=== PATIENT | female | born 1935 | race Caucasian/White ===

== ENCOUNTER 2016-08-02 12:00 | Day surgery (SDC) | payer OTHER ==
[~2016-08-02] VITALS: Ht 157.5 cm; Wt 70.0 kg
--- NOTE | 2016-08-02 09:51 | History and Physical ---
History & Physical Chief Complaint: ESRD on HD thru permcath History of Present Illness The patient is a 80 year old female with multiple medical problems, including ESRD on HD and a fib who has been undergoing HD thru permcath which was not functioning this AM at HD unit. She previously had LUE AVF which thrombosed multiple times and has failed. She is to continue HD thru permcath. Pt denies NIELSEN, fever, chills, chest pain, N/V, abd pain, rest pain, claudication, other complaints. Allergies Hydrochlorothiazide (Verified Allergy, Intermediate, RASH, 01/17/15) NSAIDs (Verified Allergy, Intermediate, UNK, 01/17/15) Hydrocodone (Verified Allergy, Mild, RASH, 01/17/15) ERICK Inhibitors (Verified Allergy, Unknown, UNK, 01/17/15) Amlodipine (Verified Allergy, Unknown, UNK, 01/17/15) Benazepril (Verified Allergy, Unknown, UNK, 01/17/15) Cephalexin (Verified Allergy, Unknown, UNK, 01/17/15) Spironolactone (Verified Allergy, Unknown, UNK, 01/17/15) Surgical / Medical History Hx Cardiac Surgery: No Hx Abdominal Surgery: Yes (cholicystectomy ) Hx Cancer Surgery: Yes Hx Thoracic Surgery: No Hx Orthopedic: Yes (hip replacement and lumbar surgery ) Hx Urinary Tract Surgery: No HX Other Surgery:LUE AVF creation Family History Alzheimer's disease SISTER Cancer BROTHER Diabetes mellitus FATHER BROTHER SISTER SISTER SISTER Heart disease MOTHER Hypertension FATHER MOTHER Social History Smoking Status: Never Smoker Hx Tobacco Use In Past Year?: No Hx Alcohol Use - Type & Amnt: No Hx Substance Use -Type & Amnt: No Review of Systems No pertinent positives. 11 systems reviewed and negative Physical Exam: Constitutional: General Apperance: well-nourished, well-developed, obese Level of Distress: NAD, chronically ill Psychiatric: Mental Status: normal affect, Orientation: to person, time, place Head: normocephalic, atraumatic Eyes: EOM: EOMI ENMT: normal ENT inspection, hearing grossly normal Neck: supple, trachea midline Lungs: Respiratory effort: no dyspnea Auscultation: deminished air movement, decreased breath sounds, wet rales/ crackles Cardiovascular: Apical Impulse: not displaced Heart Auscultation: no rubs, no gallops, pertinent finding (irregular, pacer ) Peripheral Pulses: Pulses: full and equal, in all extremities except if noted Bruits: none appreciated Carotid Pulse: normal on the left, normal on the right Brachial Pulses: normal on the left, normal on the right Radial Pulse: normal on the left, normal on the right Femoral Pulse: normal on the left, normal on the right Abdomen: Bowel Sounds: normal Inspection & Palpation: soft, non-distended Musculoskeletal: abnormal strength Extremities: Upper Right: no cyanosis, no varicosities, no palpable cord, edema Upper Left: no cyanosis, no varicosities, no palpable cord, edema, no thrill and bruit present Lower Right: no cyanosis, no varicosities, no palpable cord, edema Lower Left: no cyanosis, no varicosities, no palpable cord, edema Neurologic: Cranial Nerves: grossly intact Sensation: grossly intact ASSESSMENT and PLAN: ESRD on HD, malfunctioning permcath Plan: Patient admitted for permcath insertion by Dr Guillory. I have discussed the risks options and benefits of the procedure with the patient. The patient understands the risks options and benefits and agrees to the procedure. Patient was seen, examined, and chart reviewed. Agree with exam and treatment plan of the Vascular PA. Patient for exchange of her permcath. I have discussed the risks options and benefits of the procedure with the patient. The patient understands the risks options and benefits and agrees to the procedure.
[~2016-08-02 12:00] MED LIST: ALLO100T PO; ASPI-232 PO; B CO PO; CLINDAMYCIN 600 MG/54 ML D5W 54 ML IV SCH; D5W AND 1/4NSS 1,000 ML IV SCH; DOCU-94 PO; GABA-112 PO; INSDGI SC; METO100T14 PO; OMEP20TA PO; OXGN; OXYC-57 PO; SERT25TA PO; SEVE800T7 PO; TRAM-10 PO
--- NOTE | 2016-08-02 12:05 | Procedure Note ---
Pre-Mod Sedation Assessment General Date of Moderate Sedation: Aug 02, 2016. Pre-Sedation Airway Assessment Smoking Status: Never Smoker Mallampati Classification: Class I ASA Classification: Class II Notes The planned sedation has been discussed with the patient and consent obtained. I have identified the patient, determined the appropriateness of sedation and have assessed the patient immediately prior to the procedure. All medicine(s) and interventions are by my order.
[2016-08-02] MEDS ORDERED: [UNRECOGNIZED DRUG - CODE] PO (12:22)
[2016-08-02 12:25] VITALS: BP 128/53; PULSE 73; TEMP 36.9; O2SAT 98; Ht 157.5 cm; Wt 70.0 kg
[2016-08-02] MEDS ORDERED: HEPARIN SOD (PORCINE) 5000 UNIT/ML 1 ML VIAL ONE (12:26)
[2016-08-02] MEDS ORDERED: MIDAZOLAM HCL 1 MG/ML 2ML VIAL ONE (12:27)
[2016-08-02] MEDS ORDERED: FENTANYL CITRATE INJ 50 MCG/1 ML 2 ML VIAL ONE (12:27)
[2016-08-02] MEDS ORDERED: LIDOCAINE HCL 1% 20 ML VIAL INJ ONE (13:06)
[2016-08-02] MEDS ORDERED: HEPARIN SOD (PORCINE) 5000 UNIT/ML 1 ML VIAL IV ONE (13:15)
--- NOTE | 2016-08-02 13:17 | [facility] Post Operative Brief Note ---
Immediate Operative Summary Operative Date Aug 02, 2016. Pre-Operative Diagnosis Malfunctioning Perm Catheter Post-Operative Diagnosis Same Procedure(s) Performed Exchange Of Perm Catheter, [place] For Positioning Surgeon Dr. Guillory Traffic Safety Administrator Surgeon(s) None Estimated Blood Loss 3 ml Findings tip in distal svc Specimens Explant Perm Catheter Anesthesia Local Complication(s) None Disposition
--- NOTE | 2016-08-02 13:19 | Discharge Instructions ---
Discharge Instructions Visit Reason for Visit: Malfunctioning Perm Cath Discharge Discharge Diagnosis / Problem: Non functioning permcath Discharge Goals Goal(s): Therapeutic intervention Activity Recommendations Activity Limitations: per Instructions/Follow-up section Anesthesia . Post Anesthesia Instructions: If you have had General Anesthesia or IV Sedation: * Do not drive today. * Resume driving when surgeon permits. * Do not make important decisions or sign legal documents today. * Call surgeon for: 1. Temperature elevations greater than 101 degrees F. 2. Uncontrollable pain. 3. Excessive bleeding. 4. Persistent nausea and vomiting. 5. Medication intolerance (nausea, vomiting or rash). * For nausea and vomiting use only clear liquids such as: tea, soda, bouillon until nausea subsides, then gradually increase diet as tolerated. * If you have any concerns or questions, call your surgeon's office. If physician is unavailable and it is an emergency, call 111 or go to the nearest emergency room. . Instructions / Follow-Up Instructions / Follow-Up Take this with you to dialysis and give it to the nurses. May use permcath for dialysis. Call [phone] with any questions or concerns. SPECIAL CARE INSTRUCTIONS: Medications: * Continue to take your medications as directed. If you have been given a prescription for Plavix, please fill it immediately and take as directed. Incision Care: * Your puncture site may have some bruising and minor swelling for about one week. * You will have a small dressing covering your puncture site. You may remove the dressing after 24 hours and shower. You may let the warm soapy water run over it, but be sure to dry the puncture site well and keep it dry. * DO NOT IMMERSE THE INCISION IN A TUB/POOL/etc. UNTIL HEALED. * Puncture sites should be kept covered with a band-aid until it begins to heal. Restrictions: * Depending on whether you leg or arm was punctured to access the arteries, you will be required to lay flat, hold your arm still, or both, for about 4 hours after the procedure to prevent bleeding. * Limit your activity for the first 48 hours. You may walk and go up and down steps. Avoid excessive bending or movement at the puncture site. Possible Complications: * Excessive Swelling - after blood flow is improved you may notice increased swelling in the lower legs. This is a normal response. This usually depends on the amount of blockages in the leg, how long they have been there prior to your procedure and how much blood flow was restored. Elevating your legs will help to improve this. Please notify our office ([phone] ) if the swelling does not go away after lying in bed overnight. * Infection/Drainage/Bleeding - Drainage or bleeding from the puncture site should be minimal. If you have excessive bleeding or drainage, call our office ([phone]) right away. * Pain - You may experience some mild pain or soreness at your puncture site. If your pain does not improve, please contact our office ([phone]). Call your doctor and seek emergent treatment if you develop: * Temperature above 101 degrees * Any fever or chills * Any redness or purulent drainage from the puncture site * Any new dusky/blue colored toes or feet with coolness or sharp or aching pain. SKIN IRRITATION: * You may experience some redness and/or swelling in the area where radiation was administered. If any skin irritation occurs, please contact your family physician. FOLLOW UP VISIT: Keep any scheduled doctor appointments. Diet Recommendations Recommended Home Diet: resume previous diet Procedures Procedures Performed: Exchange Of Perm Catheter, Flouro For Positioning Pending Studies Studies pending at discharge: no Medical Emergencies . Who to Call and When: Medical Emergencies: If at any time you feel your situation is an emergency, please call 911 immediately. . Non-Emergent Contact Non-Emergency issues call your: Surgeon . . "Provider Documentation" section prepared by Jossue Guillory.
[2016-08-02 13:30] VITALS: BP 107/48; PULSE 78; TEMP 36.6; O2SAT 96
--- NOTE | 2016-08-02 13:30 | DIAGNOSTIC IMAGING REPORT ---
DATE OF PROCEDURE: 08/02/2016 PREOPERATIVE DIAGNOSIS: Nonfunctioning PermCath. POSTOPERATIVE DIAGNOSIS: Same. PROCEDURES: 1. Exchange of PermCath left internal jugular. 2. Fluoroscopic imaging for positioning. SURGEON: Dr. Guillory. ANESTHETIC: Local. PROCEDURE INDICATIONS: The patient is a 80-year-old female with PermCath in place which is not functioning. Exchange was recommended. She understood the risks, options, and benefits and agreed to have this procedure. DESCRIPTION OF PROCEDURE: The patient was taken to the angio suite and placed in supine position. After the catheter and chest wall were prepped and draped in a sterile manner, local anesthetic was administered. Wire was then inserted through the blue port of the PermCath. It passed into the inferior vena cava. The PermCath was then freed up from the surrounding tissue. The cuff was identified. There was fibrin sheath around that was incised. The PermCath then slid out easily. It was replaced with another 23 cm straight PermCath. This went into the left internal jugular vein down into the superior vena cava. The wire was then removed. Both ports aspirated and flushed very easily. It was instilled with heparin. The catheter was sutured in place within the chest wall. Heparin was then instilled in both ports. Sterile dressings were applied to the wound and the patient left the angio suite in good condition and tolerated the procedure well.
[2016-08-02 14:00] VITALS: BP 101/43; PULSE 70; TEMP 36.4; O2SAT 97
[2017-03-10] MEDS ORDERED: METO1TAB69 PO (10:22)
[2017-03-10] MEDS ORDERED: SERT50TA PO (10:22)
[2017-03-10] MEDS ORDERED: AMINLIQ31 PO (10:22)
[2017-03-10] MEDS ORDERED: LNX125 PO (10:22)
[2017-04-01] MEDS ORDERED: METO1TAB68 PO (17:56)
== END 2016-08-02 14:25 | disposition home or self-care (01) ==
LOC: C.ACU 12:00
PROVIDERS: ATTEND Surgery Vascular Surgery
DX: T82.898A Other specified complication of vascular prosthetic devices, implants and grafts, initial encounter (principal); Y84.8 Other medical procedures as the cause of abnormal reaction of the patient, or of later complication, without mention of misadventure at the time of the procedure; N18.6 End stage renal disease; Z99.2 Dependence on renal dialysis; I48.91 Unspecified atrial fibrillation; Z90.49 Acquired absence of other specified parts of digestive tract; Z96.649 Presence of unspecified artificial hip joint; Z98.890 Other specified postprocedural states; Z82.0 Family history of epilepsy and other diseases of the nervous system; Z80.9 Family history of malignant neoplasm, unspecified; Z83.3 Family history of diabetes mellitus; Z82.49 Family history of ischemic heart disease and other diseases of the circulatory system

== ENCOUNTER 2016-08-13 08:20 | Day surgery (SDC) | payer OTHER ==
[~2016-08-13] VITALS: Ht 157.5 cm; Wt 70.0 kg
--- NOTE | 2016-08-13 07:44 | Procedure Note ---
Pre-Mod Sedation Assessment General Date of Moderate Sedation: Aug 13, 2016. Pre-Sedation Airway Assessment Smoking Status: Never Smoker Mallampati Classification: Class I ASA Classification: Class II Notes The planned sedation has been discussed with the patient and consent obtained. I have identified the patient, determined the appropriateness of sedation and have assessed the patient immediately prior to the procedure. All medicine(s) and interventions are by my order.
[~2016-08-13 08:20] MED LIST changes: -ASPI-232 PO; -CLINDAMYCIN 600 MG/54 ML D5W 54 ML IV SCH; -D5W AND 1/4NSS 1,000 ML IV SCH; -OXYC-57 PO; -TRAM-10 PO; +[UNRECOGNIZED DRUG - CODE] PO
[2016-08-13] MEDS ORDERED: D5W AND 1/4NSS 1,000 ML IV SCH (08:46)
[2016-08-13 08:50] VITALS: BP 142/57; PULSE 87; TEMP 36.5; O2SAT 95; Ht 157.5 cm; Wt 70.0 kg
[2016-08-13] MEDS ORDERED: CLINDAMYCIN IV 600 MG in DEXTROSE 5% ADD-VANTAGE 50ML 50 ML IV ONE (09:15)
[2016-08-13] MEDS ORDERED: HEPARIN SOD (PORCINE) 5000 UNIT/ML 1 ML VIAL ONE (09:30)
[2016-08-13] MEDS ORDERED: FENTANYL CITRATE INJ 50 MCG/1 ML 2 ML VIAL ONE (09:30)
[2016-08-13] MEDS ORDERED: MIDAZOLAM HCL 1 MG/ML 2ML VIAL ONE (09:30)
--- NOTE | 2016-08-13 09:41 | History & Physical Bridge Note ---
H&P Re-Evaluation Bridge Note: I have examined the patient, reviewed the History & Physical and in the interval since the performance of the History & Physical I have noted the following changes of clinical significance: No changes noted
[2016-08-13] MEDS ORDERED: HEPARIN SOD (PORCINE) 5000 UNIT/ML 1 ML VIAL IV ONE (10:49)
[2016-08-13] MEDS ORDERED: LIDOCAINE HCL 1% 20 ML VIAL SQ ONE (10:49)
--- NOTE | 2016-08-13 10:52 | [facility] Post Operative Brief Note ---
Immediate Operative Summary Operative Date Aug 13, 2016. Pre-Operative Diagnosis Malfunctioning Perm Catheter Post-Operative Diagnosis Same Procedure(s) Performed Perm Catheter Exchange Fluoro for postioning Surgeon Dr. Guillory Die Sinker Surgeon(s) None Estimated Blood Loss 10 Findings tip in distal SVC. aspirates and flushes easily Specimens Explant Perm Catheter Anesthesia Local Complication(s) None Disposition
--- NOTE | 2016-08-13 10:56 | Discharge Instructions ---
Discharge Instructions Visit Reason for Visit: End Stage Renal Disease Discharge Discharge Diagnosis / Problem: Malfunctioning permcath Discharge Goals Goal(s): Therapeutic intervention Activity Recommendations Activity Limitations: per Instructions/Follow-up section Anesthesia . Post Anesthesia Instructions: If you have had General Anesthesia or IV Sedation: * Do not drive today. * Resume driving when surgeon permits. * Do not make important decisions or sign legal documents today. * Call surgeon for: 1. Temperature elevations greater than 101 degrees F. 2. Uncontrollable pain. 3. Excessive bleeding. 4. Persistent nausea and vomiting. 5. Medication intolerance (nausea, vomiting or rash). * For nausea and vomiting use only clear liquids such as: tea, soda, bouillon until nausea subsides, then gradually increase diet as tolerated. * If you have any concerns or questions, call your surgeon's office. If physician is unavailable and it is an emergency, call 911 or go to the nearest emergency room. . Instructions / Follow-Up Instructions / Follow-Up Bring this form to dialysis with you and give to the unit May use permcath for dialysis SPECIAL CARE INSTRUCTIONS: Medications: * Continue to take your medications as directed. If you have been given a prescription for Plavix, please fill it immediately and take as directed. Incision Care: * Your puncture site may have some bruising and minor swelling for about one week. * You will have a small dressing covering your puncture site. You may remove the dressing after 24 hours and shower. You may let the warm soapy water run over it, but be sure to dry the puncture site well and keep it dry. * DO NOT IMMERSE THE INCISION IN A TUB/POOL/etc. UNTIL HEALED. * Puncture sites should be kept covered with a band-aid until it begins to heal. Restrictions: * Depending on whether you leg or arm was punctured to access the arteries, you will be required to lay flat, hold your arm still, or both, for about 4 hours after the procedure to prevent bleeding. * Limit your activity for the first 48 hours. You may walk and go up and down steps. Avoid excessive bending or movement at the puncture site. Possible Complications: * Excessive Swelling - after blood flow is improved you may notice increased swelling in the lower legs. This is a normal response. This usually depends on the amount of blockages in the leg, how long they have been there prior to your procedure and how much blood flow was restored. Elevating your legs will help to improve this. Please notify our office ([phone] ) if the swelling does not go away after lying in bed overnight. * Infection/Drainage/Bleeding - Drainage or bleeding from the puncture site should be minimal. If you have excessive bleeding or drainage, call our office ([phone]) right away. * Pain - You may experience some mild pain or soreness at your puncture site. If your pain does not improve, please contact our office ([phone]). Call your doctor and seek emergent treatment if you develop: * Temperature above 101 degrees * Any fever or chills * Any redness or purulent drainage from the puncture site * Any new dusky/blue colored toes or feet with coolness or sharp or aching pain. SKIN IRRITATION: * You may experience some redness and/or swelling in the area where radiation was administered. If any skin irritation occurs, please contact your family physician. FOLLOW UP VISIT: Keep any scheduled doctor appointments. Diet Recommendations Recommended Home Diet: resume previous diet Procedures Procedures Performed: Perm Catheter Exchange Fluoro for postioning Pending Studies Studies pending at discharge: no Medical Emergencies . Who to Call and When: Medical Emergencies: If at any time you feel your situation is an emergency, please call 911 immediately. . Non-Emergent Contact Non-Emergency issues call your: Surgeon . . "Provider Documentation" section prepared by Jossue Guillory.
[2016-08-13 11:00] VITALS: BP 127/63; PULSE 82; TEMP 36.7; O2SAT 98
--- NOTE | 2016-08-13 11:20 | DIAGNOSTIC IMAGING REPORT ---
DATE OF PROCEDURE: 08/13/2016 PREOPERATIVE DIAGNOSIS: Malfunctioning PermCath left internal jugular vein. POSTOPERATIVE DIAGNOSIS: Same. PROCEDURE: Exchange of PermCath over wire, fluoroscopic imaging for positioning. SURGEON: Dr. Guillory. ANESTHETIC: Local. PROCEDURE INDICATIONS: The patient is a 80-year-old female with a left internal jugular vein PermCath. They could not aspirate out of either port. Exchange was recommended. She understood the risks, options and benefits, and agreed to have this procedure. The patient was taken to the angio suite and placed in supine position. After right-sided chest wall and catheter were prepped and draped in a sterile manner, local anesthetic was administered. Sutures removed, wire was passed centrally through the blue port of the catheter and the catheter was removed without difficulty. Blunt dissection was used to free up the cuff. Once the catheter was removed, a new 23 cm straight PermCath was inserted over the wire and placed in the central position in the distal superior vena cava. Both ports aspirated and flushed very easily. They were instilled with heparin. Catheter was sutured to chest wall with 3-0 nylon sutures. Sterile dressings were then applied and the patient left the angio suite in good condition and tolerated the procedure well.
[2016-08-13 11:30] VITALS: BP 122/51; PULSE 87; O2SAT 98
[2016-08-14] MEDS ORDERED: CLINDAMYCIN 600 MG/54 ML D5W IV ONE (09:20)
[2017-03-10] MEDS ORDERED: LNX125 PO (10:22)
[2017-03-10] MEDS ORDERED: SERT50TA PO (10:22)
[2017-03-10] MEDS ORDERED: METO1TAB69 PO (10:22)
[2017-03-10] MEDS ORDERED: AMINLIQ31 PO (10:22)
[2017-04-01] MEDS ORDERED: METO1TAB68 PO (17:56)
== END 2016-08-13 12:10 | disposition home or self-care (01) ==
LOC: C.ACU 08:20
PROVIDERS: ATTEND Surgery Vascular Surgery
DX: T82.898A Other specified complication of vascular prosthetic devices, implants and grafts, initial encounter (principal); Y84.8 Other medical procedures as the cause of abnormal reaction of the patient, or of later complication, without mention of misadventure at the time of the procedure; N18.6 End stage renal disease; Z99.2 Dependence on renal dialysis; Z96.649 Presence of unspecified artificial hip joint; Z98.890 Other specified postprocedural states; Z81.8 Family history of other mental and behavioral disorders; Z80.9 Family history of malignant neoplasm, unspecified; Z83.3 Family history of diabetes mellitus; Z82.49 Family history of ischemic heart disease and other diseases of the circulatory system

== ENCOUNTER 2016-11-30 07:37 | Day surgery (SDC) | payer OTHER ==
[~2016-11-30] VITALS: Ht 157.5 cm; Wt 73.0 kg
[~2016-11-30 07:37] MED LIST changes: +CIMETIDINE 300 MG TAB PO ONE; +CLINDAMYCIN 600 MG/54 ML D5W IV SCH; +D5W AND 1/4NSS 1000 ML IV SCH
--- NOTE | 2016-11-30 07:45 | History and Physical ---
History & Physical Date of Service November 30, 2016. History & Physical Chief Complaint: ESRD on HD thru permcath History of Present Illness The patient is a 80 year old female with multiple medical problems, including ESRD on HD and a fib who has been undergoing HD thru permcath which was not functioning this week at the HD unit. She previously had LUE AVF which thrombosed multiple times and has failed. She is to continue HD thru permcath. Pt denies NIELSEN, fever, chills, chest pain, N/V, abd pain, rest pain, claudication, other complaints. Allergies Hydrochlorothiazide (Verified Allergy, Intermediate, RASH, 01/17/15) NSAIDs (Verified Allergy, Intermediate, UNK, 01/17/15) Hydrocodone (Verified Allergy, Mild, RASH, 01/17/15) ERICK Inhibitors (Verified Allergy, Unknown, UNK, 01/17/15) Amlodipine (Verified Allergy, Unknown, UNK, 01/17/15) Benazepril (Verified Allergy, Unknown, UNK, 01/17/15) Cephalexin (Verified Allergy, Unknown, UNK, 01/17/15) Spironolactone (Verified Allergy, Unknown, UNK, 01/17/15) Surgical / Medical History Hx Cardiac Surgery: No Hx Abdominal Surgery: Yes (cholicystectomy ) Hx Cancer Surgery: Yes Hx Thoracic Surgery: No Hx Orthopedic: Yes (hip replacement and lumbar surgery ) Hx Urinary Tract Surgery: No HX Other Surgery:LUE AVF creation Family History Alzheimer's disease SISTER Cancer BROTHER Diabetes mellitus FATHER BROTHER SISTER SISTER SISTER Heart disease MOTHER Hypertension FATHER MOTHER Social History Smoking Status: Never Smoker Hx Tobacco Use In Past Year?: No Hx Alcohol Use - Type & Amnt: No Hx Substance Use -Type & Amnt: No Review of Systems No pertinent positives. 11 systems reviewed and negative Physical Exam: Constitutional: General Apperance: well-nourished, well-developed, obese Level of Distress: NAD, chronically ill Psychiatric: Mental Status: normal affect, Orientation: to person, time, place Head: normocephalic, atraumatic Eyes: EOM: EOMI ENMT: normal ENT inspection, hearing grossly normal Neck: supple, trachea midline Lungs: Respiratory effort: no dyspnea Auscultation: clear Cardiovascular: Apical Impulse: not displaced Heart Auscultation: no rubs, no gallops, pertinent finding (irregular, pacer ) Peripheral Pulses: Pulses: full and equal, in all extremities except if noted Bruits: none appreciated Carotid Pulse: normal on the left, normal on the right Brachial Pulses: normal on the left, normal on the right Radial Pulse: normal on the left, normal on the right Femoral Pulse: normal on the left, normal on the right Abdomen: Bowel Sounds: normal Inspection & Palpation: soft, non-distended Musculoskeletal: abnormal strength Extremities: Upper Right: no cyanosis, no varicosities, no palpable cord, Upper Left: no cyanosis, no varicosities, no palpable cord, Lower Right: no cyanosis, no varicosities, no palpable cord, Lower Left: no cyanosis, no varicosities, no palpable cord, Neurologic: Cranial Nerves: grossly intact Sensation: grossly intact ASSESSMENT and PLAN: ESRD on HD, malfunctioning permcath Plan: Patient admitted for permcath exchange possible insertion. I have discussed the risks options and benefits of the procedure with the patient. The patient understands the risks options and benefits and agrees to the procedure.
--- NOTE | 2016-11-30 07:45 | Procedure Note ---
Pre-Mod Sedation Assessment General Date of Moderate Sedation: November 30, 2016. Pre-Sedation Airway Assessment Smoking Status: Never Smoker Mallampati Classification: Class I ASA Classification: Class II Notes The planned sedation has been discussed with the patient and consent obtained. I have identified the patient, determined the appropriateness of sedation and have assessed the patient immediately prior to the procedure. All medicine(s) and interventions are by my order.
[2016-11-30 08:05] VITALS: BP 125/59; PULSE 70; TEMP 36.9; O2SAT 95; Ht 157.5 cm; Wt 73.0 kg
[2016-11-30] MEDS ORDERED: DILT120C68 PO (08:28)
[2016-11-30] MEDS ORDERED: OXYC-57 PO (08:28)
[2016-11-30 08:36] LABS: PARTIAL THROMBOPLASTIN RATIO 1.1; PROTHROMBIN TIME (PATIENT) 10.5 SECONDS (9.0-12.0)
[2016-11-30] MEDS ORDERED: HEPARIN SOD (PORCINE) 5000 UNIT/ML 1 ML VIAL ONE (08:46)
[2016-11-30] MEDS ORDERED: FENTANYL CITRATE INJ 50 MCG/1 ML 2 ML VIAL ONE (08:47)
[2016-11-30] MEDS ORDERED: MIDAZOLAM HCL 1 MG/ML 2ML VIAL ONE (08:47)
[2016-11-30] MEDS ORDERED: FENTANYL CITRATE INJ 50 MCG/1 ML 2 ML VIAL IV ONE (09:33)
[2016-11-30] MEDS ORDERED: MIDAZOLAM HCL 1 MG/ML 2ML VIAL IV ONE (09:33)
[2016-11-30] MEDS ORDERED: HEPARIN SOD (PORCINE) 5000 UNIT/ML 1 ML VIAL IV ONE (09:43)
[2016-11-30] MEDS ORDERED: LIDOCAINE HCL 1% 20 ML VIAL INFIL ONE (09:43)
--- NOTE | 2016-11-30 09:49 | [facility] Post Operative Brief Note ---
Immediate Operative Summary Operative Date November 30, 2016. Pre-Operative Diagnosis Malfunctioning Perm Cath Post-Operative Diagnosis Same Procedure(s) Performed Perm Cath Exchange Fluoroscopy for Comfirmation Moderate Sedation [id number] Surgeon Kahlil Environmental Program Manager Surgeon(s) None Estimated Blood Loss 3 Findings tip in distal IVC Specimens a:perm cath Anesthesia Local with conscious sedation Complication(s) None Disposition
--- NOTE | 2016-11-30 09:50 | Procedure Note ---
Post-Moderate Sedation Plan General Date of Moderate Sedation November 30, 2016. Vital Signs: Vital Signs Past 12 Hours Date Time Temp Pulse Resp B/P Pulse Ox O2 Delivery O2 Flow Rate FiO2 11/30/16 08:05 36.9 70 20 125/59 95 Room Air Review - Discharge Plan Post Moderate Sedation Plan: On clinical assessment, the patient appears to have tolerated the conscious sedation without complications. Patient is recovering as anticipated. Patient will continue to be monitored by nursing and may be discharged when conscious sedation discharge criteria are met.
--- NOTE | 2016-11-30 09:51 | Discharge Instructions ---
Discharge Instructions Date of Service November 30, 2016. Visit Reason for Visit: End Stage Renal Disease, Malfunctioning Perm Cath Discharge Discharge Diagnosis / Problem: Malfunctioning permcath Discharge Goals Goal(s): Therapeutic intervention Activity Recommendations Activity Limitations: resume your previous activity Anesthesia . Post Anesthesia Instructions: If you have had General Anesthesia or IV Sedation: * Do not drive today. * Resume driving when surgeon permits. * Do not make important decisions or sign legal documents today. * Call surgeon for: 1. Temperature elevations greater than 101 degrees F. 2. Uncontrollable pain. 3. Excessive bleeding. 4. Persistent nausea and vomiting. 5. Medication intolerance (nausea, vomiting or rash). * For nausea and vomiting use only clear liquids such as: tea, soda, bouillon until nausea subsides, then gradually increase diet as tolerated. * If you have any concerns or questions, call your surgeon's office. If physician is unavailable and it is an emergency, call 911 or go to the nearest emergency room. . Instructions / Follow-Up Instructions / Follow-Up Call [phone] with any questions or concerns. SPECIAL CARE INSTRUCTIONS: Medications: * Continue to take your medications as directed. If you have been given a prescription for Plavix, please fill it immediately and take as directed. Incision Care: * Your puncture site may have some bruising and minor swelling for about one week. * You will have a small dressing covering your puncture site. You may remove the dressing after 24 hours and shower. You may let the warm soapy water run over it, but be sure to dry the puncture site well and keep it dry. * DO NOT IMMERSE THE INCISION IN A TUB/POOL/etc. UNTIL HEALED. * Puncture sites should be kept covered with a band-aid until it begins to heal. Restrictions: * Depending on whether you leg or arm was punctured to access the arteries, you will be required to lay flat, hold your arm still, or both, for about 4 hours after the procedure to prevent bleeding. * Limit your activity for the first 48 hours. You may walk and go up and down steps. Avoid excessive bending or movement at the puncture site. Possible Complications: * Excessive Swelling - after blood flow is improved you may notice increased swelling in the lower legs. This is a normal response. This usually depends on the amount of blockages in the leg, how long they have been there prior to your procedure and how much blood flow was restored. Elevating your legs will help to improve this. Please notify our office ([phone] ) if the swelling does not go away after lying in bed overnight. * Infection/Drainage/Bleeding - Drainage or bleeding from the puncture site should be minimal. If you have excessive bleeding or drainage, call our office ([phone]) right away. * Pain - You may experience some mild pain or soreness at your puncture site. If your pain does not improve, please contact our office ([phone]). Call your doctor and seek emergent treatment if you develop: * Temperature above 101 degrees * Any fever or chills * Any redness or purulent drainage from the puncture site * Any new dusky/blue colored toes or feet with coolness or sharp or aching pain. SKIN IRRITATION: * You may experience some redness and/or swelling in the area where radiation was administered. If any skin irritation occurs, please contact your family physician. FOLLOW UP VISIT: Keep any scheduled doctor appointments. Diet Recommendations Recommended Home Diet: resume previous diet Procedures Procedures Performed: Perm Cath Exchange Fluoroscopy for Comfirmation Moderate Sedation [id number] Pending Studies Studies pending at discharge: no Medical Emergencies . Who to Call and When: Medical Emergencies: If at any time you feel your situation is an emergency, please call 911 immediately. . Non-Emergent Contact Non-Emergency issues call your: Surgeon . . "Provider Documentation" section prepared by Jossue Guillory. .
--- NOTE | 2016-11-30 09:59 | Procedure Note ---
Post-Moderate Sedation Plan General Date of Moderate Sedation November 30, 2016. Vital Signs: Vital Signs Past 12 Hours Date Time Temp Pulse Resp B/P Pulse Ox O2 Delivery O2 Flow Rate FiO2 11/30/16 09:47 84 18 109/50 100 Room Air 11/30/16 08:05 36.9 70 20 125/59 95 Room Air Review - Discharge Plan Post Moderate Sedation Plan: On clinical assessment, the patient appears to have tolerated the conscious sedation without complications. Patient is recovering as anticipated. Patient will continue to be monitored by nursing and may be discharged when conscious sedation discharge criteria are met.
[2016-11-30 10:00] VITALS: BP 101/52; PULSE 69; TEMP 36.7; O2SAT 94
[2016-11-30 10:15] VITALS: BP 99/49; PULSE 66; O2SAT 95
[2016-11-30 10:30] VITALS: BP 105/63; PULSE 65; TEMP 36.3; O2SAT 95
--- NOTE | 2016-11-30 10:39 | DIAGNOSTIC IMAGING REPORT ---
DATE OF PROCEDURE: 11/30/2016 PREOPERATIVE DIAGNOSIS: Malfunctioning left internal jugular vein PermCath. POSTOPERATIVE DIAGNOSIS: Same. PROCEDURE: Exchange of PermCath to 23 cm length. Fluoroscopic imaging for positioning conscious sedation 12 minutes. SURGEON: Dr. Guillory. ANESTHETIC: Local with conscious sedation. PROCEDURE INDICATIONS: The patient is an 81-year-old female who has a left internal jugular vein PermCath in place which is nonfunctional. Exchange was recommended. She understood the risks, options and benefits and agreed to have this procedure. The patient was taken to the angio suite and placed in supine position. After the area was prepped and draped in a sterile manner, local anesthetic was administered. Fluoroscopic imaging showed that the PermCath in place, and looked like it was twirled around the lead wires of her pacer. We passed a wire through her existing PermCath and pulled it back into the subclavian innominate junction. The wire was then reinserted. It had a nice curve and it looked like it was not involving the leads. It went into the inferior vena cava from above. The new PermCath was then inserted. It went in easily. The tip sat in the distal superior vena cava. Both ports aspirated and flushed easily. They were instilled with heparin and the catheter was sutured in place. Sterile dressings were applied. The patient tolerated the procedure well.
[2017-03-10] MEDS ORDERED: AMINLIQ31 PO (10:22)
[2017-03-10] MEDS ORDERED: LNX125 PO (10:22)
[2017-03-10] MEDS ORDERED: METO100T44 PO (10:22)
[2017-03-10] MEDS ORDERED: SERT50TA PO (10:22)
[2017-03-28] MEDS ORDERED: METO-479 PO (11:07)
[2017-04-01] MEDS ORDERED: METO-479 PO (17:56)
[2017-06-20] MEDS ORDERED: INSDGI SC (11:20)
[2017-06-20] MEDS ORDERED: ERGO500037 PO (11:21)
[2017-06-20] MEDS ORDERED: B CO PO (11:22)
[2017-06-20] MEDS ORDERED: METO-649 PO (11:26)
[2017-06-20] MEDS ORDERED: METO-217 PO (11:26)
[2017-06-22] MEDS ORDERED: TRAM-10 PO (10:12)
== END 2016-11-30 10:40 | disposition home or self-care (01) ==
LOC: C.ACU 07:37
PROVIDERS: ATTEND Surgery Vascular Surgery
DX: T82.898A Other specified complication of vascular prosthetic devices, implants and grafts, initial encounter (principal); Y83.1 Surgical operation with implant of artificial internal device as the cause of abnormal reaction of the patient, or of later complication, without mention of misadventure at the time of the procedure; N18.6 End stage renal disease; I48.91 Unspecified atrial fibrillation; E66.9 Obesity, unspecified; Z83.3 Family history of diabetes mellitus; Z82.49 Family history of ischemic heart disease and other diseases of the circulatory system

== ENCOUNTER 2017-01-07 07:08 | Day surgery (SDC) | payer OTHER ==
[~2017-01-07] VITALS: Ht 157.5 cm; Wt 72.0 kg
--- NOTE | 2017-01-07 06:00 | History and Physical ---
History & Physical Date of Service Jan 07, 2017. History & Physical History & Physical Chief Complaint: ESRD on HD thru permcath, malfunctioning permcath History of Present Illness The patient is a 80 year old female with multiple medical problems, including ESRD on HD and a fib who has been undergoing HD thru permcath which was not functioning this week at the HD unit. She previously had LUE AVF which thrombosed multiple times and has failed. She is to continue HD thru permcath. Pt denies NIELSEN, fever, chills, chest pain, N/V, abd pain, rest pain, claudication, other complaints. Allergies Hydrochlorothiazide (Verified Allergy, Intermediate, RASH, 01/17/15) NSAIDs (Verified Allergy, Intermediate, UNK, 01/17/15) Hydrocodone (Verified Allergy, Mild, RASH, 01/17/15) ERICK Inhibitors (Verified Allergy, Unknown, UNK, 01/17/15) Amlodipine (Verified Allergy, Unknown, UNK, 01/17/15) Benazepril (Verified Allergy, Unknown, UNK, 01/17/15) Cephalexin (Verified Allergy, Unknown, UNK, 01/17/15) Spironolactone (Verified Allergy, Unknown, UNK, 01/17/15) Surgical / Medical History Hx Cardiac Surgery: No Hx Abdominal Surgery: Yes (cholicystectomy ) Hx Cancer Surgery: Yes Hx Thoracic Surgery: No Hx Orthopedic: Yes (hip replacement and lumbar surgery ) Hx Urinary Tract Surgery: No HX Other Surgery:LUE AVF creation Family History Alzheimer's disease SISTER Cancer BROTHER Diabetes mellitus FATHER BROTHER SISTER SISTER SISTER Heart disease MOTHER Hypertension FATHER MOTHER Social History Smoking Status: Never Smoker Hx Tobacco Use In Past Year?: No Hx Alcohol Use - Type & Amnt: No Hx Substance Use -Type & Amnt: No Review of Systems No pertinent positives. 11 systems reviewed and negative Physical Exam: Constitutional: General Apperance: well-nourished, well-developed, obese Level of Distress: NAD, chronically ill Psychiatric: Mental Status: normal affect, Orientation: to person, time, place Head: normocephalic, atraumatic Eyes: EOM: EOMI ENMT: normal ENT inspection, hearing grossly normal Neck: supple, trachea midline Lungs: Respiratory effort: no dyspnea Auscultation: clear Cardiovascular: Apical Impulse: not displaced Heart Auscultation: no rubs, no gallops, pertinent finding (irregular, pacer ) Peripheral Pulses: Pulses: full and equal, in all extremities except if noted Bruits: none appreciated Carotid Pulse: normal on the left, normal on the right Brachial Pulses: normal on the left, normal on the right Radial Pulse: normal on the left, normal on the right Femoral Pulse: normal on the left, normal on the right Abdomen: Bowel Sounds: normal Inspection & Palpation: soft, non-distended Musculoskeletal: abnormal strength Extremities: Upper Right: no cyanosis, no varicosities, no palpable cord, Upper Left: no cyanosis, no varicosities, no palpable cord, Lower Right: no cyanosis, no varicosities, no palpable cord, Lower Left: no cyanosis, no varicosities, no palpable cord, Neurologic: Cranial Nerves: grossly intact Sensation: grossly intact ASSESSMENT and PLAN: ESRD on HD, malfunctioning permcath Plan: Patient admitted for permcath exchange possible insertion. I have discussed the risks options and benefits of the procedure with the patient. The patient understands the risks options and benefits and agrees to the procedure.
[~2017-01-07 07:08] MED LIST changes: +CEFAZOLIN 1000MG/55 ML D5W IV SCH; -CIMETIDINE 300 MG TAB PO ONE; +DILT120C68 PO; +OXYC-57 PO; -[UNRECOGNIZED DRUG - CODE] PO
[2017-01-07] MEDS ORDERED: NURSING VERBAL MED ORDER ONE ×3 (07:45→09:00)
[2017-01-07] MEDS ORDERED: NovoLIN-R INSULIN PER UNIT CHARGE ONE ×2 (08:05→09:05)
[2017-01-07 08:16] LABS: PARTIAL THROMBOPLASTIN RATIO 1.1; PROTHROMBIN TIME (PATIENT) 10.7 SECONDS (9.0-12.0)
[2017-01-07] MEDS ORDERED: MIDAZOLAM HCL 1 MG/ML 2ML VIAL ONE (08:19)
[2017-01-07] MEDS ORDERED: FENTANYL CITRATE INJ 50 MCG/1 ML 2 ML VIAL ONE (08:20)
[2017-01-07] MEDS ORDERED: ATOR-22 PO (08:24)
[2017-01-07 08:31] VITALS: BP 121/55; PULSE 87; TEMP 37.4; O2SAT 97; Ht 157.5 cm; Wt 72.0 kg
--- NOTE | 2017-01-07 08:58 | Procedure Note ---
Pre-Mod Sedation Assessment General Date of Moderate Sedation: Jan 07, 2017. Vital Signs: Vital Signs Past 12 Hours Date Time Temp Pulse Resp B/P (MAP) Pulse Ox O2 Delivery O2 Flow Rate FiO2 01/07/17 08:31 37.4 87 20 121/55 (77) 97 Room Air Pre-Sedation Airway Assessment Oral Cavity: Dentures Hx of Sleep Apnea: Yes Smoking Status: Never Smoker Mallampati Classification: Class I ASA Classification: Class II Notes The planned sedation has been discussed with the patient and consent obtained. I have identified the patient, determined the appropriateness of sedation and have assessed the patient immediately prior to the procedure. All medicine(s) and interventions are by my order.
[2017-01-07 09:05] VITALS: BP 121/55; PULSE 87; TEMP 37.4; O2SAT 97
[2017-01-07] MEDS ORDERED: HEPARIN SOD (PORCINE) 5000 UNIT/ML 1 ML VIAL ONE (09:18)
[2017-01-07] MEDS ORDERED: LIDOCAINE HCL 1% 20 ML VIAL SQ ONE (09:40)
--- NOTE | 2017-01-07 09:47 | [facility] Post Operative Brief Note ---
Immediate Operative Summary Operative Date Jan 07, 2017. Pre-Operative Diagnosis Malfunctioning Perm Catheter Post-Operative Diagnosis Same Procedure(s) Performed Exchange of Perm Catheter Fluoro for positioning Surgeon Dr. Guillroy Project Manager Process Development Surgeon(s) None Estimated Blood Loss 3cc Findings tip in distal SVC Specimens a: Explant perm catheter Anesthesia Local Complication(s) None Disposition
--- NOTE | 2017-01-07 09:50 | Discharge Instructions ---
Discharge Instructions Date of Service Jan 07, 2017. Visit Reason for Visit: Malfunctioning Catheter Discharge Discharge Diagnosis / Problem: Malfunctioning permcath Discharge Goals Goal(s): Therapeutic intervention Activity Recommendations Activity Limitations: resume your previous activity Anesthesia . Post Anesthesia Instructions: If you have had General Anesthesia or IV Sedation: * Do not drive today. * Resume driving when surgeon permits. * Do not make important decisions or sign legal documents today. * Call surgeon for: 1. Temperature elevations greater than 101 degrees F. 2. Uncontrollable pain. 3. Excessive bleeding. 4. Persistent nausea and vomiting. 5. Medication intolerance (nausea, vomiting or rash). * For nausea and vomiting use only clear liquids such as: tea, soda, bouillon until nausea subsides, then gradually increase diet as tolerated. * If you have any concerns or questions, call your surgeon's office. If physician is unavailable and it is an emergency, call 911 or go to the nearest emergency room. . Instructions / Follow-Up Instructions / Follow-Up Call [phone] to schedule a follow up appointment if one not already scheduled. SPECIAL CARE INSTRUCTIONS: Medications: * Continue to take your medications as directed. If you have been given a prescription for Plavix, please fill it immediately and take as directed. Incision Care: * Your puncture site may have some bruising and minor swelling for about one week. * You will have a small dressing covering your puncture site. You may remove the dressing after 24 hours and shower. You may let the warm soapy water run over it, but be sure to dry the puncture site well and keep it dry. * DO NOT IMMERSE THE INCISION IN A TUB/POOL/etc. UNTIL HEALED. * Puncture sites should be kept covered with a band-aid until it begins to heal. Restrictions: * Depending on whether you leg or arm was punctured to access the arteries, you will be required to lay flat, hold your arm still, or both, for about 4 hours after the procedure to prevent bleeding. * Limit your activity for the first 48 hours. You may walk and go up and down steps. Avoid excessive bending or movement at the puncture site. Possible Complications: * Excessive Swelling - after blood flow is improved you may notice increased swelling in the lower legs. This is a normal response. This usually depends on the amount of blockages in the leg, how long they have been there prior to your procedure and how much blood flow was restored. Elevating your legs will help to improve this. Please notify our office ([phone] ) if the swelling does not go away after lying in bed overnight. * Infection/Drainage/Bleeding - Drainage or bleeding from the puncture site should be minimal. If you have excessive bleeding or drainage, call our office ([phone]) right away. * Pain - You may experience some mild pain or soreness at your puncture site. If your pain does not improve, please contact our office ([phone]). Call your doctor and seek emergent treatment if you develop: * Temperature above 101 degrees * Any fever or chills * Any redness or purulent drainage from the puncture site * Any new dusky/blue colored toes or feet with coolness or sharp or aching pain. SKIN IRRITATION: * You may experience some redness and/or swelling in the area where radiation was administered. If any skin irritation occurs, please contact your family physician. FOLLOW UP VISIT: Keep any scheduled doctor appointments. Diet Recommendations Recommended Home Diet: resume previous diet Procedures Procedures Performed: Exchange of Perm Catheter Fluoro for positioning Pending Studies Studies pending at discharge: no Medical Emergencies . Who to Call and When: Medical Emergencies: If at any time you feel your situation is an emergency, please call 911 immediately. . Non-Emergent Contact Non-Emergency issues call your: Surgeon . . "Provider Documentation" section prepared by Jossue Guillory. .
[2017-01-07 10:05] VITALS: BP 135/63; PULSE 81; TEMP 36.7; O2SAT 96
--- NOTE | 2017-01-07 10:18 | DIAGNOSTIC IMAGING REPORT ---
DATE OF PROCEDURE: 01/07/2017 DATE OF PROCEDURE: 01/07/2017. PREOPERATIVE DIAGNOSIS: Malfunctioning left internal jugular vein PermCath. POSTOPERATIVE DIAGNOSIS: Same. PROCEDURES: 1. Exchange of PermCath over wire. 2. Fluoroscopic imaging for positioning. SURGEON: Dr. Guillory. ANESTHETIC: Local. PROCEDURE INDICATIONS: The patient is an 81-year-old female who had a catheter placed 1-2 weeks ago at another institution. It is not working well. Exchange was recommended. The patient was taken to the angio suite and placed in supine position. After the left side of the neck, chest wall and catheter were prepped and draped in a sterile manner, local anesthetic was administered. The suture was removed. An 0.035 stiffened Glidewire was passed through the catheter to a central position. The catheter tip that was in place appeared to be in the right atrium fairly deep. This was removed over the wire. It was a 27 cm length catheter which was in place. We decided to replace this with a 19 cm PermCath. This was then passed over the wire to a central position. The wire was removed. The tip of the catheter was in the distal superior vena cava. Both ports aspirated and flushed easily. They were instilled with heparin. The catheter was then sutured in place. Dressings were then applied. The tip of the catheter again on the last picture was in the superior vena cava. The patient left the angio suite in good condition and tolerated the procedure well.
[2017-01-07 10:35] VITALS: BP 153/67; PULSE 76; TEMP 36.3; O2SAT 97
[2017-03-10] MEDS ORDERED: SERT50TA PO (10:22)
[2017-03-10] MEDS ORDERED: AMINLIQ31 PO (10:22)
[2017-03-10] MEDS ORDERED: LNX125 PO (10:22)
[2017-03-10] MEDS ORDERED: METO100T44 PO (10:22)
[2017-03-28] MEDS ORDERED: METO-479 PO (11:07)
[2017-04-01] MEDS ORDERED: METO-479 PO (17:56)
[2017-06-20] MEDS ORDERED: INSDGI SC (11:20)
[2017-06-20] MEDS ORDERED: ERGO500037 PO (11:21)
[2017-06-20] MEDS ORDERED: B CO PO (11:22)
[2017-06-20] MEDS ORDERED: METO-217 PO (11:26)
[2017-06-20] MEDS ORDERED: METO-649 PO (11:26)
[2017-06-22] MEDS ORDERED: TRAM-10 PO (10:12)
== END 2017-01-07 11:05 | disposition home or self-care (01) ==
LOC: C.ACU 07:08
PROVIDERS: ATTEND Surgery Vascular Surgery
DX: T82.49XA Other complication of vascular dialysis catheter, initial encounter (principal); N18.6 End stage renal disease; Z99.0 Dependence on aspirator; I48.91 Unspecified atrial fibrillation; Z79.899 Other long term (current) drug therapy; X58.XXXA Exposure to other specified factors, initial encounter

== ENCOUNTER 2017-03-24 10:50 | Day surgery (SDC) | payer OTHER ==
--- NOTE | 2017-03-10 11:01 | PAT Medication Instructions ---
Service Date Mar 10, 2017. Current Home Medication List Allopurinol (Zyloprim), 100 MG PO QAM Amino Acids (Liquacel), 30 ML PO BID B-Complex W/ C & Folic Acid (Nephrocaps), 1 CAP PO QPM Digoxin (Digoxin), 0.5 TAB PO Q2D Docusate Sodium (Colace), 100 MG PO HS Gabapentin (Neurontin), 100 MG PO BID Home O2 Therapy (Oxygen), 2 LITERS NA HS Insulin Glargine (Lantus), 25 UNITS SC HS Metoprolol Succ (Toprol Xl) (Toprol-Xl ), 100 MG PO QPM Metoprolol Tartrate (Lopressor) (Lopressor), 200 MG PO QAM Omeprazole (Omeprazole), 20 MG PO QAM Oxycodone/Acetaminophen 5MG/325MG (Percocet 5MG/325MG), 1 TABLET PO Q6H PRN for Pain Sertraline (Zoloft), 50 MG PO QPM Sevelamer Carbonate (Renvela), 800 MG PO TIDM Medication Instructions For Your Scheduled Surgery - Hold the following medications the morning of surgery: Amino Acids (Liquacel), 30 ML PO BID (liquid drink) - Take the following medications the morning of surgery with a sip of water: Allopurinol (Zyloprim), 100 MG PO QAM Digoxin (Digoxin), 0.5 TAB PO Q2D (if due to take day of surgery) Gabapentin (Neurontin), 100 MG PO BID Metoprolol Tartrate (Lopressor) (Lopressor), 200 MG PO QAM Omeprazole (Omeprazole), 20 MG PO QAM Oxycodone/Acetaminophen 5MG/325MG (Percocet 5MG/325MG), 1 TABLET PO Q6H PRN for Pain (okay to take up to 4 hours prior to surgery if needed) Sevelamer Carbonate (Renvela), 800 MG PO TIDM - Take the following medications as scheduled the night before surgery: Sevelamer Carbonate (Renvela), 800 MG PO TIDM Oxycodone/Acetaminophen 5MG/325MG (Percocet 5MG/325MG), 1 TABLET PO Q6H PRN for Pain (if needed) Sertraline (Zoloft), 50 MG PO QPM Metoprolol Succ (Toprol Xl) (Toprol-Xl ), 100 MG PO QPM Insulin Glargine (Lantus), 25 UNITS SC HS Gabapentin (Neurontin), 100 MG PO BID Docusate Sodium (Colace), 100 MG PO HS B-Complex W/ C & Folic Acid (Nephrocaps), 1 CAP PO QPM Amino Acids (Liquacel), 30 ML PO BID If you have any questions please call us at [phone] or [phone] or [phone]
[2017-03-10 11:36] LABS: BASO % 0.2 %; BASO ABS # 0.02 K/uL (0-0.2); COMPLETE YES; HEMATOCRIT 34.5 % (37-47); IG% 0.7 %; LYMPH ABS # 1.73 K/uL (1.2-3.4); MEAN CELL VOLUME 109.9 fL (80-100); MEAN CORPUSCULAR HEMOGLOBIN 34.1 pg (25-34); MEAN PLATELET VOLUME 10.3 fL (7.4-10.4); MONO % 6.3 %; NEUT % 67.8 %; PLATELET COUNT 208 K/uL (130-400); RED BLOOD COUNT 3.14 M/uL (4.2-5.4); WHITE BLOOD COUNT 8.25 K/uL (4.8-10.8)
--- NOTE | 2017-03-10 11:40 | DIAGNOSTIC IMAGING REPORT ---
CHEST 2 VIEWS ROUTINE HISTORY: 81 years-old Female preadmission exam. The patient is on dialysis COMPARISON: Portable chest radiograph 03/15/2016 TECHNIQUE: Frontal and lateral views of the chest FINDINGS: Dual lumen left internal jugular hemodialysis catheter is noted with distal tip terminating to the right of midline, likely within the mid SVC region. Single lead left pectoral pacer is unchanged. Cardiac silhouette is again mildly enlarged. No pneumothorax, pleural effusion or focal airspace consolidation. No overt pulmonary edema. There is mild atherosclerosis of the aorta. Cholecystectomy clips are noted. Rounded opaque foci within the upper abdomen suggest prior herniorrhaphy. IMPRESSION: No acute cardiopulmonary process. The above report was generated using voice recognition software. It may contain grammatical, syntax or spelling errors. Electronically signed by: Bruno Healy M.D. 03/10/2017 11:39 AM Dictated Date/Time: 03/10/2017 11:37 AM
[2017-03-10 11:50] LABS: PARTIAL THROMBOPLASTIN RATIO 1.2; PROTHROMBIN TIME (PATIENT) 10.7 SECONDS (9.0-12.0)
[2017-03-10 13:18] LABS: BUN/CREATININE RATIO 7.4 (10-20); CALCIUM 8.9 mg/dl (8.5-10.1); CREATININE 6.1 mg/dl (0.60-1.20); POTASSIUM 4.4 mmol/L (3.5-5.1)
[2017-03-10 13:38] LABS: BETA-HYDROXYBUTYRATE 1.1 mg/dL (0.2-2.81)
[~2017-03-24] VITALS: Ht 152.4 cm; Wt 71.1 kg
--- NOTE | 2017-03-24 09:52 | History and Physical ---
History & Physical Date of Service Mar 24, 2017. History & Physical Chief Complaint: ESRD on HD thru permcath, malfunctioning permcath History of Present Illness The patient is a 80 year old female with multiple medical problems, including ESRD on HD and a fib who has been undergoing HD thru permcath which was not functioning at times at the HD unit. She previously had LUE AVF which thrombosed multiple times and has failed. She is to continue HD thru permcath. Pt denies NIELSEN, fever, chills, chest pain, N/V, abd pain, rest pain, claudication, other complaints. Allergies Hydrochlorothiazide (Verified Allergy, Intermediate, RASH, 01/17/15) NSAIDs (Verified Allergy, Intermediate, UNK, 01/17/15) Hydrocodone (Verified Allergy, Mild, RASH, 01/17/15) ERICK Inhibitors (Verified Allergy, Unknown, UNK, 01/17/15) Amlodipine (Verified Allergy, Unknown, UNK, 01/17/15) Benazepril (Verified Allergy, Unknown, UNK, 01/17/15) Cephalexin (Verified Allergy, Unknown, UNK, 01/17/15) Spironolactone (Verified Allergy, Unknown, UNK, 01/17/15) Surgical / Medical History Hx Cardiac Surgery: No Hx Abdominal Surgery: Yes (cholicystectomy ) Hx Cancer Surgery: Yes Hx Thoracic Surgery: No Hx Orthopedic: Yes (hip replacement and lumbar surgery ) Hx Urinary Tract Surgery: No HX Other Surgery:LUE AVF creation Family History Alzheimer's disease SISTER Cancer BROTHER Diabetes mellitus FATHER BROTHER SISTER SISTER SISTER Heart disease MOTHER Hypertension FATHER MOTHER Social History Smoking Status: Never Smoker Hx Tobacco Use In Past Year?: No Hx Alcohol Use - Type & Amnt: No Hx Substance Use -Type & Amnt: No Review of Systems No pertinent positives. 11 systems reviewed and negative Physical Exam: Constitutional: General Apperance: well-nourished, well-developed, obese Level of Distress: NAD, chronically ill Psychiatric: Mental Status: normal affect, Orientation: to person, time, place Head: normocephalic, atraumatic Eyes: EOM: EOMI ENMT: normal ENT inspection, hearing grossly normal Neck: supple, trachea midline Lungs: Respiratory effort: no dyspnea Auscultation: clear Cardiovascular: Apical Impulse: not displaced Heart Auscultation: no rubs, no gallops, pertinent finding (irregular, pacer ) Peripheral Pulses: Pulses: full and equal, in all extremities except if noted Bruits: none appreciated Carotid Pulse: normal on the left, normal on the right Brachial Pulses: normal on the left, normal on the right Radial Pulse: normal on the left, normal on the right Femoral Pulse: normal on the left, normal on the right Abdomen: Bowel Sounds: normal Inspection & Palpation: soft, non-distended Musculoskeletal: abnormal strength Extremities: Upper Right: no cyanosis, no varicosities, no palpable cord, Upper Left: no cyanosis, no varicosities, no palpable cord, Lower Right: no cyanosis, no varicosities, no palpable cord, Lower Left: no cyanosis, no varicosities, no palpable cord, Neurologic: Cranial Nerves: grossly intact Sensation: grossly intact ASSESSMENT and PLAN: ESRD on HD, malfunctioning permcath Plan: Patient admitted for insertion of a herograft. I have discussed the risks options and benefits of the procedure with the patient. The patient understands the risks options and benefits and agrees to the procedure.
[~2017-03-24 10:50] MED LIST changes: +AMINLIQ31 PO; -CEFAZOLIN 1000MG/55 ML D5W IV SCH; -CLINDAMYCIN 600 MG/54 ML D5W IV SCH; -D5W AND 1/4NSS 1000 ML IV SCH; -DILT120C68 PO; +LNX125 PO; +METO1TAB69 PO; +NSS 1000ML IV SCH; -SERT25TA PO; +SERT50TA PO; +SODIUM CHLORIDE 0.9% 1000ML 1,000 ML IV SCH; +VANCOMYCIN INJ 1,100 MG in SODIUM CHLORIDE 0.9% 250ML 250 ML IV SCH
[2017-03-24 11:14] VITALS: BP 150/54; PULSE 70; TEMP 37.1; O2SAT 97; Ht 152.4 cm; Wt 71.1 kg
[2017-03-24] MEDS ORDERED: CINA0.42 PO (11:54)
[2017-03-24] MEDS ORDERED: B CO (11:54)
[2017-03-24 12:04] LABS: BUN/CREATININE RATIO 6.7 (10-20); CALCIUM 7.8 mg/dl (8.5-10.1)
[2017-03-24] MEDS ORDERED: FENTANYL CITRATE INJ 50 MCG/1 ML 2 ML VIAL ONE (12:25)
[2017-03-24] MEDS ORDERED: PROPOFOL IV EMULSION 10 MG/ML 20 ML VIAL IV ONE (12:25)
[2017-03-24] MEDS ORDERED: MIDAZOLAM HCL 1 MG/ML 2ML VIAL ONE (12:25)
[2017-03-24] MEDS ORDERED: GELATIN SPONGE SZ 100 ONE (12:50)
[2017-03-24] MEDS ORDERED: THROMBIN FOR SOLN 20000 UNIT KIT ONE (12:51)
[2017-03-24] MEDS ORDERED: LIDOCAINE HCL 1% 20 ML VIAL ONE (12:51)
[2017-03-24] MEDS ORDERED: HEPARIN SOD (PORCINE) 1000 UNIT/ML 10 ML VIAL ONE (12:51)
[2017-03-24] MEDS ORDERED: BUPIVACAINE/EPINEPHRINE 0.5% MPF 1:200,000 10 ML VIAL ONE (12:52)
[2017-03-24] MEDS ORDERED: LABETALOL HCL IV 5 MG/ML 20ML IV PRN (13:30)
[2017-03-24] MEDS ORDERED: ONDANSETRON INJ 2 MG/ML 2 ML VIAL IV PRN (13:30)
[2017-03-24] MEDS ORDERED: FLUMAZENIL 0.1 MG/1 ML 10 ML VIAL IV PRN (13:30)
[2017-03-24] MEDS ORDERED: ATROPINE SULFATE 0.1 MG/ML 5ML SYR IV PRN (13:30)
[2017-03-24] MEDS ORDERED: NALOXONE HCL 0.4 MG/1 ML VIAL/CARP IV PRN (13:30)
[2017-03-24] MEDS ORDERED: FENTANYL CITRATE INJ 50 MCG/1 ML 2 ML VIAL IV PRN (13:30)
[2017-03-24] MEDS ORDERED: PHENYLEPHRINE 100MCG/ML 5ML SYR IV PRN (13:30)
[2017-03-24] MEDS ORDERED: EpHEDrine SULFATE INJ 50 MG/ML AMP IV PRN (13:30)
[2017-03-24] MEDS ORDERED: MEPERIDINE HCL 25 MG/ML CARP IV PRN (13:30)
--- NOTE | 2017-03-24 14:41 | [facility] Post Operative Brief Note ---
Immediate Operative Summary Operative Date Mar 24, 2017. Pre-Operative Diagnosis ESRD on HD, malfunctioning permcath Post-Operative Diagnosis Same Procedure(s) Performed Placement of HERO graft using brachial artery to subclavin vein , right Surgeon Dr Guillory Supervisor Plastics Surgeon(s) Dr Michael Turk Fellow Estimated Blood Loss 100ml Findings good flow, tip in distal SVC Specimens None Anesthesia Gen Complication(s) None Disposition Recovery Room / PACU
[2017-03-24] MEDS ORDERED: LIDOCAINE HCL 2% 2 ML VIAL (20MG/ML) ONE (14:42)
[2017-03-24] MEDS ORDERED: ONDANSETRON INJ 2 MG/ML 2 ML VIAL ONE (14:43)
[2017-03-24] MEDS ORDERED: PHENYLEPHRINE HCL INJ 10 MG/ML VIAL ONE (14:43)
[2017-03-24] MEDS ORDERED: IODIXANOL (VISIPAQUE) 270 MG/ML 150ML IV ONE (14:45)
[2017-03-24] MEDS ORDERED: OXYC-57 PO (14:49)
--- NOTE | 2017-03-24 14:50 | Discharge Instructions ---
Discharge Instructions Date of Service Mar 24, 2017. Visit Reason for Visit: End Stage Renal Disease Discharge Discharge Diagnosis / Problem: End stage renal disease Discharge Goals Goal(s): Therapeutic intervention Activity Recommendations Activity Limitations: resume your previous activity Anesthesia . Post Anesthesia Instructions: If you have had General Anesthesia or IV Sedation: * Do not drive today. * Resume driving when surgeon permits. * Do not make important decisions or sign legal documents today. * Call surgeon for: 1. Temperature elevations greater than 101 degrees F. 2. Uncontrollable pain. 3. Excessive bleeding. 4. Persistent nausea and vomiting. 5. Medication intolerance (nausea, vomiting or rash). * For nausea and vomiting use only clear liquids such as: tea, soda, bouillon until nausea subsides, then gradually increase diet as tolerated. * If you have any concerns or questions, call your surgeon's office. If physician is unavailable and it is an emergency, call 911 or go to the nearest emergency room. . Instructions / Follow-Up Instructions / Follow-Up Call [phone] to schedule a follow up appointment if one not already scheduled. ACTIVITY RECOMMENDATIONS: See Above SPECIAL CARE INSTRUCTIONS: Call your doctor if: * Temperature above 101 degrees * Pain not relieved by pain medicine ordered * There is increased drainage or redness from any incision * You have any unanswered questions or concerns. Diet Recommendations Recommended Home Diet: resume previous diet Procedures Procedures Performed: Placement of HERO graft using brachial artery to subclavin vein , right Pending Studies Studies pending at discharge: no Medical Emergencies . Who to Call and When: Medical Emergencies: If at any time you feel your situation is an emergency, please call 911 immediately. . Non-Emergent Contact Non-Emergency issues call your: Surgeon . . "Provider Documentation" section prepared by Jossue Guillory. .
--- NOTE | 2017-03-24 15:28 | [facility] Operative Report ---
Operative Report Operative Date Mar 24, 2017. Pre-Operative Diagnosis ESRD on HD, malfunctioning permcath Post-Operative Diagnosis Same Procedure(s) Performed Placement of HERO graft using brachial artery to subclavin vein , right Surgeon Dr Guillory Field Foreman Surgeon(s) Dr Michael Turk Fellow Estimated Blood Loss 100ml Findings The tip of the catheter is the superior vena cava. At the end of the case the patient had a good thrill in the hero graft and the hands looked viable with good capillary refill. Contrast 3 mL Specimens None Anesthesia Gen Complication(s) None Disposition Recovery Room / PACU Indications 80 year old female with multiple medical problems, including ESRD on HD and a fib who has been undergoing HD thru permcath which was not functioning at times at the HD unit. She previously had LUE AVF which thrombosed multiple times and has failed. She is to continue HD thru permcath. Description of Procedure Patient was brought to the operating room and placed on the operating table in the supine position. The right upper extremity was extended and the left upper extremity was tucked to the side. The right upper extremity was prepped circumferentially in a sterile standard fashion. The right internal jugular vein was evaluated with ultrasound. With ultrasound guidance the right IJ was accessed and a wire was then placed down into the superior vena cava. An 11 blade was used to make a small incision at the base of the wire. The dilators were passed sequentially until the peel away sheath over the dilator was placed into position. Fluoroscopic image was obtained to confirm position of the wire prior to the dilations. The dilator and wire were removed and the catheter was then advanced through the peel away sheath over a dilator in under fluoroscopic guidance positioned in the superior vena cava. The dilator was removed from the catheter and the peel away sheath was pulled back and removed. A fluoroscopic image confirmed the position of the tip of the catheter in the superior vena cava and the catheter was then flushed and clamped. A 3 cm incision was made in the deltopectoral groove. A tunneler was then used through the incision to the base of the catheter and the catheter was then pulled through out of the deltopectoral groove. The catheter was then clamped in the groove and cut to length a fluoroscopic image was obtained to confirm the length and position of the catheter. Attention was then turned to the mid arm were a 5 cm incision was created using a 15 blade and dissection was carried down to the brachial artery care was taken to identify the median nerve and protected using a vessel loop. Once circumferential control of the brachial artery was obtained a tunneler was used to place the graft between the mid arm incision and subcutaneously into the deltopectoral groove incision. The hero graft and the tunneled graft were then connected and it will tie was used to secure the connection in place. The graft was then aspirated and flushed with good return of blood and an easy flushed. It was then clamped the deltopectoral groove as attention was turned to the brachial artery. DeBakey clamps were used to control the inflow and outflow of the brachial artery The graft was cut to length and a 11 blade was used to make an arteriotomy of the brachial artery. Fine Orosco scissors were used to extend the arteriotomy to size. A 60 PTFE suture was used for the and to side anastomosis. At the completion of the anastomosis there was a good thrill in the graft the arm was then positioned to the side of the patient and a fluoroscopic image was taken and compared to the prior image it showed good position of the hero graft with no changes the position of the tip of the graft in the SVC. A 3-0 Vicryl suture was then used to close the incisions in a layered fashion then a 4-0 Vicryl suture was used in a subcuticular manner to close the 3 incisions 1 at the base of the neck one of the deltopectoral groove and 1 in the mid arm. The incisions were then cleaned with wet and dry and Dermabond was then applied over the incisions. The arm was then evaluated and had a good thrill and the graft and the right hand appeared viable with excellent capillary refill at the end of the case the patient had no complaints in the right hand motor and sensory were intact. The patient was then taken to the recovery room with no complications. Dr. Guillory was present and scrubbed for the entirety of the case. I, Dr. Guillory was present and scrubbed for the entire procedure. I attest to the content of the Intraoperative Record and any orders documented therein. Any exceptions are noted below.
--- NOTE | 2017-03-24 16:40 | Anesthesiology Progress Note ---
Anesthesia Post Op Note Date & Time Mar 24, 2017 at 16:40 Vital Signs Pain Intensity: 0 Vital Signs Past 12 Hours Date Time Temp Pulse Resp B/P (MAP) Pulse Ox O2 Delivery O2 Flow Rate FiO2 03/24/17 16:35 36.4 60 18 106/43 92 Room Air 03/24/17 16:25 36.4 60 18 101/44 93 Room Air 03/24/17 16:15 36.4 60 18 90/65 93 Room Air 03/24/17 16:05 60 18 98/25 93 Room Air 03/24/17 15:55 60 18 88/48 93 Room Air 03/24/17 15:45 60 18 86/41 93 Room Air 03/24/17 15:35 60 16 93/48 93 Room Air 03/24/17 15:25 60 16 111/41 100 10 03/24/17 15:15 36.3 65 16 124/44 100 10 03/24/17 11:14 37.1 70 20 150/54 (86) 97 Room Air Notes Mental Status: alert / awake / arousable, participated in evaluation Pt Amnestic to Procedure: Yes Nausea / Vomiting: adequately controlled Pain: adequately controlled Airway Patency, RR, SpO2: stable & adequate BP & HR: stable & adequate Hydration State: stable & adequate Anesthetic Complications: no major complications apparent
[2017-03-24 16:44] VITALS: BP 123/49; PULSE 63; TEMP 36.9; O2SAT 91
[2017-03-24 17:15] VITALS: BP 112/50; PULSE 72; TEMP 36.4; O2SAT 95
[2017-04-01] MEDS ORDERED: METO1TAB68 PO (17:56)
== END 2017-03-24 17:39 | disposition home or self-care (01) ==
LOC: C.ACU 10:50
PROVIDERS: ATTEND Surgery Vascular Surgery
DX: T82.898A Other specified complication of vascular prosthetic devices, implants and grafts, initial encounter (principal); N18.6 End stage renal disease; Y82.8 Other medical devices associated with adverse incidents; I48.91 Unspecified atrial fibrillation; Z90.49 Acquired absence of other specified parts of digestive tract; Z82.0 Family history of epilepsy and other diseases of the nervous system; Z83.3 Family history of diabetes mellitus; Z82.49 Family history of ischemic heart disease and other diseases of the circulatory system; I10 Essential (primary) hypertension; E11.9 Type 2 diabetes mellitus without complications; Z79.4 Long term (current) use of insulin; K44.9 Diaphragmatic hernia without obstruction or gangrene; Z96.641 Presence of right artificial hip joint; G47.33 Obstructive sleep apnea (adult) (pediatric); I25.10 Atherosclerotic heart disease of native coronary artery without angina pectoris; Z95.0 Presence of cardiac pacemaker; I27.2 Other secondary pulmonary hypertension; K21.9 Gastro-esophageal reflux disease without esophagitis; M19.90 Unspecified osteoarthritis, unspecified site; G62.9 Polyneuropathy, unspecified; F32.9 Major depressive disorder, single episode, unspecified; E66.9 Obesity, unspecified; M81.0 Age-related osteoporosis without current pathological fracture; M10.9 Gout, unspecified

== ENCOUNTER 2017-03-28 10:39 | Inpatient (IN) | payer OTHER ==
[~2017-03-28] VITALS: Ht 157.5 cm; Wt 74.4 kg
[~2017-03-28 10:39] MED LIST changes: +ALBUMIN HUMAN 25% 12.5 GM/50 ML VIAL IV SCH; +B CO; +CINA0.42 PO; -NSS 1000ML IV SCH; -SODIUM CHLORIDE 0.9% 1000ML 1,000 ML IV SCH; -VANCOMYCIN INJ 1,100 MG in SODIUM CHLORIDE 0.9% 250ML 250 ML IV SCH
[2017-03-28] MEDS ORDERED: B-CO1CAP17 PO (11:07)
[2017-03-28] MEDS ORDERED: PRLSR20 PO (11:07)
[2017-03-28] MEDS ORDERED: LNX125 PO (11:07)
[2017-03-28] MEDS ORDERED: CINA0.42 PO (11:07)
[2017-03-28] MEDS ORDERED: DOCU-94 PO (11:07)
[2017-03-28] MEDS ORDERED: NRN100 PO (11:07)
[2017-03-28] MEDS ORDERED: TPRSR/100 PO (11:07)
[2017-03-28] MEDS ORDERED: SEVE800T7 PO (11:07)
[2017-03-28] MEDS ORDERED: CHOL100010 PO (11:07)
[2017-03-28] MEDS ORDERED: METO1TAB68 PO (11:07)
[2017-03-28] MEDS ORDERED: GABA-112 PO (11:07)
[2017-03-28] MEDS ORDERED: OXGN (11:07)
[2017-03-28] MEDS ORDERED: SERT50TA PO (11:07)
[2017-03-28] MEDS ORDERED: B CO PO (11:07)
[2017-03-28] MEDS ORDERED: ALL100 PO (11:07)
[2017-03-28] MEDS ORDERED: OXYC-57 PO (11:07)
[2017-03-28] MEDS ORDERED: AMINLIQ31 PO (11:07)
[2017-03-28] MEDS ORDERED: INSDGI SC (11:07)
[2017-03-28] MEDS ORDERED: SODIUM CHLORIDE 0.9% 250ML 250 ML IV STA (11:09)
--- NOTE | 2017-03-28 11:15 | EMERGENCY ROOM VISIT NOTE ---
History Report prepared by Mariana: Franchesca Arnold Under the Supervision of: Dr. Ulises Rivas M.D. 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 Positive weakness, swelling. Negative chest pain, sob, nausea, vomiting. The pt is on scheduled dialysis 3 times a week. 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 A total of ten systems were reviewed and were otherwise negative. Past Medical & Surgical Medical Problems: (1) Anemia in ESRD (end-stage renal disease) (2) CHF (congestive heart failure) (3) Chronic bronchitis (4) Coronary artery disease (5) Diabetes mellitus, type II (6) ESRD (end stage renal disease) on dialysis (7) GERD (gastroesophageal reflux disease) (8) Gout (9) History of cardiac arrest (10) Hyperkalemia (11) Hyperkalemia, diminished renal excretion (12) Hypertension (13) Paroxysmal atrial fibrillation (14) Pulmonary hypertension (15) Sleep apnea Surgical Problems: (1) Status post cardiac catheterization (2) Status post cataract extraction (3) Status post cholecystectomy (4) Status post hernia repair (5) Status post hip replacement (6) Status post lumbar surgery Family History Alzheimer's disease SISTER Cancer BROTHER Diabetes mellitus FATHER BROTHER SISTER SISTER SISTER Heart disease MOTHER Hypertension FATHER MOTHER Social History Smoking Status: Never Smoker Alcohol Use: occasionally Housing Status: lives with family Occupation Status: retired Current/Historical Medications Scheduled Allopurinol (Allopurinol), 100 MG PO DAILY Amino Acids (Liquacel), 30 ML PO BID B-Complex W/ C & Folic Acid (Vol-Care Rx), 1 TAB PO DAILY Cholecalciferol (Vitamin D), 1 TAB PO Q2WKS Cinacalcet (Sensipar), 30 MG PO DAILY Digoxin (Digoxin), 0.5 TAB PO Q2D Docusate Sodium (Colace), 100 MG PO DAILY Gabapentin (Gabapentin), 100 MG PO QAM Gabapentin (Neurontin), 200 MG PO QPM Home O2 Therapy (Oxygen), 2 LITERS NA PRN Insulin Glargine (Lantus), 30 UNITS SC HS Metoprolol Succinate (Metoprolol Succinate ER), 200 MG PO QAM Metoprolol Succinate (Toprol Xl), 100 MG PO QPM Omeprazole (Prilosec), 20 MG PO DAILY Sertraline (Zoloft), 50 MG PO DAILY Sevelamer Carbonate (Renvela), 800 MG PO AC Vitamin B Cmplx/Vitc/Folic Ac (Nephrocaps), 1 CAP PO DAILY Scheduled PRN Oxycodone/Acetaminophen 5MG/325MG (Percocet 5MG/325MG), 1 TABLET PO Q6H PRN for Pain Allergies Coded Allergies: Hydrochlorothiazide (Verified Allergy, Intermediate, RASH, 03/24/17) NSAIDs (Verified Allergy, Intermediate, ELEVATED POTASSIUM, 03/24/17) Hydrocodone (Verified Allergy, Mild, RASH, 03/24/17) ERICK Inhibitors (Verified Allergy, Unknown, UNKNOWN, 03/10/17) Amlodipine (Verified Allergy, Unknown, ELEVATED POTASSIUM, 03/10/17) Benazepril (Verified Allergy, Unknown, UNKNOWN, 03/10/17) Cephalexin (Verified Allergy, Unknown, ITCHING AND HIVES, 03/10/17) Penicillins (Verified Allergy, Unknown, RASH, 03/24/17) Spironolactone (Verified Allergy, Unknown, UNKNOWN, 03/24/17) Sulfa Antibiotics (Verified Allergy, Unknown, UNKNOWN, 03/24/17) Physical Exam Vital Signs Date Time Temp Pulse Resp B/P (MAP) Pulse Ox O2 Delivery O2 Flow Rate FiO2 03/28/17 14:28 74/25 03/28/17 14:16 90 19 67/24 99 Nasal Cannula 2.0 03/28/17 13:25 71 03/28/17 13:00 64 20 104/51 100 Nasal Cannula 2.0 03/28/17 11:57 59 14 106/48 98 Nasal Cannula 2.0 03/28/17 11:01 88 Room Air 03/28/17 11:01 63 18 97/48 100 Nasal Cannula 4.0 03/28/17 10:50 67 03/28/17 10:46 37.2 73 14 100/64 96 Room Air Physical Exam GENERAL: Awake, alert, well-appearing, NAD HENT: Normocephalic, atraumatic. Nasal canula in place EYES: Normal conjunctiva. Sclera non-icteric. NECK: Supple. No nuchal rigidity. FROM. RESPIRATORY: CTAB, no rhonchi, wheezing, crackles CARDIAC: RRR, no MRG CHEST: Left chest wall permicath. ABDOMEN: Soft, NTND, BS+ MSK: No chest wall TTP, no LE edema, Right upper extremity with recent postsurgical changes palpable thrill. Mild right upper trapezius twitching. NEURO: GCS 15, CN 2-12 intact, moves all 4s on command SKIN: No rash or jaundice noted. Medical Decision & Procedures ER Provider Diagnostic Interpretation: Radiology results as stated below per my review and radiologist interpretation: CHEST ONE VIEW PORTABLE FINDINGS: The left internal jugular dual-lumen central venous catheter remains unchanged in position. There is been interval placement of a right internal jugular central venous catheter. There is no pneumothorax. There is a left subclavian single chamber central venous pacemaker. The cardiac and mediastinal contours remain stable. There is mild pulmonary venous hypertension. There is no lobar consolidation. There are no pleural effusions.[ IMPRESSION: 1. Interval placement of a right-sided central venous catheter. The tip projects over the distal aspect of the superior vena cava 2. Suspected mild pulmonary venous hypertension. No evidence of focal pulmonary consolidation Electronically signed by: Otis Branham M.D. Laboratory Results 03/28/17 11:30 Red Blood Count 2.87, Mean Corpuscular Volume 111.5, Mean Corpuscular Hemoglobin 34.1, Mean Corpuscular Hemoglobin Concent 30.6, Mean Platelet Volume 10.5, Neutrophils (%) (Auto) 83.7, Lymphocytes (%) (Auto) 9.3, Monocytes (%) ( Auto) 3.8, Eosinophils (%) (Auto) 2.5, Basophils (%) (Auto) 0.1, Neutrophils # ( Auto) 12.44, Lymphocytes # (Auto) 1.39, Monocytes # (Auto) 0.57, Eosinophils # ( Auto) 0.37, Basophils # (Auto) 0.01 03/28/17 11:30 Test 03/28/17 11:30 03/28/17 11:34 03/28/17 11:38 White Blood Count 14.87 K/uL (4.8-10.8) Red Blood Count 2.87 M/uL (4.2-5.4) Hemoglobin 9.8 g/dL (12.0-16.0) Hematocrit 32.0 % (37-47) Mean Corpuscular Volume 111.5 fL (80-100) Mean Corpuscular Hemoglobin 34.1 pg (25-34) Mean Corpuscular Hemoglobin Concent 30.6 g/dl (32-36) Platelet Count 241 K/uL (130-400) Mean Platelet Volume 10.5 fL (7.4-10.4) Neutrophils (%) (Auto) 83.7 % Lymphocytes (%) (Auto) 9.3 % Monocytes (%) (Auto) 3.8 % Eosinophils (%) (Auto) 2.5 % Basophils (%) (Auto) 0.1 % Neutrophils # (Auto) 12.44 K/uL (1.4-6.5) Lymphocytes # (Auto) 1.39 K/uL (1.2-3.4) Monocytes # (Auto) 0.57 K/uL (0.11-0.59) Eosinophils # (Auto) 0.37 K/uL (0-0.5) Basophils # (Auto) 0.01 K/uL (0-0.2) RDW Standard Deviation 65.0 fL (36.4-46.3) RDW Coefficient of Variation 16.3 % (11.5-14.5) Immature Granulocyte % (Auto) 0.6 % Immature Granulocyte # (Auto) 0.09 K/uL (0.00-0.02) Nucleated RBC Absolute Count (auto) 0.09 K/uL (0-0) Nucleated Red Blood Cells % 0.6 % Toxic Vacuolation 2+ Poikilocytosis PRESENT Macrocytosis PRESENT Prothrombin Time 11.4 SECONDS (9.0-12.0) Prothromb Time International Ratio 1.1 (0.9-1.1) Activated Partial Thromboplast Time 28.5 SECONDS (21.0-31.0) Partial Thromboplastin Ratio 1.1 Venous Blood pH 7.26 (7.36-7.41) Venous Blood Partial Pressure CO2 47 mmHg (38.0-50.0) Venous Blood Partial Pressure O2 39 mmHg Venous Blood HCO3 20 mmol/L Venous Blood Oxygen Saturation 66.4 % Venous Blood Base Excess -6.6 mEq/L Anion Gap 13.0 mmol/L (3-11) Est Creatinine Clear Calc Drug Dose 4.7 ml/min Estimated GFR () 4.4 Estimated GFR (Non- 3.8 BUN/Creatinine Ratio 6.8 (10-20) Calcium Level 7.0 mg/dl (8.5-10.1) Phosphorus Level 5.8 mg/dl (2.5-4.9) Magnesium Level 2.1 mg/dl (1.8-2.4) Total Bilirubin 0.6 mg/dl (0.2-1) Direct Bilirubin 0.3 mg/dl (0-0.2) Aspartate Amino Transf (AST/SGOT) 14 U/L (15-37) Alanine Aminotransferase (ALT/SGPT) 14 U/L (12-78) Alkaline Phosphatase 295 U/L (45-117) Pro-B-Type Natriuretic Peptide 91130 pg/ml (0-1800) Total Protein 7.4 gm/dl (6.4-8.2) Albumin 2.9 gm/dl (3.4-5.0) Bedside Troponin I 0.030 ng/ml (0-0.045) Bedside Lactic Acid Venous 1.53 mmol/L (0.90-1.70) Laboratory results reviewed by me Medications Administered Medications (Trade) Dose Ordered Sig/Juanita Route Start Time Stop Time Status Last Admin Dose Admin Sodium Chloride 250 ml @ 250 mls/hr Q1H STAT IV 03/28/17 11:09 03/28/17 12:08 DC 03/28/17 11:36 250 MLS/HR Calcium Gluconate 2000 mg/Sodium Chloride 70 ml @ 240 mls/hr TODAY@1315 IV 03/28/17 13:15 03/28/17 13:33 DC 03/28/17 13:14 240 MLS/HR Cefepime HCl 1000 mg/Dextrose 111.3 ml @ 222.6 mls/ hr NOW ONCE IV 03/28/17 14:00 03/28/17 14:29 DC 03/28/17 15:36 222.6 MLS/HR Vancomycin HCl 1250 mg/Sodium Chloride 275 ml @ 125 mls/hr NOW ONCE IV 03/28/17 14:00 03/28/17 16:11 DC 03/28/17 15:36 125 MLS/HR Azithromycin 500 mg/Dextrose 255 ml @ 127.5 mls/ hr NOW ONCE IV 03/28/17 14:00 03/28/17 16:00 DC 03/28/17 15:36 127.5 MLS/HR ED Course 1102: The patient was evaluated in room C9. A complete history and physical exam was performed. 1324: I discussed the patient's case with Dr. Lisa KIMBLE. 1341: Discussed the patient's case Dr. Walker. The patient will be evaluated for further treatment and disposition. 1346: Upon reexamination, the patient was resting. I discussed the test results and treatment plan with her. The patient will be evaluated for further management. Medical Decision The patient is a 81 year old white female with a past medical history of CHF, CAD who presents to the ED with a cc of hypotension. Differential diagnosis includes but is not limited too: Hyperkalemia, volume overload, post operative complication, hemorrhage, hypovolemia, dehydrated. Patient was seen and evaluated at the bedside. He was initially concern for possible lethargy. Patient was entered 3 and was able to follow commands. Patient was a GCS of 14 with eyes opening to voice. Patient does not have any other acute complaints. Patient was required some additional oxygen. Patient' s blood work showed a white count of 14. Patient did have a recent procedure. Patient's graft site appeared well but did have postsurgical changes and did have a palpable thrill. The patient's recent elevation in WBC and unknowingly whether or not this is reactive versus infectious patient was started on empiric antibiotics in addition to blood cultures. Patient lactate was 1.5 with a potassium of 5.3. Troponin was 0.03. Patient has been an 61 with creatinine of 8.9. Patient's chest x-ray with some mild pulmonary congestion. I spoke with the medicine team who agreed that the patient would benefit from admission and further follow-up. There was an issue with obtaining blood cultures secondary to IV access but abx were started. Patient was not given a 2 L bolus given her fluid status. Patient was modestly dehydrated based on her low blood pressure. During the workup I did speak with the vascular surgeon who stated that the line appeared in good place patient on the chest x-ray. The patient was admitted. Medication Reconcilliation Current Medication List: was personally reviewed by me Blood Pressure Screening Patient's blood pressure: Low blood pressure Blood pressure disposition: Referred to PCP Consults Time Called: 1320 Consulting Physician: Dr. Lisa KIMBLE Returned Call: 1324 Discussed the patient's case. Additional Consults: Time Called: 1340 Consulted Physician: Dr. Walker Returned Call: 1341 Additional Comments: Discussed the patient's case. The patient will be evaluated for further treatment and disposition. Impression Primary Impression: Hypotension Additional Impressions: Respiratory failure Leukocytosis Scribe Attestation The scribe's documentation has been prepared under my direction and personally reviewed by me in its entirety. I confirm that the note above accurately reflects all work, treatment, procedures, and medical decision making performed by me. Departure Information Dispostion Being Evaluated By Hospitalist Referrals Luisito Connell M.D. (PCP) Patient Instructions [facility] Problem Qualifiers Primary Impression: Hypotension Hypotension type: unspecified hypotension type Qualified Codes: I95.9 - Hypotension, unspecified Additional Impressions: Respiratory failure Chronicity: acute on chronic Respiratory failure complication: hypoxia Qualified Codes: J96.21 - Acute and chronic respiratory failure with hypoxia Leukocytosis Leukocytosis type: unspecified Qualified Codes: D72.829 - Elevated white blood cell count, unspecified
[2017-03-28] MEDS ORDERED: OPTIRAY 320 IV PRN (11:30)
[2017-03-28 11:43] LABS: BASO % 0.1 %; BASO ABS # 0.01 K/uL (0-0.2); EOS % 2.5 %; IG% 0.6 %; LYMPH % 9.3 %; LYMPH ABS # 1.39 K/uL (1.2-3.4); MEAN CELL VOLUME 111.5 fL (80-100); MEAN CORPUSCULAR HEMOGLOBIN 34.1 pg (25-34); MEAN CORPUSCULAR HGB CONC 30.6 g/dl (32-36); MEAN PLATELET VOLUME 10.5 fL (7.4-10.4); MONO % 3.8 %; NEUT % 83.7 %; PLATELET COUNT 241 K/uL (130-400); RED BLOOD COUNT 2.87 M/uL (4.2-5.4); WHITE BLOOD COUNT 14.87 K/uL (4.8-10.8)
[2017-03-28 11:45] LABS: VEN BLD GAS O2 SATURATION 66.4 %; VEN BLOOD GAS BASE EXCESS -6.6 mEq/L
--- NOTE | 2017-03-28 11:52 | DIAGNOSTIC IMAGING REPORT ---
CHEST ONE VIEW PORTABLE CLINICAL HISTORY: recent AVF placement, hypotension, O2 requirement COMPARISON STUDY: 03/10/2017 FINDINGS: The left internal jugular dual-lumen central venous catheter remains unchanged in position. There is been interval placement of a right internal jugular central venous catheter. There is no pneumothorax. There is a left subclavian single chamber central venous pacemaker. The cardiac and mediastinal contours remain stable. There is mild pulmonary venous hypertension. There is no lobar consolidation. There are no pleural effusions.[ IMPRESSION: 1. Interval placement of a right-sided central venous catheter. The tip projects over the distal aspect of the superior vena cava 2. Suspected mild pulmonary venous hypertension. No evidence of focal pulmonary consolidation Electronically signed by: Otis Branham M.D. 03/28/2017 11:51 AM Dictated Date/Time: 03/28/2017 11:49 AM
[2017-03-28 11:53] LABS: INR 1.1 (0.9-1.1); PARTIAL THROMBOPLASTIN RATIO 1.1; PROTHROMBIN TIME (PATIENT) 11.4 SECONDS (9.0-12.0)
[2017-03-28 12:23] LABS: BUN/CREATININE RATIO 6.8 (10-20); CREATININE 8.9 mg/dl (0.60-1.20); MAGNESIUM 2.1 mg/dl (1.8-2.4); PHOSPHORUS 5.8 mg/dl (2.5-4.9); POTASSIUM 5.3 mmol/L (3.5-5.1)
[2017-03-28 12:27] LABS: COMPLETE YES; POIKILOCYTOSIS PRESENT; VACUOLIZATION 2+
[2017-03-28] MEDS ORDERED: CALCIUM GLUCONATE 10% 10 ML VIAL IV STA (12:39)
[2017-03-28] MEDS ORDERED: CALCIUM GLUCONATE 10% 2,000 MG in SODIUM CHLORIDE 0.9% 50ML 50 ML IV SCH (13:15)
[2017-03-28] MEDS ORDERED: CEFEPIME IV 1,000 MG in DEXTROSE 5% 100ML IV ONE (14:00)
[2017-03-28] MEDS ORDERED: VANCOMYCIN INJ 1,250 MG in SODIUM CHLORIDE 0.9% 250ML 250 ML IV ONE (14:00)
[2017-03-28] MEDS ORDERED: AZITHROMYCIN 500 MG / D5W 250 ML IV ONE ×2 (14:00)
--- NOTE | 2017-03-28 15:55 | History and Physical ---
History & Physical Date & Time of Service: Mar 28, 2017 at 15:43 Chief Complaint: Hypotension Primary Care Physician: Luisito Connell M.D. History of Present Illness Source: patient, family 81 year old F on dialysis MWF with last dialysis on Tuesday via left side permacath, has 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 Guillory's vascular service team at [facility]. As per family, patient continued home medications post op with percocet for pain. Yesterday became more lethargic with decrease in appetite and complaining of throat pain. No reported history of fevers at home. Afebrile on exam in the ED, with normal but borderline low blood pressures and found to have leukocytosis of 14.87. Patient has chest X ray without acute infiltrates and no physical exam findings of erythema or swelling at site of permacath and upper extremities. Past Medical/Surgical History Medical Problems: (1) Anemia in ESRD (end-stage renal disease) Status: Chronic (2) CHF (congestive heart failure) Permanent Comment: left ventricular diastolic heart failure; echo 2013 showed LVH + LVEF 55% Status: Chronic (3) Chronic bronchitis Status: Chronic (4) Coronary artery disease Permanent Comment: 50-60% LAD Status: Chronic (5) Diabetes mellitus, type II Status: Chronic (6) ESRD (end stage renal disease) on dialysis Status: Chronic (7) GERD (gastroesophageal reflux disease) Status: Chronic (8) Gout Status: Chronic (9) History of cardiac arrest Permanent Comment: attributed to hyperkalemia Status: Chronic (10) Hypertension Status: Chronic (11) Paroxysmal atrial fibrillation Status: Chronic (12) Pulmonary hypertension Status: Chronic (13) Sleep apnea Permanent Comment: nocturnal O2; does not tolerate CPAP Status: Chronic Surgical Problems: (1) Status post cardiac catheterization Status: Chronic (2) Status post cataract extraction Status: Chronic (3) Status post cholecystectomy Status: Chronic (4) Status post hernia repair Status: Chronic (5) Status post hip replacement Status: Chronic (6) Status post lumbar surgery Status: Chronic Family History Alzheimer's disease SISTER Cancer BROTHER Diabetes mellitus FATHER BROTHER SISTER SISTER SISTER Heart disease MOTHER Hypertension FATHER MOTHER Social History Smoking Status: Never Smoker Housing status: lives with family Occupational Status: retired Immunizations History of Influenza Vaccine: Yes History of Pneumococcal: Yes Allergies Coded Allergies: Hydrochlorothiazide (Verified Allergy, Intermediate, RASH, 03/24/17) NSAIDs (Verified Allergy, Intermediate, ELEVATED POTASSIUM, 03/24/17) Hydrocodone (Verified Allergy, Mild, RASH, 03/24/17) ERICK Inhibitors (Verified Allergy, Unknown, UNKNOWN, 03/10/17) Amlodipine (Verified Allergy, Unknown, ELEVATED POTASSIUM, 03/10/17) Benazepril (Verified Allergy, Unknown, UNKNOWN, 03/10/17) Cephalexin (Verified Allergy, Unknown, ITCHING AND HIVES, 03/10/17) Penicillins (Verified Allergy, Unknown, RASH, 03/24/17) Spironolactone (Verified Allergy, Unknown, UNKNOWN, 03/24/17) Sulfa Antibiotics (Verified Allergy, Unknown, UNKNOWN, 03/24/17) Home Medications Scheduled Allopurinol (Allopurinol), 100 MG PO DAILY Amino Acids (Liquacel), 30 ML PO BID B-Complex W/ C & Folic Acid (Vol-Care Rx), 1 TAB PO DAILY Cholecalciferol (Vitamin D), 1 TAB PO Q2WKS Cinacalcet (Sensipar), 30 MG PO DAILY Digoxin (Digoxin), 0.5 TAB PO Q2D Docusate Sodium (Colace), 100 MG PO DAILY Gabapentin (Gabapentin), 100 MG PO QAM Gabapentin (Neurontin), 200 MG PO QPM Home O2 Therapy (Oxygen), 2 LITERS NA PRN Insulin Glargine (Lantus), 30 UNITS SC HS Metoprolol Succinate (Metoprolol Succinate ER), 200 MG PO QAM Metoprolol Succinate (Toprol Xl), 100 MG PO QPM Omeprazole (Prilosec), 20 MG PO DAILY Sertraline (Zoloft), 50 MG PO DAILY Sevelamer Carbonate (Renvela), 800 MG PO AC Vitamin B Cmplx/Vitc/Folic Ac (Nephrocaps), 1 CAP PO DAILY Scheduled PRN Oxycodone/Acetaminophen 5MG/325MG (Percocet 5MG/325MG), 1 TABLET PO Q6H PRN for Pain Review of Systems Constitutional: No fever Eyes: No diplopia ENT: + sore throat Respiratory: No cough, No shortness of breath, No dyspnea on exertion, No dyspnea at rest Cardiovascular: No chest pain, No palpitations Abdomen: No nausea, No vomiting Musculoskeletal: No joint pain, No muscle pain, No calf pain Genitourinary - Female: + problem reported (anuric) Neurologic: No numbness/tingling Psychiatric: No substance abuse Endocrine: + fatigue Hematologic / Lymphatic: No abnormal bleeding/bruising Integumentary: No rash, No itch Physical Exam Vital Signs Date Time Temp Pulse Resp B/P (MAP) Pulse Ox O2 Delivery O2 Flow Rate FiO2 03/28/17 14:28 74/25 03/28/17 14:16 90 19 67/24 99 Nasal Cannula 2.0 03/28/17 13:25 71 03/28/17 13:00 64 20 104/51 100 Nasal Cannula 2.0 03/28/17 11:57 59 14 106/48 98 Nasal Cannula 2.0 03/28/17 11:01 88 Room Air 03/28/17 11:01 63 18 97/48 100 Nasal Cannula 4.0 03/28/17 10:50 67 03/28/17 10:46 37.2 73 14 100/64 96 Room Air General Appearance: + obese, + pertinent finding (lethargic but responds to questions appropriately) Head: normocephalic, atraumatic Eyes: PERRL, EOMI, sclerae normal ENT: hearing grossly normal, pharynx normal Neck: supple, no JVD, trachea midline Respiratory/Chest: chest non-tender, normal breath sounds, no respiratory distress, no accessory muscle use Cardiovascular: no JVD, normal peripheral pulses, + bradycardia, + pertinent finding (has palpable left arm swelling but no bruit from history of nonfunctioning AV fistual, left chest perm cath, left chest pacemaker under skin , right arm with bruit but radiology of CXR shows catheter to heart) Abdomen/GI: normal bowel sounds, non tender, soft Extremities/Musculoskelatal: no calf tenderness, non-tender Neurologic/Psych: no motor/sensory deficits (needed assistance to sit up, occasional right hand tremors), + pertinent finding (lethargic but responds to commands and oriented to place, person, family) Skin: normal color, warm/dry, no rash Diagnostics Laboratory Results Results Past 24 Hours Test 03/28/17 11:30 03/28/17 11:34 8/28/17 11:38 03/28/17 15:07 Range/Units White Blood Count 14.87 4.8-10.8 K/uL Red Blood Count 2.87 4.2-5.4 M/uL Hemoglobin 9.8 12.0-16.0 g/dL Hematocrit 32.0 37-47 % Mean Corpuscular Volume 111.5 80-100 fL Mean Corpuscular Hemoglobin 34.1 25-34 pg Mean Corpuscular Hemoglobin Concent 30.6 32-36 g/dl Platelet Count 241 130-400 K/uL Mean Platelet Volume 10.5 7.4-10.4 fL Neutrophils (%) (Auto) 83.7 % Lymphocytes (%) (Auto) 9.3 % Monocytes (%) (Auto) 3.8 % Eosinophils (%) (Auto) 2.5 % Basophils (%) (Auto) 0.1 % Neutrophils # (Auto) 12.44 1.4-6.5 K/uL Lymphocytes # (Auto) 1.39 1.2-3.4 K/uL Monocytes # (Auto) 0.57 0.11-0.59 K/uL Eosinophils # (Auto) 0.37 0-0.5 K/uL Basophils # (Auto) 0.01 0-0.2 K/uL RDW Standard Deviation 65.0 36.4-46.3 fL RDW Coefficient of Variation 16.3 11.5-14.5 % Immature Granulocyte % (Auto) 0.6 % Immature Granulocyte # (Auto) 0.09 0.00-0.02 K/uL Nucleated RBC Absolute Count (auto) 0.09 0-0 K/uL Nucleated Red Blood Cells % 0.6 % Toxic Vacuolation 2+ Poikilocytosis PRESENT Macrocytosis PRESENT Prothrombin Time 11.4 9.0-12.0 SECONDS Prothromb Time International Ratio 1.1 0.9-1.1 Activated Partial Thromboplast Time 28.5 21.0-31.0 SECONDS Partial Thromboplastin Ratio 1.1 Venous Blood pH 7.26 7.36-7.41 Venous Blood Partial Pressure CO2 47 38.0-50.0 mmHg Venous Blood Partial Pressure O2 39 mmHg Venous Blood HCO3 20 mmol/L Venous Blood Oxygen Saturation 66.4 % Venous Blood Base Excess -6.6 mEq/L Sodium Level 133 136-145 mmol/L Potassium Level 5.3 3.5-5.1 mmol/L Chloride Level 98 98-107 mmol/L Carbon Dioxide Level 22 21-32 mmol/L Anion Gap 13.0 3-11 mmol/L Blood Urea Nitrogen 61 7-18 mg/dl Creatinine 8.90 0.60-1.20 mg/dl Est Creatinine Clear Calc Drug Dose 4.7 ml/min Estimated GFR () 4.4 Estimated GFR (Non- 3.8 BUN/Creatinine Ratio 6.8 10-20 Random Glucose 132 70-99 mg/dl Calcium Level 7.0 8.5-10.1 mg/dl Phosphorus Level 5.8 2.5-4.9 mg/dl Magnesium Level 2.1 1.8-2.4 mg/dl Total Bilirubin 0.6 0.2-1 mg/dl Direct Bilirubin 0.3 0-0.2 mg/dl Aspartate Amino Transf (AST/SGOT) 14 15-37 U/L Alanine Aminotransferase (ALT/SGPT) 14 12-78 U/L Alkaline Phosphatase 295 45-117 U/L Pro-B-Type Natriuretic Peptide 26373 0-1800 pg/ml Total Protein 7.4 6.4-8.2 gm/dl Albumin 2.9 3.4-5.0 gm/dl Bedside Troponin I 0.030 0-0.045 ng/ml Bedside Lactic Acid Venous 1.53 0.90-1.70 mmol/L Microbiology Results 03/28/17 Blood Culture, Received Pending Diagnostic Radiology CHEST ONE VIEW PORTABLE COMPARISON STUDY: 03/10/2017 FINDINGS: The left internal jugular dual-lumen central venous catheter remains unchanged in position. There is been interval placement of a right internal jugular central venous catheter. There is no pneumothorax. There is a left subclavian single chamber central venous pacemaker. The cardiac and mediastinal contours remain stable. There is mild pulmonary venous hypertension. There is no lobar consolidation. There are no pleural effusions.[ IMPRESSION: 1. Interval placement of a right-sided central venous catheter. The tip projects over the distal aspect of the superior vena cava 2. Suspected mild pulmonary venous hypertension. No evidence of focal pulmonary consolidation Electronically signed by: Otis Branham M.D. 03/28/2017 11:51 AM Dictated Date/Time: 03/28/2017 11:49 AM EKG ventricular paced rhythm of 66 bpm Impression Assessment and Plan 81 year old F on dialysis MWF with last dialysis on Tuesday via left side permacath, has reportedly non functioning left upper extremity AV fistula as per family that was last used 2 years ago, and recent placement of HERO graft using brachial artery to subclavian vein on 03/24/17 with 1 to 2 day history of malaise and throat pain found to have leukocytosis Leukocytosis WBC 14.83 -Was in discussion with ED provider on initiating broad spectrum antibiotics because of recent surgical/vascular instrumentation in a dialysis patient with leukocytosis and and general malaise. -In ED patient received Vancomycin 1250 mg IV, Cefepime 100 mg IV, Azithromycin 500 mg IV -continue to renally dose medications -follow blood cultures -normal oropharyngeal exam for complaints of trouble swallowing, continue to monitor Dialysis M/W/ schedule -is anuric -Discussed with Nephrology service to continue patient's dialysis, awaiting their evaluation for dialysis for Today Tuesday or Tomorrow Tuesday Respiratory -patient uses home oxygen at night, c/w oxygen Cardiac -has pacemaker Neuro -on ED presentation lethargic however follows commands and answers questions appropriately DVT prophylaxis: heparin 5000 units subq q 12 hours Level of Care Telemetry Resuscitation Status FULL RESUSCITATION VTE Prophylaxis VTE Risk Assessment Done? Y/N: Yes Risk Level: Moderate
[2017-03-28 16:00] VITALS: BP 84/47; PULSE 67; TEMP 36.4; BMI 31.9
[2017-03-28] MEDS ORDERED: INSULIN ASPART 100 UNITS/ML 3 ML PEN SC SCH (16:00)
[2017-03-28] MEDS ORDERED: GLUCOSE 10 TABS/TUBE PO PRN (16:15)
[2017-03-28] MEDS ORDERED: DEXTROSE 50% 50 ML SYR IV PRN (16:15)
[2017-03-28] MEDS ORDERED: GLUCOSE 40% GEL 15 GM TUBE PO PRN (16:15)
[2017-03-28] MEDS ORDERED: GLUCAGON FOR INJ 1 MG VIAL SQ PRN (16:15)
[2017-03-28 16:36] VITALS: BP 84/47; PULSE 67; TEMP 36.4; O2SAT 99
[2017-03-28] MEDS ORDERED: VANCOMYCIN IV SCH (17:30)
[2017-03-28] MEDS ORDERED: SODIUM CHLORIDE 0.9% IV SCH (17:30)
[2017-03-28] MEDS: SEVELAMER HYDROCH 800 MG TAB PO SCH (18:02)
[2017-03-28] MEDS ORDERED: VANCOMYCIN CONSULT ACTIVE PRN (18:30)
[2017-03-28] MEDS ORDERED: PIPERACILL/TAZOBAC CONSULT ACTIVE PRN (18:30)
[2017-03-28] MEDS ORDERED: PIPERACILL/TAZOBAC IV 3.375 GM in DEXTROSE 5% 100ML 100 ML IV ONE (19:00)
[2017-03-28 20:25] VITALS: BP 105/64; PULSE 65; TEMP 36.9; O2SAT 100
[2017-03-28] MEDS: INSULIN ASPART 100 UNITS/ML 3 ML PEN SC SCH (21:00)
[2017-03-28] MEDS ORDERED: METOPROLOL SUCC 50MG EXT REL TAB PO SCH (21:00)
[2017-03-28 21:33] VITALS: BP 95/58; PULSE 72
[2017-03-28] MEDS: INSULIN GLARGINE SOLOSTAR 100 UNITS/ML 3 ML PEN SC SCH (21:36)
[2017-03-28] MEDS: HEPARIN SOD 5000 UNIT/0.5 ML CARP SQ SCH (21:36)
--- NOTE | 2017-03-28 22:20 | Pharmacy Progress Note ---
Pharmacy Abx Initial Consult Date of Service Mar 28, 2017. Pharmacy Dosing Scope Date of Consult: 03/28/17 Consultation requested by: Dr. Arita Pharmacy is consulted to initiate vancomycin and Zosyn IV dosing therapy, order appropriate labs and adjust drug dose/frequency. Subjective The patient is a 81 year old female admitted on Mar 28, 2017 at 14:56. Objective Height (Feet): 5 Height (Inches): 2.00 Weight (Kilograms): 74.000 Vital Signs (Past 12Hrs) Vital Signs Past 12 Hours Date Time Temp Pulse Resp B/P (MAP) Pulse Ox O2 Delivery O2 Flow Rate FiO2 03/28/17 21:33 72 95/58 (70) 03/28/17 20:25 36.9 65 16 105/64 (78) 100 Nasal Cannula 2.0 03/28/17 16:36 36.4 67 16 84/47 (59) 99 Nasal Cannula 2.0 03/28/17 16:02 63 21 82/61 99 03/28/17 14:28 74/25 03/28/17 14:16 90 19 67/24 99 Nasal Cannula 2.0 03/28/17 13:25 71 03/28/17 13:00 64 20 104/51 100 Nasal Cannula 2.0 03/28/17 11:57 59 14 106/48 98 Nasal Cannula 2.0 03/28/17 11:01 88 Room Air 03/28/17 11:01 63 18 97/48 100 Nasal Cannula 4.0 03/28/17 10:50 67 03/28/17 10:46 37.2 73 14 100/64 96 Room Air Lab Results (24Hrs) Laboratory Tests (24 Hours) Test 03/28/17 11:30 White Blood Count 14.87 K/uL (4.8-10.8) H Red Blood Count 2.87 M/uL (4.2-5.4) L Hemoglobin 9.8 g/dL (12.0-16.0) L Hematocrit 32.0 % (37-47) L Mean Corpuscular Volume 111.5 fL (80-100) H Mean Corpuscular Hemoglobin 34.1 pg (25-34) H Mean Corpuscular Hemoglobin Concent 30.6 g/dl (32-36) L Platelet Count 241 K/uL (130-400) Mean Platelet Volume 10.5 fL (7.4-10.4) H Neutrophils (%) (Auto) 83.7 % Lymphocytes (%) (Auto) 9.3 % Monocytes (%) (Auto) 3.8 % Eosinophils (%) (Auto) 2.5 % Basophils (%) (Auto) 0.1 % Neutrophils # (Auto) 12.44 K/uL (1.4-6.5) H Lymphocytes # (Auto) 1.39 K/uL (1.2-3.4) Monocytes # (Auto) 0.57 K/uL (0.11-0.59) Eosinophils # (Auto) 0.37 K/uL (0-0.5) Basophils # (Auto) 0.01 K/uL (0-0.2) Micro Results Date/Time Source Procedure Growth Status 03/28/17 15:03 Blood Blood Culture Pending Received Risk Factors for Resistance * Hospitalization for 48 hours or more within the past 90 days * Chronic dialysis within the past 30 days Assessment & Plan Assessment 81 year old female with a PMH of HERO graft recently (03/24/17) using the brachial artery and hemodialysis (last session Tuesday) admitted with lethargy and decreased appetite. Patient also has leukocytosis of an unknown source. Plan vancomycin/Zosyn for treatment of leukocytosis of unknown source (empiric indication with 10 day stop date per Dr Arita) Vancomycin IV * Loading dose: 1250 mg (17 mg/kg) * Goal trough level for leukocytosis of unknown source : 15 to 20 mcg/mL * Random level ordered for 03/29/17 - as of 2200 the patient was not ordered hemodialysis so random level ordered tomorrow morning * A less than traditional dose has been selected due to likelihood of drug accumulation in patient with h/o CKD. Piperacillin/tazobactam * 3.375 g bolus administered over 30 minutes, then 3.375 g IV extended infusion every 12 hours for dialysis. Pharmacy will continue to follow and will adjust dose/frequency as necessary. Thank you.
[2017-03-28 23:16] VITALS: BP 78/46; PULSE 72; TEMP 36.4; O2SAT 94
[2017-03-29] VITALS (23 sets, daily range): BP systolic 84–133; BP diastolic 37–85; PULSE 58–74; TEMP 36.4–37; O2SAT 95–100; Ht 157.5 cm; Wt 74.4 kg
[2017-03-29 00:08] LABS: ARTERIAL BLD GAS O2 SATURATION 97.2 % (90-95); ARTERIAL BLOOD GAS BASE EXCESS -8.2 mEq/L (-9-1.8); ARTERIAL BLOOD GAS HCO3 20 mmol/L (19-24); ARTERIAL BLOOD GAS PO2 136 mm/Hg (80-95)
[2017-03-29 00:16] LABS: ALLEN TEST POS (POS); ARTERIAL BLOOD GAS pH 7.19 (7.35-7.45); O2 ADMINISTRATION 2 L
[2017-03-29 00:35] LABS: BUN/CREATININE RATIO 6.7 (10-20); CREATININE 9.5 mg/dl (0.60-1.20); MAGNESIUM 2.1 mg/dl (1.8-2.4); POTASSIUM 5.1 mmol/L (3.5-5.1)
[2017-03-29] MEDS ORDERED: LACTULOSE SYRUP 30 GM/45 ML UDP PO ONE (01:15)
[2017-03-29] MEDS ORDERED: SODIUM CHLORIDE 0.9% 250ML 250 ML IV SCH (01:15)
--- NOTE | 2017-03-29 01:42 | Progress Note ---
Internal Med Progress Note Date of Service: Mar 29, 2017. Provider Documentation: Made aware by RN of episodic lethargy. SBP 70s. sodium 131 K 5.1 ammonia 46 AP Episodic lethargy ? Hepatic encephalopathy ? Adrenal insufficiency (Hypotension, hyponatremia, hyperkalemia) Lactulose trial Decadron trial Will relay to AM provider. Vital Signs: Date Time Temp Pulse Resp B/P (MAP) Pulse Ox O2 Delivery O2 Flow Rate FiO2 03/29/17 05:04 36.5 62 20 96/59 (71) 100 Nasal Cannula 2.0 03/29/17 02:35 63 123/65 (84) 03/29/17 01:42 36.5 68 16 133/85 (101) 100 Nasal Cannula 2.0 03/29/17 00:00 Nasal Cannula 2.0 03/28/17 23:16 36.4 72 16 78/46 (57) 94 Nasal Cannula 2.0 72 03/28/17 21:33 72 95/58 (70) 03/28/17 20:25 36.9 65 16 105/64 (78) 100 Nasal Cannula 2.0 03/28/17 20:00 Nasal Cannula 2.0 03/28/17 16:36 36.4 67 16 84/47 (59) 99 Nasal Cannula 2.0 03/28/17 16:02 63 21 82/61 99 03/28/17 16:00 36.4 67 16 84/47 Nasal Cannula 2.0 03/28/17 14:28 74/25 03/28/17 14:16 90 19 67/24 99 Nasal Cannula 2.0 03/28/17 13:25 71 03/28/17 13:00 64 20 104/51 100 Nasal Cannula 2.0 03/28/17 11:57 59 14 106/48 98 Nasal Cannula 2.0 03/28/17 11:01 88 Room Air 03/28/17 11:01 63 18 97/48 100 Nasal Cannula 4.0 03/28/17 10:50 67 03/28/17 10:46 37.2 73 14 100/64 96 Room Air Lab Results: Results Past 24 Hours Test 03/28/17 11:30 03/28/17 11:34 03/28/17 11:38 03/28/17 17:00 Range/Units White Blood Count 14.87 4.8-10.8 K/uL Red Blood Count 2.87 4.2-5.4 M/uL Hemoglobin 9.8 12.0-16.0 g/dL Hematocrit 32.0 37-47 % Mean Corpuscular Volume 111.5 80-100 fL Mean Corpuscular Hemoglobin 34.1 25-34 pg Mean Corpuscular Hemoglobin Concent 30.6 32-36 g/dl Platelet Count 241 130-400 K/uL Mean Platelet Volume 10.5 7.4-10.4 fL Neutrophils (%) (Auto) 83.7 % Lymphocytes (%) (Auto) 9.3 % Monocytes (%) (Auto) 3.8 % Eosinophils (%) (Auto) 2.5 % Basophils (%) (Auto) 0.1 % Neutrophils # (Auto) 12.44 1.4-6.5 K/uL Lymphocytes # (Auto) 1.39 1.2-3.4 K/uL Monocytes # (Auto) 0.57 0.11-0.59 K/uL Eosinophils # (Auto) 0.37 0-0.5 K/uL Basophils # (Auto) 0.01 0-0.2 K/uL RDW Standard Deviation 65.0 36.4-46.3 fL RDW Coefficient of Variation 16.3 11.5-14.5 % Immature Granulocyte % (Auto) 0.6 % Immature Granulocyte # (Auto) 0.09 0.00-0.02 K/uL Nucleated RBC Absolute Count (auto) 0.09 0-0 K/uL Nucleated Red Blood Cells % 0.6 % Toxic Vacuolation 2+ Poikilocytosis PRESENT Macrocytosis PRESENT Prothrombin Time 11.4 9.0-12.0 SECONDS Prothromb Time International Ratio 1.1 0.9-1.1 Activated Partial Thromboplast Time 28.5 21.0-31.0 SECONDS Partial Thromboplastin Ratio 1.1 Venous Blood pH 7.26 7.36-7.41 Venous Blood Partial Pressure CO2 47 38.0-50.0 mmHg Venous Blood Partial Pressure O2 39 mmHg Venous Blood HCO3 20 mmol/L Venous Blood Oxygen Saturation 66.4 % Venous Blood Base Excess -6.6 mEq/L Sodium Level 133 136-145 mmol/L Potassium Level 5.3 3.5-5.1 mmol/L Chloride Level 98 98-107 mmol/L Carbon Dioxide Level 22 21-32 mmol/L Anion Gap 13.0 3-11 mmol/L Blood Urea Nitrogen 61 7-18 mg/dl Creatinine 8.90 0.60-1.20 mg/dl Est Creatinine Clear Calc Drug Dose 4.7 ml/min Estimated GFR () 4.4 Estimated GFR (Non- 3.8 BUN/Creatinine Ratio 6.8 10-20 Random Glucose 132 70-99 mg/dl Calcium Level 7.0 8.5-10.1 mg/dl Phosphorus Level 5.8 2.5-4.9 mg/dl Magnesium Level 2.1 1.8-2.4 mg/dl Total Bilirubin 0.6 0.2-1 mg/dl Direct Bilirubin 0.3 0-0.2 mg/dl Aspartate Amino Transf (AST/SGOT) 14 15-37 U/L Alanine Aminotransferase (ALT/SGPT) 14 12-78 U/L Alkaline Phosphatase 295 45-117 U/L Pro-B-Type Natriuretic Peptide 03183 0-1800 pg/ml Total Protein 7.4 6.4-8.2 gm/dl Albumin 2.9 3.4-5.0 gm/dl Bedside Troponin I 0.030 0-0.045 ng/ml Bedside Lactic Acid Venous 1.53 0.90-1.70 mmol/L Digoxin Level 1.2 0.8-2.0 ng/ml Test 03/28/17 20:56 03/28/17 23:13 03/28/17 23:41 03/29/17 04:44 Range/Units Bedside Glucose 166 154 70-90 mg/dl Arterial Blood pH 7.19 7.35-7.45 Arterial Blood Partial Pressure CO2 53 35-46 mmHg Arterial Blood Partial Pressure O2 136 80-95 mm/Hg Arterial Blood HCO3 20 19-24 mmol/L Arterial Blood Oxygen Saturation 97.2 90-95 % Arterial Blood Base Excess -8.2 -9-1.8 mEq/L Arterial Blood Gas Delivery 2 L Siva Test POS POS Sodium Level 131 136-145 mmol/L Potassium Level 5.1 3.5-5.1 mmol/L Chloride Level 98 98-107 mmol/L Carbon Dioxide Level 20 21-32 mmol/L Anion Gap 13.0 3-11 mmol/L Blood Urea Nitrogen 65 7-18 mg/dl Creatinine 9.50 0.60-1.20 mg/dl Est Creatinine Clear Calc Drug Dose 4.2 ml/min Estimated GFR () 4.1 Estimated GFR (Non- 3.5 BUN/Creatinine Ratio 6.7 10-20 Random Glucose 163 70-99 mg/dl Calcium Level 7.0 8.5-10.1 mg/dl Magnesium Level 2.1 1.8-2.4 mg/dl Ammonia 46.0 11-32 umol/L Microbiology Results 03/28/17 Blood Culture, Received Pending
[2017-03-29] MEDS: ALBUMIN HUMAN 25% 12.5 GM/50 ML VIAL IV SCH ×2 (01:44→02:43)
[2017-03-29] MEDS ORDERED: LACTULOSE 200GM/700ML WTR ENEMA PR ONE (01:45)
[2017-03-29] MEDS ORDERED: LACTULOSE SYRUP 200 GM, WATER, STERILE IRRIG 700 ML, BARCODE IDENTIFIER 1 EA PR ONE ×2 (02:00)
[2017-03-29] MEDS ORDERED: DEXAMETHASONE INJ 4 MG in SYRINGE 0 ML IV ONE (02:15)
[2017-03-29] MEDS: PIPERACILL/TAZOBAC IV 3.375 GM in DEXTROSE 5% 100ML IV SCH ×2 (03:17→15:49)
[2017-03-29] MEDS: SEVELAMER HYDROCH 800 MG TAB PO SCH ×3 (06:42→16:24)
[2017-03-29 08:04] LABS: EOS % 0.2 %; HEMATOCRIT 30.3 % (37-47); IG% 0.5 %; LYMPH % 4.5 %; LYMPH ABS # 0.59 K/uL (1.2-3.4); MEAN CORPUSCULAR HEMOGLOBIN 34.1 pg (25-34); MEAN CORPUSCULAR HGB CONC 30.7 g/dl (32-36); MEAN PLATELET VOLUME 10.7 fL (7.4-10.4); MONO % 1.5 %; NEUT % 93.3 %; PLATELET COUNT 219 K/uL (130-400); RED BLOOD COUNT 2.73 M/uL (4.2-5.4); WHITE BLOOD COUNT 12.97 K/uL (4.8-10.8)
--- NOTE | 2017-03-29 08:14 | NEPHROLOGY CONSULTATION ---
DATE OF CONSULTATION: 03/29/2017 ATTENDING OF RECORD: Dr. Garcia. REASON FOR CONSULTATION: End-stage renal disease. HISTORY OF PRESENT ILLNESS: This is an 81-year-old female who dialyzes in [facility] on Mondays, Wednesdays and Fridays. Last dialysis treatment was Tuesday; uneventful course. The patient was a little sleepy after dialysis which is normal for her. Does have a clotted left upper arm AV fistula. Did have a recent HeRO graft placed on by Dr. Guillory. Patient over the weekend started to become more lethargic, decrease in appetite, no actual documented fevers and the patient was supposed to have dialysis on Tuesday, but did not feel like going. She came into the hospital and found to have a white count of 14,000. Blood pressure was in the low 100s and this morning is in the high 80s to low 90s. The patient was started on broad spectrum antibiotics of Zosyn and vancomycin. The patient also received a dose of azithromycin and cefepime as well. The patient this morning is more awake and conversant, although still complains about being sleepy. The patient is aware of the year, and knows that she is in the hospital and is able to answer questions better this morning compared to last night where she was very sleepy. PAST MEDICAL HISTORY: End-stage renal disease, coronary artery disease, diabetes, gout, hypertension, paroxysmal A fib, pulmonary hypertension, sleep apnea with oxygen at night while she sleeps; was unable to tolerate CPAP. PAST SURGICAL HISTORY: Tunneled dialysis catheter, fistula placement, HeRO graft, hip replacement, back surgery, cholecystectomy and cataract surgery. FAMILY HISTORY: Significant for diabetes. SOCIAL HISTORY: No smoking, no alcohol, no drugs. Lives with family. HOME MEDICATIONS: Notable for allopurinol, Sensipar, Neurontin, oxygen, Toprol, Renvela. REVIEW OF SYSTEMS: No fevers or chills. No headaches. No difficulty seeing. Is complaining of some mild shortness of breath, no chest pain, no nausea or vomiting. No longer urinates and denies any constipation. No itching or rash. Complains of fatigue and decreased appetite and mild shortness of breath. All other review of systems otherwise negative. CURRENT MEDICATIONS: Digoxin 0.0625 every 2 days, Colace 100 mg daily, Toprol-XL 200 mg daily, Zosyn 3.375 IV q. 12, heparin 5,000 units subQ q. 12, Lantus 30 units at night, Toprol-XL 100 mg at night, Renagel 800 mg with meals. PHYSICAL EXAMINATION: VITAL SIGNS: Temperature 36.5, pulse 62, respiratory rate is 20, blood pressure is 96/59, satting 100% on 2 liters. GENERAL: Awake, alert, oriented x3 more awake this morning compared to last night although still sleepy. EYES: No scleral icterus. ENT: Moist mucous membranes. NECK: Supple. PULMONARY: Has basilar rales. CARDIAC: Distant heart sounds. ABDOMEN: Bowel sounds positive, soft, nontender. EXTREMITIES: Mild edema. NEUROLOGICALLY: Nonfocal. DERMATOLOGIC: Does have some notable ecchymoses with the recent procedure last week. ACCESSES: She has a tunneled dialysis catheter; appears nontender with no drainage noted. HeRO graft with good bruit and does not appear overtly infectious at this time with no significant erythema noted. Blood culture is pending. Chest x-ray showed mild pulmonary venous hypertension. No focal pulmonary consolidation. ASSESSMENT AND PLAN: 1. End-stage renal disease, last dialysis treatment was Tuesday. The patient was supposed to have dialysis on Tuesday. When she presented to the hospital last night did not feel patient was stable enough for dialysis. The patient is more awake this morning. Will follow the potassium trends. Does have some noted basilar rales as well. Ideally would like to plan on dialysis today; however, blood pressure is quite low with systolics in the low 90s. Would like to consider waiting 1 more day for further stabilization of patient before attempting dialysis on this patient. Blood culture still pending. Currently on broad spectrum antibiotics. Will follow the labs and discuss further with primary hospitalist. 2. Hypocalcemia. Calcium level 7 with albumin level of 2.9, so correcting to about 7.8. The patient was on Sensipar as an outpatient which lowers calcium and that has been held. The patient did get IV calcium gluconate, 2 grams last night. Today's calcium levels are pending. Would continue to redose accordingly. 3. Phosphorus level is 5.8. The patient is on phosphate binders and will continue those. Overall, the patient though with poor prognosis given her significant comorbidities with signs of possible infection with low blood pressure and altered mental status. The patient appears to be slowly improving; however, has not identified a source for infection yet. We will follow closely. If blood pressures remain low may consider transferring to ICU for pressor support. However, at this time, the patient relatively asymptomatic with the lower blood pressures. I appreciate the consultation. TEGAN
[2017-03-29] MEDS: INSULIN ASPART 100 UNITS/ML 3 ML PEN SC SCH ×4 (08:17→21:00)
[2017-03-29] MEDS: HEPARIN SOD 5000 UNIT/0.5 ML CARP SQ SCH ×2 (08:17→22:00)
[2017-03-29] MEDS: DOCUSATE SODIUM 100 MG CAP PO SCH (08:18)
[2017-03-29 08:48] LABS: ALB/GLOB RATIO 0.7 (0.9-2); BUN/CREATININE RATIO 7.1 (10-20); CALCIUM 7.1 mg/dl (8.5-10.1); POTASSIUM 6.1 mmol/L (3.5-5.1)
[2017-03-29] MEDS ORDERED: METOPROLOL SUCC 50MG EXT REL TAB PO SCH (09:00)
[2017-03-29 09:05] LABS: ESTIMATED AVERAGE GLUCOSE 249 mg/dl; HA1C FLAG Normal (Normal)
[2017-03-29 09:15] LABS: COMPLETE YES; ECHINOCYTES 1+
--- NOTE | 2017-03-29 09:18 | DIAGNOSTIC IMAGING REPORT ---
RIGHT UPPER EXTREMITY VENOUS DOPPLER HISTORY: Hypotension. Right arm swelling. catheter from vein to heart Right COMPARISON STUDY: None. FINDINGS: The right internal jugular vein is patent. There is normal flow within the right subclavian vein. There is normal flow and compressibility within the right axillary, basilic, brachial, radial, ulnar, and visualized cephalic veins. There is a graft seen within the upper arm which terminates in the brachial artery. This is widely patent. IMPRESSION: No DVT within the right upper extremity. There is a graft seen within the upper arm which terminates in the brachial artery. This is widely patent. Electronically signed by: Mark Hauser M.D. 03/29/2017 9:17 AM Dictated Date/Time: 03/29/2017 9:14 AM
--- NOTE | 2017-03-29 09:30 | DIAGNOSTIC IMAGING REPORT ---
DUPLEX HEMODIALYSIS ACCESS CLINICAL HISTORY: 81 years-old Female presenting with nonfunctioning AV fistual on left arm. TECHNIQUE: Real-time grayscale ultrasound imaging of the left upper extremity was performed for a focal evaluation of a dialysis fistula. Color and spectral Doppler were also performed. COMPARISON: None. FINDINGS: Normal color Doppler flow and arterial waveforms noted within the left brachial artery extending to the site of a anastomosis of a fistula or graft. At this site, no flow extends into the graft. Distal to the graft inflow is a patent left brachial artery. No flow was observed on spectral Doppler throughout its course. The left subclavian vein is patent distally as is the left axillary and left internal jugular vein. IMPRESSION: 1. 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 [place] vessels patent including the arterial feeder and venous drainage. Electronically signed by: Maxime Lara M.D. 03/29/2017 9:29 AM Dictated Date/Time: 03/29/2017 9:15 AM
[2017-03-29] MEDS ORDERED: EPOETIN ALFA 10,000 UNITS/ML VIAL IV. SCH (12:00)
--- NOTE | 2017-03-29 12:24 | Pharmacy Progress Note ---
Pharmacy Antibiotic Prog Note Date of Service Mar 29, 2017. Subjective The patient is currently receiving zosyn 3.375 mg q12H and vancomycin being dosed for hemodialysis. The patient is currently on day # 2 of IV therapy. Objective Height (Feet): 5 Height (Inches): 0.00 Weight (Kilograms): 72.500 Levels: Random level 20.1 Lab Results (24hrs): Test 03/28/17 17:00 03/28/17 23:13 03/28/17 23:41 03/29/17 07:48 Digoxin Level 1.2 ng/ml (0.8-2.0) Bedside Glucose 154 mg/dl (70-90) 207 mg/dl (70-90) Arterial Blood pH 7.19 (7.35-7.45) Arterial Blood Partial Pressure CO2 53 mmHg (35-46) Arterial Blood Partial Pressure O2 136 mm/Hg (80-95) Arterial Blood HCO3 20 mmol/L (19-24) Arterial Blood Oxygen Saturation 97.2 % (90-95) Arterial Blood Base Excess -8.2 mEq/L (-9-1.8) Arterial Blood Gas Delivery 2 L Siva Test POS (POS) Sodium Level 131 mmol/L (136-145) Potassium Level 5.1 mmol/L (3.5-5.1) Chloride Level 98 mmol/L (98-107) Carbon Dioxide Level 20 mmol/L (21-32) Anion Gap 13.0 mmol/L (3-11) Blood Urea Nitrogen 65 mg/dl (7-18) Creatinine 9.50 mg/dl (0.60-1.20) Est Creatinine Clear Calc Drug Dose 4.2 ml/min Estimated GFR () 4.1 Estimated GFR (Non- 3.5 BUN/Creatinine Ratio 6.7 (10-20) Random Glucose 163 mg/dl (70-99) Calcium Level 7.0 mg/dl (8.5-10.1) Magnesium Level 2.1 mg/dl (1.8-2.4) Ammonia 46.0 umol/L (11-32) Test 03/29/17 07:50 03/29/17 07:51 Sodium Level 128 mmol/L (136-145) Potassium Level 6.1 mmol/L (3.5-5.1) Chloride Level 97 mmol/L (98-107) Carbon Dioxide Level 19 mmol/L (21-32) Anion Gap 13.0 mmol/L (3-11) Blood Urea Nitrogen 71 mg/dl (7-18) Creatinine 10.00 mg/dl (0.60-1.20) Est Creatinine Clear Calc Drug Dose 4.0 ml/min Estimated GFR () 3.8 Estimated GFR (Non- 3.3 BUN/Creatinine Ratio 7.1 (10-20) Random Glucose 198 mg/dl (70-99) Calcium Level 7.1 mg/dl (8.5-10.1) Total Bilirubin 0.8 mg/dl (0.2-1) Aspartate Amino Transf (AST/SGOT) 13 U/L (15-37) Alanine Aminotransferase (ALT/SGPT) 15 U/L (12-78) Alkaline Phosphatase 264 U/L (45-117) Ammonia 54.0 umol/L (11-32) Total Protein 7.1 gm/dl (6.4-8.2) Albumin 2.9 gm/dl (3.4-5.0) Globulin 4.2 gm/dl (2.5-4.0) Albumin/Globulin Ratio 0.7 (0.9-2) Random Vancomycin Level 20.1 mcg/ml White Blood Count 12.97 K/uL (4.8-10.8) Red Blood Count 2.73 M/uL (4.2-5.4) Hemoglobin 9.3 g/dL (12.0-16.0) Hematocrit 30.3 % (37-47) Mean Corpuscular Volume 111.0 fL (80-100) Mean Corpuscular Hemoglobin 34.1 pg (25-34) Mean Corpuscular Hemoglobin Concent 30.7 g/dl (32-36) Platelet Count 219 K/uL (130-400) Mean Platelet Volume 10.7 fL (7.4-10.4) Neutrophils (%) (Auto) 93.3 % Lymphocytes (%) (Auto) 4.5 % Monocytes (%) (Auto) 1.5 % Eosinophils (%) (Auto) 0.2 % Basophils (%) (Auto) 0.0 % Neutrophils # (Auto) 12.09 K/uL (1.4-6.5) Lymphocytes # (Auto) 0.59 K/uL (1.2-3.4) Monocytes # (Auto) 0.20 K/uL (0.11-0.59) Eosinophils # (Auto) 0.02 K/uL (0-0.5) Basophils # (Auto) 0.00 K/uL (0-0.2) RDW Standard Deviation 65.3 fL (36.4-46.3) RDW Coefficient of Variation 16.5 % (11.5-14.5) Immature Granulocyte % (Auto) 0.5 % Immature Granulocyte # (Auto) 0.07 K/uL (0.00-0.02) Macrocytosis PRESENT Echinocytes 1+ Estimated Average Glucose 249 mg/dl Hemoglobin A1c 10.3 % (4.5-5.6) Micro Results: Date/Time Source Procedure Growth Status 03/28/17 15:03 Blood Blood Culture Pending Received Assessment & Plan Assessment: * 81 yo Female with recent HERO graft on hemodialysis on MWF * Last hemodialysis was Tuesday, Scheduled for today Plan: * Redose with 750 mg x 1 today after hemodialysis to target peak level ~30. * Will order random for tomorrow if HD scheduled. Goal peak level estimate: between 30 - 40 mcg/mL. Goal trough level estimate: between 15-20 mcg/mL. Pharmacy will continue to follow and will adjust dose/frequency as necessary. Thank you
--- NOTE | 2017-03-29 14:26 | Progress Note ---
Medicine Progress Note Date & Time of Visit: Mar 29, 2017 at 13:56. Subjective Pt was seen and examined Lying in bed with no distress Pt is more awake this morning She does not know why she is here She denies any chest pain, palpitation, dizziness and SOB Objective Last 8 Hrs Date Time Temp Pulse Resp B/P (MAP) Pulse Ox O2 Delivery O2 Flow Rate FiO2 03/29/17 12:45 62 99/44 03/29/17 12:30 58 94/46 03/29/17 12:15 62 103/46 03/29/17 12:12 37.0 60 103/49 (67) 03/29/17 12:00 Nasal Cannula 2.0 03/29/17 11:52 109/67 (81) 03/29/17 11:32 36.9 59 22 97/60 (72) 96 Nasal Cannula 2.0 03/29/17 08:00 Nasal Cannula 2.0 03/29/17 07:28 74 22 89/45 (60) 98 Room Air 88/53 (65) Physical Exam: General- awake, no distress Head- atraumatic Eyes- PERRL, EOMI ENT- oropharynx clear Neck- supple, no JVD Lungs- Decrease BS Heart- Bradycardia, no murmur Abdomen- normal bowel sounds, soft, nontender Extremities- no calf tenderness Neuro- alert, awake, PERRL, EOMI; no facial palsy; Skin- warm & dry Laboratory Results: Last 24 Hours Test 03/28/17 17:00 03/28/17 20:56 03/28/17 23:13 03/28/17 23:41 Digoxin Level 1.2 ng/ml Bedside Glucose 166 mg/dl 154 mg/dl Arterial Blood pH 7.19 Arterial Blood Partial Pressure CO2 53 mmHg Arterial Blood Partial Pressure O2 136 mm/Hg Arterial Blood HCO3 20 mmol/L Arterial Blood Oxygen Saturation 97.2 % Arterial Blood Base Excess -8.2 mEq/L Arterial Blood Gas Delivery 2 L Siva Test POS Sodium Level 131 mmol/L Potassium Level 5.1 mmol/L Chloride Level 98 mmol/L Carbon Dioxide Level 20 mmol/L Anion Gap 13.0 mmol/L Blood Urea Nitrogen 65 mg/dl Creatinine 9.50 mg/dl Est Creatinine Clear Calc Drug Dose 4.2 ml/min Estimated GFR () 4.1 Estimated GFR (Non- 3.5 BUN/Creatinine Ratio 6.7 Random Glucose 163 mg/dl Calcium Level 7.0 mg/dl Magnesium Level 2.1 mg/dl Ammonia 46.0 umol/L Test 03/29/17 07:48 03/29/17 07:50 03/29/17 07:51 03/29/17 11:39 Bedside Glucose 207 mg/dl 265 mg/dl Sodium Level 128 mmol/L Potassium Level 6.1 mmol/L Chloride Level 97 mmol/L Carbon Dioxide Level 19 mmol/L Anion Gap 13.0 mmol/L Blood Urea Nitrogen 71 mg/dl Creatinine 10.00 mg/dl Est Creatinine Clear Calc Drug Dose 4.0 ml/min Estimated GFR () 3.8 Estimated GFR (Non- 3.3 BUN/Creatinine Ratio 7.1 Random Glucose 198 mg/dl Calcium Level 7.1 mg/dl Total Bilirubin 0.8 mg/dl Aspartate Amino Transf (AST/SGOT) 13 U/L Alanine Aminotransferase (ALT/SGPT) 15 U/L Alkaline Phosphatase 264 U/L Ammonia 54.0 umol/L Total Protein 7.1 gm/dl Albumin 2.9 gm/dl Globulin 4.2 gm/dl Albumin/Globulin Ratio 0.7 Random Vancomycin Level 20.1 mcg/ml White Blood Count 12.97 K/uL Red Blood Count 2.73 M/uL Hemoglobin 9.3 g/dL Hematocrit 30.3 % Mean Corpuscular Volume 111.0 fL Mean Corpuscular Hemoglobin 34.1 pg Mean Corpuscular Hemoglobin Concent 30.7 g/dl Platelet Count 219 K/uL Mean Platelet Volume 10.7 fL Neutrophils (%) (Auto) 93.3 % Lymphocytes (%) (Auto) 4.5 % Monocytes (%) (Auto) 1.5 % Eosinophils (%) (Auto) 0.2 % Basophils (%) (Auto) 0.0 % Neutrophils # (Auto) 12.09 K/uL Lymphocytes # (Auto) 0.59 K/uL Monocytes # (Auto) 0.20 K/uL Eosinophils # (Auto) 0.02 K/uL Basophils # (Auto) 0.00 K/uL RDW Standard Deviation 65.3 fL RDW Coefficient of Variation 16.5 % Immature Granulocyte % (Auto) 0.5 % Immature Granulocyte # (Auto) 0.07 K/uL Macrocytosis PRESENT Echinocytes 1+ Estimated Average Glucose 249 mg/dl Hemoglobin A1c 10.3 % Date/Time Source Procedure Growth Status 03/28/17 15:03 Blood Blood Culture Pending Received Assessment & Plan Hypotension Present with lethargy and Low BP BP dropped as low as 67/24 Leukocytosis with WBC 14.83 on admission, afebrile Received broad coverage Abx with Vanco and Zosyn, Cefepime and Zithromax WBC trending down Blood cx pending Continue IV Vanco and Zosyn BP improved hold metoprolol for now ESRD on HD Dialysis on // Last HD was last Tuesday case discussed with nephrology today to HD pt today Hyperkalemia K 6.1 due to missing HD Will get HD today consider Kayexalate if HD postpones due to low BP Continue monitor electrolytes HARRIS Continue home oxygen supplement Bradycardia s/p pacemaker stable DVT prophylaxis On heparin 5000 units subq q 12 hours CODE STATUS FULL CODE Consultants: Nephrology Current Inpatient Medications: Current Inpatient Medications Medications (Trade) Dose Ordered Sig/Juanita Route Start Time Stop Time Status Last Admin Dose Admin Ioversol (Optiray 320) 100 ml UD PRN IV 03/28/17 11:30 04/01/17 11:29 Heparin Sodium (Porcine) (Heparin Sq 5000 Unit/0.5ml) 5,000 unit Q12 SQ 03/28/17 21:00 04/27/17 20:59 03/29/17 08:17 5,000 UNIT Digoxin (Lanoxin Tab) 0.0625 mg Q2D@1600 PO 03/29/17 16:00 04/28/17 15:59 Docusate Sodium (coLACE CAP) 100 mg DAILY PO 03/29/17 09:00 04/28/17 08:59 03/29/17 08:18 100 MG Insulin Glargine (Lantus Solostar Pen) 30 units HS SC 03/28/17 21:00 04/27/17 20:59 03/28/17 21:36 30 UNITS Metoprolol Succinate (Toprol Xl Tab) 100 mg QPM PO 03/28/17 21:00 04/27/17 20:59 Future Hold Metoprolol Succinate (Toprol Xl Tab) 200 mg QAM PO 03/29/17 09:00 04/28/17 08:59 Future Hold Sevelamer HCl (Renagel Tab) 800 mg AC PO 03/28/17 16:30 04/27/17 16:29 03/29/17 06:42 800 MG Glucose (Glucose 40% Gel) 15-30 GRAMS 15 GRAMS... UD PRN PO 03/28/17 16:15 04/27/17 16:14 Glucose (Glucose Chew Tab) 4-8 Tablets 4 Tabl... UD PRN PO 03/28/17 16:15 04/27/17 16:14 Dextrose (Dextrose 50% 50ML Syringe) 25-50ML OF 50% DW IV FOR... UD PRN IV 03/28/17 16:15 04/27/17 16:14 Glucagon (Glucagon Inj) 1 mg UD PRN SQ 03/28/17 16:15 04/27/17 16:14 Insulin Aspart (novoLOG ASPART) SLIDING SCALE G... ACHS SC 03/28/17 21:00 04/27/17 15:59 03/29/17 13:21 3 UNITS Vancomycin HCl (Consult) 1 ea UD PRN N/A 03/28/17 18:30 04/27/17 18:29 Piperacillin Sod/ Tazobactam Sod (Consult) 1 ea UD PRN N/A 03/28/17 18:30 04/27/17 18:29 Piperacillin Sod/ Tazobactam Sod 3.375 gm/Dextrose 115 ml @ 28.75 mls/ hr Q12H IV 03/29/17 04:00 04/07/17 03:59 03/29/17 03:17 28.75 MLS/HR Epoetin Sean (Procrit Inj) 10,000 units TODAY@1200 IV. 03/29/17 12:00 03/29/17 23:59 Vancomycin HCl 750 mg/Sodium Chloride 265 ml @ 125 mls/hr 03/29/17@1600 ONCE IV 03/29/17 16:00 03/29/17 18:07
[2017-03-29] MEDS ORDERED: VANCOMYCIN INJ 750 MG in SODIUM CHLORIDE 0.9% 250ML 250 ML IV ONE (16:00)
[2017-03-29] MEDS: DIGOXIN 0.125 MG TAB PO SCH (16:24)
[2017-03-29] MEDS: INSULIN GLARGINE SOLOSTAR 100 UNITS/ML 3 ML PEN SC SCH (21:59)
[2017-03-30] VITALS (7 sets, daily range): BP systolic 95–132; BP diastolic 43–65; PULSE 60–131; TEMP 36.2–37.1; O2SAT 91–100
[2017-03-30] MEDS: PIPERACILL/TAZOBAC IV 3.375 GM in DEXTROSE 5% 100ML IV SCH ×2 (04:51→15:56)
[2017-03-30] MEDS: INSULIN ASPART 100 UNITS/ML 3 ML PEN SC SCH ×4 (06:30→20:41)
[2017-03-30 08:12] LABS: HEMATOCRIT 29.1 % (37-47); MEAN CELL VOLUME 110.2 fL (80-100); MEAN CORPUSCULAR HEMOGLOBIN 34.1 pg (25-34); MEAN CORPUSCULAR HGB CONC 30.9 g/dl (32-36); MEAN PLATELET VOLUME 10.7 fL (7.4-10.4); PLATELET COUNT 202 K/uL (130-400); RED BLOOD COUNT 2.64 M/uL (4.2-5.4); WHITE BLOOD COUNT 9.15 K/uL (4.8-10.8)
[2017-03-30] MEDS: SEVELAMER HYDROCH 800 MG TAB PO SCH ×4 (08:42→16:05)
[2017-03-30] MEDS: DOCUSATE SODIUM 100 MG CAP PO SCH (08:42)
[2017-03-30] MEDS: HEPARIN SOD 5000 UNIT/0.5 ML CARP SQ SCH ×2 (08:43→20:55)
[2017-03-30 08:58] LABS: BUN/CREATININE RATIO 6.7 (10-20); CALCIUM 7.2 mg/dl (8.5-10.1); CREATININE 7.2 mg/dl (0.60-1.20); POTASSIUM 4.4 mmol/L (3.5-5.1)
--- NOTE | 2017-03-30 15:26 | Pharmacy Progress Note ---
Pharmacy Abx Dose Short Note Date of Service Mar 30, 2017. Assessment & Plan Assessment 81 year old female receiving vancomycin for empiric treatment Day # 2 of antimicrobial therapy. Plan Vancomycin * Random level this morning 24.9 * Dialysis not performed today, will redose tomorrow using the level from today * Goal trough level 15-20 mcg/mL * Random level not ordered Pharmacy will continue to follow and will adjust dose/frequency as necessary. Thank you.
--- NOTE | 2017-03-30 16:43 | Progress Note ---
Medicine Progress Note Date & Time of Visit: Mar 30, 2017 at 16:35. Subjective Pt was seen and examined Lying in bed with no distress Denies any chest pain, palpitation and chest pain Objective Last 8 Hrs Date Time Temp Pulse Resp B/P (MAP) Pulse Ox O2 Delivery O2 Flow Rate FiO2 03/30/17 15:32 36.8 70 18 101/47 (65) 93 Room Air 03/30/17 12:01 37.1 60 16 95/44 (61) 92 Room Air 03/30/17 12:00 Nasal Cannula 2.0 Physical Exam: General- awake, no distress Head- atraumatic Eyes- PERRL, EOMI ENT- oropharynx clear Neck- supple, no JVD Lungs- Decrease BS Heart-no murmur Abdomen- normal bowel sounds, soft, nontender Extremities- no calf tenderness Neuro- alert, awake, PERRL, EOMI; no facial palsy; Skin- warm & dry Laboratory Results: Last 24 Hours Test 03/29/17 17:08 03/29/17 21:24 03/30/17 07:38 03/30/17 07:51 Bedside Glucose 129 mg/dl 157 mg/dl 141 mg/dl Random Vancomycin Level 24.9 mcg/ml Test 03/30/17 07:55 03/30/17 11:47 White Blood Count 9.15 K/uL Red Blood Count 2.64 M/uL Hemoglobin 9.0 g/dL Hematocrit 29.1 % Mean Corpuscular Volume 110.2 fL Mean Corpuscular Hemoglobin 34.1 pg Mean Corpuscular Hemoglobin Concent 30.9 g/dl RDW Standard Deviation 65.2 fL RDW Coefficient of Variation 16.6 % Platelet Count 202 K/uL Mean Platelet Volume 10.7 fL Nucleated RBC Absolute Count (auto) 0.17 K/uL Nucleated Red Blood Cells % 1.8 % Sodium Level 135 mmol/L Potassium Level 4.4 mmol/L Chloride Level 101 mmol/L Carbon Dioxide Level 21 mmol/L Anion Gap 13.0 mmol/L Blood Urea Nitrogen 49 mg/dl Creatinine 7.20 mg/dl Est Creatinine Clear Calc Drug Dose 5.6 ml/min Estimated GFR () 5.7 Estimated GFR (Non- 4.9 BUN/Creatinine Ratio 6.7 Random Glucose 128 mg/dl Calcium Level 7.2 mg/dl Bedside Glucose 121 mg/dl Assessment & Plan Hypotension Present with lethargy and Low BP BP dropped as low as 67/24 Leukocytosis with WBC 14.83 on admission, afebrile Received broad coverage Abx with Vanco and Zosyn, Cefepime and Zithromax WBC trending down to normal Blood cxno growth so far will d/c IV Vanco today and continue Zosyn BP stable will decrease metoprol to 1/2 once BP stable ESRD on HD Dialysis on // Had HD done yesterday case discussed with Nephrology Plan to HD tomorrow Hyperkalemia K wnl due to missing HD Continue monitor electrolytes HARRIS Continue home oxygen supplement Bradycardia s/p pacemaker Metoprolol on hold consider to reduce metoprolol to 1/2 stable DVT prophylaxis On heparin 5000 units subq q 12 hours CODE STATUS FULL CODE Consultants: Nephrology Current Inpatient Medications: Current Inpatient Medications Medications (Trade) Dose Ordered Sig/Juanita Route Start Time Stop Time Status Last Admin Dose Admin Ioversol (Optiray 320) 100 ml UD PRN IV 03/28/17 11:30 04/01/17 11:29 Heparin Sodium (Porcine) (Heparin Sq 5000 Unit/0.5ml) 5,000 unit Q12 SQ 03/28/17 21:00 04/27/17 20:59 03/29/17 22:00 5,000 UNIT Digoxin (Lanoxin Tab) 0.0625 mg Q2D@1600 PO 03/29/17 16:00 04/28/17 15:59 03/29/17 16:24 0.0625 MG Docusate Sodium (coLACE CAP) 100 mg DAILY PO 03/29/17 09:00 04/28/17 08:59 03/29/17 08:18 100 MG Insulin Glargine (Lantus Solostar Pen) 30 units HS SC 03/28/17 21:00 04/27/17 20:59 03/29/17 21:59 30 UNITS Metoprolol Succinate (Toprol Xl Tab) 100 mg QPM PO 03/28/17 21:00 04/27/17 20:59 Future Hold Metoprolol Succinate (Toprol Xl Tab) 200 mg QAM PO 03/29/17 09:00 04/28/17 08:59 Future Hold Sevelamer HCl (Renagel Tab) 800 mg AC PO 03/28/17 16:30 9/27/17 16:29 03/30/17 12:18 800 MG Glucose (Glucose 40% Gel) 15-30 GRAMS 15 GRAMS... UD PRN PO 03/28/17 16:15 04/27/17 16:14 Glucose (Glucose Chew Tab) 4-8 Tablets 4 Tabl... UD PRN PO 03/28/17 16:15 04/27/17 16:14 Dextrose (Dextrose 50% 50ML Syringe) 25-50ML OF 50% DW IV FOR... UD PRN IV 03/28/17 16:15 04/27/17 16:14 Glucagon (Glucagon Inj) 1 mg UD PRN SQ 03/28/17 16:15 04/27/17 16:14 Insulin Aspart (novoLOG ASPART) SLIDING SCALE G... ACHS SC 03/28/17 21:00 04/27/17 15:59 03/30/17 12:20 4 UNITS Vancomycin HCl (Consult) 1 ea UD PRN N/A 03/28/17 18:30 04/27/17 18:29 Piperacillin Sod/ Tazobactam Sod (Consult) 1 ea UD PRN N/A 03/28/17 18:30 04/27/17 18:29 Piperacillin Sod/ Tazobactam Sod 3.375 gm/Dextrose 115 ml @ 28.75 mls/ hr Q12H IV 03/29/17 04:00 04/07/17 03:59 03/30/17 15:56 28.75 MLS/HR
[2017-03-30] MEDS: INSULIN GLARGINE SOLOSTAR 100 UNITS/ML 3 ML PEN SC SCH (20:52)
[2017-03-31] VITALS (10 sets, daily range): BP systolic 83–160; BP diastolic 52–81; PULSE 60–155; TEMP 36.6–37.9; O2SAT 80–100
[2017-03-31] MEDS: PIPERACILL/TAZOBAC IV 3.375 GM in DEXTROSE 5% 100ML IV SCH ×2 (04:35→16:12)
--- NOTE | 2017-03-31 07:09 | Clinical Documentation Query ---
QUERY 1 OF [address] BURNETT, In your clinical opinion is this patient being managed for: ( ) unidentified infectious process ( ) Not Agree ( ) Other explanation of clinical findings (Please Explain) ( ) Unable to determine (Please Define) ( ) Need to Discuss The medical record reflects the following clinical findings, treatment, and risk factors. Clinical Indicators: 81 yo female presenting with hypotension and throat discomfort. Found to have elevated WBC 14.87. CXR, blood culture and physical exam failed to reveal any signs of infection. Pt showing improvement with decreasing WBC. No UA Treatment: IV Vanco/Zosyn/Cefepime and Zithromax, 250 cc NSS x 1, O2 support, blood cultures, nephrology consult, Risk Factors: age, immunocompromised pt, ESRD QUERY 2 OF 2 In your clinical opinion is this patient being managed for: ( ) Metabolic encephalopathy ( ) Not Agree ( ) Other explanation of clinical findings (Please Explain) ( ) Unable to determine (Please Define) ( ) Need to Discuss The medical record reflects the following clinical findings, treatment, and risk factors. Clinical Indicators:Pt presented with increasing lethargy, decreasing appetite. Hypotensive 74/25-100/64. WBC 14.87 Treatment: IV vanco/cefepime/azithromcyin/zosyn, 250 cc NSS x 1, O2 support Risk Factors: ESRD, suspected infection, hypotension Please clarify and document your clinical opinion in the progress notes and discharge summary. Terms such as "probable", "suspected", "likely", "questionable", "possible", or "still to be ruled out" are acceptable. IF IN AGREEMENT, YOU MUST DOCUMENT ABOVE DIAGNOSTIC STATEMENT IN DAILY PROGRESS NOTES AND DISCHARGE SUMMARY. This document is not part of the patient's record. Thank You, Malathi Diaz, ANILA [phone]
[2017-03-31] MEDS: SEVELAMER HYDROCH 800 MG TAB PO SCH ×4 (07:31→16:12)
[2017-03-31] MEDS: DOCUSATE SODIUM 100 MG CAP PO SCH (07:40)
[2017-03-31] MEDS: INSULIN ASPART 100 UNITS/ML 3 ML PEN SC SCH ×4 (07:43→20:29)
--- NOTE | 2017-03-31 08:31 | Nephrology Progress Note ---
Nephrology Progress Note Date of Service: Mar 31, 2017. Subjective 81 yo female with esrd with tunneled line and recent hero graft who presented with fatigue and confusion with leukocytosis. blood culture negative. white count improved. bp slowly improving. pt though continues to be confused. Objective Date Time Temp Pulse Resp B/P (MAP) Pulse Ox O2 Delivery O2 Flow Rate FiO2 03/31/17 07:15 36.8 60 16 107/62 (77) 92 Room Air 03/31/17 04:04 36.6 104 16 139/66 (90) 92 Room Air 03/31/17 04:00 91 Room Air 03/31/17 00:00 91 Room Air 03/30/17 23:28 36.3 131 20 132/65 (87) 91 Room Air 03/30/17 20:00 Room Air 03/30/17 19:20 37.1 71 18 107/64 (78) 93 Room Air 03/30/17 16:00 Room Air 03/30/17 15:32 36.8 70 18 101/47 (65) 93 Room Air 03/30/17 12:01 37.1 60 16 95/44 (61) 92 Room Air 03/30/17 12:00 Nasal Cannula 2.0 Physical Exam: General-aaox0, floridly confused Eyes-no scleral icterus ENT-mmm Neck-supple Lungs-cta Heart-rrr Abdomen-bs+ s/nt/nd Extremities-+1 edema, worse in right arm with recent hero graft Neuro-confused Current Inpatient Medications Medications (Trade) Dose Ordered Sig/Juanita Route Start Time Stop Time Status Last Admin Dose Admin Ioversol (Optiray 320) 100 ml UD PRN IV 03/28/17 11:30 04/01/17 11:29 Heparin Sodium (Porcine) (Heparin Sq 5000 Unit/0.5ml) 5,000 unit Q12 SQ 03/28/17 21:00 04/27/17 20:59 03/30/17 20:55 5,000 UNIT Digoxin (Lanoxin Tab) 0.0625 mg Q2D@1600 PO 03/29/17 16:00 04/28/17 15:59 03/29/17 16:24 0.0625 MG Docusate Sodium (coLACE CAP) 100 mg DAILY PO 03/29/17 09:00 04/28/17 08:59 03/29/17 08:18 100 MG Insulin Glargine (Lantus Solostar Pen) 30 units HS SC 03/28/17 21:00 04/27/17 20:59 03/30/17 20:52 30 UNITS Metoprolol Succinate (Toprol Xl Tab) 100 mg QPM PO 03/28/17 21:00 04/27/17 20:59 Future Hold Metoprolol Succinate (Toprol Xl Tab) 200 mg QAM PO 03/29/17 09:00 04/28/17 08:59 Future Hold Sevelamer HCl (Renagel Tab) 800 mg AC PO 03/28/17 16:30 04/27/17 16:29 03/30/17 12:18 800 MG Glucose (Glucose 40% Gel) 15-30 GRAMS 15 GRAMS... UD PRN PO 03/28/17 16:15 04/27/17 16:14 Glucose (Glucose Chew Tab) 4-8 Tablets 4 Tabl... UD PRN PO 03/28/17 16:15 04/27/17 16:14 Dextrose (Dextrose 50% 50ML Syringe) 25-50ML OF 50% DW IV FOR... UD PRN IV 03/28/17 16:15 04/27/17 16:14 Glucagon (Glucagon Inj) 1 mg UD PRN SQ 03/28/17 16:15 04/27/17 16:14 Insulin Aspart (novoLOG ASPART) SLIDING SCALE G... ACHS SC 03/28/17 21:00 04/27/17 15:59 03/30/17 12:20 4 UNITS Vancomycin HCl (Consult) 1 ea UD PRN N/A 03/28/17 18:30 04/27/17 18:29 Piperacillin Sod/ Tazobactam Sod (Consult) 1 ea UD PRN N/A 03/28/17 18:30 04/27/17 18:29 Piperacillin Sod/ Tazobactam Sod 3.375 gm/Dextrose 115 ml @ 28.75 mls/ hr Q12H IV 03/29/17 04:00 04/07/17 03:59 03/31/17 04:35 28.75 MLS/HR Epoetin Sean (Procrit Inj) 10,000 units TODAY@1000 ONCE IV. 03/31/17 10:00 03/31/17 10:01 Last 24 Hours Test 03/30/17 11:47 03/30/17 16:16 03/30/17 20:04 03/31/17 07:26 Bedside Glucose 121 mg/dl 127 mg/dl 113 mg/dl 111 mg/dl Test 03/31/17 08:03 Assessment & Plan ESRD-plan on dialysis again today for clearance. holding on removing fluid given low blood pressures. was hoping her mental status was going to eventually improve. leukocytosis improving. culture negative. tunneled line and hero graft do not appear infected. question ct of head indicated or neurology evaluation. will discuss further with hospitalist.
[2017-03-31 08:36] LABS: HEMATOCRIT 30.6 % (37-47); MEAN CELL VOLUME 109.7 fL (80-100); MEAN CORPUSCULAR HEMOGLOBIN 34.4 pg (25-34); MEAN CORPUSCULAR HGB CONC 31.4 g/dl (32-36); MEAN PLATELET VOLUME 10.6 fL (7.4-10.4); PLATELET COUNT 221 K/uL (130-400); RED BLOOD COUNT 2.79 M/uL (4.2-5.4); WHITE BLOOD COUNT 9.25 K/uL (4.8-10.8)
[2017-03-31 09:08] LABS: BUN/CREATININE RATIO 6.9 (10-20); CALCIUM 7.2 mg/dl (8.5-10.1); POTASSIUM 4.8 mmol/L (3.5-5.1)
[2017-03-31] MEDS: HEPARIN SOD 5000 UNIT/0.5 ML CARP SQ SCH ×2 (09:17→20:31)
[2017-03-31] MEDS ORDERED: EPOETIN ALFA 10,000 UNITS/ML VIAL IV. ONE (10:00)
[2017-03-31] MEDS: DIGOXIN 0.125 MG TAB PO SCH (16:12)
--- NOTE | 2017-03-31 19:15 | Progress Note ---
Medicine Progress Note Date & Time of Visit: Mar 31, 2017 at 19:07. Subjective Pt was seen and examined Lying in bed with no distress Pt mental status has been fluctuates form confusion to normal Daughter was present today and said that was not her baseline Pt kept changing her answers she said that she is was in pain, but when her daughter asked her again she said no I told pt and daughter that let get a CT of the head Pt refused to get the CT head she wants to go home Objective Last 8 Hrs Date Time Temp Pulse Resp B/P (MAP) Pulse Ox O2 Delivery O2 Flow Rate FiO2 03/31/17 16:12 85 03/31/17 16:00 Room Air 03/31/17 12:00 Room Air 2.0 Nasal Cannula Physical Exam: General- awake, no distress Head- atraumatic Eyes- PERRL, EOMI ENT- oropharynx clear Neck- supple, no JVD Lungs- Decrease BS Heart-no murmur Abdomen- normal bowel sounds, soft, nontender Extremities- no calf tenderness Neuro- alert, awake, PERRL, EOMI; no facial palsy, agitated today Skin- warm & dry Laboratory Results: Last 24 Hours Test 03/30/17 20:04 03/31/17 07:26 03/31/17 08:03 03/31/17 14:19 Bedside Glucose 113 mg/dl 111 mg/dl 87 mg/dl White Blood Count 9.25 K/uL Red Blood Count 2.79 M/uL Hemoglobin 9.6 g/dL Hematocrit 30.6 % Mean Corpuscular Volume 109.7 fL Mean Corpuscular Hemoglobin 34.4 pg Mean Corpuscular Hemoglobin Concent 31.4 g/dl RDW Standard Deviation 65.8 fL RDW Coefficient of Variation 16.7 % Platelet Count 221 K/uL Mean Platelet Volume 10.6 fL Nucleated RBC Absolute Count (auto) 0.17 K/uL Nucleated Red Blood Cells % 1.9 % Sodium Level 135 mmol/L Potassium Level 4.8 mmol/L Chloride Level 101 mmol/L Carbon Dioxide Level 19 mmol/L Anion Gap 15.0 mmol/L Blood Urea Nitrogen 62 mg/dl Creatinine 9.00 mg/dl Est Creatinine Clear Calc Drug Dose 4.7 ml/min Estimated GFR () 4.3 Estimated GFR (Non- 3.7 BUN/Creatinine Ratio 6.9 Random Glucose 110 mg/dl Calcium Level 7.2 mg/dl Test 03/31/17 16:17 Bedside Glucose 102 mg/dl Assessment & Plan Hypotension Present with lethargy and Low BP BP dropped as low as 67/24 Leukocytosis with WBC 14.83 on admission, afebrile Received broad coverage Abx with Vanco and Zosyn, Cefepime and Zithromax WBC trending down to normal Blood cx no growth IV Vanco was d/c On Zosyn BP stable Altered Mental Status As per daughter that is not her baseline mental status CT head order PT refused to get the CT head continue monitor closely ESRD on HD Dialysis on // Had HD done today case discussed with Nephrology Hyperkalemia K wnl Continue monitor electrolytes HARRIS Continue home oxygen supplement Bradycardia s/p pacemaker Metoprolol on hold consider to reduce metoprolol to 1/2 stable DVT prophylaxis On heparin 5000 units subq q 12 hours CODE STATUS FULL CODE Consultants: Nephrology Current Inpatient Medications: Current Inpatient Medications Medications (Trade) Dose Ordered Sig/Juanita Route Start Time Stop Time Status Last Admin Dose Admin Ioversol (Optiray 320) 100 ml UD PRN IV 03/28/17 11:30 04/01/17 11:29 Heparin Sodium (Porcine) (Heparin Sq 5000 Unit/0.5ml) 5,000 unit Q12 SQ 03/28/17 21:00 04/27/17 20:59 03/31/17 09:17 5,000 UNIT Digoxin (Lanoxin Tab) 0.0625 mg Q2D@1600 PO 03/29/17 16:00 04/28/17 15:59 03/31/17 16:12 0.0625 MG Docusate Sodium (coLACE CAP) 100 mg DAILY PO 03/29/17 09:00 04/28/17 08:59 03/29/17 08:18 100 MG Insulin Glargine (Lantus Solostar Pen) 30 units HS SC 03/28/17 21:00 04/27/17 20:59 03/30/17 20:52 30 UNITS Metoprolol Succinate (Toprol Xl Tab) 100 mg QPM PO 03/28/17 21:00 04/27/17 20:59 Future Hold Metoprolol Succinate (Toprol Xl Tab) 200 mg QAM PO 03/29/17 09:00 04/28/17 08:59 Future Hold Sevelamer HCl (Renagel Tab) 800 mg AC PO 03/28/17 16:30 04/27/17 16:29 03/31/17 16:12 800 MG Glucose (Glucose 40% Gel) 15-30 GRAMS 15 GRAMS... UD PRN PO 03/28/17 16:15 04/27/17 16:14 Glucose (Glucose Chew Tab) 4-8 Tablets 4 Tabl... UD PRN PO 03/28/17 16:15 04/27/17 16:14 Dextrose (Dextrose 50% 50ML Syringe) 25-50ML OF 50% DW IV FOR... UD PRN IV 03/28/17 16:15 04/27/17 16:14 Glucagon (Glucagon Inj) 1 mg UD PRN SQ 03/28/17 16:15 04/27/17 16:14 Insulin Aspart (novoLOG ASPART) SLIDING SCALE G... ACHS SC 03/28/17 21:00 04/27/17 15:59 03/30/17 12:20 4 UNITS Piperacillin Sod/ Tazobactam Sod (Consult) 1 ea UD PRN N/A 03/28/17 18:30 04/27/17 18:29 Piperacillin Sod/ Tazobactam Sod 3.375 gm/Dextrose 115 ml @ 28.75 mls/ hr Q12H IV 03/29/17 04:00 04/07/17 03:59 03/31/17 16:12 28.75 MLS/HR
[2017-03-31] MEDS: INSULIN GLARGINE SOLOSTAR 100 UNITS/ML 3 ML PEN SC SCH (20:31)
[2017-04-01] VITALS (7 sets, daily range): BP systolic 108–150; BP diastolic 48–66; PULSE 60–69; TEMP 36.4–36.9; O2SAT 94–96
[2017-04-01] MEDS: PIPERACILL/TAZOBAC IV 3.375 GM in DEXTROSE 5% 100ML IV SCH ×2 (04:11→16:00)
[2017-04-01] MEDS: INSULIN ASPART 100 UNITS/ML 3 ML PEN SC SCH ×3 (06:30→16:30)
[2017-04-01] MEDS: SEVELAMER HYDROCH 800 MG TAB PO SCH ×4 (06:30→16:55)
[2017-04-01] MEDS: DOCUSATE SODIUM 100 MG CAP PO SCH (08:24)
[2017-04-01] MEDS: HEPARIN SOD 5000 UNIT/0.5 ML CARP SQ SCH (08:25)
[2017-04-01 10:51] LABS: MEAN CORPUSCULAR HEMOGLOBIN 34.5 pg (25-34); MEAN CORPUSCULAR HGB CONC 31.9 g/dl (32-36); MEAN PLATELET VOLUME 10.8 fL (7.4-10.4); PLATELET COUNT 215 K/uL (130-400); RED BLOOD COUNT 2.87 M/uL (4.2-5.4); WHITE BLOOD COUNT 10.26 K/uL (4.8-10.8)
[2017-04-01 11:18] LABS: CALCIUM 7.1 mg/dl (8.5-10.1); CREATININE 7.4 mg/dl (0.60-1.20); POTASSIUM 4.8 mmol/L (3.5-5.1)
--- NOTE | 2017-04-01 11:56 | Progress Note ---
Medicine Progress Note Date & Time of Visit: Apr 01, 2017 at 11:33. Subjective Pt was seen and examined Lying in bed very comfortable Pt is doing good today she said that she feels very annoyed by being in the hospital She said that at time she is being very sarcastic and does not feel to answer questions after explaining to her that if she continues to act that way that we will keep her longer in the hospital until she is back to her baseline She said that she will be compliant so that she can be discharge today if her work up negative she agreed to get the CT head and lab work today she said that she does not like the hospital food she said that she ate some food this morning she said that she will try to eat more she said that her daughter Suzi can cook and she likes to eat her food. I spoke to her daughter Suzi over the phone to provide update about her mother Denies any chest pain, palpitation, dizziness and SOB Objective Last 8 Hrs Date Time Temp Pulse Resp B/P (MAP) Pulse Ox O2 Delivery O2 Flow Rate FiO2 04/01/17 08:00 95 Room Air 04/01/17 07:32 36.4 62 20 127/48 (74) 95 Room Air 04/01/17 04:28 69 20 150/66 (94) 94 Room Air 04/01/17 04:00 Room Air Physical Exam: General- awake, no distress, pleasant Head- atraumatic Eyes- PERRL, EOMI ENT- oropharynx clear Neck- supple, no JVD Lungs- Decrease BS Heart-no murmur Abdomen- normal bowel sounds, soft, nontender Extremities- no calf tenderness Neuro- alert, awake, PERRL, EOMI; no facial palsy, agitated today Skin- warm & dry Laboratory Results: Last 24 Hours Test 03/31/17 14:19 03/31/17 16:17 03/31/17 20:28 04/01/17 07:14 Bedside Glucose 87 mg/dl 102 mg/dl 141 mg/dl 81 mg/dl Test 04/01/17 10:21 White Blood Count 10.26 K/uL Red Blood Count 2.87 M/uL Hemoglobin 9.9 g/dL Hematocrit 31.0 % Mean Corpuscular Volume 108.0 fL Mean Corpuscular Hemoglobin 34.5 pg Mean Corpuscular Hemoglobin Concent 31.9 g/dl RDW Standard Deviation 64.6 fL RDW Coefficient of Variation 16.8 % Platelet Count 215 K/uL Mean Platelet Volume 10.8 fL Nucleated RBC Absolute Count (auto) 0.21 K/uL Nucleated Red Blood Cells % 2.1 % Sodium Level 136 mmol/L Potassium Level 4.8 mmol/L Chloride Level 101 mmol/L Carbon Dioxide Level 21 mmol/L Anion Gap 14.0 mmol/L Blood Urea Nitrogen 45 mg/dl Creatinine 7.40 mg/dl Est Creatinine Clear Calc Drug Dose 5.7 ml/min Estimated GFR () 5.5 Estimated GFR (Non- 4.7 BUN/Creatinine Ratio 6.0 Random Glucose 72 mg/dl Calcium Level 7.1 mg/dl Assessment & Plan Hypotension Present with lethargy and Low BP BP dropped as low as 67/24 Leukocytosis with WBC 14.83 on admission, afebrile Received broad coverage Abx with Vanco and Zosyn, Cefepime and Zithromax WBC trending down to normal Blood cx no growth IV Vanco was d/c On Zosyn BP stable 04/01/17 BP stable Will resume BP med upon discharge (will decrease metoprolol 200mg pm to 100mg ) Will d/c abx since there was no growth on blood cx continue monitor BP Altered Mental Status As per daughter that is not her baseline mental status CT head order PT refused to get the CT head continue monitor closely 04/01/17 Mental status seems to be back to normal Agreed to get CT head done CT head negative for acute intracranial abnormality ESRD on HD Dialysis on // Had HD done yesterday case discussed with Dr. Maurer that ok to discharge home, unless pt is arranged for HD tomorrow at [facility] Called Dialysis center at [place], Pt is schedule for HD tomorrow at 10:45 AM Hyperkalemia stable Continue monitor electrolytes HARRIS Continue home oxygen supplement Depression denies any suicidal thought Resume zoloft Bradycardia s/p pacemaker Metoprolol on hold Will reduce metoprolol to 1/2 on discharge stable DVT prophylaxis On heparin 5000 units subq q 12 hours CODE STATUS FULL CODE Disposition Discharge home today Follow up appointment with dr. Triplett on 04/06 @ 1:00 pm Consultants: Nephrology Current Inpatient Medications: Current Inpatient Medications Medications (Trade) Dose Ordered Sig/Juanita Route Start Time Stop Time Status Last Admin Dose Admin Heparin Sodium (Porcine) (Heparin Sq 5000 Unit/0.5ml) 5,000 unit Q12 SQ 03/28/17 21:00 04/27/17 20:59 03/31/17 20:31 5,000 UNIT Digoxin (Lanoxin Tab) 0.0625 mg Q2D@1600 PO 03/29/17 16:00 04/28/17 15:59 03/31/17 16:12 0.0625 MG Docusate Sodium (coLACE CAP) 100 mg DAILY PO 03/29/17 09:00 04/28/17 08:59 03/29/17 08:18 100 MG Insulin Glargine (Lantus Solostar Pen) 30 units HS SC 03/28/17 21:00 04/27/17 20:59 03/31/17 20:31 30 UNITS Metoprolol Succinate (Toprol Xl Tab) 100 mg QPM PO 03/28/17 21:00 04/27/17 20:59 Future Hold Metoprolol Succinate (Toprol Xl Tab) 200 mg QAM PO 03/29/17 09:00 04/28/17 08:59 Future Hold Sevelamer HCl (Renagel Tab) 800 mg AC PO 03/28/17 16:30 04/27/17 16:29 03/31/17 16:12 800 MG Glucose (Glucose 40% Gel) 15-30 GRAMS 15 GRAMS... UD PRN PO 03/28/17 16:15 04/27/17 16:14 Glucose (Glucose Chew Tab) 4-8 Tablets 4 Tabl... UD PRN PO 03/28/17 16:15 04/27/17 16:14 Dextrose (Dextrose 50% 50ML Syringe) 25-50ML OF 50% DW IV FOR... UD PRN IV 03/28/17 16:15 04/27/17 16:14 Glucagon (Glucagon Inj) 1 mg UD PRN SQ 03/28/17 16:15 04/27/17 16:14 Insulin Aspart (novoLOG ASPART) SLIDING SCALE G... ACHS SC 03/28/17 21:00 04/27/17 15:59 03/30/17 12:20 4 UNITS Piperacillin Sod/ Tazobactam Sod (Consult) 1 ea UD PRN N/A 03/28/17 18:30 04/27/17 18:29 Piperacillin Sod/ Tazobactam Sod 3.375 gm/Dextrose 115 ml @ 28.75 mls/ hr Q12H IV 03/29/17 04:00 04/07/17 03:59 04/01/17 04:11 28.75 MLS/HR
--- NOTE | 2017-04-01 12:54 | DIAGNOSTIC IMAGING REPORT ---
HEAD WITHOUT CONTRAST (CT) CLINICAL HISTORY: 81 years-old Female presenting with AMS, ESRD, LEUKOCYTOSIS. TECHNIQUE: Multidetector CT imaging of the head was performed without the use of intravenous contrast. IV contrast: None. A dose lowering technique was used consistent with the principles of ALARA (as low as reasonably achievable). COMPARISON: 03/15/2016. CT DOSE (mGy.cm): The estimated cumulative dose is 537.48 mGy.cm. 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 Ventricles and sulci normal in size. Brain parenchyma normal in appearance with preserved medrano-white differentiation. No mass effect or midline shift. No hemorrhage or acute territorial infarct. No extra-axial fluid collection. Paranasal sinuses and mastoid air cells clear. Calvarium intact. IMPRESSION: 1. No acute intracranial pathology. Electronically signed by: Maxime Lara M.D. 04/01/2017 12:52 PM Dictated Date/Time: 04/01/2017 12:51 PM
[2017-04-01] MEDS ORDERED: METO1TAB68 PO (17:56)
--- NOTE | 2017-04-01 18:06 | Discharge Instructions ---
Discharge Instructions Date of Service Apr 01, 2017. Admission Reason for Admission: Esrd, Leukocytosis Discharge Discharge Diagnosis / Problem: Hypotension, ERSD ON HD, Altered mental status Discharge Goals Goal(s): Decrease discomfort, Improve function, Improve disease control Activity Recommendations Activity Limitations: resume your previous activity (as tolerated) . Instructions / Follow-Up Instructions / Follow-Up Discharge home Follow up with your physician Dr. Triplett on 04/06 @ 1 :00PM Next hemodialysis is tomorrow at the [facility] at 10:45 AM Continue follow with nephrology Follow up appointment with your vascular doctor Monitor blood pressure and bring blood pressure log at your next appointment with Dr. Triplett If Blood pressure is running low, please hold the next dose of metoprolol Metoprolol decreased to 50 mg twice a day Monitor your Blood sugar follow a health diabetic diet and limited concentrated sweet If you become drowsy, please hold the next dose of your Percocet and gabapentin Fall precaution Current Hospital Diet Patient's current hospital diet: Renal Diet, Diabetes Type 2 Diet Discharge Diet Recommended Diet: Diabetes Type 2 Diet, Renal Diet Pending Studies Studies pending at discharge: no Laboratory Results Hemoglobin A1c Test 03/29/17 07:51 Range/Units Estimated Average Glucose 249 mg/dl Hemoglobin A1c 10.3 H 4.5-5.6 % Medical Emergencies . Who to Call and When: Medical Emergencies: If at any time you feel your situation is an emergency, please call 911 immediately. . Non-Emergent Contact Non-Emergency issues call your: Primary Care Provider Call Non-Emergent contact if: you have any medication questions . . "Provider Documentation" section prepared by Malina Blanchard. . VTE Core Measure Inpt VTE Proph given/why not?: Unfractionated heparin SQ
--- NOTE | 2017-04-03 17:37 | Discharge Summary ---
Discharge Summary Date of Service Apr 03, 2017. Discharge Summary Admission Date: Mar 28, 2017 at 14:56 Discharge Date: Apr 01, 2017 Discharge Disposition: Home with services Principal Diagnosis: Hypotension Secondary Diagnoses/Problems: ERSD ON HD Altered mental status ESRD on HD Hyperkalemia Bradycardia HARRIS Depression Procedures: HEAD WITHOUT CONTRAST (CT) CLINICAL HISTORY: 81 years-old Female presenting with AMS, ESRD, LEUKOCYTOSIS. TECHNIQUE: Multidetector CT imaging of the head was performed without the use of intravenous contrast. IV contrast: None. A dose lowering technique was used consistent with the principles of ALARA (as low as reasonably achievable). COMPARISON: 03/15/2016. CT DOSE (mGy.cm): The estimated cumulative dose is 537.48 mGy.cm. 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 Ventricles and sulci normal in size. Brain parenchyma normal in appearance with preserved medrano-white differentiation. No mass effect or midline shift. No hemorrhage or acute territorial infarct. No extra-axial fluid collection. Paranasal sinuses and mastoid air cells clear. Calvarium intact. IMPRESSION: 1. No acute intracranial pathology. Electronically signed by: Maxime Lara M.D. 04/01/2017 12:52 PM Dictated Date/Time: 04/01/2017 12:51 PM RIGHT UPPER EXTREMITY VENOUS DOPPLER HISTORY: Hypotension. Right arm swelling. catheter from vein to heart Right COMPARISON STUDY: None. FINDINGS: The right internal jugular vein is patent. There is normal flow within the right subclavian vein. There is normal flow and compressibility within the right axillary, basilic, brachial, radial, ulnar, and visualized cephalic veins. There is a graft seen within the upper arm which terminates in the brachial artery. This is widely patent. IMPRESSION: No DVT within the right upper extremity. There is a graft seen within the upper arm which terminates in the brachial artery. This is widely patent. Electronically signed by: Mark Hauser M.D. 03/29/2017 9:17 AM Dictated Date/Time: 03/29/2017 9:14 AM DUPLEX HEMODIALYSIS ACCESS CLINICAL HISTORY: 81 years-old Female presenting with nonfunctioning AV fistual on left arm. TECHNIQUE: Real-time grayscale ultrasound imaging of the left upper extremity was performed for a focal evaluation of a dialysis fistula. Color and spectral Doppler were also performed. COMPARISON: None. FINDINGS: Normal color Doppler flow and arterial waveforms noted within the left brachial artery extending to the site of a anastomosis of a fistula or graft. At this site, no flow extends into the graft. Distal to the graft inflow is a patent left brachial artery. No flow was observed on spectral Doppler throughout its course. The left subclavian vein is patent distally as is the left axillary and left internal jugular vein. IMPRESSION: 1. 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 [place] vessels patent including the arterial feeder and venous drainage. Electronically signed by: Maxime Lara M.D. 03/29/2017 9:29 AM Dictated Date/Time: 03/29/2017 9:15 AM CHEST ONE VIEW PORTABLE CLINICAL HISTORY: recent AVF placement, hypotension, O2 requirement COMPARISON STUDY: 03/10/2017 FINDINGS: The left internal jugular dual-lumen central venous catheter remains unchanged in position. There is been interval placement of a right internal jugular central venous catheter. There is no pneumothorax. There is a left subclavian single chamber central venous pacemaker. The cardiac and mediastinal contours remain stable. There is mild pulmonary venous hypertension. There is no lobar consolidation. There are no pleural effusions.[ IMPRESSION: 1. Interval placement of a right-sided central venous catheter. The tip projects over the distal aspect of the superior vena cava 2. Suspected mild pulmonary venous hypertension. No evidence of focal pulmonary consolidation Electronically signed by: Otis Branham M.D. 03/28/2017 11:51 AM Dictated Date/Time: 03/28/2017 11:49 AM Consultations: Nephrology Medication Reconciliation Changed Medications: Metoprolol Succinate (Toprol Xl) 100 Mg Tab 50 MG PO BID for 30 Days (Changed from: 100 MG; QPM) Continued Medications: Allopurinol (Allopurinol) 100 Mg Tab 100 MG PO DAILY Amino Acids (Liquacel) 1 Liq Liq 30 ML PO BID B-Complex W/ C & Folic Acid (Vol-Care Rx) 1 Tab Tab 1 TAB PO DAILY Cholecalciferol (Vitamin D) 1,000 Unit Tab 1 TAB PO Q2WKS Cinacalcet (Sensipar) 30 Mg Tab 30 MG PO DAILY Digoxin (Digoxin) 0.125 Mg Tab 0.5 TAB PO Q2D Docusate Sodium (Colace) 100 Mg Cap 100 MG PO DAILY Gabapentin (Gabapentin) 100 Mg Cap 100 MG PO QAM Gabapentin (Neurontin) 100 Mg Cap 200 MG PO QPM TWO 100 MG CAPSULES Home O2 Therapy (Oxygen) Gas 2 LITERS NA PRN Insulin Glargine (Lantus) 100 Unit/Ml Inj 30 UNITS SC HS Omeprazole (Prilosec) 20 Mg Capcr 20 MG PO DAILY Oxycodone/Acetaminophen 5MG/325MG (Percocet 5MG/325MG) Tab 1 TABLET PO Q6H PRN for Pain PAIN Sertraline (Zoloft) 50 Mg Tab 50 MG PO DAILY Sevelamer Carbonate (Renvela) 800 Mg Tab 800 MG PO AC Vitamin B Cmplx/Vitc/Folic Ac (Nephrocaps) Cap 1 CAP PO DAILY Discontinued Medications: Metoprolol Succinate (Metoprolol Succinate ER) 100 Mg Tabcr 200 MG PO QAM Admission Information HPI (per Admitting provider): 81 year old F on dialysis MWF with last dialysis on Tuesday via left side permacath, has 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 Guillory's vascular service team at [facility]. As per family, patient continued home medications post op with percocet for pain. Yesterday became more lethargic with decrease in appetite and complaining of throat pain. No reported history of fevers at home. Afebrile on exam in the ED, with normal but borderline low blood pressures and found to have leukocytosis of 14.87. Patient has chest X ray without acute infiltrates and no physical exam findings of erythema or swelling at site of permacath and upper extremities. Physical Exam (per Admitting): General Appearance: + obese, + pertinent finding (lethargic but responds to questions appropriately) Head: normocephalic, atraumatic Eyes: PERRL, EOMI, sclerae normal ENT: hearing grossly normal, pharynx normal Neck: supple, no JVD, trachea midline Respiratory/Chest: chest non-tender, normal breath sounds, no respiratory distress, no accessory muscle use Cardiovascular: no JVD, normal peripheral pulses, + bradycardia, + pertinent finding (has palpable left arm swelling but no bruit from history of nonfunctioning AV fistual, left chest perm cath, left chest pacemaker under skin , right arm with bruit but radiology of CXR shows catheter to heart) Abdomen/GI: normal bowel sounds, non tender, soft Extremities/Musculoskelatal: no calf tenderness, non-tender Neurologic/Psych: no motor/sensory deficits (needed assistance to sit up, occasional right hand tremors), + pertinent finding (lethargic but responds to commands and oriented to place, person, family) Skin: normal color, warm/dry, no rash Hospital Course Hypotension Present with lethargy and Low BP BP dropped as low as 67/24 Leukocytosis with WBC 14.83 on admission, afebrile Received broad coverage Abx with Vanco and Zosyn, Cefepime and Zithromax WBC trending down to normal Blood cx no growth IV Vanco was d/c On Zosyn BP stable 04/01/17 BP stable Will resume BP med upon discharge (will decrease metoprolol 200mg pm to 100mg ) Will d/c abx since there was no growth on blood cx continue monitor BP Altered Mental Status As per daughter that is not her baseline mental status CT head order PT refused to get the CT head continue monitor closely 04/01/17 Mental status seems to be back to normal Agreed to get CT head done CT head negative for acute intracranial abnormality ESRD on HD Dialysis on // Had HD done yesterday case discussed with Dr. Maurer that ok to discharge home, unless pt is arranged for HD tomorrow at [place] Called Dialysis center at [place], Pt is schedule for HD tomorrow at 10:45 AM Hyperkalemia stable Continue monitor electrolytes HARRIS Continue home oxygen supplement Depression denies any suicidal thought Resume zoloft Bradycardia s/p pacemaker Metoprolol on hold Will reduce metoprolol to 1/2 on discharge stable DVT prophylaxis On heparin 5000 units subq q 12 hours CODE STATUS FULL CODE Disposition Discharge home today Follow up appointment with dr. Triplett on 04/06 @ 1:00 pm Total time spent on discharge = 45 minutes This includes examination of the patient, discharge planning, medication reconciliation, and communication with other providers. Discharge Instructions Discharge Instructions Date of Service Apr 01, 2017. Admission Reason for Admission: Esrd, Leukocytosis Discharge Discharge Diagnosis / Problem: Hypotension, ERSD ON HD, Altered mental status Discharge Goals Goal(s): Decrease discomfort, Improve function, Improve disease control Activity Recommendations Activity Limitations: resume your previous activity (as tolerated) . Instructions / Follow-Up Instructions / Follow-Up Discharge home Follow up with your physician Dr. Triplett on 04/06 @ 1 :00PM Next hemodialysis is tomorrow at the [facility] at 10:45 AM Continue follow with nephrology Follow up appointment with your vascular doctor Monitor blood pressure and bring blood pressure log at your next appointment with Dr. Triplett If Blood pressure is running low, please hold the next dose of metoprolol Metoprolol decreased to 50 mg twice a day Monitor your Blood sugar follow a health diabetic diet and limited concentrated sweet If you become drowsy, please hold the next dose of your Percocet and gabapentin Fall precaution Current Hospital Diet Patient's current hospital diet: Renal Diet, Diabetes Type 2 Diet Discharge Diet Recommended Diet: Diabetes Type 2 Diet, Renal Diet Laboratory Results Hemoglobin A1c Test 03/29/17 07:51 Range/Units Estimated Average Glucose 249 mg/dl Hemoglobin A1c 10.3 H 4.5-5.6 % Medical Emergencies . Who to Call and When: Medical Emergencies: If at any time you feel your situation is an emergency, please call 911 immediately. . Non-Emergent Contact Non-Emergency issues call your: Primary Care Provider Call Non-Emergent contact if: you have any medication questions . . "Provider Documentation" section prepared by Malina Blanchard. . VTE Core Measure Inpt VTE Proph given/why not?: Unfractionated heparin SQ Additional Copies To Luisito Connell M.D.
== END 2017-04-01 19:09 | disposition home or self-care (01) | DRG 314 ==
LOC: EDBD 10:39 → C.EDC 10:42 → C.MED 14:56 → ENRESERV 15:40
PROVIDERS: ADMIT Hospitalist; ATTEND Internal Medicine
DX: I95.9 Hypotension, unspecified (principal); N18.6 End stage renal disease; I50.32 Chronic diastolic (congestive) heart failure; R41.82 Altered mental status, unspecified; D72.829 Elevated white blood cell count, unspecified; I25.10 Atherosclerotic heart disease of native coronary artery without angina pectoris; K21.9 Gastro-esophageal reflux disease without esophagitis; D63.1 Anemia in chronic kidney disease; E83.51 Hypocalcemia; E87.5 Hyperkalemia; G47.33 Obstructive sleep apnea (adult) (pediatric); Z79.4 Long term (current) use of insulin; Z79.899 Other long term (current) drug therapy; Z95.0 Presence of cardiac pacemaker; Z83.3 Family history of diabetes mellitus; F32.9 Major depressive disorder, single episode, unspecified; Z99.2 Dependence on renal dialysis

== ENCOUNTER → 2017-06-20 | Day surgery (SDC) | payer OTHER ==
[~2017-06-20] VITALS: Ht 157.5 cm; Wt 68.0 kg
[~2017-06-20] MED LIST changes: -ALBUMIN HUMAN 25% 12.5 GM/50 ML VIAL IV SCH; +ALL100 PO; -ALLO100T PO; -B CO; +B-CO1CAP17 PO; +CHOL100010 PO; +CLINDAMYCIN 600 MG/54 ML D5W IV SCH; +CLINDAMYCIN IV 600 MG in DEXTROSE 5% 50ML 50 ML IV ONE; +D5W AND 1/4NSS 1,000 ML IV SCH; +ERGO500037 PO; +FENTANYL CITRATE INJ 50 MCG/1 ML 2 ML VIAL IV ONE; +FENTANYL CITRATE INJ 50 MCG/1 ML 2 ML VIAL ONE; +HEPARIN SOD (PORCINE) 5000 UNIT/ML 1 ML VIAL IV ONE; +HEPARIN SOD (PORCINE) 5000 UNIT/ML 1 ML VIAL ONE; +LIDOCAINE HCL 1% 20 ML VIAL INJ ONE; +METO-217 PO; +METO-479 PO; +METO-649 PO; -METO100T14 PO; -METO1TAB69 PO; +MIDAZOLAM HCL 1 MG/ML 2ML VIAL IV ONE; +MIDAZOLAM HCL 1 MG/ML 2ML VIAL ONE; +NRN100 PO; -OMEP20TA PO; +OPTIRAY 300 INJ ONE; +PRLSR20 PO; +TRAM-10 PO
--- NOTE | 2017-06-20 10:32 | History and Physical ---
History & Physical Date of Service Jun 20, 2017. History & Physical Chief Complaint: ESRD fwith throbosed herograft History of Present Illness The patient is a 80 year old female with multiple medical problems, including ESRD on HD and a fib who has been undergoing HD thru a herograft. It was found to be thrombosed today. Pt denies NIELSEN, fever, chills, chest pain, N/V, abd pain , rest pain, claudication, other complaints. Allergies Hydrochlorothiazide (Verified Allergy, Intermediate, RASH, 01/17/15) NSAIDs (Verified Allergy, Intermediate, UNK, 01/17/15) Hydrocodone (Verified Allergy, Mild, RASH, 01/17/15) ERICK Inhibitors (Verified Allergy, Unknown, UNK, 01/17/15) Amlodipine (Verified Allergy, Unknown, UNK, 01/17/15) Benazepril (Verified Allergy, Unknown, UNK, 01/17/15) Cephalexin (Verified Allergy, Unknown, UNK, 01/17/15) Spironolactone (Verified Allergy, Unknown, UNK, 01/17/15) Surgical / Medical History Hx Cardiac Surgery: No Hx Abdominal Surgery: Yes (cholicystectomy ) Hx Cancer Surgery: Yes Hx Thoracic Surgery: No Hx Orthopedic: Yes (hip replacement and lumbar surgery ) Hx Urinary Tract Surgery: No HX Other Surgery:LUE AVF creation Family History Alzheimer's disease SISTER Cancer BROTHER Diabetes mellitus FATHER BROTHER SISTER SISTER SISTER Heart disease MOTHER Hypertension FATHER MOTHER Social History Smoking Status: Never Smoker Hx Tobacco Use In Past Year?: No Hx Alcohol Use - Type & Amnt: No Hx Substance Use -Type & Amnt: No Review of Systems No pertinent positives. 11 systems reviewed and negative Physical Exam: Constitutional: General Apperance: well-nourished, well-developed, obese Level of Distress: NAD, chronically ill Psychiatric: Mental Status: normal affect, Orientation: to person, time, place Head: normocephalic, atraumatic Eyes: EOM: EOMI ENMT: normal ENT inspection, hearing grossly normal Neck: supple, trachea midline Lungs: Respiratory effort: no dyspnea Auscultation: clear Cardiovascular: Apical Impulse: not displaced Heart Auscultation: no rubs, no gallops, pertinent finding (irregular, pacer ) Peripheral Pulses: Pulses: full and equal, in all extremities except if noted Bruits: none appreciated Carotid Pulse: normal on the left, normal on the right Brachial Pulses: normal on the left, normal on the right Radial Pulse: normal on the left, normal on the right Femoral Pulse: normal on the left, normal on the right Abdomen: Bowel Sounds: normal Inspection & Palpation: soft, non-distended Musculoskeletal: abnormal strength Extremities: Upper Right: no cyanosis, no varicosities, no palpable cord, no thrill in herograft Upper Left: no cyanosis, no varicosities, no palpable cord, Lower Right: no cyanosis, no varicosities, no palpable cord, Lower Left: no cyanosis, no varicosities, no palpable cord, Neurologic: Cranial Nerves: grossly intact Sensation: grossly intact ASSESSMENT and PLAN: ESRD Thrombosed herograft Plan: Patient admitted for an insertion of a permcath. I have discussed the risks options and benefits of the procedure with the patient. The patient understands the risks options and benefits and agrees to the procedure.
--- NOTE | 2017-06-20 10:33 | History and Physical ---
History & Physical Date of Service Jun 20, 2017. History & Physical History & Physical Chief Complaint: ESRD, thrombosed herograft History of Present Illness The patient is a 81 year old female with multiple medical problems, including ESRD on HD and a fib who has been undergoing HD thru a herograft since placement a few months ago. Per HD unit, her herograft was thrombosed and pt unable to undergo HD. Arrives today for permcath placement and plans for declot /revision 2 days from now. Pt denies NIELSEN, fever, chills, chest pain, N/V, abd pain, rest pain, claudication, other complaints. Allergies Hydrochlorothiazide (Verified Allergy, Intermediate, RASH, 01/17/15) NSAIDs (Verified Allergy, Intermediate, UNK, 01/17/15) Hydrocodone (Verified Allergy, Mild, RASH, 01/17/15) ERICK Inhibitors (Verified Allergy, Unknown, UNK, 01/17/15) Amlodipine (Verified Allergy, Unknown, UNK, 01/17/15) Benazepril (Verified Allergy, Unknown, UNK, 01/17/15) Cephalexin (Verified Allergy, Unknown, UNK, 01/17/15) Spironolactone (Verified Allergy, Unknown, UNK, 01/17/15) Surgical / Medical History Hx Cardiac Surgery: No Hx Abdominal Surgery: Yes (cholicystectomy ) Hx Cancer Surgery: Yes Hx Thoracic Surgery: No Hx Orthopedic: Yes (hip replacement and lumbar surgery ) Hx Urinary Tract Surgery: No HX Other Surgery:LUE AVF creation Family History Alzheimer's disease SISTER Cancer BROTHER Diabetes mellitus FATHER BROTHER SISTER SISTER SISTER Heart disease MOTHER Hypertension FATHER MOTHER Social History Smoking Status: Never Smoker Hx Tobacco Use In Past Year?: No Hx Alcohol Use - Type & Amnt: No Hx Substance Use -Type & Amnt: No Review of Systems No pertinent positives. 11 systems reviewed and negative Physical Exam: Constitutional: General Apperance: well-nourished, well-developed, obese Level of Distress: NAD, chronically ill Psychiatric: Mental Status: normal affect, Orientation: to person, time, place Head: normocephalic, atraumatic Eyes: EOM: EOMI ENMT: normal ENT inspection, hearing grossly normal Neck: supple, trachea midline Lungs: Respiratory effort: no dyspnea Auscultation: clear Cardiovascular: Apical Impulse: not displaced Heart Auscultation: no rubs, no gallops, pertinent finding (irregular, pacer ) Peripheral Pulses: Pulses: full and equal, in all extremities except if noted Bruits: none appreciated Carotid Pulse: normal on the left, normal on the right Brachial Pulses: normal on the left, normal on the right Radial Pulse: normal on the left, normal on the right Femoral Pulse: normal on the left, normal on the right Abdomen: Bowel Sounds: normal Inspection & Palpation: soft, non-distended Musculoskeletal: abnormal strength Extremities: Upper Right: no cyanosis, no varicosities, no palpable cord, no thrill in herograft Upper Left: no cyanosis, no varicosities, no palpable cord, Lower Right: no cyanosis, no varicosities, no palpable cord, Lower Left: no cyanosis, no varicosities, no palpable cord, Neurologic: Cranial Nerves: grossly intact Sensation: grossly intact ASSESSMENT and PLAN: ESRD Thrombosed herograft Plan: Patient admitted for a permcath insertion today. I have discussed the risks options and benefits of the procedure with the patient. The patient understands the risks options and benefits and agrees to the procedure.
[2017-06-20 11:01] VITALS: Ht 157.5 cm; Wt 68.0 kg
--- NOTE | 2017-06-20 11:31 | Procedure Note ---
Pre-Mod Sedation Assessment General Date of Moderate Sedation: Jun 20, 2017. Pre-Sedation Airway Assessment Oral Cavity: Dentures Short Thick Neck: No Hx of Sleep Apnea: No Smoking Status: Never Smoker Mallampati Classification: Class I ASA Classification: Class III Notes The planned sedation has been discussed with the patient and consent obtained. I have identified the patient, determined the appropriateness of sedation and have assessed the patient immediately prior to the procedure. All medicine(s) and interventions are by my order.
--- NOTE | 2017-06-20 13:16 | [facility] Operative Report ---
Operative Report Operative Date Jun 20, 2017. Pre-Operative Diagnosis End Stage Renal Disease with Throbosed Herograft Post-Operative Diagnosis same Procedure(s) Performed Insertion of Perm Catheter, Left Jugular Approach, Ultrasound Localization of Left Jugular Vein, Fluoscopy for Comfirmation, Moderate Sedation 1250 - 1311. Surgeon Dr. Guillory Forensic Engineer Surgeon(s) None Estimated Blood Loss 3 Findings tip in distal SVC Specimens None Anesthesia Local with sedation Complication(s) None Disposition Indications This patient's an 81-year-old female with a hero graft in place in her right upper extremity. The fistula is now thrombosed. It was decided to place a PermCath at this time and have her undergo revision of the fistula later this week. I have discussed the risks options and benefits of the procedure with the patient. The patient understands the risks options and benefits and agrees to the procedure. Description of Procedure Patient was takent to the angio suite and placed in the supine position. The left side of the neck and chest wall were prepped and draped in a sterile manner. Local anesthesia was then administered to the appropriate areas of the neck and chest wall. Ultrasound was then used to locate the left internal jugular vein. The vein compressed easily, had no filing defects, and was patent. The vein was then punctured under direct ultrasound imaging. A guidewire was then passed centrally under fluoroscopic imaging. We had to use an 035 Glidewire after placing a 5 Samoan sheath in the internal jugular vein to pass into the innominate vein. There is tortuosity present at the junction of the internal jugular and innominate. Once the 035 Glidewire passed into the IVC from above we advanced the sheath. We exchanged the wire to the stiffened PermCath wire and removed the sheath. A stab wound was then made in the anterior chest wall and a 19 cm permcath was passed from the stab wound on the chest wall to the puncture site on the neck. The puncture site was then dilated till the 14Fr peel away sheath was inserted. The permcath was then inserted through the sheath to a central position in the distal superior vena cava. The peel away sheath was then removed. The catheter was then sutured in place using nylon sutures. The puncture was then closed using a 4-0 Vicryl subcuticular suture. Dermabond was used for a dressing on the puncture site. Both ports aspirated and flushed easily and were then packed with heparin. A sterile dressing was applied to the catheter. The patient left the angio suite in good condition and tolerated the procedure well. I attest to the content of the Intraoperative Record and any orders documented therein. Any exceptions are noted below.
--- NOTE | 2017-06-20 13:19 | Procedure Note ---
Post-Moderate Sedation Plan General Date of Moderate Sedation Jun 20, 2017. Vital Signs: Vital Signs Past 12 Hours Date Time Temp Pulse Resp B/P (MAP) Pulse Ox O2 Delivery O2 Flow Rate FiO2 06/20/17 13:13 77 16 95/53 Room Air 06/20/17 13:11 77 16 95/53 (67) 100 Room Air Review - Discharge Plan Post Moderate Sedation Plan: On clinical assessment, the patient appears to have tolerated the conscious sedation without complications. Patient is recovering as anticipated. Patient will continue to be monitored by nursing and may be discharged when conscious sedation discharge criteria are met.
--- NOTE | 2017-06-20 13:19 | Discharge Instructions ---
Discharge Instructions Date of Service Jun 20, 2017. Visit Reason for Visit: End Stage Renal Disease, Malfunctioning Fistula Discharge Discharge Diagnosis / Problem: Thrombosed right upper extremity Herograft Discharge Goals Goal(s): Therapeutic intervention Activity Recommendations Activity Limitations: per Instructions/Follow-up section Anesthesia . Post Anesthesia Instructions: If you have had General Anesthesia or IV Sedation: * Do not drive today. * Resume driving when surgeon permits. * Do not make important decisions or sign legal documents today. * Call surgeon for: 1. Temperature elevations greater than 101 degrees F. 2. Uncontrollable pain. 3. Excessive bleeding. 4. Persistent nausea and vomiting. 5. Medication intolerance (nausea, vomiting or rash). * For nausea and vomiting use only clear liquids such as: tea, soda, bouillon until nausea subsides, then gradually increase diet as tolerated. * If you have any concerns or questions, call your surgeon's office. If physician is unavailable and it is an emergency, call 911 or go to the nearest emergency room. . Instructions / Follow-Up Instructions / Follow-Up Take this to dialysis with you and give to dialysis nurses. May use permcath for dialysis. SPECIAL CARE INSTRUCTIONS: Medications: * Continue to take your medications as directed. If you have been given a prescription for Plavix, please fill it immediately and take as directed. Incision Care: * Your puncture site may have some bruising and minor swelling for about one week. * You will have a small dressing covering your puncture site. You may remove the dressing after 24 hours and shower. You may let the warm soapy water run over it, but be sure to dry the puncture site well and keep it dry. * DO NOT IMMERSE THE INCISION IN A TUB/POOL/etc. UNTIL HEALED. * Puncture sites should be kept covered with a band-aid until it begins to heal. Restrictions: * Depending on whether you leg or arm was punctured to access the arteries, you will be required to lay flat, hold your arm still, or both, for about 4 hours after the procedure to prevent bleeding. * Limit your activity for the first 48 hours. You may walk and go up and down steps. Avoid excessive bending or movement at the puncture site. Possible Complications: * Excessive Swelling - after blood flow is improved you may notice increased swelling in the lower legs. This is a normal response. This usually depends on the amount of blockages in the leg, how long they have been there prior to your procedure and how much blood flow was restored. Elevating your legs will help to improve this. Please notify our office ([phone] ) if the swelling does not go away after lying in bed overnight. * Infection/Drainage/Bleeding - Drainage or bleeding from the puncture site should be minimal. If you have excessive bleeding or drainage, call our office ([phone]) right away. * Pain - You may experience some mild pain or soreness at your puncture site. If your pain does not improve, please contact our office ([phone]). Call your doctor and seek emergent treatment if you develop: * Temperature above 101 degrees * Any fever or chills * Any redness or purulent drainage from the puncture site * Any new dusky/blue colored toes or feet with coolness or sharp or aching pain. SKIN IRRITATION: * You may experience some redness and/or swelling in the area where radiation was administered. If any skin irritation occurs, please contact your family physician. FOLLOW UP VISIT: Keep any scheduled doctor appointments. Diet Recommendations Recommended Home Diet: resume previous diet Procedures Procedures Performed: Insertion of Perm Catheter, Left Jugular Approach, Ultrasound Localization of Left Jugular Vein, Fluoscopy for Comfirmation, Moderate Sedation 1250 - 1311. Pending Studies Studies pending at discharge: no Medical Emergencies . Who to Call and When: Medical Emergencies: If at any time you feel your situation is an emergency, please call 911 immediately. . Non-Emergent Contact Non-Emergency issues call your: Surgeon . . "Provider Documentation" section prepared by Jossue Guillory. .
[2017-06-20 13:30] VITALS: BP 153/63; PULSE 97; TEMP 36.9; O2SAT 93
[2017-06-20 14:00] VITALS: BP 106/54; PULSE 91; TEMP 36.9; O2SAT 95
== END | disposition home or self-care (01) ==
LOC: C.OR 10:10
PROVIDERS: ATTEND Surgery Vascular Surgery
DX: N18.6 End stage renal disease (principal); T82.868A Thrombosis due to vascular prosthetic devices, implants and grafts, initial encounter; X58.XXXA Exposure to other specified factors, initial encounter; Z79.899 Other long term (current) drug therapy; Z83.3 Family history of diabetes mellitus; Z99.2 Dependence on renal dialysis

== ENCOUNTER → 2017-06-22 | Day surgery (SDC) | payer OTHER ==
[2017-06-20 11:52] VITALS: BP 128/55; PULSE 77; TEMP 37.1; O2SAT 97
[2017-06-21 15:55] VITALS: BMI 27.0
[~2017-06-22] VITALS: Ht 157.5 cm; Wt 68.0 kg
[~2017-06-22] MED LIST changes: +ATROPINE SULFATE 0.1 MG/ML 5ML SYR IV PRN; +BUPIVACAINE/EPINEPHRINE 0.5% MPF 1:200,000 30 ML VIAL ONE; -CHOL100010 PO; -CLINDAMYCIN IV 600 MG in DEXTROSE 5% 50ML 50 ML IV ONE; -D5W AND 1/4NSS 1,000 ML IV SCH; +EpHEDrine SULFATE INJ 50 MG/ML AMP IV PRN; -FENTANYL CITRATE INJ 50 MCG/1 ML 2 ML VIAL IV ONE; +FENTANYL CITRATE INJ 50 MCG/1 ML 2 ML VIAL IV PRN; -GABA-112 PO; +GELATIN SPONGE 12-7MM ONE; +HEPARIN SOD (PORCINE) 1000 UNIT/ML 10 ML VIAL ONE; -HEPARIN SOD (PORCINE) 5000 UNIT/ML 1 ML VIAL IV ONE; -HEPARIN SOD (PORCINE) 5000 UNIT/ML 1 ML VIAL ONE; -LIDOCAINE HCL 1% 20 ML VIAL INJ ONE; +LIDOCAINE HCL 1% 20 ML VIAL ONE; +LIDOCAINE HCL 2% 2 ML VIAL (20MG/ML) ONE; -METO-479 PO; -MIDAZOLAM HCL 1 MG/ML 2ML VIAL IV ONE; -OPTIRAY 300 INJ ONE; -OXYC-57 PO; +PROPOFOL IV EMULSION 10 MG/ML 20 ML VIAL IV ONE; +SODIUM CHLORIDE 0.9% 1000ML 1,000 ML IV SCH; +THROMBIN 5000 UNITS KIT ONE
--- NOTE | 2017-06-22 06:13 | History and Physical ---
History & Physical Date of Service Jun 22, 2017. History & Physical Chief Complaint: ESRD fwith throbosed herograft History of Present Illness The patient is a 80 year old female with multiple medical problems, including ESRD on HD and a fib who has been undergoing HD thru a herograft. It was found to be thrombosed and declotted recently. It now has rethrombosed. Pt denies NIELSEN , fever, chills, chest pain, N/V, abd pain, rest pain, claudication, other complaints. Allergies Hydrochlorothiazide (Verified Allergy, Intermediate, RASH, 01/17/15) NSAIDs (Verified Allergy, Intermediate, UNK, 01/17/15) Hydrocodone (Verified Allergy, Mild, RASH, 01/17/15) ERICK Inhibitors (Verified Allergy, Unknown, UNK, 01/17/15) Amlodipine (Verified Allergy, Unknown, UNK, 01/17/15) Benazepril (Verified Allergy, Unknown, UNK, 01/17/15) Cephalexin (Verified Allergy, Unknown, UNK, 01/17/15) Spironolactone (Verified Allergy, Unknown, UNK, 01/17/15) Surgical / Medical History Hx Cardiac Surgery: No Hx Abdominal Surgery: Yes (cholicystectomy ) Hx Cancer Surgery: Yes Hx Thoracic Surgery: No Hx Orthopedic: Yes (hip replacement and lumbar surgery ) Hx Urinary Tract Surgery: No HX Other Surgery:LUE AVF creation Family History Alzheimer's disease SISTER Cancer BROTHER Diabetes mellitus FATHER BROTHER SISTER SISTER SISTER Heart disease MOTHER Hypertension FATHER MOTHER Social History Smoking Status: Never Smoker Hx Tobacco Use In Past Year?: No Hx Alcohol Use - Type & Amnt: No Hx Substance Use -Type & Amnt: No Review of Systems No pertinent positives. 11 systems reviewed and negative Physical Exam: Constitutional: General Apperance: well-nourished, well-developed, obese Level of Distress: NAD, chronically ill Psychiatric: Mental Status: normal affect, Orientation: to person, time, place Head: normocephalic, atraumatic Eyes: EOM: EOMI ENMT: normal ENT inspection, hearing grossly normal Neck: supple, trachea midline Lungs: Respiratory effort: no dyspnea Auscultation: clear Cardiovascular: Apical Impulse: not displaced Heart Auscultation: no rubs, no gallops, pertinent finding (irregular, pacer ) Peripheral Pulses: Pulses: full and equal, in all extremities except if noted Bruits: none appreciated Carotid Pulse: normal on the left, normal on the right Brachial Pulses: normal on the left, normal on the right Radial Pulse: normal on the left, normal on the right Femoral Pulse: normal on the left, normal on the right Abdomen: Bowel Sounds: normal Inspection & Palpation: soft, non-distended Musculoskeletal: abnormal strength Extremities: Upper Right: no cyanosis, no varicosities, no palpable cord, no thrill in herograft Upper Left: no cyanosis, no varicosities, no palpable cord, Lower Right: no cyanosis, no varicosities, no palpable cord, Lower Left: no cyanosis, no varicosities, no palpable cord, Neurologic: Cranial Nerves: grossly intact Sensation: grossly intact ASSESSMENT and PLAN: ESRD Thrombosed herograft Plan: Patient admitted for revision of her herograft. I have discussed the risks options and benefits of the procedure with the patient. The patient understands the risks options and benefits and agrees to the procedure.
[2017-06-22 06:20] VITALS: BP 104/51; PULSE 64; TEMP 36.9; O2SAT 95; Ht 157.5 cm; Wt 68.0 kg
[2017-06-22 06:52] LABS: PARTIAL THROMBOPLASTIN RATIO 1.1; PROTHROMBIN TIME (PATIENT) 10.8 SECONDS (9.0-12.0)
[2017-06-22 07:28] LABS: BUN/CREATININE RATIO 7.8 (10-20); CALCIUM 8.4 mg/dl (8.5-10.1); CREATININE 5.19 mg/dl (0.60-1.20); POTASSIUM 3.9 mmol/L (3.5-5.1)
--- NOTE | 2017-06-22 09:39 | DIAGNOSTIC IMAGING REPORT ---
CHEST 1 VIEW FRONTAL CLINICAL HISTORY: RT SIDE HERO GRAFT TECHNIQUE: Image intensifier COMPARISON STUDY: None FINDINGS: Placement of a vascular graft With utilization of an image intensifier IMPRESSION: Image intensifier utilization for a Hero graft placement The above report was generated using voice recognition software. It may contain grammatical, syntax or spelling errors. Electronically signed by: Julio Reyna M.D. 06/22/2017 9:38 AM Dictated Date/Time: 06/22/2017 9:35 AM
--- NOTE | 2017-06-22 10:11 | [facility] Post Operative Brief Note ---
Immediate Operative Summary Operative Date Jun 22, 2017. Pre-Operative Diagnosis End Stage Renal Disease; Thrombosed Herograft Post-Operative Diagnosis End Stage Renal Disease; Thrombosed Herograft Procedure(s) Performed Thrombectomy of Right Arm AV Fistula with Revision Surgeon Kahlil Resaw Tailer Surgeon(s) Saranya Goldman PA-C Estimated Blood Loss 50cc Findings good flow through herograft Specimens None per surgeon Anesthesia MAC Complication(s) None Disposition Recovery Room / PACU
--- NOTE | 2017-06-22 10:14 | Discharge Instructions ---
Discharge Instructions Date of Service Jun 22, 2017. Visit Reason for Visit: Clotted Right Upper Arm Hero Graft Discharge Discharge Diagnosis / Problem: Thrombosed left upper arm herograft Discharge Goals Goal(s): Therapeutic intervention Activity Recommendations Activity Limitations: per Instructions/Follow-up section Anesthesia . Post Anesthesia Instructions: If you have had General Anesthesia or IV Sedation: * Do not drive today. * Resume driving when surgeon permits. * Do not make important decisions or sign legal documents today. * Call surgeon for: 1. Temperature elevations greater than 101 degrees F. 2. Uncontrollable pain. 3. Excessive bleeding. 4. Persistent nausea and vomiting. 5. Medication intolerance (nausea, vomiting or rash). * For nausea and vomiting use only clear liquids such as: tea, soda, bouillon until nausea subsides, then gradually increase diet as tolerated. * If you have any concerns or questions, call your surgeon's office. If physician is unavailable and it is an emergency, call 911 or go to the nearest emergency room. . Instructions / Follow-Up Instructions / Follow-Up Call [phone] to schedule a follow up appointment if one not already scheduled. ACTIVITY RECOMMENDATIONS: See Above SPECIAL CARE INSTRUCTIONS: Call your doctor if: * Temperature above 101 degrees * Pain not relieved by pain medicine ordered * There is increased drainage or redness from any incision * You have any unanswered questions or concerns. Diet Recommendations Recommended Home Diet: resume previous diet Procedures Procedures Performed: Thrombectomy of Right Arm AV Fistula with Revision Pending Studies Studies pending at discharge: no Medical Emergencies . Who to Call and When: Medical Emergencies: If at any time you feel your situation is an emergency, please call 911 immediately. . Non-Emergent Contact Non-Emergency issues call your: Surgeon . . "Provider Documentation" section prepared by Jossue Guillory. .
--- NOTE | 2017-06-22 10:26 | [facility] Operative Report ---
Operative Report Operative Date Jun 22, 2017. Pre-Operative Diagnosis End Stage Renal Disease; Thrombosed Herograft Post-Operative Diagnosis End Stage Renal Disease; Thrombosed Herograft Procedure(s) Performed Thrombectomy of Right Arm AV Fistula with Revision Surgeon Kahlil Instrument/Control Technician Surgeon(s) Saranya Goldman PA-C Estimated Blood Loss 50cc Findings good flow through herograft Specimens None per surgeon Anesthesia MAC Complication(s) None Disposition Recovery Room / PACU Indications This is an 81-year-old female who has a right upper extremity hero graft which is thrombosed. Revision was recommended due to her last fistulogram which showed a large amount of the proximal irregularity and narrowing in her fistula. I have discussed the risks options and benefits of the procedure with the patient. The patient understands the risks options and benefits and agrees to the procedure. Description of Procedure The patient was taken to the operating room placed in the supine position. The right arm was then prepped and draped in a sterile manner. Local anesthetic was administered. A longitudinal incision was made over distal end of the prosthetic fistula. We also made an incision in the mid upper on the medial aspect of the arm over the brachial artery. The old graft was identified in the first incision. It was slung with a vessel loop. We then isolated the brachial artery in the medial incision. It was slightly calcified but of good caliber with a good pulse. A graftotomy was performed in the graft. Using #3 and #4 Citlali catheter, thrombectomy was performed of the hero graft. Minimal backbleeding was seen. It was decided to see if the catheter was patent. We then anesthetized with the junction of the catheter and graft. Incision was made at that level. The adapter was identified. The adapter was removed from the catheter as well as a proximal portion of the graft. Good back bleeding was seen from the catheter that time. It flushed easily. The herograft dialator was passed through the catheter without difficulty and the position of the catheter was confirmed with x-ray. A new adapter and graft was brought to the operative field. The adapter was attached to the catheter and secured in place. The graft was then tunneled down to the incision on the lateral aspect of the arm. A propatent 6 mm standard wall graft was then passed from the brachial artery incision in a loop fashion and brought out through the incision laterally on the arm. The propaten graft was then cut the appropriate length as well as the hero graft prosthetic graft. The anastomosis was then accomplished using a CV 6 Humble-Maikol suture. Once this was done, the brachial artery was then clamped proximally and distally. The graft was pulled the appropriate length and beveled in the usual fashion. A longitudinal arteriotomy was started in the brachial artery. An end to side anastomosis was then accomplished using again a CV 6 Humble-Maikol suture in usual vascular fashion. Prior to completing the closure back bleeding and fore bleeding was allowed to occur. The final few sutures were then placed and securely tied. Clamps were removed. Good flow was seen in the hero graft at that point. There was a palpable thrill at the arterial anastomosis of the hero graft. After adequate hemostasis was noted the wound was then closed in the usual fashion using running 3-0 Vicryl suture for subcutaneous layer and annie for the skin. Sterile dressings were applied. The patient left the operating room in satisfactory condition and tolerated the procedure well. All needle and sponge counts were correct at the end of the procedure Saranya Goldman Pac assisted due to lack of resident availability and was necessary for prepping, draping, retraction, wound closure defects, subcutaneous tissue, and skin closure and was necessary for the case. I attest to the content of the Intraoperative Record and any orders documented therein. Any exceptions are noted below.
[2017-06-22 11:10] VITALS: BP 90/41; PULSE 69; TEMP 36.9; O2SAT 94
[2017-06-22 11:42] VITALS: BP 91/29; PULSE 72; TEMP 36.9; O2SAT 97
--- NOTE | 2017-06-22 13:35 | Progress Note ---
Progress Note Date of Service Jun 22, 2017. Progress Note I assisted Dr Guillory with Nimo Ames' Thrombectomy of Right Arm AV Fistula with Revision on 06/22/17, d/t lack of resident availability.
== END | disposition home or self-care (01) ==
LOC: C.ACU 05:55
PROVIDERS: ATTEND Surgery Vascular Surgery
DX: T82.868A Thrombosis due to vascular prosthetic devices, implants and grafts, initial encounter (principal); N18.6 End stage renal disease; G47.33 Obstructive sleep apnea (adult) (pediatric); I48.91 Unspecified atrial fibrillation; I11.0 Hypertensive heart disease with heart failure; I50.9 Heart failure, unspecified; Z95.0 Presence of cardiac pacemaker; E11.9 Type 2 diabetes mellitus without complications; I25.10 Atherosclerotic heart disease of native coronary artery without angina pectoris; Z99.2 Dependence on renal dialysis; Z90.49 Acquired absence of other specified parts of digestive tract; Z96.641 Presence of right artificial hip joint; E66.9 Obesity, unspecified; Z68.30 Body mass index [BMI] 30.0-30.9, adult; Z98.42 Cataract extraction status, left eye; Z98.41 Cataract extraction status, right eye; Z98.890 Other specified postprocedural states; Z82.0 Family history of epilepsy and other diseases of the nervous system; Z80.9 Family history of malignant neoplasm, unspecified; Z83.3 Family history of diabetes mellitus; Z82.49 Family history of ischemic heart disease and other diseases of the circulatory system

== ENCOUNTER 2017-09-16 07:04 | Emergency (ER) | payer OTHER ==
[~2017-09-16 07:04] MED LIST changes: -ATROPINE SULFATE 0.1 MG/ML 5ML SYR IV PRN; -BUPIVACAINE/EPINEPHRINE 0.5% MPF 1:200,000 30 ML VIAL ONE; -CLINDAMYCIN 600 MG/54 ML D5W IV SCH; -EpHEDrine SULFATE INJ 50 MG/ML AMP IV PRN; -FENTANYL CITRATE INJ 50 MCG/1 ML 2 ML VIAL IV PRN; -FENTANYL CITRATE INJ 50 MCG/1 ML 2 ML VIAL ONE; -GELATIN SPONGE 12-7MM ONE; -HEPARIN SOD (PORCINE) 1000 UNIT/ML 10 ML VIAL ONE; -LIDOCAINE HCL 1% 20 ML VIAL ONE; -LIDOCAINE HCL 2% 2 ML VIAL (20MG/ML) ONE; -METO-649 PO; +METO200T32 PO; -MIDAZOLAM HCL 1 MG/ML 2ML VIAL ONE; -PROPOFOL IV EMULSION 10 MG/ML 20 ML VIAL IV ONE; -SODIUM CHLORIDE 0.9% 1000ML 1,000 ML IV SCH; -THROMBIN 5000 UNITS KIT ONE
[2017-09-16] MEDS ORDERED: ACET-1311 PO (07:48)
--- NOTE | 2017-09-16 07:49 | EMERGENCY ROOM VISIT NOTE ---
History Report prepared by Mariana: Kimberley Childress Under the Supervision of: Dr. Tanner Unger M.D. First contact with patient: 07:11 Chief Complaint: OTHER COMPLAINT Stated Complaint: CATH CHECK History of Present Illness The patient is a 81 year old female who presents to the Emergency Room for a persistent dialysis port evaluation in her right arm today. She reports that she was advised to come to the Emergency Department by the staff that conducts her dialysis for further evaluation of her port. The patient states that she has not been to dialysis in 4 days, noting that she usually goes Tuesday, Tuesday, and Tuesday but was unable to go Tuesday due to not feeling well. She reports right hand pain that began a couple of weeks ago, noting her hand also swells every now and then. Source of History: patient Onset: today Position: arm (right) Quality: other (dialysis port evaluation ) Timing: other (persistent) Review of Systems See HPI for pertinent positives & negatives. A total of 10 systems reviewed and were otherwise negative. Past Medical & Surgical Medical Problems: (1) Anemia in ESRD (end-stage renal disease) (2) CHF (congestive heart failure) (3) Chronic bronchitis (4) Coronary artery disease (5) Diabetes mellitus, type II (6) ESRD (end stage renal disease) on dialysis (7) GERD (gastroesophageal reflux disease) (8) Gout (9) History of cardiac arrest (10) Hyperkalemia (11) Hyperkalemia, diminished renal excretion (12) Hypertension (13) Paroxysmal atrial fibrillation (14) Pulmonary hypertension (15) Sleep apnea Surgical Problems: (1) Status post cardiac catheterization (2) Status post cataract extraction (3) Status post cholecystectomy (4) Status post hernia repair (5) Status post hip replacement (6) Status post lumbar surgery Family History Alzheimer's disease SISTER Cancer BROTHER Diabetes mellitus FATHER BROTHER SISTER SISTER SISTER Heart disease MOTHER Hypertension FATHER MOTHER Social History Smoking Status: Never Smoker Alcohol Use: occasionally Housing Status: lives with family Occupation Status: retired Current/Historical Medications Scheduled Acetaminophen (Tylenol), 650 MG PO UD Allopurinol (Allopurinol), 100 MG PO NOON B-Complex W/ C & Folic Acid (Vol-Care Rx), 1 TAB PO QPM Digoxin (Digoxin), 0.125 MG PO Q2D Docusate Sodium (Colace), 100 MG PO HS Ergocalciferol (Vitamin D 93105 Unit), 50,000 UNIT PO E2EOOSA Gabapentin (Gabapentin), 100 MG PO BID Home O2 Therapy (Oxygen), 2 LITERS NA HS Insulin Glargine (Lantus), 30 UNITS SC HS Metoprolol Succinate (Toprol Xl), 100 MG PO HS Metoprolol Succinate (Toprolxl (Toprol-Xl), 200 MG PO QAM Omeprazole (Prilosec), 20 MG PO QAM Sertraline (Zoloft), 50 MG PO QPM Sevelamer Carbonate (Renvela), 800 MG PO AC Vitamin B Cmplx/Vitc/Folic Ac (Nephrocaps), 1 CAP PO QPM Scheduled PRN Tramadol (Ultram), 50 MG PO Q4H PRN for Pain Allergies Coded Allergies: Hydrochlorothiazide (Verified Allergy, Intermediate, RASH, 09/16/17) NSAIDs (Verified Allergy, Intermediate, ELEVATED POTASSIUM, 09/16/17) Hydrocodone (Verified Allergy, Mild, RASH, 09/16/17) ERICK Inhibitors (Verified Allergy, Unknown, UNKNOWN, 09/16/17) Amlodipine (Verified Allergy, Unknown, ELEVATED POTASSIUM, 09/16/17) Benazepril (Verified Allergy, Unknown, UNKNOWN, 09/16/17) Cephalexin (Verified Allergy, Unknown, ITCHING AND HIVES, 09/16/17) Penicillins (Verified Allergy, Unknown, RASH, 09/16/17) Spironolactone (Verified Allergy, Unknown, UNKNOWN, 09/16/17) Sulfa Antibiotics (Verified Allergy, Unknown, RASH, 09/16/17) Physical Exam Vital Signs Date Time Temp Pulse Resp B/P (MAP) Pulse Ox O2 Delivery O2 Flow Rate FiO2 09/16/17 11:38 70 18 131/92 95 Room Air 09/16/17 10:26 65 18 131/81 95 Room Air 09/16/17 08:55 68 18 121/85 95 Room Air 09/16/17 08:09 71 09/16/17 07:56 63 18 128/48 94 Room Air 09/16/17 07:06 36.7 74 20 126/63 98 Room Air Physical Exam GENERAL: Patient is a healthy-appearing well-nourished female. HEAD: Normocephalic atraumatic EYES: Ocular movements intact pupils equal and react to light OROPHARYNX mucous membranes are moist no exudates present no erythema or edema present NECK: Supple no nuchal rigidity CHEST: Good equal expansion LUNGS: Clear and equal to auscultation CARDIAC: No bruit palpated and thrill auscultated. ABDOMEN: Soft nontender no guarding BACK: No CVA tenderness EXTREMITIES: No pain upon palpation normal muscle strength in all groups no clubbing cyanosis or edema NEURO: Patient is following commands and answering questions appropriately. Alert and oriented x3 Cranial Nerves 2-12 grossly intact Medical Decision & Procedures Laboratory Results 09/16/17 08:15 Test 09/16/17 08:15 09/16/17 08:19 09/16/17 16:17 RDW Standard Deviation 74.3 fL (36.4-46.3) RDW Coefficient of Variation 17.9 % (11.5-14.5) White Blood Count 10.93 K/uL (4.8-10.8) Red Blood Count 2.76 M/uL (4.2-5.4) Hemoglobin 9.9 g/dL (12.0-16.0) Hematocrit 31.4 % (37-47) Mean Corpuscular Volume 113.8 fL (80-100) Mean Corpuscular Hemoglobin 35.9 pg (25-34) Mean Corpuscular Hemoglobin Concent 31.5 g/dl (32-36) Platelet Count 276 K/uL (130-400) Mean Platelet Volume 10.6 fL (7.4-10.4) Neutrophils (%) (Auto) 77.3 % Lymphocytes (%) (Auto) 13.2 % Monocytes (%) (Auto) 4.5 % Eosinophils (%) (Auto) 4.1 % Basophils (%) (Auto) 0.2 % Neutrophils # (Auto) 8.45 K/uL (1.4-6.5) Lymphocytes # (Auto) 1.44 K/uL (1.2-3.4) Monocytes # (Auto) 0.49 K/uL (0.11-0.59) Eosinophils # (Auto) 0.45 K/uL (0-0.5) Basophils # (Auto) 0.02 K/uL (0-0.2) Immature Granulocyte % (Auto) 0.7 % Immature Granulocyte # (Auto) 0.08 K/uL (0.00-0.02) Nucleated RBC Absolute Count (auto) 0.06 K/uL (0-0) Nucleated Red Blood Cells % 0.5 % Polychromasia 1+ Macrocytosis PRESENT Tear Drop Cells 1+ Prothrombin Time 10.5 SECONDS (9.0-12.0) Prothromb Time International Ratio 1.0 (0.9-1.1) Estimated GFR () 3.6 Estimated GFR (Non- 3.1 BUN/Creatinine Ratio 8.1 (10-20) Calcium Level 9.3 mg/dl (8.5-10.1) Total Bilirubin 0.4 mg/dl (0.2-1) Direct Bilirubin mg/dl (0-0.2) Aspartate Amino Transf (AST/SGOT) 17 U/L (15-37) Alanine Aminotransferase (ALT/SGPT) 14 U/L (12-78) Alkaline Phosphatase 178 U/L (45-117) Total Protein 7.5 gm/dl (6.4-8.2) Albumin 2.8 gm/dl (3.4-5.0) Lipase 261 U/L (73-393) Chemistry Specimen Hemolysis Bedside Hemoglobin 10.2 g/dl (12.0-16.0) Bedside Hematocrit 30 % (37-47) Bedside Sodium 136 mEq/L (135-144) Bedside Potassium 5.9 mEq/L (3.3-5.0) Bedside Chloride 104 mEq/L (101-112) Bedside Total CO2 24 mEq/l (24-31) Anion Gap 15.0 mmol/L (16-25) Bedside Blood Urea Nitrogen 107 mg/dl (7-18) Bedside Creatinine 11.2 mg/dl (0.6-1.3) Bedside Glucose (other) 141 mg/dl (70-99) Bedside Ionized Calcium (Sravan) 1.13 mmol/l (1.12-1.32) Labs reviewed by ED physician. Medications Administered Medications (Trade) Dose Ordered Sig/Juanita Route Start Time Stop Time Status Last Admin Dose Admin Clindamycin Phosphate (Cleocin 600mg/ 54ml D5W) 600 mg STK-MED ONCE IV 09/16/17 13:21 09/16/17 13:22 DC 09/16/17 13:55 600 MG ED Course 0716: Past medical records reviewed. The patient was evaluated in room B9. A complete history and physical examination was performed. 0737: I discussed the patient's case with SHYANNE Mcclure, he has agreed to evaluate the patient for further management and care. 0741: I reevaluated the patient, who was resting comfortably. I updated her on test findings and discussed the treatment plan. The patient verbalized complete understanding and agreement. Medical Decision This is an 81-year-old female who presents to the emergency department after being sent in by her dialysis center. The patient has a dialysis fistula that appears to be blocked. For this reason Dr. Guillory was consulted and the patient was brought to the operating room. Medication Reconcilliation Current Medication List: was personally reviewed by me Consults Time Called: 736 Consulting Physician: SHYANNE Mcclure Returned Call: 07 I discussed the patient's case with SHYANNE Mcclure, he has agreed to evaluate the patient for further management and care. Impression Primary Impression: Dialysis AV fistula malfunction Scribe Attestation The scribe's documentation has been prepared under my direction and personally reviewed by me in its entirety. I confirm that the note above accurately reflects all work, treatment, procedures, and medical decision making performed by me. Departure Information Dispostion Being Evaluated By Surgeon Prescriptions Tramadol (Ultram) 50 Mg Tab 50 MG PO Q4H Y for Pain, #30 TAB Prov: Jossue Guillory M.D. 09/16/17 Referrals Luisito Connell M.D. (PCP) Forms HOME CARE DOCUMENTATION FORM, IMPORTANT VISIT INFORMATION, WORK / SCHOOL INSTRUCTIONS Patient Instructions My [facility] Problem Qualifiers Primary Impression: Dialysis AV fistula malfunction Encounter type: initial encounter Qualified Codes: T82.590A - Other mechanical complication of surgically created arteriovenous fistula, initial encounter
[2017-09-16 08:24] LABS: BASO % 0.2 %; BASO ABS # 0.02 K/uL (0-0.2); EOS % 4.1 %; EOS ABS # 0.45 K/uL (0-0.5); HEMATOCRIT 31.4 % (37-47); HEMOGLOBIN 9.9 g/dL (12.0-16.0); IG# 0.08 K/uL (0.00-0.02); LYMPH % 13.2 %; LYMPH ABS # 1.44 K/uL (1.2-3.4); MEAN CELL VOLUME 113.8 fL (80-100); MEAN CORPUSCULAR HEMOGLOBIN 35.9 pg (25-34); MEAN CORPUSCULAR HGB CONC 31.5 g/dl (32-36); MEAN PLATELET VOLUME 10.6 fL (7.4-10.4); MONO % 4.5 %; MONO ABS # 0.49 K/uL (0.11-0.59); NEUT % 77.3 %; NEUT ABS # 8.45 K/uL (1.4-6.5); NUCLEATED RED BLOOD CELL ABS 0.06 K/uL (0-0); PLATELET COUNT 276 K/uL (130-400); RED CELL DISTRIBUTION WIDTH CV 17.9 % (11.5-14.5); RED CELL DISTRIBUTION WIDTH SD 74.3 fL (36.4-46.3); WHITE BLOOD COUNT 10.93 K/uL (4.8-10.8)
[2017-09-16 08:53] LABS: ISTAT CREATININE 11.2 mg/dl (0.6-1.3); ISTAT IONIZED CALCIUM 1.13 mmol/l (1.12-1.32); ISTAT POTASSIUM 5.9 mEq/L (3.3-5.0)
[2017-09-16 09:14] LABS: ALBUMIN 2.8 gm/dl (3.4-5.0); ALKALINE PHOSPHATASE 178 U/L (45-117); ALT/SGPT 14 U/L (12-78); AST/SGOT 17 U/L (15-37); BLOOD UREA NITROGEN 85 mg/dl (7-18); CALCIUM 9.3 mg/dl (8.5-10.1); CARBON DIOXIDE 21 mmol/L (21-32); GLUCOSE 141 mg/dl (70-99); LIPASE 261 U/L (73-393); POTASSIUM 5.1 mmol/L (3.5-5.1); SODIUM 135 mmol/L (136-145); TOTAL PROTEIN 7.5 gm/dl (6.4-8.2)
--- NOTE | 2017-09-16 09:16 | History and Physical ---
History & Physical Date of Service Sep 16, 2017. History & Physical Chief Complaint: ESRD fwith throbosed herograft History of Present Illness The patient is a 80 year old female with multiple medical problems, including ESRD on HD and a fib who has been undergoing HD thru a herograft. It was found to be thrombosed and declotted recently. It now has rethrombosed. Pt denies NIELSEN , fever, chills, chest pain, N/V, abd pain, rest pain, claudication, other complaints. Allergies Hydrochlorothiazide (Verified Allergy, Intermediate, RASH, 01/17/15) NSAIDs (Verified Allergy, Intermediate, UNK, 01/17/15) Hydrocodone (Verified Allergy, Mild, RASH, 01/17/15) ERICK Inhibitors (Verified Allergy, Unknown, UNK, 01/17/15) Amlodipine (Verified Allergy, Unknown, UNK, 01/17/15) Benazepril (Verified Allergy, Unknown, UNK, 01/17/15) Cephalexin (Verified Allergy, Unknown, UNK, 01/17/15) Spironolactone (Verified Allergy, Unknown, UNK, 01/17/15) Surgical / Medical History Hx Cardiac Surgery: No Hx Abdominal Surgery: Yes (cholicystectomy ) Hx Cancer Surgery: Yes Hx Thoracic Surgery: No Hx Orthopedic: Yes (hip replacement and lumbar surgery ) Hx Urinary Tract Surgery: No HX Other Surgery:LUE AVF creation Family History Alzheimer's disease SISTER Cancer BROTHER Diabetes mellitus FATHER BROTHER SISTER SISTER SISTER Heart disease MOTHER Hypertension FATHER MOTHER Social History Smoking Status: Never Smoker Hx Tobacco Use In Past Year?: No Hx Alcohol Use - Type & Amnt: No Hx Substance Use -Type & Amnt: No Review of Systems No pertinent positives. 11 systems reviewed and negative Physical Exam: Constitutional: General Apperance: well-nourished, well-developed, obese Level of Distress: NAD, chronically ill Psychiatric: Mental Status: normal affect, Orientation: to person, time, place Head: normocephalic, atraumatic Eyes: EOM: EOMI ENMT: normal ENT inspection, hearing grossly normal Neck: supple, trachea midline Lungs: Respiratory effort: no dyspnea Auscultation: clear Cardiovascular: Apical Impulse: not displaced Heart Auscultation: no rubs, no gallops, pertinent finding (irregular, pacer ) Peripheral Pulses: Pulses: full and equal, in all extremities except if noted Bruits: none appreciated Carotid Pulse: normal on the left, normal on the right Brachial Pulses: normal on the left, normal on the right Radial Pulse: normal on the left, normal on the right Femoral Pulse: normal on the left, normal on the right Abdomen: Bowel Sounds: normal Inspection & Palpation: soft, non-distended Musculoskeletal: abnormal strength Extremities: Upper Right: no cyanosis, no varicosities, no palpable cord, no thrill in herograft Upper Left: no cyanosis, no varicosities, no palpable cord, Lower Right: no cyanosis, no varicosities, no palpable cord, Lower Left: no cyanosis, no varicosities, no palpable cord, Neurologic: Cranial Nerves: grossly intact Sensation: grossly intact ASSESSMENT and PLAN: ESRD Thrombosed herograft Plan: Patient admitted for thrombectomy of her herograft. I have discussed the risks options and benefits of the procedure with the patient. The patient understands the risks options and benefits and agrees to the procedure.
[2017-09-16 11:38] VITALS: O2SAT 95
[2017-09-16] MEDS ORDERED: THROMBIN FOR SOLN 20000 UNIT KIT ONE (12:58)
[2017-09-16] MEDS ORDERED: LIDOCAINE HCL 1% 20 ML VIAL ONE ×2 (12:59→13:06)
[2017-09-16] MEDS ORDERED: GELATIN SPONGE 12-7MM ONE (12:59)
[2017-09-16] MEDS ORDERED: BUPIVACAINE/EPINEPHRINE 0.5% MPF 1:200,000 30 ML VIAL ONE ×3 (12:59→17:24)
[2017-09-16] MEDS ORDERED: HEPARIN SOD (PORCINE) 1000 UNIT/ML 10 ML VIAL ONE ×4 (13:00→15:43)
[2017-09-16] MEDS ORDERED: FENTANYL CITRATE INJ 50 MCG/1 ML 2 ML VIAL ONE (13:19)
[2017-09-16] MEDS ORDERED: MIDAZOLAM HCL 1 MG/ML 2ML VIAL ONE (13:19)
[2017-09-16] MEDS ORDERED: CLINDAMYCIN 600 MG/54 ML D5W IV ONE (13:21)
[2017-09-16] MEDS ORDERED: NURSING VERBAL MED ORDER ONE (13:30)
[2017-09-16] MEDS ORDERED: PROPOFOL IV EMULSION 10 MG/ML 20 ML VIAL IV ONE (14:13)
[2017-09-16] MEDS ORDERED: EpHEDrine SULFATE INJ 50 MG/ML AMP IV PRN (15:00)
[2017-09-16] MEDS ORDERED: ATROPINE SULFATE 0.1 MG/ML 5ML SYR IV PRN (15:00)
[2017-09-16] MEDS ORDERED: TRAM-10 PO (16:19)
--- NOTE | 2017-09-16 16:20 | Discharge Instructions ---
Discharge Instructions Date of Service Sep 16, 2017. Visit Reason for Visit: Cath Check Discharge Discharge Diagnosis / Problem: Thrombosed herograft Discharge Goals Goal(s): Therapeutic intervention Activity Recommendations Activity Limitations: per Instructions/Follow-up section Anesthesia . Post Anesthesia Instructions: If you have had General Anesthesia or IV Sedation: * Do not drive today. * Resume driving when surgeon permits. * Do not make important decisions or sign legal documents today. * Call surgeon for: 1. Temperature elevations greater than 101 degrees F. 2. Uncontrollable pain. 3. Excessive bleeding. 4. Persistent nausea and vomiting. 5. Medication intolerance (nausea, vomiting or rash). * For nausea and vomiting use only clear liquids such as: tea, soda, bouillon until nausea subsides, then gradually increase diet as tolerated. * If you have any concerns or questions, call your surgeon's office. If physician is unavailable and it is an emergency, call 911 or go to the nearest emergency room. . Instructions / Follow-Up Instructions / Follow-Up Call [phone] to schedule a follow up appointment if one not already scheduled. May use fistula for dialysis ACTIVITY RECOMMENDATIONS: See Above SPECIAL CARE INSTRUCTIONS: Call your doctor if: * Temperature above 101 degrees * Pain not relieved by pain medicine ordered * There is increased drainage or redness from any incision * You have any unanswered questions or concerns. Diet Recommendations Recommended Home Diet: resume previous diet Pending Studies Studies pending at discharge: no Medical Emergencies . Who to Call and When: Medical Emergencies: If at any time you feel your situation is an emergency, please call 911 immediately. . Non-Emergent Contact Non-Emergency issues call your: Surgeon . . "Provider Documentation" section prepared by Jossue Guillory. .
--- NOTE | 2017-09-16 16:23 | [facility] Post Operative Brief Note ---
Immediate Operative Summary Operative Date Sep 16, 2017. Pre-Operative Diagnosis Thrombosed Herograft Post-Operative Diagnosis Thrombosed Herograft with graft stenosis Procedure(s) Performed Thrombectomy of Herograft with revision ( interposition 8mm standard wall propaten) Fistulogram Stent of fistula (8x2.5 viabahn) Surgeon Dr. Jossue Guillory Cook Specialty Surgeon(s) Marce Lees MD Estimated Blood Loss 50 Findings Consistent with Post-Op Diagnosis Specimens none Drains None Anesthesia Type MAC Complication(s) none Disposition Accompanied Pt To Recover: no Disposition: Recovery Room / PACU
--- NOTE | 2017-09-16 16:25 | Discharge Instructions ---
Discharge Instructions Date of Service Sep 16, 2017. Visit Reason for Visit: Cath Check Discharge Discharge Diagnosis / Problem: Thrombosed herograft Discharge Goals Goal(s): Therapeutic intervention Activity Recommendations Activity Limitations: per Instructions/Follow-up section Anesthesia . Post Anesthesia Instructions: If you have had General Anesthesia or IV Sedation: * Do not drive today. * Resume driving when surgeon permits. * Do not make important decisions or sign legal documents today. * Call surgeon for: 1. Temperature elevations greater than 101 degrees F. 2. Uncontrollable pain. 3. Excessive bleeding. 4. Persistent nausea and vomiting. 5. Medication intolerance (nausea, vomiting or rash). * For nausea and vomiting use only clear liquids such as: tea, soda, bouillon until nausea subsides, then gradually increase diet as tolerated. * If you have any concerns or questions, call your surgeon's office. If physician is unavailable and it is an emergency, call 911 or go to the nearest emergency room. . Instructions / Follow-Up Instructions / Follow-Up Call [phone] to schedule a follow up appointment if one not already scheduled. May use fistula for diaysis ACTIVITY RECOMMENDATIONS: See Above SPECIAL CARE INSTRUCTIONS: Call your doctor if: * Temperature above 101 degrees * Pain not relieved by pain medicine ordered * There is increased drainage or redness from any incision * You have any unanswered questions or concerns. Diet Recommendations Recommended Home Diet: resume previous diet Procedures Procedures Performed: Thrombectomy of Herograft with revision ( interposition 8mm standard wall propaten) Fistulogram Stent of fistula (8x2.5 viabahn) Pending Studies Studies pending at discharge: no Medical Emergencies . Who to Call and When: Medical Emergencies: If at any time you feel your situation is an emergency, please call 911 immediately. . Non-Emergent Contact Non-Emergency issues call your: Surgeon . . "Provider Documentation" section prepared by Jossue Guillory. .
[2017-09-16] MEDS ORDERED: IODIXANOL (VISIPAQUE) 270 MG/ML 150ML XX ONE (16:29)
--- NOTE | 2017-09-16 17:07 | Anesthesiology Progress Note ---
Anesthesia Post Op Note Date & Time Sep 16, 2017 at 17:07 Vital Signs Pain Intensity: 4 Vital Signs Past 12 Hours Date Time Temp Pulse Resp B/P (MAP) Pulse Ox O2 Delivery O2 Flow Rate FiO2 09/16/17 17:05 36.8 68 20 122/50 94 Room Air 09/16/17 16:55 64 22 114/45 91 Room Air 09/16/17 16:48 36.9 65 16 117/58 93 Room Air 09/16/17 11:38 70 18 131/92 95 Room Air 09/16/17 10:26 65 18 131/81 95 Room Air 09/16/17 08:55 68 18 121/85 95 Room Air 09/16/17 08:09 71 09/16/17 07:56 63 18 128/48 94 Room Air 09/16/17 07:06 36.7 74 20 126/63 98 Room Air Notes Mental Status: alert / awake / arousable, participated in evaluation Pt Amnestic to Procedure: Yes Nausea / Vomiting: adequately controlled Pain: adequately controlled Airway Patency, RR, SpO2: stable & adequate BP & HR: stable & adequate Hydration State: stable & adequate Anesthetic Complications: no major complications apparent
[2017-09-16 17:15] VITALS: BP 106/57; PULSE 74; TEMP 36.5; O2SAT 94
[2017-09-16 17:21] LABS: BASO % 0.2 %; BASO ABS # 0.02 K/uL (0-0.2); EOS % 3.6 %; EOS ABS # 0.38 K/uL (0-0.5); HEMATOCRIT 33.1 % (37-47); IG# 0.06 K/uL (0.00-0.02); LYMPH % 14.4 %; LYMPH ABS # 1.53 K/uL (1.2-3.4); MEAN CELL VOLUME 115.7 fL (80-100); MEAN CORPUSCULAR HGB CONC 30.2 g/dl (32-36); MEAN PLATELET VOLUME 9.9 fL (7.4-10.4); MONO % 4.3 %; MONO ABS # 0.46 K/uL (0.11-0.59); NEUT % 76.9 %; NEUT ABS # 8.17 K/uL (1.4-6.5); PLATELET COUNT 248 K/uL (130-400); RED CELL DISTRIBUTION WIDTH CV 17.7 % (11.5-14.5); RED CELL DISTRIBUTION WIDTH SD 74.6 fL (36.4-46.3); WHITE BLOOD COUNT 10.62 K/uL (4.8-10.8)
[2017-09-16 17:45] VITALS: BP 110/61; PULSE 74; TEMP 36.5; O2SAT 93
--- NOTE | 2017-09-16 17:55 | DIAGNOSTIC IMAGING REPORT ---
DATE OF PROCEDURE: 09/16/2017 PREOPERATIVE DIAGNOSIS: Thrombosed HeRO graft. POSTOPERATIVE DIAGNOSIS: Thrombosed HeRO graft with graft stenosis. PROCEDURE: Thrombectomy of HeRO graft, right arm with revision - interposition 8 mm Propaten PTFE bypass, fistulogram, HeRO graft stent, 8 x 25 mm Viabahn. SURGEON: Dr. Jossue Guillory. RACK CLEANER: Dr. Marce Lees. ESTIMATED BLOOD LOSS: 50 mL. SPECIMENS: None. DRAINS: None. ANESTHESIA: Monitored anesthesia care plus local. COMPLICATIONS: None. INDICATIONS: Mrs. Nimo Ames is an 81-year-old woman with multiple medical comorbidities including end-stage renal disease on hemodialysis and atrial fibrillation. She has undergone multiple failed attempts at hemodialysis access in the past. Most recently, she had a HeRO graft placed in her right arm. This was found to be thrombosed and was declotted recently. It has rethrombosed. For this reason, she was recommended to undergo a graft thrombectomy and fistulogram. Risks, benefits and alternatives were discussed with the patient and she consented to the procedure. DESCRIPTION OF PROCEDURE: The patient was taken to the endovascular suite and placed in the supine position. Her right arm and chest were prepped and draped in the usual sterile fashion. A safety timeout was performed and the patient, procedure, and sidedness were correctly identified. Sedation was administered by our anesthesia colleagues. Local was used to anesthetize the skin overlying the HeRO graft at the level of the mid humerus. This was overlying an existing surgical scar. The skin was incised with a 15 blade scalpel. Subcutaneous tissues were divided with Bovie electrocautery. The graft was identified and dissected circumferentially. An 11 blade scalpel was used to create a graftotomy. The graft appeared to be occluded. Of note, the posterior wall of the graft appeared to have multiple needle holes connecting to form a posterior defect in the graft likely from previous access attempts. A #4 Citlali was passed proximally in the HeRO graft towards the venous outflow. This was inflated and withdrawn with removal of significant amount of clot. This was passed several additional times with removal of additional clot. There was not a good return of venous backbleeding, however. A #2 Citlali was then passed through the HeRO graft towards the venous outflow, inflated and withdrawn. There was additional removal of significant amount of clot. There was not return of good venous backbleeding at this point. A #3 Citlali was then placed up the venous portion of the HeRO graft with removal of additional clot; however, there was no good return of venous backbleeding. For this reason, we elected to make an incision overlying the shoulder where the HeRO graft connector was located. Local anesthesia was used to anesthetize the skin overlying this area and a scalpel was used to make a 3 cm skin incision. Subcutaneous tissues were divided with Bovie electrocautery. The graft junction was identified and dissected free from surrounding tissues. The previously placed 2-0 silk suture was removed and the graft was disconnected. The proximal aspect of the catheter appeared to have good venous backbleeding and that portion of the catheter was clamped. The #4 Citlali was then passed again from the mid humeral incision up to the shoulder incision through the HeRO graft and inflated with removal of more clot. The graft was flushed and appeared patent. We then turned our attention to the arteriovenous anastomosis. The portion of the graft at the mid humeral incision appeared to be significantly damaged from previous dialysis access attempts. For this reason, we made a third incision parallel and 3 cm distal to the mid humeral incision. Local anesthesia was used to anesthetize the skin overlying this area and an incision was made approximately 3 cm. Subcutaneous tissues were divided with Bovie electrocautery. The graft in this area was again identified and dissected circumferentially. It was transected with an 11 blade scalpel. A #4 Citlali was passed through the graft towards the arterial anastomosis and withdrawn with removal of clot. Despite multiple passes, there was not good return of arterial bleeding. For this reason, we elected to perform a fistulogram. A 6-Lao sheath was placed in the graft and directed towards the arterial anastomosis. A fistulogram was obtained and showed an area of graft stenosis just beyond the arterial anastomosis within the graft. A 0.035 Glidewire was passed through the sheath and easily passed through the area of stenosis and into the brachial artery. A Quick-Cross catheter was placed over the wire and the wire removed. A fistulogram was again obtained and showed the brachial artery to be patent; however, the area of graft stenosis persisted. For this reason, we elected to place a Viabahn stent in this portion of the graft. The 0.035 Glidewire was exchanged for an 0.018 guidewire. A second Quick-Cross was replaced through the graft and then to the axillary artery so that imaging could be obtained to confirm stent placement. An 8 x 25 mm Viabahn stent was chosen and passed up the guide wire into the graft. The fistulogram was again obtained to confirm positioning. The stent was deployed just before the aterial anastomosis within the graft. A completion fistulogram was obtained and showed the stent to be patent. All wires and sheaths and catheters were removed. Given the segment of graft between our 2 mid humeral incisions was significantly damaged, we elected to perform an interposition bypass in this region. An 8 mm Propaten graft was chosen and brought onto the field. This was anastomosed to the graft at the most distal incision. This was completed in a running fashion with 5-0 Prolene suture. The graft was tunneled under the skin bridge to the mid humeral incision. The graft was cut to length and anastomosed to the remaining end of the HeRO graft in a running fashion with 5-0 Prolene suture. The graft was flushed in both anastomosed appeared to be patient. We then turned our attention to the proximal shoulder incision. Once good venous back bleeding was confirmed from the catheter portion of the HeRO graft. Arterial bleeding was confirmed from the graft portion of the HeRO graft. The catheter and graft were reconnected and a 2-0 silk tie was placed across the connection. All wounds were irrigated. Fluoroscopy was used to confirm that the catheter was still appropriately placed at the atriocaval junction. Hemostasis was achieved at all surgical wounds. Subcutaneous tissues over the mid humeral incisions were closed with 3-0 Vicryl suture. Subcutaneous tissue over the shoulder incision was closed with 2-0 Vicryl. The skin annie were used to reapproximate the skin. Sterile dressings were applied. The patient tolerated the procedure well and there were no immediate complications. There was a palpable thrill in the HeRO graft at the close of the case. She was transferred to the recovery area in stable condition. Dr. Jossue Guillory was present for the entire procedure. TEGAN
== END 2017-09-16 11:40 | disposition still patient (30) ==
LOC: C.EDB 07:05
DX: T82.868A Thrombosis due to vascular prosthetic devices, implants and grafts, initial encounter (principal); T82.858A Stenosis of other vascular prosthetic devices, implants and grafts, initial encounter; Y84.8 Other medical procedures as the cause of abnormal reaction of the patient, or of later complication, without mention of misadventure at the time of the procedure; M79.641 Pain in right hand; I12.0 Hypertensive chronic kidney disease with stage 5 chronic kidney disease or end stage renal disease; N18.6 End stage renal disease; E11.22 Type 2 diabetes mellitus with diabetic chronic kidney disease; D63.1 Anemia in chronic kidney disease; I50.9 Heart failure, unspecified; Z99.2 Dependence on renal dialysis; I25.10 Atherosclerotic heart disease of native coronary artery without angina pectoris; K21.9 Gastro-esophageal reflux disease without esophagitis; M10.9 Gout, unspecified; I48.0 Paroxysmal atrial fibrillation; E87.5 Hyperkalemia; I27.20 Pulmonary hypertension, unspecified; G47.30 Sleep apnea, unspecified; Z96.649 Presence of unspecified artificial hip joint; Z88.1 Allergy status to other antibiotic agents; Z88.0 Allergy status to penicillin; Z88.6 Allergy status to analgesic agent; Z88.2 Allergy status to sulfonamides; Z88.8 Allergy status to other drugs, medicaments and biological substances; Z82.0 Family history of epilepsy and other diseases of the nervous system; Z83.3 Family history of diabetes mellitus; Z82.49 Family history of ischemic heart disease and other diseases of the circulatory system

== ENCOUNTER 2017-09-27 06:52 | Day surgery (SDC) | payer OTHER ==
[~2017-09-27] VITALS: Ht 157.5 cm; Wt 68.4 kg
[~2017-09-27 06:52] MED LIST changes: +ACET-1311 PO; -AMINLIQ31 PO; -CINA0.42 PO; +CLINDAMYCIN 600 MG/54 ML D5W IV SCH; +D5W AND 1/4NSS 1000 ML IV SCH
[2017-09-27] MEDS ORDERED: HEPARIN SOD (PORCINE) 5000 UNIT/ML 1 ML VIAL ONE (07:20)
[2017-09-27] MEDS ORDERED: AMINLIQ31 PO (07:24)
[2017-09-27] MEDS ORDERED: CALC500C3 (07:27)
[2017-09-27] MEDS ORDERED: B CO (07:29)
[2017-09-27 07:33] VITALS: BP 117/59; PULSE 92; TEMP 37.3; O2SAT 93; Ht 157.5 cm; Wt 68.4 kg
--- NOTE | 2017-09-27 07:54 | History and Physical ---
History & Physical Date of Service Sep 27, 2017. History & Physical Chief Complaint: ESRD fwith throbosed herograft History of Present Illness The patient is a 80 year old female with multiple medical problems, including ESRD on HD and a fib who has been undergoing HD thru a herograft. It was found to be thrombosed and declotted recently. It now has rethrombosed. Pt denies NIELSEN , fever, chills, chest pain, N/V, abd pain, rest pain, claudication, other complaints. Allergies Hydrochlorothiazide (Verified Allergy, Intermediate, RASH, 01/17/15) NSAIDs (Verified Allergy, Intermediate, UNK, 01/17/15) Hydrocodone (Verified Allergy, Mild, RASH, 01/17/15) ERICK Inhibitors (Verified Allergy, Unknown, UNK, 01/17/15) Amlodipine (Verified Allergy, Unknown, UNK, 01/17/15) Benazepril (Verified Allergy, Unknown, UNK, 01/17/15) Cephalexin (Verified Allergy, Unknown, UNK, 01/17/15) Spironolactone (Verified Allergy, Unknown, UNK, 01/17/15) Surgical / Medical History Hx Cardiac Surgery: No Hx Abdominal Surgery: Yes (cholicystectomy ) Hx Cancer Surgery: Yes Hx Thoracic Surgery: No Hx Orthopedic: Yes (hip replacement and lumbar surgery ) Hx Urinary Tract Surgery: No HX Other Surgery:LUE AVF creation Family History Alzheimer's disease SISTER Cancer BROTHER Diabetes mellitus FATHER BROTHER SISTER SISTER SISTER Heart disease MOTHER Hypertension FATHER MOTHER Social History Smoking Status: Never Smoker Hx Tobacco Use In Past Year?: No Hx Alcohol Use - Type & Amnt: No Hx Substance Use -Type & Amnt: No Review of Systems No pertinent positives. 11 systems reviewed and negative Physical Exam: Constitutional: General Apperance: well-nourished, well-developed, obese Level of Distress: NAD, chronically ill Psychiatric: Mental Status: normal affect, Orientation: to person, time, place Head: normocephalic, atraumatic Eyes: EOM: EOMI ENMT: normal ENT inspection, hearing grossly normal Neck: supple, trachea midline Lungs: Respiratory effort: no dyspnea Auscultation: clear Cardiovascular: Apical Impulse: not displaced Heart Auscultation: no rubs, no gallops, pertinent finding (irregular, pacer ) Peripheral Pulses: Pulses: full and equal, in all extremities except if noted Bruits: none appreciated Carotid Pulse: normal on the left, normal on the right Brachial Pulses: normal on the left, normal on the right Radial Pulse: normal on the left, normal on the right Femoral Pulse: normal on the left, normal on the right Abdomen: Bowel Sounds: normal Inspection & Palpation: soft, non-distended Musculoskeletal: abnormal strength Extremities: Upper Right: no cyanosis, no varicosities, no palpable cord, no thrill in herograft Upper Left: no cyanosis, no varicosities, no palpable cord, Lower Right: no cyanosis, no varicosities, no palpable cord, Lower Left: no cyanosis, no varicosities, no palpable cord, Neurologic: Cranial Nerves: grossly intact Sensation: grossly intact ASSESSMENT and PLAN: ESRD Thrombosed herograft Plan: Patient admitted for insertion of a permcath. I have discussed the risks options and benefits of the procedure with the patient. The patient understands the risks options and benefits and agrees to the procedure.
[2017-09-27] MEDS ORDERED: FENTANYL CITRATE INJ 50 MCG/1 ML 2 ML VIAL ONE (07:59)
[2017-09-27] MEDS ORDERED: MIDAZOLAM HCL 1 MG/ML 2ML VIAL ONE (07:59)
[2017-09-27] MEDS ORDERED: CLINDAMYCIN 600 MG/54 ML D5W IV ONE (08:44)
--- NOTE | 2017-09-27 08:44 | Pre Sedation Assessment ---
Pre Sedation Assessment General Date of Sedation: Sep 27, 2017. Vital Signs Past 12 Hours Date Time Temp Pulse Resp B/P (MAP) Pulse Ox O2 Delivery O2 Flow Rate FiO2 09/27/17 07:33 37.3 92 20 117/59 (78) 93 Room Air Review Cardiovascular: regular rate, rhythm Lungs: lungs clear Pre-Sedation Airway Assessment Smoking Status: Never Smoker Hx of Sleep Apnea: No Short Thick Neck: Yes Thyro-mental Distance: < or =3 Finger Breadths Oral Cavity: Dentures Mallampati Classification: Class III ASA Classification: Class III NPO Status Date of Last Intake of Fluids: Sep 27, 2017 Time of Last Intake of Fluids: 0530 Date of Last Intake of Solids: Sep 26, 2017 Time of Last Intake of Solids: 183 Procedure Planning Contraindications for Sedation: None Current Medications Reviewed: Yes Notes The planned sedation has been discussed with the patient. Informed Consent was obtained. I have identified the patient, determined the appropriateness of sedation and have assessed the patient immediately prior to the procedure. All medicine(s) and interventions are by my order.
[2017-09-27] MEDS ORDERED: [UNRECOGNIZED DRUG - OTHER] (09:04)
[2017-09-27] MEDS ORDERED: RANI150T85 PO (09:04)
--- NOTE | 2017-09-27 09:49 | [facility] Post Operative Brief Note ---
Immediate Operative Summary Operative Date Sep 27, 2017. Pre-Operative Diagnosis Thrombosed herograft Post-Operative Diagnosis Thrombosed herograft Procedure(s) Performed Insertion of Perm Catheter, Left Internal Jugular Approach, Ultrasound Localization of Left Internal Jugular Vein, Fluoroscopy for positioning. Venogram, Moderate Sedation from 908 - [address] Guillory Sponge Maker Surgeon(s) Dr. Lees Estimated Blood Loss 5 Findings Consistent with Post-Op Diagnosis Specimens None Drains None Anesthesia Type IV Sedat Cons RN Only Complication(s) none Disposition Accompanied Pt To Recover: no Disposition:
[2017-09-27] MEDS ORDERED: LIDOCAINE HCL 1% 20 ML VIAL SQ ONE (09:50)
[2017-09-27] MEDS ORDERED: FENTANYL CITRATE INJ 50 MCG/1 ML 2 ML VIAL IV ONE (09:50)
[2017-09-27] MEDS ORDERED: HEPARIN SOD (PORCINE) 5000 UNIT/ML 1 ML VIAL IV ONE (09:50)
[2017-09-27] MEDS ORDERED: MIDAZOLAM HCL 1 MG/ML 2ML VIAL IV ONE (09:50)
--- NOTE | 2017-09-27 09:55 | Discharge Instructions ---
Discharge Instructions Date of Service Sep 27, 2017. Visit Reason for Visit: Malfunctioning Fistula Discharge Discharge Diagnosis / Problem: Thrombosed herograft Discharge Goals Goal(s): Therapeutic intervention Activity Recommendations Activity Limitations: per Instructions/Follow-up section Anesthesia . Post Anesthesia Instructions: If you have had General Anesthesia or IV Sedation: * Do not drive today. * Resume driving when surgeon permits. * Do not make important decisions or sign legal documents today. * Call surgeon for: 1. Temperature elevations greater than 101 degrees F. 2. Uncontrollable pain. 3. Excessive bleeding. 4. Persistent nausea and vomiting. 5. Medication intolerance (nausea, vomiting or rash). * For nausea and vomiting use only clear liquids such as: tea, soda, bouillon until nausea subsides, then gradually increase diet as tolerated. * If you have any concerns or questions, call your surgeon's office. If physician is unavailable and it is an emergency, call 911 or go to the nearest emergency room. . Instructions / Follow-Up Instructions / Follow-Up Call [phone] to schedule a follow up appointment if one not already scheduled. Give this to the dialysis nurses. May use permcath for dialysis. SPECIAL CARE INSTRUCTIONS: Medications: * Continue to take your medications as directed. If you have been given a prescription for Plavix, please fill it immediately and take as directed. Incision Care: * Your puncture site may have some bruising and minor swelling for about one week. * You will have a small dressing covering your puncture site. You may remove the dressing after 24 hours and shower. You may let the warm soapy water run over it, but be sure to dry the puncture site well and keep it dry. * DO NOT IMMERSE THE INCISION IN A TUB/POOL/etc. UNTIL HEALED. * Puncture sites should be kept covered with a band-aid until it begins to heal. Restrictions: * Depending on whether you leg or arm was punctured to access the arteries, you will be required to lay flat, hold your arm still, or both, for about 4 hours after the procedure to prevent bleeding. * Limit your activity for the first 48 hours. You may walk and go up and down steps. Avoid excessive bending or movement at the puncture site. Possible Complications: * Excessive Swelling - after blood flow is improved you may notice increased swelling in the lower legs. This is a normal response. This usually depends on the amount of blockages in the leg, how long they have been there prior to your procedure and how much blood flow was restored. Elevating your legs will help to improve this. Please notify our office ([phone] ) if the swelling does not go away after lying in bed overnight. * Infection/Drainage/Bleeding - Drainage or bleeding from the puncture site should be minimal. If you have excessive bleeding or drainage, call our office ([phone]) right away. * Pain - You may experience some mild pain or soreness at your puncture site. If your pain does not improve, please contact our office ([phone]). Call your doctor and seek emergent treatment if you develop: * Temperature above 101 degrees * Any fever or chills * Any redness or purulent drainage from the puncture site * Any new dusky/blue colored toes or feet with coolness or sharp or aching pain. SKIN IRRITATION: * You may experience some redness and/or swelling in the area where radiation was administered. If any skin irritation occurs, please contact your family physician. FOLLOW UP VISIT: Keep any scheduled doctor appointments. Diet Recommendations Recommended Home Diet: resume previous diet Procedures Procedures Performed: Insertion of Perm Catheter, Left Internal Jugular Approach, Ultrasound Localization of Left Internal Jugular Vein, Fluoroscopy for positioning. Venogram, Moderate Sedation from 908 - 947 Pending Studies Studies pending at discharge: no Medical Emergencies . Who to Call and When: Medical Emergencies: If at any time you feel your situation is an emergency, please call 911 immediately. . Non-Emergent Contact Non-Emergency issues call your: Surgeon . . "Provider Documentation" section prepared by Jossue Guillory. .
[2017-09-27 10:05] VITALS: BP 131/57; PULSE 89; TEMP 37.3; O2SAT 93
--- NOTE | 2017-09-27 10:19 | DIAGNOSTIC IMAGING REPORT ---
DATE OF PROCEDURE: 09/27/2017 PREOPERATIVE DIAGNOSIS: Endstage renal disease, on hemodialysis, with thrombosed right HeRO graft. POSTOPERATIVE DIAGNOSIS: Endstage renal disease, on hemodialysis, with thrombosed right arm HeRo graft. PROCEDURE: Ultrasound guided left IJ access, venogram, placement of 19 cm left IJ PermCath, fluoroscopy for positioning, moderate sedation 39 minutes. SURGEON: Dr. Jossue Guillory. POST EXCHANGE MANAGER: Dr. Macre Lees. ANESTHESIA: Moderate sedation plus local. ESTIMATED BLOOD LOSS: 5 mL INDICATIONS: Mrs. Nimo Ames is an 81-year-old woman with end-stage renal disease, on hemodialysis. She has had numerous attempts at hemodialysis access previously. They have all required multiple revisions. She most recently underwent thrombectomy of a thrombosed HeRO graft. This has again thrombosed. For this reason, she was recommended to undergo placement of PermCath. The risks, benefits and alternatives were discussed with the patient and she consented to the procedure. DESCRIPTION OF PROCEDURE: The patient was taken to the endovascular suite and placed in the supine position. Her left IJ was assessed with ultrasound and appeared patent. Her left neck and chest were prepped and draped in the usual sterile fashion. Safety timeout was performed, and the patient, procedure and sidedness were correctly identified. Local anesthesia was used to anesthetize the skin overlying the left internal jugular vein. The left IJ was accessed under ultrasound with an 18-gauge access needle. First, 2 attempts yielded dark venous blood; however, the wire was unable to pass. After both attempts, the needle and wire were removed and manual pressure was held for several minutes. Micropuncture needle was then used for a third attempt. This yielded dark venous blood following ultrasound guided left IJ access. Micropuncture wire was passed through the needle but had difficulty passing centrally. Micropuncture sheath was placed over the wire and the wire removed. A cavogram was obtained and showed stenosis at the origin of the internal jugular vein. A 0.035 Glidewire was then passed through the micropuncture sheath and was able to traverse the stenosis. This was passed centrally and able to be passed into the IVC. Local anesthesia was then used to anesthetize the skin overlying the upper chest. A 1 cm skin incision was made several fingerbreadths below the left clavicle. 19 cm PermCath was then tunneled from the infraclavicular incision to the left IJ access site. The micropuncture sheath was removed over the wire. Dilator was placed over the wire and the wire removed. The J-wire was then replaced through the dilator as this was different and would likely allow us to more easily place the catheter. Dilator was removed and the peel-away sheath was placed over the wire. Catheter was inserted into the peel-away sheath and the peel-away sheath removed. There was some difficulty in positioning the catheter; however, ultimately we were successful in placing the PermCath. Both ports easily aspirated and flushed dark venous blood. Heparin was instilled into both ports. The catheter was sutured to the chest wall with nylon suture. The IJ skin incision was closed with a single interrupted Vicryl suture. Dermabond skin glue was applied to the IJ access site. A sterile dressing was applied. The patient was transferred to the recovery area in stable condition. There were no immediate complications. She tolerated the procedure well. Dr. Jossue Guillory was present for the entire procedure.
--- NOTE | 2017-09-27 10:21 | Post Sedation Assessment ---
Post Sedation Assessment General Date of Sedation Sep 27, 2017. Vital Signs: Vital Signs Past 12 Hours Date Time Temp Pulse Resp B/P (MAP) Pulse Ox O2 Delivery O2 Flow Rate FiO2 09/27/17 09:45 72 16 100/52 100 Mask 4 09/27/17 09:40 Mask 4 09/27/17 09:35 Mask 4 09/27/17 09:30 Mask 4 09/27/17 09:25 Mask 4 09/27/17 09:20 Mask 4 09/27/17 09:15 Mask 4 09/27/17 09:10 Mask 4 09/27/17 09:07 Mask 4 09/27/17 07:33 37.3 92 20 117/59 (78) 93 Room Air Post Procedure Recovery Score Activity: (2) Moves 4 extremities * Respiration: (2) Deep breath/cough Circulation: (2) +/-20% PreAnes Value Consciousness: (2) Fully Awake Oxygen Saturation: (2) > 92% On Room Air Post Anesthesia Score: 10 Discharge Sedation Level of Care: Fast Track Phase II Post Sedation Plan On clinical assessment, the patient appears to have tolerated the sedation without complications. Patient is recovering as anticipated. Patient will continue to be monitored by nursing and may be discharged when sedation discharge criteria are met per below protocol. Upon Completions of procedure and additional 15 minutes continue every 5 minute vital signs and the P.A.R. score; then discharge to a Phase I or Fast Track to Phase II per the following guidelines: * Discharge Patient to appropriate Phase II area if PAR is 8 or greater or return to pre- procedure baseline. The post - procedure orders will be as directed. * If PAR score is less than 8 or not return to pre-procedure baseline then patient will follow Phase I monitoring till PAR is reached for Phase II. The Phase I may be done in procedure room or may call to secure a Phase I area. * If naloxone or flumazenil are used for reversal, hold in Phase I for an additional 60 -120 minutes before discharge to Phase II. Please call the Sedation Physician to re-evaluate and complete post-note for discharge to Phase II area. Do NOT discharge from procedure sedation or Phase 1 until post- sedation evaluation note is complete by procedure /sedation MD Sedation Discharge Instructions to be given to the patient at discharge to home.
[2017-09-27 10:35] VITALS: BP 101/52; PULSE 80; TEMP 38.9; O2SAT 97
[2017-09-27 11:05] VITALS: BP 110/54; PULSE 77; TEMP 38.9; O2SAT 100
== END 2017-09-27 11:10 | disposition other institution (70) ==
LOC: C.ACU 06:52
PROVIDERS: ATTEND Surgery Vascular Surgery
DX: T82.898A Other specified complication of vascular prosthetic devices, implants and grafts, initial encounter (principal); N18.6 End stage renal disease; Y82.8 Other medical devices associated with adverse incidents; Z88.6 Allergy status to analgesic agent; Z88.5 Allergy status to narcotic agent; Z88.1 Allergy status to other antibiotic agents; Z88.8 Allergy status to other drugs, medicaments and biological substances; Z90.49 Acquired absence of other specified parts of digestive tract; Z96.649 Presence of unspecified artificial hip joint; Z82.0 Family history of epilepsy and other diseases of the nervous system; Z83.3 Family history of diabetes mellitus; Z82.49 Family history of ischemic heart disease and other diseases of the circulatory system

== ENCOUNTER 2017-09-27 11:12 | Inpatient (IN) | payer OTHER ==
[~2017-09-27] VITALS: Ht 157.5 cm; Wt 67.3 kg
[~2017-09-27 11:12] MED LIST changes: +AMINLIQ31 PO; +B CO; +CALC500C3; -CLINDAMYCIN 600 MG/54 ML D5W IV SCH; -D5W AND 1/4NSS 1000 ML IV SCH; +RANI150T85 PO; +[UNRECOGNIZED DRUG - OTHER]
[2017-09-27] MEDS ORDERED: CEFEPIME IV 2,000 MG in DEXTROSE 5% 100ML 100 ML IV STA (11:40)
--- NOTE | 2017-09-27 12:11 | EMERGENCY ROOM VISIT NOTE ---
History Report prepared by Mariana: Bhavana Altamirano Under the Supervision of: Dr. Kwasi Law M.D. First contact with patient: 11:33 Chief Complaint: FEVER Stated Complaint: FEVER,HYPOXIA AFTER PERM CATH PLACEMENT History of Present Illness The patient is a 81 year old female who presents to the Emergency Room with complaints of a constant fever beginning COIL TAPER. The patient had a perma cath placed in the left upper chest today by Dr. Guillory. She was noted to have a temperature of 38.9 after the procedure. The patient is a dialysis patient and has an appointment for dialysis later today. She has not received dialysis in 4 days. She is currently staying in [place] [facility] for [facility] after a T10 fracture. Daughter visited the patient two days ago and states that she was fine at that time. Today when she picked the patient up for her procedure she noticed the patient to be coughing frequently. The patient denies shortness of breath and body aches or chills. She rates her back pain as a 6/10 in severity. Source of History: patient, family (daughter) Onset: COIL TAPER Position: head Symptom Intensity: 6/10 Quality: other (fever) Timing: constant Associated Symptoms: + cough, No chills, No SOB Review of Systems See HPI for pertinent positives & negatives. A total of 10 systems reviewed and were otherwise negative. Past Medical & Surgical Medical Problems: (1) Anemia in ESRD (end-stage renal disease) (2) CHF (congestive heart failure) (3) Chronic bronchitis (4) Coronary artery disease (5) Diabetes mellitus, type II (6) ESRD (end stage renal disease) on dialysis (7) GERD (gastroesophageal reflux disease) (8) Gout (9) History of cardiac arrest (10) Hyperkalemia (11) Hyperkalemia, diminished renal excretion (12) Hypertension (13) Paroxysmal atrial fibrillation (14) Pulmonary hypertension (15) Sleep apnea Surgical Problems: (1) Status post cardiac catheterization (2) Status post cataract extraction (3) Status post cholecystectomy (4) Status post hernia repair (5) Status post hip replacement (6) Status post lumbar surgery Family History Alzheimer's disease SISTER Cancer BROTHER Diabetes mellitus FATHER BROTHER SISTER SISTER SISTER Heart disease MOTHER Hypertension FATHER MOTHER Social History Smoking Status: Unknown if Ever Smoked Alcohol Use: occasionally Housing Status: lives with family Occupation Status: retired Current/Historical Medications Scheduled Acetaminophen (Tylenol), 650 MG PO UD Allopurinol (Allopurinol), 100 MG PO NOON Amino Acids (Liquacel), 30 PO BID Calcium Carbonate (Tums), 1 BIDM Digoxin (Digoxin), 0.125 MG PO Q2D Docusate Sodium (Colace), 100 MG PO HS Ergocalciferol (Vitamin D 16116 Unit), 50,000 UNIT PO [id number] Gabapentin (Gabapentin), 100 MG PO BID Home O2 Therapy (Oxygen), 2 LITERS NA HS Insulin Glargine (Lantus), 30 UNITS SC HS Metoprolol Succinate (Toprol Xl), 100 MG PO HS Metoprolol Succinate (Toprolxl (Toprol-Xl), 200 MG PO QAM Omeprazole (Prilosec), 20 MG PO QAM Ranitidine (Zantac), 1 TAB PO BID Sertraline (Zoloft), 50 MG PO QPM Sevelamer Carbonate (Renvela), 800 MG PO AC Vitamin B Cmplx/Vitc/Folic Ac (Nephrocaps), 1 CAP PO QPM Scheduled PRN Tramadol (Ultram), 50 MG PO Q4H PRN for Pain Miscellaneous Medications Sodium Polystyrene Sulfonate (Sps) Allergies Coded Allergies: Hydrochlorothiazide (Verified Allergy, Intermediate, RASH, 09/27/17) Hydrocodone (Verified Allergy, Mild, RASH, 09/27/17) ERICK Inhibitors (Verified Allergy, Unknown, UNKNOWN, 09/27/17) Amlodipine (Verified Allergy, Unknown, ELEVATED POTASSIUM, 09/27/17) Benazepril (Verified Allergy, Unknown, UNKNOWN, 09/27/17) Cephalexin (Verified Allergy, Unknown, ITCHING AND HIVES, 09/27/17) Penicillins (Verified Allergy, Unknown, RASH, 09/27/17) Spironolactone (Verified Allergy, Unknown, UNKNOWN, 09/27/17) Sulfa Antibiotics (Verified Allergy, Unknown, RASH, 09/27/17) NSAIDs (Verified Adverse Reaction, Intermediate, ELEVATED POTASSIUM, ) Physical Exam Vital Signs Date Time Temp Pulse Resp B/P (MAP) Pulse Ox O2 Delivery O2 Flow Rate FiO2 09/27/17 14:00 80 20 109/44 98 Nasal Cannula 2.0 09/27/17 13:36 65 22 111/40 98 Nasal Cannula 2.0 09/27/17 12:30 78 22 114/40 99 Nasal Cannula 2.0 09/27/17 12:24 100 Nasal Cannula 2.0 09/27/17 11:44 67 09/27/17 11:32 37.5 68 20 108/47 100 Nasal Cannula 2.0 09/27/17 11:12 37.1 67 16 108/41 100 Nasal Cannula 2.0 Physical Exam GENERAL: Patient is in no acute distress. HEENT: No acute trauma, normocephalic atraumatic, mucous membranes moist, no nasal congestion, no scleral icterus. NECK: No stridor, no adenopathy, no meningismus, trachea is midline. LUNGS: Clear to auscultation bilaterally when listening anteriorly, no wheeze, no rhonchi, breath sounds equal. HEART: Irregular with a normal rate, no murmurs. ABDOMEN: Soft, nontender, bowel sounds positive, no hernias, no peritonitis. CHEST: She has a dressing in place over a newly placed line across the left chest wall EXTREMITIES: No cyanosis or edema, full range of motion of all the joints without pain or difficulty, no signs for acute trauma. NEUROLOGIC: Sleepy, oriented x 3, no acute motor or sensory deficits, no focal weakness. SKIN: No rash, no jaundice, no diaphoresis. Medical Decision & Procedures ER Provider Diagnostic Interpretation: Radiology results as stated below per my review and radiologist interpretation: CHEST ONE VIEW PORTABLE CLINICAL HISTORY: Sepsis COMPARISON STUDY: 03/28/2017 FINDINGS: The cardiac and mediastinal contours remain stable. There is a left sided dual-lumen central venous catheter. There is a right-sided central venous catheter. There is a single chamber left subclavian central venous pacemaker. Mild pulmonary venous hypertension is again suspected. There is no focal pulmonary consolidation. There are no pleural effusions.[ IMPRESSION: No change from the prior study. Suspected mild pulmonary venous hypertension. No evidence of focal pulmonary consolidation Electronically signed by: Otis Branham M.D. 09/27/2017 12:35 PM Dictated Date/Time: 09/27/2017 12:34 PM Laboratory Results 09/27/17 12:10 Red Blood Count 2.36, Mean Corpuscular Volume 112.7, Mean Corpuscular Hemoglobin 35.6, Mean Corpuscular Hemoglobin Concent 31.6, Mean Platelet Volume 9.8, Neutrophils (%) (Auto) 77.3, Lymphocytes (%) (Auto) 10.3, Monocytes (%) ( Auto) 9.7, Eosinophils (%) (Auto) 2.3, Basophils (%) (Auto) 0.1, Neutrophils # ( Auto) 6.86, Lymphocytes # (Auto) 0.91, Monocytes # (Auto) 0.86, Eosinophils # ( Auto) 0.20, Basophils # (Auto) 0.01 09/27/17 12:10 Test 09/27/17 12:10 09/27/17 12:30 White Blood Count 8.87 K/uL (4.8-10.8) Red Blood Count 2.36 M/uL (4.2-5.4) Hemoglobin 8.4 g/dL (12.0-16.0) Hematocrit 26.6 % (37-47) Mean Corpuscular Volume 112.7 fL (80-100) Mean Corpuscular Hemoglobin 35.6 pg (25-34) Mean Corpuscular Hemoglobin Concent 31.6 g/dl (32-36) Platelet Count 196 K/uL (130-400) Mean Platelet Volume 9.8 fL (7.4-10.4) Neutrophils (%) (Auto) 77.3 % Lymphocytes (%) (Auto) 10.3 % Monocytes (%) (Auto) 9.7 % Eosinophils (%) (Auto) 2.3 % Basophils (%) (Auto) 0.1 % Neutrophils # (Auto) 6.86 K/uL (1.4-6.5) Lymphocytes # (Auto) 0.91 K/uL (1.2-3.4) Monocytes # (Auto) 0.86 K/uL (0.11-0.59) Eosinophils # (Auto) 0.20 K/uL (0-0.5) Basophils # (Auto) 0.01 K/uL (0-0.2) RDW Standard Deviation 70.2 fL (36.4-46.3) RDW Coefficient of Variation 17.4 % (11.5-14.5) Immature Granulocyte % (Auto) 0.3 % Immature Granulocyte # (Auto) 0.03 K/uL (0.00-0.02) Nucleated RBC Absolute Count (auto) 0.02 K/uL (0-0) Nucleated Red Blood Cells % 0.2 % Toxic Vacuolation 1+ Basophilic Stippling OCCASIONAL Macrocytosis PRESENT Tear Drop Cells OCCASIONAL Prothrombin Time 11.3 SECONDS (9.0-12.0) Prothromb Time International Ratio 1.1 (0.9-1.1) Activated Partial Thromboplast Time 32.7 SECONDS (21.0-31.0) Partial Thromboplastin Ratio 1.3 Anion Gap 9.0 mmol/L (3-11) Est Creatinine Clear Calc Drug Dose 4.5 ml/min Estimated GFR () 4.3 Estimated GFR (Non- 3.7 BUN/Creatinine Ratio 6.5 (10-20) Calcium Level 7.7 mg/dl (8.5-10.1) Magnesium Level 1.9 mg/dl (1.8-2.4) Total Bilirubin 0.4 mg/dl (0.2-1) Aspartate Amino Transf (AST/SGOT) 20 U/L (15-37) Alanine Aminotransferase (ALT/SGPT) 15 U/L (12-78) Alkaline Phosphatase 196 U/L (45-117) Total Protein 6.6 gm/dl (6.4-8.2) Albumin 2.5 gm/dl (3.4-5.0) Globulin 4.1 gm/dl (2.5-4.0) Albumin/Globulin Ratio 0.6 (0.9-2) Chemistry Specimen Hemolysis Influenza Type A (RT-PCR) Neg for Influ A (NEG) Influenza Type B (RT-PCR) POS for Influ B (NEG) Laboratory results reviewed by me. Medications Administered Medications (Trade) Dose Ordered Sig/Juanita Route Start Time Stop Time Status Last Admin Dose Admin Cefepime HCl 2000 mg/Dextrose 112.5 ml @ 200 mls/hr ONE STAT IV 09/27/17 11:40 09/27/17 12:13 DC 09/27/17 13:31 200 MLS/HR Morphine Sulfate (MoRPHine SULFATE INJ) 2 mg NOW STAT IV 09/27/17 12:18 09/27/17 12:19 DC 09/27/17 13:34 2 MG Oseltamivir Phosphate (Tamiflu Cap) 75 mg NOW STAT PO 09/27/17 13:13 09/27/17 13:14 DC 09/27/17 13:33 75 MG ECG Per My Interpretation Indication: weakness Rate (beats per minute): 62 Rhythm: other (ventricular paced) Findings: other (occasional [place] beats; no ST elevation; no PVCs) ED Course 1133: The patient was evaluated in room C7. A complete history and physical exam was performed. 1140: Cefepime HCl 2000 mg/Dextrose 112.5 ml @ 200 mls/hr IV 1218: Morphine sulfate 2 mg IV 1313: Tamiflu 75 mg PO 1320: I reassessed the patient at this time. She is feeling better and resting comfortably. I discussed the results and treatment plan with the patient and her daughter. I answered all pertaining questions that they had. They expressed understanding and verbalized agreement. 1410: I spoke with Dr. Chloe Guardado. We discussed the patient's case. The patient will be evaluated by the [facility] for further management. Medical Decision Differential diagnoses includes bacteremia, sepsis, pneumonia, cellulitis, electrolyte abnormality, influenza or flu-like illness. There is no leukocytosis. The patient is anemic but this appears somewhat baseline, her hemoglobin is lower today though than when last checked. Renal panel testing does show a high creatinine consistent with her dialysis need. No hepatitis. No coagulopathy. Influenza testing is positive for influenza B. Chest film does not show pneumonia or CHF. EKG shows a ventricular pacemaker. Blood cultures are pending. The patient was given IV cefepime as antibiotic coverage. With the diagnosis of influenza, she received oral Tamiflu. She received IV morphine for back pain. The patient presents with fever and some change in mental status. As per her daughter, her mentation is often like this when she needs dialysis, she is overdue for dialysis by 2 days. I do think a hospital stay is warranted. The patient needs dialyzed. Hopefully this will improve her confusion. She is positive for influenza B and this may be contributing to her mental state and certainly I think explains the fever earlier today. I did speak to the patient, case management has been involved. The on-call hospitalist was consulted. Medication Reconcilliation Current Medication List: was personally reviewed by me Blood Pressure Screening Patient's blood pressure: Low blood pressure Consults Time Called: 1400 Consulting Physician: Dr. Chloe Guardado Returned Call: [address] Chloe Guardado. We discussed the patient's case. The patient will be evaluated by the [facility] for further management. Impression Primary Impression: Influenza B Additional Impressions: Fever Change in mental status Scribe Attestation The scribe's documentation has been prepared under my direction and personally reviewed by me in its entirety. I confirm that the note above accurately reflects all work, treatment, procedures, and medical decision making performed by me. Departure Information Dispostion Being Evaluated By Hospitalist Referrals Luisito Cnonell M.D. (PCP) Patient Instructions My [facility] Health Problem Qualifiers
[2017-09-27] MEDS ORDERED: MoRPHine SULFATE 2 MG/ML CARP IV STA (12:18)
[2017-09-27 12:34] LABS: BASO % 0.1 %; BASO ABS # 0.01 K/uL (0-0.2); EOS % 2.3 %; HEMATOCRIT 26.6 % (37-47); HEMOGLOBIN 8.4 g/dL (12.0-16.0); IG# 0.03 K/uL (0.00-0.02); LYMPH % 10.3 %; LYMPH ABS # 0.91 K/uL (1.2-3.4); MEAN CELL VOLUME 112.7 fL (80-100); MEAN CORPUSCULAR HEMOGLOBIN 35.6 pg (25-34); MEAN CORPUSCULAR HGB CONC 31.6 g/dl (32-36); MEAN PLATELET VOLUME 9.8 fL (7.4-10.4); MONO % 9.7 %; MONO ABS # 0.86 K/uL (0.11-0.59); NEUT % 77.3 %; NEUT ABS # 6.86 K/uL (1.4-6.5); NUCLEATED RED BLOOD CELL ABS 0.02 K/uL (0-0); PLATELET COUNT 196 K/uL (130-400); RED CELL DISTRIBUTION WIDTH CV 17.4 % (11.5-14.5); RED CELL DISTRIBUTION WIDTH SD 70.2 fL (36.4-46.3); WHITE BLOOD COUNT 8.87 K/uL (4.8-10.8)
--- NOTE | 2017-09-27 12:36 | DIAGNOSTIC IMAGING REPORT ---
CHEST ONE VIEW PORTABLE CLINICAL HISTORY: Sepsis COMPARISON STUDY: 03/28/2017 FINDINGS: The cardiac and mediastinal contours remain stable. There is a left sided dual-lumen central venous catheter. There is a right-sided central venous catheter. There is a single chamber left subclavian central venous pacemaker. Mild pulmonary venous hypertension is again suspected. There is no focal pulmonary consolidation. There are no pleural effusions.[ IMPRESSION: No change from the prior study. Suspected mild pulmonary venous hypertension. No evidence of focal pulmonary consolidation Electronically signed by: Otis Branham M.D. 09/27/2017 12:35 PM Dictated Date/Time: 09/27/2017 12:34 PM
[2017-09-27 12:47] LABS: INR 1.1 (0.9-1.1); PTT PATIENT 32.7 SECONDS (21.0-31.0)
[2017-09-27 13:05] LABS: ALBUMIN 2.5 gm/dl (3.4-5.0); CALCIUM 7.7 mg/dl (8.5-10.1); CREATININE 8.99 mg/dl (0.60-1.20); POTASSIUM 4.2 mmol/L (3.5-5.1); TOTAL PROTEIN 6.6 gm/dl (6.4-8.2)
[2017-09-27 13:09] LABS: INFLUENZA A PCR Neg for Influ A (NEG); INFLUENZA B PCR POS for Influ B (NEG)
[2017-09-27] MEDS ORDERED: OSELTAMIVIR PHOSPHATE 75 MG CAP PO STA (13:13)
[2017-09-27] MEDS ORDERED: MAGNESIUM HYDROXIDE SUSP 30 ML UDC PO PRN (15:15)
[2017-09-27] MEDS ORDERED: DEXTROSE 50% 50 ML SYR IV PRN (15:15)
[2017-09-27] MEDS ORDERED: GLUCOSE 40% GEL 15 GM TUBE PO PRN (15:15)
[2017-09-27] MEDS ORDERED: GLUCOSE 10 TABS/TUBE PO PRN (15:15)
[2017-09-27] MEDS ORDERED: ACETAMINOPHEN 325 MG TAB PO PRN (15:15)
[2017-09-27] MEDS ORDERED: GLUCAGON FOR INJ 1 MG VIAL SQ PRN (15:15)
[2017-09-27] MEDS ORDERED: ALUMINUM/MAGNESIUM/SIMETH (MAALOX MAX) 30 ML UDC PO PRN (15:15)
[2017-09-27] MEDS ORDERED: TRAMADOL HCL 50 MG TAB PO PRN (15:15)
[2017-09-27 17:00] VITALS: BP 116/40; PULSE 66; TEMP 37.6; O2SAT 99; Ht 157.5 cm; Wt 67.3 kg
--- NOTE | 2017-09-27 17:00 | History and Physical ---
History & Physical Date & Time of Service: Sep 27, 2017 at 16:25 Chief Complaint: Fever,Hypoxia After Perm Cath Placement Primary Care Physician: Luisito Connell M.D. History of Present Illness Source: patient, family 81 years old female with past medical history of end-stage renal disease on hemodialysis every Tuesday and Tuesday, also patient has atrial fibrillation was recently taken off anticoagulation due to multiple falls. Patient was placed on rehab after having multiple falls and having T10 fracture. Patient also has hypertension, chronic respiratory failure requires 2 L of oxygen at night while she is sleeping, likely multifactorial obesity hypoventilation syndrome, undiagnosed sleep apnea. Patient was in her regular state of health she was trying to get dialysis yesterday but unfortunately found to have thrombosed graft. She was sent to the hospital for placement of dialysis catheter that was placed successfully by Dr. Guillory. Then patient was noticed to have shortness of breath and cough. In ED influenza was checked and she was positive for influenza B. Also her dialysis center closed today Family History Alzheimer's disease SISTER Cancer BROTHER Diabetes mellitus FATHER BROTHER SISTER SISTER SISTER Heart disease MOTHER Hypertension FATHER MOTHER Social History Smoking Status: Unknown if Ever Smoked Housing status: lives with family Occupational Status: retired Immunizations History of Influenza Vaccine: Yes History of Pneumococcal: Yes Allergies Coded Allergies: Hydrochlorothiazide (Verified Allergy, Intermediate, RASH, 09/27/17) Hydrocodone (Verified Allergy, Mild, RASH, 09/27/17) ERICK Inhibitors (Verified Allergy, Unknown, UNKNOWN, 09/27/17) Amlodipine (Verified Allergy, Unknown, ELEVATED POTASSIUM, 09/27/17) Benazepril (Verified Allergy, Unknown, UNKNOWN, 09/27/17) Cephalexin (Verified Allergy, Unknown, ITCHING AND HIVES, 09/27/17) Penicillins (Verified Allergy, Unknown, RASH, 09/27/17) Spironolactone (Verified Allergy, Unknown, UNKNOWN, 09/27/17) Sulfa Antibiotics (Verified Allergy, Unknown, RASH, 09/27/17) NSAIDs (Verified Adverse Reaction, Intermediate, ELEVATED POTASSIUM, ) Home Medications Scheduled Acetaminophen (Tylenol), 650 MG PO UD Allopurinol (Allopurinol), 100 MG PO NOON Amino Acids (Liquacel), 30 PO BID Calcium Carbonate (Tums), 1 BIDM Digoxin (Digoxin), 0.125 MG PO Q2D Docusate Sodium (Colace), 100 MG PO HS Ergocalciferol (Vitamin D 72625 Unit), 50,000 UNIT PO [id number] Gabapentin (Gabapentin), 100 MG PO BID Home O2 Therapy (Oxygen), 2 LITERS NA HS Insulin Glargine (Lantus), 30 UNITS SC HS Metoprolol Succinate (Toprol Xl), 100 MG PO HS Metoprolol Succinate (Toprolxl (Toprol-Xl), 200 MG PO QAM Omeprazole (Prilosec), 20 MG PO QAM Ranitidine (Zantac), 1 TAB PO BID Sertraline (Zoloft), 50 MG PO QPM Sevelamer Carbonate (Renvela), 800 MG PO AC Vitamin B Cmplx/Vitc/Folic Ac (Nephrocaps), 1 CAP PO QPM Scheduled PRN Tramadol (Ultram), 50 MG PO Q4H PRN for Pain Miscellaneous Medications Sodium Polystyrene Sulfonate (Sps) Review of Systems Due to patient mental status review of system was unobtainable/unreliable We'll attempt to obtain review of system as needed from staff and family Physical Exam Vital Signs Date Time Temp Pulse Resp B/P (MAP) Pulse Ox O2 Delivery O2 Flow Rate FiO2 09/27/17 14:00 80 20 109/44 98 Nasal Cannula 2.0 09/27/17 13:36 65 22 111/40 98 Nasal Cannula 2.0 09/27/17 12:30 78 22 114/40 99 Nasal Cannula 2.0 09/27/17 12:24 100 Nasal Cannula 2.0 09/27/17 11:44 67 09/27/17 11:32 37.5 68 20 108/47 100 Nasal Cannula 2.0 09/27/17 11:12 37.1 67 16 108/41 100 Nasal Cannula 2.0 Physical examination General patient appears to be comfortable, not in acute distress HEENT: Atraumatic , normocephalic /no jaundice /no pallor /anicteric /no dry mucous membrane /normal external ear inspection Neck: Supple /no swelling /central trach Heart: S1/S2 normal/regular rate and rhythm/no gallop /no rub /no murmur Lungs: Decreased air entry bilaterally, scattered rhonchi in both lung [place]. No use of accessory muscles of respiration Abdomen: Soft/nontender/no guarding/no rebound/no organomegaly/no pulsatile mass Musculoskeletal: No swelling/no edema/no tenderness/normal range of motion Neuro exam: Slightly lethargic, arousable and follows simple commands/cranial nerves II through XII appear to be intact/sensation intact/moves all extremities /no abnormal movements Psychiatric evaluation: No depressed mood/normal affect Skin: No rash on exposed skin area/no erythema Extremity: Normal pulse/no pitting edema/no clubbing or cyanosis Endocrine/lymphatic: No obvious lymphadenopathy /no lymphedema Diagnostics Laboratory Results Results Past 24 Hours Test 09/27/17 12:10 09/27/17 12:30 Range/Units White Blood Count 8.87 4.8-10.8 K/uL Red Blood Count 2.36 4.2-5.4 M/uL Hemoglobin 8.4 12.0-16.0 g/dL Hematocrit 26.6 37-47 % Mean Corpuscular Volume 112.7 80-100 fL Mean Corpuscular Hemoglobin 35.6 25-34 pg Mean Corpuscular Hemoglobin Concent 31.6 32-36 g/dl Platelet Count 196 130-400 K/uL Mean Platelet Volume 9.8 7.4-10.4 fL Neutrophils (%) (Auto) 77.3 % Lymphocytes (%) (Auto) 10.3 % Monocytes (%) (Auto) 9.7 % Eosinophils (%) (Auto) 2.3 % Basophils (%) (Auto) 0.1 % Neutrophils # (Auto) 6.86 1.4-6.5 K/uL Lymphocytes # (Auto) 0.91 1.2-3.4 K/uL Monocytes # (Auto) 0.86 0.11-0.59 K/uL Eosinophils # (Auto) 0.20 0-0.5 K/uL Basophils # (Auto) 0.01 0-0.2 K/uL RDW Standard Deviation 70.2 36.4-46.3 fL RDW Coefficient of Variation 17.4 11.5-14.5 % Immature Granulocyte % (Auto) 0.3 % Immature Granulocyte # (Auto) 0.03 0.00-0.02 K/uL Nucleated RBC Absolute Count (auto) 0.02 0-0 K/uL Nucleated Red Blood Cells % 0.2 % Toxic Vacuolation 1+ Basophilic Stippling OCCASIONAL Macrocytosis PRESENT Tear Drop Cells OCCASIONAL Prothrombin Time 11.3 9.0-12.0 SECONDS Prothromb Time International Ratio 1.1 0.9-1.1 Activated Partial Thromboplast Time 32.7 21.0-31.0 SECONDS Partial Thromboplastin Ratio 1.3 Sodium Level 131 136-145 mmol/L Potassium Level 4.2 3.5-5.1 mmol/L Chloride Level 93 98-107 mmol/L Carbon Dioxide Level 29 21-32 mmol/L Anion Gap 9.0 3-11 mmol/L Blood Urea Nitrogen 59 7-18 mg/dl Creatinine 8.99 0.60-1.20 mg/dl Est Creatinine Clear Calc Drug Dose 4.5 ml/min Estimated GFR () 4.3 Estimated GFR (Non- 3.7 BUN/Creatinine Ratio 6.5 10-20 Random Glucose 209 70-99 mg/dl Calcium Level 7.7 8.5-10.1 mg/dl Magnesium Level 1.9 1.8-2.4 mg/dl Total Bilirubin 0.4 0.2-1 mg/dl Aspartate Amino Transf (AST/SGOT) 20 15-37 U/L Alanine Aminotransferase (ALT/SGPT) 15 12-78 U/L Alkaline Phosphatase 196 45-117 U/L Total Protein 6.6 6.4-8.2 gm/dl Albumin 2.5 3.4-5.0 gm/dl Globulin 4.1 2.5-4.0 gm/dl Albumin/Globulin Ratio 0.6 0.9-2 Chemistry Specimen Hemolysis Influenza Type A (RT-PCR) Neg for Influ A NEG Influenza Type B (RT-PCR) POS for Influ B NEG Microbiology Results 09/27/17 Blood Culture, Received Pending 09/27/17 Blood Culture, Received Pending Impression Assessment and Plan 9 years old female with atrial fibrillation, hypertension, end-stage renal disease on hemodialysis status post thrombosed AV fistula presented to the hospital for placement of permanent dialysis catheter and was found to have influenza B virus infection. 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 difficile Continue home medications, except blood pressure medications which I decreased her metoprolol to 25 twice daily instead of 100 twice daily, I think her blood pressure medications were somehow contributing to her falling and they need adjustment IV fluid hydration as needed Monitor labs in a.m. Bronchodilators Monitor oxygen saturation DVT prophylaxis/heparin subcutaneous Resuscitation Status FULL RESUSCITATION VTE Prophylaxis VTE Risk Assessment Done? Y/N: Yes Risk Level: Moderate
[2017-09-27] MEDS: LACTOBACILLUS ACIDOPHILUS (FLORANEX) TAB PO SCH (18:00)
[2017-09-27] MEDS: INSULIN ASPART 100 UNITS/ML 3 ML PEN SC SCH ×2 (18:45→20:39)
[2017-09-27] MEDS: SEVELAMER HYDROCH 800 MG TAB PO SCH (18:47)
[2017-09-27 18:59] VITALS: BP 83/34; PULSE 63; TEMP 36.8; O2SAT 99
[2017-09-27 20:00] VITALS: O2SAT 98
[2017-09-27] MEDS: DIGOXIN 0.125 MG TAB PO SCH (20:36)
[2017-09-27] MEDS: DOCUSATE SODIUM 100 MG CAP PO SCH (20:37)
[2017-09-27] MEDS: METOPROLOL SUCC 50MG EXT REL TAB PO SCH (20:38)
[2017-09-27] MEDS: RANITIDINE HCL 150 MG TAB PO SCH (20:38)
[2017-09-27] MEDS: GABAPENTIN 100 MG CAP PO SCH (20:39)
[2017-09-27] MEDS: SERTRALINE HCL 50 MG TAB PO SCH (20:39)
[2017-09-27] MEDS: INSULIN GLARGINE SOLOSTAR 100 UNITS/ML 3 ML PEN SC SCH (20:44)
[2017-09-27] MEDS: HEPARIN SOD 5000 UNIT/0.5 ML CARP SQ SCH (20:45)
[2017-09-27] MEDS ORDERED: LEVALBUTEROL/IPRATROPIUM NEB INH SCH (21:00)
[2017-09-27] MEDS ORDERED: OSELTAMIVIR PHOSPHATE SUSP 30 MG/5 ML UDP PO SCH (21:00)
[2017-09-27 21:02] VITALS: BP 95/41
[2017-09-27] MEDS: LEVOFLOXACIN / D5W 500 MG in PREMIXED IN D5W 100 ML IV SCH (21:03)
[2017-09-27] MEDS: LEVALBUTEROL 0.63MG/3 ML NEB INH SCH (21:15)
[2017-09-27] MEDS: IPRATROPIUM BROMIDE NEB SOLN 0.02% 2.5 ML VIAL INH SCH (21:15)
[2017-09-27 21:17] VITALS: PULSE 90; O2SAT 98
[2017-09-27 23:38] VITALS: BP 112/43; PULSE 80; TEMP 36.8; O2SAT 99
[2017-09-28] VITALS (28 sets, daily range): BP systolic 87–148; BP diastolic 35–98; PULSE 61–112; TEMP 36.5–37.7; O2SAT 81–99
[2017-09-28] MEDS: LEVALBUTEROL 0.63MG/3 ML NEB INH SCH ×4 (01:40→19:18)
[2017-09-28] MEDS: IPRATROPIUM BROMIDE NEB SOLN 0.02% 2.5 ML VIAL INH SCH ×4 (01:40→19:18)
[2017-09-28 05:46] LABS: EOS % 2.3 %; HEMATOCRIT 26.2 % (37-47); HEMOGLOBIN 8.2 g/dL (12.0-16.0); LYMPH % 13.5 %; MEAN CELL VOLUME 112.9 fL (80-100); MEAN CORPUSCULAR HEMOGLOBIN 35.3 pg (25-34); MEAN CORPUSCULAR HGB CONC 31.3 g/dl (32-36); MEAN PLATELET VOLUME 9.4 fL (7.4-10.4); MONO % 8.3 %; NEUT % 75.4 %; PLATELET COUNT 172 K/uL (130-400); RED CELL DISTRIBUTION WIDTH CV 17.4 % (11.5-14.5); RED CELL DISTRIBUTION WIDTH SD 72.1 fL (36.4-46.3); WHITE BLOOD COUNT 8.21 K/uL (4.8-10.8)
[2017-09-28 05:47] LABS: BASO % 0.1 %; BASO ABS # 0.01 K/uL (0-0.2); EOS ABS # 0.19 K/uL (0-0.5); IG# 0.03 K/uL (0.00-0.02); LYMPH ABS # 1.11 K/uL (1.2-3.4); MONO ABS # 0.68 K/uL (0.11-0.59); NEUT ABS # 6.19 K/uL (1.4-6.5)
[2017-09-28 06:33] LABS: HEMOGLOBIN A1C 8.5 % (4.5-5.6)
[2017-09-28 06:39] LABS: ALBUMIN 2.3 gm/dl (3.4-5.0); CALCIUM 7.5 mg/dl (8.5-10.1); CREATININE 10.4 mg/dl (0.60-1.20); PHOSPHORUS 4.9 mg/dl (2.5-4.9); POTASSIUM 4.1 mmol/L (3.5-5.1); TOTAL PROTEIN 6.3 gm/dl (6.4-8.2)
[2017-09-28] MEDS: INSULIN ASPART 100 UNITS/ML 3 ML PEN SC SCH ×4 (07:00→20:29)
[2017-09-28] MEDS: PANTOprazole SOD 40 MG TAB PO SCH (07:36)
[2017-09-28] MEDS: ALLOPURINOL 100 MG TAB PO SCH (07:36)
[2017-09-28] MEDS: LACTOBACILLUS ACIDOPHILUS (FLORANEX) TAB PO SCH ×3 (07:36→16:12)
[2017-09-28] MEDS: GABAPENTIN 100 MG CAP PO SCH ×2 (07:37→20:25)
[2017-09-28] MEDS: SEVELAMER HYDROCH 800 MG TAB PO SCH ×3 (07:37→16:13)
[2017-09-28] MEDS: HEPARIN SOD 5000 UNIT/0.5 ML CARP SQ SCH ×2 (07:39→20:30)
[2017-09-28] MEDS: METOPROLOL SUCC 50MG EXT REL TAB PO SCH ×2 (07:42→20:26)
--- NOTE | 2017-09-28 08:36 | Clinical Documentation Query ---
ASHLYN Tripp : CLINICAL DOCUMENTATION QUERY Clinical documentation includes a diagnosis of: Acute on chronic respiratory failure with hypoxemia ED documentation included: "patient denies shortness of breath"and "patient is in no acute distress" Attending documentation included: "patient appears to be comfortable, not in acute distress" and "no use of accessory muscles of respiration". There is no documented hypoxemia (on 2 L/min via nasal cannula), significant tachypnea, work of breathing, etc. No ABG performed. No increased O2 demand. Due to stringent requirements by our coding department, multiple clinical indicators associated with this diagnosis must be present in order for this to be coded/captured within the medical record. If appropriate, please document 2 or more of the following clinical indicators in daily progress notes and the discharge summary. If you feel the diagnosis of acute respiratory failure was made in error, or do not agree with it, simply discontinue documentation thereof. Acute Respiratory Failure indicators include: * Respirations >28 * Air hunger * Use of accessory muscles of respiration * Inability to speak in full sentences * Cyanosis * Pulse ox <90% RA or <95% on O2 *pH <7.35 or >7.45 * pO2 < 60 mm Hg (or 10mm below COPD patient's baseline) * pCO2 >50mm Hg (or 10mm above COPD patient's baseline) * mechanical ventilation * Increased work of breathing * Tachypnea Thank You, Victor M Quinones, ANILA [phone]
[2017-09-28] MEDS ORDERED: EPOETIN ALFA 10,000 UNITS/ML VIAL IV SCH (09:30)
--- NOTE | 2017-09-28 10:05 | NEPHROLOGY CONSULTATION ---
DATE OF CONSULTATION: 09/28/2017 ATTENDING OF RECORD: Dr. Guardado. REASON FOR CONSULTATION: ESRD. HISTORY OF PRESENT ILLNESS: This is an 81-year-old female who dialyzes in [place] on Mondays, Wednesdays, and Fridays with an underlying atrial fibrillation, who has had multiple falls and requires oxygen at night, who had a nonworking access. Tunneled dialysis catheter was placed yesterday for dialysis. Electrolytes were stable; however, the patient was confused from lack of dialysis. The patient also noticed to be positive for influenza B. The patient was started on Tamiflu and also on Levaquin. The patient continues to be confused this morning. REVIEW OF SYSTEMS: Unreliable. PAST MEDICAL HISTORY/PAST SURGICAL HISTORY: End-stage renal disease, atrial fibrillation, fall risk, hypertension, and respiratory failure, requiring oxygen at night. Gout, atrial fibrillation, diabetes, tunneled dialysis catheter, graft placement. FAMILY HISTORY: Significant for diabetes. SOCIAL HISTORY: Unable to obtain; however, does live with family. CURRENT MEDICATIONS: Tamiflu 30 mg daily, allopurinol 100 mg daily, Protonix 40 mg daily, Levaquin 500 mg IV q. 48 hours, digoxin 0.125 mg every 2 days, Colace 100 mg at night, Neurontin 100 mg p.o. b.i.d., Lantus 30 units subQ at night, Toprol-XL 50 mg p.o. b.i.d., Zantac 150 mg at night, Zoloft 50 mg at night, heparin 5000 units subQ q. 12 hours, Floranex 4 tabs p.o. t.i.d., Renagel 800 mg with meals, and sliding scale insulin. PHYSICAL EXAMINATION: VITAL SIGNS: Temperature 36.5, pulse 83, respiratory rate 17, blood pressure 90/35 and satting 99% on 2 liters. GENERAL: Awake and confused. EYES: No scleral icterus. ENT: Moist mucous membranes. NECK: Supple. PULMONARY: Decreased breath sounds at the bases. CARDIAC: Regular. ABDOMEN: Bowel sounds positive. Soft and nontender. EXTREMITIES: Mild edema. NEUROLOGICALLY: Confused. DERMATOLOGIC: No rash or ulcers noted. LABORATORY DATA: White count is 8, H&H 8.2 and 26.2, and platelet count is 172. INR is 1.1. Digoxin 1. Flu positive. Sodium level 131, potassium 4.1, chloride is 94, bicarbonate is 24, BUN 69, creatinine is 10.4, glucose 132, calcium 7.5, phos 4.9, and albumin 2.3. Hemoglobin A1c 8.5. Blood cultures are pending. Chest x-ray shows mild pulmonary venous hypertension. No evidence of focal pulmonary consolidation. ASSESSMENT AND PLAN: 1. End-stage renal disease. The patient is for dialysis today. Electrolytes are stable. We will dialyze on a 3K bath for 3 hours and attempt to remove 2 liters as blood pressure tolerates. Hopefully with dialysis, the patient's mental status improves; however, mental status could be confounded based on multiple factors including flu. 2. Anemia of renal failure. Hemoglobin levels are trending down and we will redose Procrit 10,000 units today. 3. Renal osteodystrophy. We will continue the patient's phosphate binders and phosphorus levels are well controlled at this time. I appreciate the consultation. TEGAN
--- NOTE | 2017-09-28 11:29 | Hospitalist Progress Note ---
Hospitalist Progress Note Date of Service Sep 28, 2017. (Elizabeth Kingsley ., PA-C) Subjective Pt evaluation today including: conversation w/ patient, conversation w/ family (called daughter Suzi), physical exam, chart review, lab review, review of studies, review of inpatient medication list Pain: None PO Intake: refusing breakfast Voiding: voiding difficulty (ESRD, makes little urine) Patient complains of hoarseness and productive cough, which she states started a few days ago. She denies any shortness of breath currently and is back on room air. Per nursing, the patient is agitated and confused this morning. Daughter states that the patient does get more confused when she misses dialysis and that this clears up after dialysis. The patient denies fevers, chills, sweats, chest pain, palpitations, claudication, wheezing, shortness of breath, nausea, vomiting, abdominal pain, dysuria, hematuria, paralysis, weakness, numbness and tingling. Per daughter, the patient had recent weakness and falls with a T10 fracture. She had been in and [facility] of [facility], which the patient would like to return to. Additional Comments: See HPI for pertinent positives and negatives. All other systems reviewed and negative. (Elizabeth Kingsley ., PA-C) Objective Vital Signs Date Time Temp Pulse Resp B/P (MAP) Pulse Ox O2 Delivery O2 Flow Rate FiO2 09/28/17 08:00 Nasal Cannula 2.0 09/28/17 07:40 36.5 83 17 90/35 (53) 99 Nasal Cannula 2.0 09/28/17 04:00 98 Nasal Cannula 2.0 09/28/17 03:15 37.2 72 20 121/37 (65) 98 Nasal Cannula 2.0 09/28/17 01:40 70 20 95 Nasal Cannula 2.0 09/28/17 00:01 98 Nasal Cannula 2.0 09/27/17 23:38 36.8 80 19 112/43 (66) 99 Nasal Cannula 2.0 09/27/17 21:17 90 14 98 Nasal Cannula 2.0 09/27/17 21:02 95/41 (59) 09/27/17 20:36 68 09/27/17 20:00 98 Nasal Cannula 2.0 09/27/17 18:59 36.8 63 21 83/34 (50) 99 Nasal Cannula 3.0 09/27/17 17:00 37.6 66 18 116/40 99 Nasal Cannula 2.0 09/27/17 16:28 67 103/43 93 09/27/17 14:00 80 20 109/44 98 Nasal Cannula 2.0 09/27/17 13:36 65 22 111/40 98 Nasal Cannula 2.0 09/27/17 12:30 78 22 114/40 99 Nasal Cannula 2.0 09/27/17 12:24 100 Nasal Cannula 2.0 09/27/17 11:44 67 09/27/17 11:32 37.5 68 20 108/47 100 Nasal Cannula 2.0 (Elizabeth Kingsley ., PA-C) Physical Exam Notes: General appearance: Well-developed, well-nourished, no apparent distress Head: Normocephalic, atraumatic Eyes: Normal inspection, PERRL, EOMI ENT: Normal ENT inspection, hearing grossly normal, pharynx normal Neck: Supple, no JVD, trachea midline Respiratory/Chest: +Wheezing, decreased breath sounds. Lungs clear to auscultation, normal breath sounds, no respiratory distress Cardiovascular: Regular rate & rhythm, no gallop, no murmur Abdomen/GI: Normal bowel sounds, non-tender, soft Extremities/Musculoskeletal: Normal inspection, no calf tenderness, no pedal edema Neurological/Psych: +Disoriented to place and time, easily agitated. Alert, oriented x 1 Skin: Normal color, warm/dry, no rash (Elizabeth Kingsley ., PA-C) Laboratory Results Last 24 Hours Test 09/27/17 12:10 09/27/17 12:30 09/27/17 17:14 09/27/17 17:54 White Blood Count 8.87 K/uL Red Blood Count 2.36 M/uL Hemoglobin 8.4 g/dL Hematocrit 26.6 % Mean Corpuscular Volume 112.7 fL Mean Corpuscular Hemoglobin 35.6 pg Mean Corpuscular Hemoglobin Concent 31.6 g/dl Platelet Count 196 K/uL Mean Platelet Volume 9.8 fL Neutrophils (%) (Auto) 77.3 % Lymphocytes (%) (Auto) 10.3 % Monocytes (%) (Auto) 9.7 % Eosinophils (%) (Auto) 2.3 % Basophils (%) (Auto) 0.1 % Neutrophils # (Auto) 6.86 K/uL Lymphocytes # (Auto) 0.91 K/uL Monocytes # (Auto) 0.86 K/uL Eosinophils # (Auto) 0.20 K/uL Basophils # (Auto) 0.01 K/uL RDW Standard Deviation 70.2 fL RDW Coefficient of Variation 17.4 % Immature Granulocyte % (Auto) 0.3 % Immature Granulocyte # (Auto) 0.03 K/uL Nucleated RBC Absolute Count (auto) 0.02 K/uL Nucleated Red Blood Cells % 0.2 % Toxic Vacuolation 1+ Basophilic Stippling OCCASIONAL Macrocytosis PRESENT Tear Drop Cells OCCASIONAL Prothrombin Time 11.3 SECONDS Prothromb Time International Ratio 1.1 Activated Partial Thromboplast Time 32.7 SECONDS Partial Thromboplastin Ratio 1.3 Sodium Level 131 mmol/L Potassium Level 4.2 mmol/L Chloride Level 93 mmol/L Carbon Dioxide Level 29 mmol/L Anion Gap 9.0 mmol/L Blood Urea Nitrogen 59 mg/dl Creatinine 8.99 mg/dl Est Creatinine Clear Calc Drug Dose 4.5 ml/min Estimated GFR () 4.3 Estimated GFR (Non- 3.7 BUN/Creatinine Ratio 6.5 Random Glucose 209 mg/dl Calcium Level 7.7 mg/dl Magnesium Level 1.9 mg/dl Total Bilirubin 0.4 mg/dl Aspartate Amino Transf (AST/SGOT) 20 U/L Alanine Aminotransferase (ALT/SGPT) 15 U/L Alkaline Phosphatase 196 U/L Total Protein 6.6 gm/dl Albumin 2.5 gm/dl Globulin 4.1 gm/dl Albumin/Globulin Ratio 0.6 Chemistry Specimen Hemolysis Influenza Type A (RT-PCR) Neg for Influ A Influenza Type B (RT-PCR) POS for Influ B Bedside Glucose 136 mg/dl Digoxin Level 1.0 ng/ml Test 09/27/17 20:05 09/28/17 05:20 09/28/17 06:58 Bedside Glucose 157 mg/dl 133 mg/dl White Blood Count 8.21 K/uL Red Blood Count 2.32 M/uL Hemoglobin 8.2 g/dL Hematocrit 26.2 % Mean Corpuscular Volume 112.9 fL Mean Corpuscular Hemoglobin 35.3 pg Mean Corpuscular Hemoglobin Concent 31.3 g/dl Platelet Count 172 K/uL Mean Platelet Volume 9.4 fL Neutrophils (%) (Auto) 75.4 % Lymphocytes (%) (Auto) 13.5 % Monocytes (%) (Auto) 8.3 % Eosinophils (%) (Auto) 2.3 % Basophils (%) (Auto) 0.1 % Neutrophils # (Auto) 6.19 K/uL Lymphocytes # (Auto) 1.11 K/uL Monocytes # (Auto) 0.68 K/uL Eosinophils # (Auto) 0.19 K/uL Basophils # (Auto) 0.01 K/uL RDW Standard Deviation 72.1 fL RDW Coefficient of Variation 17.4 % Immature Granulocyte % (Auto) 0.4 % Immature Granulocyte # (Auto) 0.03 K/uL Macrocytosis PRESENT Sodium Level 131 mmol/L Potassium Level 4.1 mmol/L Chloride Level 94 mmol/L Carbon Dioxide Level 24 mmol/L Anion Gap 13.0 mmol/L Blood Urea Nitrogen 69 mg/dl Creatinine 10.40 mg/dl Est Creatinine Clear Calc Drug Dose 4.0 ml/min Estimated GFR () 3.6 Estimated GFR (Non- 3.1 BUN/Creatinine Ratio 6.7 Random Glucose 132 mg/dl Estimated Average Glucose 197 mg/dl Hemoglobin A1c 8.5 % Calcium Level 7.5 mg/dl Phosphorus Level 4.9 mg/dl Magnesium Level 1.9 mg/dl Total Bilirubin 0.5 mg/dl Aspartate Amino Transf (AST/SGOT) 13 U/L Alanine Aminotransferase (ALT/SGPT) 13 U/L Alkaline Phosphatase 161 U/L Total Protein 6.3 gm/dl Albumin 2.3 gm/dl Globulin 4.0 gm/dl Albumin/Globulin Ratio 0.6 Hepatitis B Surface Antigen NEG Hepatitis B Surface Antibody NEG (Elizabeth Kingsley, DICKC) Assessment and Plan 81 y/o female with a history of ESRD on HD, a-fib, HTN, CAD, chronic respiratory failure on nighttime O2, diastolic CHF, DM II, anxiety/depression, gout, and GERD who presents with fever and hypoxia following perm cath placement for dialysis. Influenza B, possible secondary PNA -Admit to telemetry -Continue Tamiflu 30 mg PO after dialysis -Repeat CXR to see if any developing PNA. If negative, can d/c abx -Continue Levaquin 500 mg IV q48h for possible secondary bacterial PNA for now -Blood cultures pending -Xopenex/Atrovent nebs QIDR Acute on chronic respiratory failure w/hypoxia--improving -Only wears nighttime O2 at baseline, was requiring 2L continuous at admission. On room air during my exam but later placed back on 2L -O2 by protocol -Acute aspect likely due to acute flu ESRD on HD -Had thrombosed graft, s/p left IJ perm cath w/Dr. Guillory 09/27 -Nephrology following -Receiving dialysis today, on MWF schedule -Continue Renvela, Nephrocaps Encephalopathy--per daughter, this commonly occurs when missed dialysis and clears after session -Continue to monitor for now, hadn't had diuresis since 09/23 A-fib--stable, rate controlled -No longer on AC due to multiple falls -Continue digoxin 125 mcg PO q2d, Toprol 50 mg PO BID (hold if SBP less than 100 or HR less than 60) HTN--hypotensive this morning, improving -Hold parameters for metoprolol as above Diastolic CHF--no acute exac -Beta brent as above DM II w/neuropathy--HgbA1c 8.5 on 09/28 -Lantus 30 units SC hs -Insulin sliding scale -Check BSGs q ac and qhs -Continue gabapentin 100 mg PO BID Anxiety/depression -Continue Zoloft 50 mg PO qd Gout -Continue allopurinol 100 mg PO qd Dispo -From rehab, wants placed back -PT/OT pending, case management consulted (Elizabeth Kingsley, SANDOVAL) Reviewed: Pt Seen/Exam by Me (Na Blood MD) History Physician Director Of Marketing And Promotions WILLIAM Kingsley supervision Note: I interviewed and examined the patient. Discussed with WILLIAM Kingsley and agree with findings and plan as documented in the note. Any exceptions or clarifications are listed here: Patient feeling improved. Is coughing a lot. Did eat today. She also underwent dialysis. Vitals reviewed Gen: Alert and awake, NAD HEENT: anicteric sclerae, EOMI, dressing over left IJ permacath is clean dry and intact CV: Irregularly irregular no mgr nl S1S2 Pulm: Diffuse expiratory wheezes and rhonchi, decreased breath sounds throughout , breathing is unlabored Abd: +BS soft NT ND no masses or hernias Ext: Trace edema in bilateral legs Skin: Chronic venous stasis changes in the legs bilaterally,, warm/dry This patient is an 81-year-old female with ESRD on HD, anemia of chronic renal disease, chronic atrial fibrillation not on AC due to history of frequent falls , now status post pacemaker placement, severe pulmonary hypertension, right- sided heart failure, chronic diastolic CHF, HTN, chronic hypoxic respiratory failure on nocturnal O2, gout, anxiety/depression, GERD, and DM 2, who presents with fever, lower respiratory tract infection, and influenza B illness. Also with acute metabolic encephalopathy and acute on chronic hypoxic respiratory failure secondary to pulse ox of 81% on room air and significant wheezing and rhonchi on exam, and secondary bacterial pneumonia seen on chest x-ray. She had a recent recurrent thrombosis of her Hero graft and had placement of a left IJ PermCath. -Continue Levaquin and add on vancomycin to cover for secondary bacterial pneumonia post influenza to include MRSA coverage, check MRSA nasal swab -Appreciate nephrology management of inpatient dialysis -Continue renally dosed Tamiflu for influenza illness -Continue supplemental oxygen and wean down during the day as able to -received Procrit for anemia -Volume status for her CHF to be managed with hemodialysis -Continue nebulizer treatments -Insulin management for diabetes -For acute metabolic encephalopathy-treat her infection as well as resuming hemodialysis -Relative hypotension-hold parameters on her metoprolol-of note she does have a pacemaker in situ -For her chronic atrial fibrillation, she is no longer on AC due to history of recurrent falls She will need SNF placement after medically stable Documented By: Na Blood (Na Blood MD)
--- NOTE | 2017-09-28 14:12 | DIAGNOSTIC IMAGING REPORT ---
CHEST ONE VIEW PORTABLE CLINICAL HISTORY: 81 years-old Female presenting with dyspnea, possible PNA. TECHNIQUE: Portable upright AP view of the chest was obtained. COMPARISON: 09/27/2017. FINDINGS: Tunneled double-lumen left IJ central venous catheter terminates in the mid SVC. Large bore tunneled single-lumen right IJ or right subclavian central venous catheter terminates in the lower SVC. Single lead pacer with lead to the right ventricular apex. Atherosclerosis of aortic arch. Cardiac silhouette top normal in size. Pulmonary vascular prominence as on prior exam. Mildly low lung volumes. Prominent skin fold over the left lung. Subtle increased left retrocardiac opacity. No large effusion or pneumothorax. Superior subluxation of the humeral heads. Upper abdomen normal. IMPRESSION: 1. Cardiac and pulmonary vascular prominence suggest volume overload. No [place] pulmonary edema. 2. Increasing left retrocardiac opacity concerning for developing left lower lobe consolidation/pneumonia. Electronically signed by: Maxime Lara M.D. 09/28/2017 2:11 PM Dictated Date/Time: 09/28/2017 2:08 PM
[2017-09-28] MEDS ORDERED: OSELTAMIVIR PHOSPHATE SUSP 30 MG/5 ML UDP PO SCH (16:00)
[2017-09-28] MEDS: OSELTAMIVIR PHOSPHATE SUSP 30 MG/5 ML UDP PO SCH (16:15)
[2017-09-28] MEDS ORDERED: VANCOMYCIN CONSULT ACTIVE PRN ×2 (19:30)
[2017-09-28] MEDS ORDERED: VANCOMYCIN INJ 1,250 MG in SODIUM CHLORIDE 0.9% 250ML 250 ML IV ONE (20:00)
[2017-09-28] MEDS: DOCUSATE SODIUM 100 MG CAP PO SCH (20:25)
[2017-09-28] MEDS: SERTRALINE HCL 50 MG TAB PO SCH (20:26)
[2017-09-28] MEDS: RANITIDINE HCL 150 MG TAB PO SCH (20:26)
[2017-09-28] MEDS: INSULIN GLARGINE SOLOSTAR 100 UNITS/ML 3 ML PEN SC SCH (20:30)
[2017-09-29] VITALS (27 sets, daily range): BP systolic 86–135; BP diastolic 40–101; PULSE 62–99; TEMP 36.4–37.7; O2SAT 90–98
[2017-09-29] MEDS: LEVALBUTEROL 0.63MG/3 ML NEB INH SCH ×3 (02:02→19:05)
[2017-09-29] MEDS: IPRATROPIUM BROMIDE NEB SOLN 0.02% 2.5 ML VIAL INH SCH ×3 (02:02→19:05)
[2017-09-29 06:36] LABS: HEMOGLOBIN 8.1 g/dL (12.0-16.0); MEAN CELL VOLUME 114.9 fL (80-100); MEAN CORPUSCULAR HEMOGLOBIN 34.5 pg (25-34); MEAN PLATELET VOLUME 10.8 fL (7.4-10.4); NUCLEATED RED BLOOD CELL ABS 0.02 K/uL (0-0); PLATELET COUNT 146 K/uL (130-400); RED CELL DISTRIBUTION WIDTH CV 17.1 % (11.5-14.5); RED CELL DISTRIBUTION WIDTH SD 71.3 fL (36.4-46.3); WHITE BLOOD COUNT 5.46 K/uL (4.8-10.8)
--- NOTE | 2017-09-29 07:04 | Nephrology Progress Note ---
Nephrology Progress Note Date of Service: Sep 29, 2017. Subjective 81 yo female seen for ESRD who underwent dialysis yesterday and was able to remove about one liter. pt has a dry cough. appears more awake today compared to yesterday although unable to remember president or that she is in the hospital. Objective Date Time Temp Pulse Resp B/P (MAP) Pulse Ox O2 Delivery O2 Flow Rate FiO2 09/29/17 04:00 Nasal Cannula 2.0 09/29/17 03:30 37.4 99 17 105/47 (66) 93 Room Air 09/29/17 02:02 78 20 96 Nasal Cannula 2.0 09/29/17 00:00 98 Nasal Cannula 2.0 09/28/17 23:38 36.7 78 23 97/40 (59) 98 Nasal Cannula 2.0 09/28/17 20:00 95 Nasal Cannula 2.0 09/28/17 19:18 77 20 96 Nasal Cannula 2.0 09/28/17 19:04 37.7 79 18 106/46 (66) 96 Nasal Cannula 2.0 09/28/17 16:00 97 Nasal Cannula 2.0 09/28/17 15:13 37.1 78 16 94/80 (85) 98 Nasal Cannula 2.0 09/28/17 14:25 74 20 81 Room Air 09/28/17 14:00 36.9 68 97/36 (56) 09/28/17 13:45 111 98/79 09/28/17 13:30 78 119/92 09/28/17 13:15 83 119/96 09/28/17 13:00 112 122/98 09/28/17 12:45 62 108/39 09/28/17 12:30 62 101/39 09/28/17 12:15 63 89/41 09/28/17 12:00 Nasal Cannula 2.0 09/28/17 12:00 62 94/44 09/28/17 11:45 61 100/45 09/28/17 11:37 37.2 62 17 148/87 (107) 93 Nasal Cannula 2.0 09/28/17 11:30 63 90/36 09/28/17 11:15 66 96/38 09/28/17 11:00 67 118/77 09/28/17 10:48 78 119/86 09/28/17 10:40 37.2 69 108/44 (65) 09/28/17 08:00 Nasal Cannula 2.0 09/28/17 07:40 36.5 83 17 90/35 (53) 99 Nasal Cannula 2.0 Physical Exam: General-aaox1, more awake today Eyes-no scleral icterus ENT-mmm Neck-supple Lungs-+wheeze, +rales Heart-regular with ectopy Abdomen-bs+ s/nt/nd Extremities-+ edema Neuro-confused but improving Current Inpatient Medications Medications (Trade) Dose Ordered Sig/Juanita Route Start Time Stop Time Status Last Admin Dose Admin Allopurinol (Zyloprim Tab) 100 mg DAILY PO 09/28/17 09:00 10/28/17 08:59 09/28/17 07:36 100 MG Digoxin (Lanoxin Tab) 0.125 mg Q2D@2100 PO 09/27/17 21:00 10/27/17 20:59 09/27/17 20:36 0.125 MG Docusate Sodium (coLACE CAP) 100 mg HS PO 09/27/17 21:00 10/27/17 20:59 09/28/17 20:25 100 MG Gabapentin (Neurontin Cap) 100 mg BID PO 09/27/17 21:00 10/27/17 20:59 09/28/17 20:25 100 MG Insulin Glargine (Lantus Solostar Pen) 30 units HS SC 09/27/17 21:00 10/27/17 20:59 09/28/17 20:30 30 UNITS Metoprolol Succinate (Toprol Xl Tab) 50 mg BID PO 09/27/17 21:00 10/27/17 20:59 Ranitidine HCl (zANTac TAB) 150 mg HS PO 09/27/17 21:00 10/27/17 20:59 09/28/17 20:26 150 MG Sertraline HCl (Zoloft Tab) 50 mg QPM PO 09/27/17 21:00 10/27/17 20:59 09/28/17 20:26 50 MG Tramadol HCl (Ultram Tab) 50 mg Q4H PRN PO 09/27/17 15:15 10/27/17 15:14 Pantoprazole Sodium (Protonix Tab) 40 mg QAM PO 09/28/17 09:00 10/28/17 08:59 09/28/17 07:36 40 MG Sevelamer HCl (Renagel Tab) 800 mg AC PO 09/27/17 16:00 10/27/17 15:59 09/28/17 07:37 800 MG Heparin Sodium (Porcine) (Heparin Sq 5000 Unit/0.5ml) 5,000 unit Q12 SQ 09/27/17 21:00 10/27/17 20:59 09/28/17 20:30 5,000 UNIT Acetaminophen (Tylenol Tab) 650 mg Q4H PRN PO 09/27/17 15:15 10/27/17 15:14 Al Hydrox/Mg Hydrox/Simethicone (Maalox Max Susp) 15 ml Q4H PRN PO 09/27/17 15:15 10/27/17 15:14 Magnesium Hydroxide (Milk Of Magnesia Susp) 30 ml Q12H PRN PO 09/27/17 15:15 10/27/17 15:14 Insulin Aspart (novoLOG ASPART) SLIDING SCALE If C... ACHS SC 09/27/17 16:00 10/27/17 15:59 09/28/17 20:29 4 UNITS Glucose (Glucose 40% Gel) 15-30 GRAMS 15 GRAMS... UD PRN PO 09/27/17 15:15 10/27/17 15:14 Glucose (Glucose Chew Tab) 4-8 Tablets 4 Tabl... UD PRN PO 09/27/17 15:15 10/27/17 15:14 Dextrose (Dextrose 50% 50ML Syringe) 25-50ML OF 50% DW IV FOR... UD PRN IV 09/27/17 15:15 10/27/17 15:14 Glucagon (Glucagon Inj) 1 mg UD PRN SQ 09/27/17 15:15 10/27/17 15:14 Guaifenesin (Robitussin Sugar Free Syrup) 100 mg Q6H PRN PO 09/27/17 15:15 10/27/17 15:14 Lactobacillus Acidophilus (Floranex Tab) 4 tab TIDM PO 09/27/17 18:00 10/27/17 17:59 09/28/17 07:36 4 TAB Levofloxacin 500 mg/Prmx 100 ml @ 100 mls/hr Q48H IV 09/27/17 22:00 10/04/17 21:59 09/27/17 21:03 100 MLS/HR Ipratropium [place] (Atrovent 0.02% 0.5MG/2.5ML Neb) 0.5 mg Q6R INH 09/27/17 21:00 10/27/17 20:59 09/29/17 02:02 0.5 MG Levalbuterol (Xopenex 0.63 Mg/ 3 Ml Neb) 0.63 mg Q6R INH 09/27/17 21:00 10/27/17 20:59 09/29/17 02:02 0.63 MG Oseltamivir Phosphate (Tamiflu Susp) 30 mg MoWeFr@1600 PO 09/28/17 16:00 10/03/17 15:59 09/28/17 16:15 30 MG Miscellaneous Information (Consult) 1 ea UD PRN N/A 09/28/17 19:30 10/28/17 19:29 Epoetin Sean (Procrit Inj) 10,000 units TODAY@0900 IV. 09/29/17 09:00 09/29/17 13:59 Last 24 Hours Test 09/28/17 11:01 09/28/17 16:23 09/28/17 20:05 09/29/17 05:52 Bedside Glucose 148 mg/dl 146 mg/dl 229 mg/dl White Blood Count 5.46 K/uL Red Blood Count 2.35 M/uL Hemoglobin 8.1 g/dL Hematocrit 27.0 % Mean Corpuscular Volume 114.9 fL Mean Corpuscular Hemoglobin 34.5 pg Mean Corpuscular Hemoglobin Concent 30.0 g/dl RDW Standard Deviation 71.3 fL RDW Coefficient of Variation 17.1 % Platelet Count 146 K/uL Mean Platelet Volume 10.8 fL Nucleated RBC Absolute Count (auto) 0.02 K/uL Nucleated Red Blood Cells % 0.4 % Test 09/29/17 06:23 Bedside Glucose 155 mg/dl Date/Time Source Procedure Growth Status 09/28/17 20:45 Nasal MRSA DNA Surveillance Screen - Final Specimen Negative for MRSA by DNA Probe Complete Assessment & Plan ESRD-had dialysis yesterday and would like to do dialysis again today. was able to remove one liter yesterday, sounds coarse today and will try to remove another liter as bp tolerates. Anemia of renal failure-hg goal of 10 to 11 and will redose procrit today. Flu-on tamiflu and levaquin. trying to optimize volume status to help with breathing.
[2017-09-29 07:18] LABS: CALCIUM 7.7 mg/dl (8.5-10.1); CREATININE 6.63 mg/dl (0.60-1.20)
[2017-09-29] MEDS: LACTOBACILLUS ACIDOPHILUS (FLORANEX) TAB PO SCH ×3 (07:37→16:38)
[2017-09-29] MEDS: ALLOPURINOL 100 MG TAB PO SCH (07:37)
[2017-09-29] MEDS: METOPROLOL SUCC 50MG EXT REL TAB PO SCH ×2 (07:38→19:33)
[2017-09-29] MEDS: PANTOprazole SOD 40 MG TAB PO SCH (07:38)
[2017-09-29] MEDS: GABAPENTIN 100 MG CAP PO SCH ×2 (07:38→19:32)
[2017-09-29] MEDS: SEVELAMER HYDROCH 800 MG TAB PO SCH ×3 (07:39→16:38)
[2017-09-29] MEDS: GUAIFENESIN SUGAR FREE 100 MG/5 ML UDC PO PRN (07:39)
[2017-09-29] MEDS: INSULIN ASPART 100 UNITS/ML 3 ML PEN SC SCH ×4 (07:43→21:23)
[2017-09-29] MEDS: HEPARIN SOD 5000 UNIT/0.5 ML CARP SQ SCH ×2 (07:44→21:29)
[2017-09-29] MEDS ORDERED: EPOETIN ALFA 10,000 UNITS/ML VIAL IV. SCH (09:00)
[2017-09-29] MEDS ORDERED: VANCOMYCIN INJ 1,000 MG in SODIUM CHLORIDE 0.9% 250ML 250 ML IV SCH (09:00)
--- NOTE | 2017-09-29 12:00 | Hospitalist Progress Note ---
Hospitalist Progress Note Date of Service Sep 29, 2017. (Elizabeth Kingsley ., DICKC) Subjective Pt evaluation today including: conversation w/ patient, conversation w/ family (updated daughter on phone), physical exam, chart review, lab review, review of studies, review of inpatient medication list Pain: None PO Intake: Tolerating PO diet Voiding: voiding difficulty (ESRD) The patient seen during dialysis. She reports feeling cold but otherwise well. She denies any shortness of breath. She is still having a productive cough with yellow sputum and hoarseness. She denies any wheezing. The patient denies fevers, chills, sweats, chest pain, palpitations, claudication, wheezing , shortness of breath, nausea, vomiting, abdominal pain, dysuria, hematuria, urinary retention, paralysis, weakness, numbness and tingling. Additional Comments: See HPI for pertinent positives and negatives. All other systems reviewed and negative. (Elizabeth Kingsley ., DICKC) Objective Vital Signs Date Time Temp Pulse Resp B/P (MAP) Pulse Ox O2 Delivery O2 Flow Rate FiO2 09/29/17 11:45 71 133/97 09/29/17 11:30 73 121/101 09/29/17 11:27 36.4 74 20 111/56 (74) 92 Nasal Cannula 09/29/17 11:15 78 122/54 09/29/17 11:00 76 111/56 09/29/17 10:45 62 114/45 09/29/17 10:30 87 122/46 09/29/17 10:15 72 103/61 09/29/17 09:59 74 112/46 09/29/17 09:48 36.8 75 86/66 (73) 09/29/17 08:00 96 Nasal Cannula 2.0 09/29/17 07:44 37.1 82 18 118/43 (68) 96 Room Air 09/29/17 07:03 88 20 91 Room Air 09/29/17 04:00 Nasal Cannula 2.0 09/29/17 03:30 37.4 99 17 105/47 (66) 93 Room Air 09/29/17 02:02 78 20 96 Nasal Cannula 2.0 09/29/17 00:00 98 Nasal Cannula 2.0 09/28/17 23:38 36.7 78 23 97/40 (59) 98 Nasal Cannula 2.0 09/28/17 20:00 95 Nasal Cannula 2.0 09/28/17 19:18 77 20 96 Nasal Cannula 2.0 09/28/17 19:04 37.7 79 18 106/46 (66) 96 Nasal Cannula 2.0 09/28/17 16:00 97 Nasal Cannula 2.0 09/28/17 15:13 37.1 78 16 94/80 (85) 98 Nasal Cannula 2.0 09/28/17 14:25 74 20 81 Room Air 09/28/17 14:00 36.9 68 97/36 (56) 09/28/17 13:45 111 98/79 09/28/17 13:30 78 119/92 09/28/17 13:15 83 119/96 09/28/17 13:00 112 122/98 09/28/17 12:45 62 108/39 09/28/17 12:30 62 101/39 09/28/17 12:15 63 89/41 09/28/17 12:00 Nasal Cannula 2.0 09/28/17 12:00 62 94/44 (Elizabeth Kingsley ., PA-C) Physical Exam Notes: General appearance: Well-developed, well-nourished, no apparent distress Head: Normocephalic, atraumatic Eyes: Normal inspection, PERRL, EOMI ENT: Normal ENT inspection, hearing grossly normal, pharynx normal Neck: Supple, no JVD, trachea midline Respiratory/Chest: +Wheezing, decreased breath sounds. Lungs clear to auscultation, normal breath sounds, no respiratory distress Cardiovascular: Regular rate & rhythm, no gallop, no murmur Abdomen/GI: Normal bowel sounds, non-tender, soft Extremities/Musculoskeletal: Normal inspection, no calf tenderness, no pedal edema Neurological/Psych: +Disoriented to time. Could not tell me her birthday but knew her age. Stated correct year but did not know month. Oriented to [place] but not the hospital. More cooperative, less agitated today. Alert, oriented x 1 Skin: Normal color, warm/dry, no rash (Elizabeth Kingsley ., PA-C) Laboratory Results Last 24 Hours Test 09/28/17 16:23 09/28/17 20:05 09/29/17 05:52 09/29/17 06:23 Bedside Glucose 146 mg/dl 229 mg/dl 155 mg/dl White Blood Count 5.46 K/uL Red Blood Count 2.35 M/uL Hemoglobin 8.1 g/dL Hematocrit 27.0 % Mean Corpuscular Volume 114.9 fL Mean Corpuscular Hemoglobin 34.5 pg Mean Corpuscular Hemoglobin Concent 30.0 g/dl RDW Standard Deviation 71.3 fL RDW Coefficient of Variation 17.1 % Platelet Count 146 K/uL Mean Platelet Volume 10.8 fL Nucleated RBC Absolute Count (auto) 0.02 K/uL Nucleated Red Blood Cells % 0.4 % Sodium Level 135 mmol/L Potassium Level mmol/L Chloride Level 99 mmol/L Carbon Dioxide Level 29 mmol/L Anion Gap 7.0 mmol/L Blood Urea Nitrogen 41 mg/dl Creatinine 6.63 mg/dl Est Creatinine Clear Calc Drug Dose 6.3 ml/min Estimated GFR () 6.3 Estimated GFR (Non- 5.4 BUN/Creatinine Ratio 6.2 Random Glucose 140 mg/dl Calcium Level 7.7 mg/dl Random Vancomycin Level 16.3 mcg/ml Test 09/29/17 07:40 09/29/17 11:21 Potassium Level 4.0 mmol/L Bedside Glucose 115 mg/dl (Elizabeth Kingsley ., PA-C) Diagnostic Results Reviewed the following studies and agree with interpretation as follows: CHEST ONE VIEW PORTABLE CLINICAL HISTORY: 81 years-old Female presenting with dyspnea, possible PNA. TECHNIQUE: Portable upright AP view of the chest was obtained. COMPARISON: 09/27/2017. FINDINGS: Tunneled double-lumen left IJ central venous catheter terminates in the mid SVC. Large bore tunneled single-lumen right IJ or right subclavian central venous catheter terminates in the lower SVC. Single lead pacer with lead to the right ventricular apex. Atherosclerosis of aortic arch. Cardiac silhouette top normal in size. Pulmonary vascular prominence as on prior exam. Mildly low lung volumes. Prominent skin fold over the left lung. Subtle increased left retrocardiac opacity. No large effusion or pneumothorax. Superior subluxation of the humeral heads. Upper abdomen normal. IMPRESSION: 1. Cardiac and pulmonary vascular prominence suggest volume overload. No [place] pulmonary edema. 2. Increasing left retrocardiac opacity concerning for developing left lower lobe consolidation/pneumonia. (Elizabeth Kingsley ., PA-C) Assessment and Plan 81 y/o female with a history of ESRD on HD, a-fib, HTN, CAD, chronic respiratory failure on nighttime O2, diastolic CHF, DM II, anxiety/depression, gout, and GERD who presents with fever and hypoxia following perm cath placement for dialysis. Influenza B, secondary bacterial PNA--improving -Admit to telemetry. Pt mostly in a-fib with HR in 70s overnight, but did develop 8 beat run of VT around 00:37 -Continue Tamiflu 30 mg PO after dialysis -Repeat CXR shows increasing left retrocardiac opacity concerning for developing LLL PNA. Suggested volume overload but no [place] edema. -Continue Levaquin 500 mg IV q48h -Vancomycin added -Blood cultures pending -Xopenex/Atrovent nebs QIDR Acute on chronic respiratory failure w/hypoxia secondary to flu/PNA--improving -Only wears nighttime O2 at baseline, on 2L NC continuous -O2 by protocol Run of v-tach, hypotension, s/p pacemaker -Consult cardiology ESRD on HD -Had thrombosed graft, s/p left IJ perm cath w/Dr. Guillory 09/27 -Nephrology following: dialysis again today w/Procrit -On MWF schedule -Continue Renvela, Nephrocaps Encephalopathy--improving -Continue to monitor for now A-fib--stable, rate controlled -No longer on AC due to multiple falls -Continue digoxin 125 mcg PO q2d, Toprol 50 mg PO BID (hold if SBP less than 100 or HR less than 60) HTN--BP remains hypotensive/low normal -Hold parameters for metoprolol as above Diastolic CHF--no acute exac -Beta brent as above DM II w/neuropathy--HgbA1c 8.5 on 09/28 -Lantus 30 units SC hs -Insulin sliding scale -Check BSGs q ac and qhs -Continue gabapentin 100 mg PO BID Anxiety/depression -Continue Zoloft 50 mg PO qd Gout -Continue allopurinol 100 mg PO qd Dispo -From rehab, wants placed back -PT/OT pending, case management consulted (Elizabeth Kingsley ., SANDOVAL) Reviewed: Pt Seen/Exam by Me (Na Blood MD) History Physician Blender / Cook supervision Note: I interviewed and examined the patient. Discussed with WILLIAM Kingsley and agree with findings and plan as documented in the note. Any exceptions or clarifications are listed here: Patient feeling improved. Still coughing, has no complaints. Had 7 beats VT last evening. BPs remain low normal Vitals reviewed Gen: Alert and awake, NAD HEENT: anicteric sclerae, EOMI, dressing over left IJ permacath is clean dry and intact CV: Irregularly irregular no mgr nl S1S2 Pulm: Diffuse expiratory wheezes and rhonchi, decreased breath sounds throughout , breathing is unlabored Abd: +BS soft NT ND no masses or hernias Ext: Trace edema in bilateral legs Skin: Chronic venous stasis changes in the legs bilaterally,, warm/dry This patient is an 81-year-old female with ESRD on HD, anemia of chronic renal disease, chronic atrial fibrillation not on AC due to history of frequent falls , now status post pacemaker placement, severe pulmonary hypertension, right- sided heart failure, chronic diastolic CHF, HTN, chronic hypoxic respiratory failure on nocturnal O2, gout, anxiety/depression, GERD, and DM 2, who presents with fever, lower respiratory tract infection, and influenza B illness. Also with acute metabolic encephalopathy and acute on chronic hypoxic respiratory failure with POx 81% on room air and significant wheezing and rhonchi on exam, and secondary bacterial pneumonia seen on chest x-ray. She had a recent recurrent thrombosis of her Hero graft and had placement of a left IJ PermCath. Improved encephalopathy. Remains on O2 continuously, lungs still sound bad -Continue Levaquin and vancomycin to cover for secondary bacterial pneumonia post influenza to include MRSA coverage, MRSA nasal swab negative but will continue Vanco for at least 48 hrs -Appreciate nephrology management of inpatient dialysis -Continue renally dosed Tamiflu for influenza illness -Continue supplemental oxygen and wean down during the day as able to -received Procrit for anemia -Volume status for her CHF to be managed with hemodialysis -Continue nebulizer treatments -Insulin management for diabetes -Relative hypotension-hold parameters on her metoprolol for BP-of note she does have a pacemaker in situ -For her chronic atrial fibrillation, she is no longer on AC due to history of recurrent falls WCT on tele is likely Afib with aberrancy as per Cardiology, benign condition -Need to find out what true home dose of [place] is (is it indeed 300mg total daily?) She will need SNF placement after medically stable Documented By: Na Blood (Na Blood MD)
--- NOTE | 2017-09-29 15:54 | Pharmacy Progress Note ---
Pharmacy Antibiotic Consult Date of Service: Sep 29, 2017. Pharmacy Dosing Scope Pharmacy is consulted to initiate vancomycin IV dosing therapy, order appropriate labs and adjust drug dose/frequency. Subjective The patient is a 81 year old female admitted on Sep 27, 2017 at 15:09. Objective Height (Feet): 5 Height (Inches): 2.00 Weight (Kilograms): 72.000 Lab Results (24hrs): Item Value Date Time Random Vancomycin Level 16.3 mcg/ml 09/29/17 0552 Test 09/29/17 05:52 09/29/17 07:40 09/29/17 11:21 09/29/17 13:25 White Blood Count 5.46 K/uL (4.8-10.8) Red Blood Count 2.35 M/uL (4.2-5.4) Hemoglobin 8.1 g/dL (12.0-16.0) Hematocrit 27.0 % (37-47) Mean Corpuscular Volume 114.9 fL (80-100) Mean Corpuscular Hemoglobin 34.5 pg (25-34) Mean Corpuscular Hemoglobin Concent 30.0 g/dl (32-36) RDW Standard Deviation 71.3 fL (36.4-46.3) RDW Coefficient of Variation 17.1 % (11.5-14.5) Platelet Count 146 K/uL (130-400) Mean Platelet Volume 10.8 fL (7.4-10.4) Nucleated RBC Absolute Count (auto) 0.02 K/uL (0-0) Nucleated Red Blood Cells % 0.4 % Sodium Level 135 mmol/L (136-145) Potassium Level mmol/L (3.5-5.1) 4.0 mmol/L (3.5-5.1) Chloride Level 99 mmol/L (98-107) Carbon Dioxide Level 29 mmol/L (21-32) Anion Gap 7.0 mmol/L (3-11) Blood Urea Nitrogen 41 mg/dl (7-18) Creatinine 6.63 mg/dl (0.60-1.20) Est Creatinine Clear Calc Drug Dose 6.3 ml/min Estimated GFR () 6.3 Estimated GFR (Non- 5.4 BUN/Creatinine Ratio 6.2 (10-20) Random Glucose 140 mg/dl (70-99) Calcium Level 7.7 mg/dl (8.5-10.1) Random Vancomycin Level 16.3 mcg/ml Bedside Glucose 115 mg/dl (70-90) 100 mg/dl (70-90) Assessment & Plan Patient started on vancomycin for possible pneumonia, also receiving levaquin ( not consult). Preliminary blood cultures are showing no growth, nasal swab came back negative for MRSA. Patient positive for influenza B - on tamiflu (dosed after dialysis sessions) Vancomycin: * Patient received a dose of vancomycin last evening - 1250 mg x 1 (~17mg/kg) * Random level this am was therapeutic at ~16 mcg/ml (goal 15-20 mcg/ml for pneumonia) * Patient to have dialysis for today, estimate about ~30% removal of drug - will redose with vancomycin 1000 mg (~14 mg/kg) after dialysis today * Patient typically gets dialysis MWF schedule - will order a random level in the am to assist with further dosing * If final blood cx are negative and patient improving, could consider possible d/c of vancomycin in the am Pharmacy will continue to follow and will adjust dose/frequency as necessary. Thank you
[2017-09-29] MEDS ORDERED: VANCOMYCIN INJ 1,000 MG in SODIUM CHLORIDE 0.9% 250ML 250 ML IV ONE (16:00)
[2017-09-29] MEDS ORDERED: OSELTAMIVIR PHOSPHATE SUSP 30 MG/5 ML UDP PO ONE (18:00)
[2017-09-29] MEDS: DOCUSATE SODIUM 100 MG CAP PO SCH (19:31)
[2017-09-29] MEDS: DIGOXIN 0.125 MG TAB PO SCH (19:32)
[2017-09-29] MEDS: RANITIDINE HCL 150 MG TAB PO SCH (19:33)
[2017-09-29] MEDS: SERTRALINE HCL 50 MG TAB PO SCH (19:33)
--- NOTE | 2017-09-29 20:15 | CARDIOLOGY CONSULTATION ---
DATE OF CONSULTATION: 09/29/2017 INPATIENT CONSULTATION CONSULTATION REQUESTED BY: Dr. Guardado. REASON FOR CONSULTATION: A 7-beat run of Vtach. HISTORY OF PRESENT ILLNESS: Mrs. Ames is a very pleasant yet demented 81-year-old woman who presented to [facility] on 09/27/2017 with a report of a thrombosed dialysis catheter for planned intervention. This was an outpatient procedure, but after she was found to be short of breath with a cough. She was sent to the Emergency Department where she tested positive for influenza. She was then admitted to telemetry unit. Very early in the a.m. at approximately 12:30 a.m. on 09/29/2017 showed a 7-beat run of wide complex tachycardia while she was sleeping and was asymptomatic and cardiology was consulted. Currently, the patient is without complaint at rest and denies experiencing any chest pain, palpitations, lightheadedness, dizziness, or syncope. PAST SURGICAL HISTORY: 1. Single lead permanent pacemaker placement with a [employer] device. 2. Diagnostic cardiac catheterization in 2002. 3. Cholecystectomy. 4. Spinal surgeries. 5. Eyelid surgery. 6. Hernia repair. 7. Total hip replacement. MEDICAL ILLNESSES: 1. Persistent atrial fibrillation, deemed not a Coumadin candidate secondary to falls. 2. Hypertension. 3. Nocturnal hypoxemia. 4. Nonobstructive coronary artery disease. 5. Diastolic dysfunction. 6. End-stage renal disease, on hemodialysis. 7. Severe pulmonary hypertension. 8. Diastolic heart failure. FAMILY HISTORY: Noncontributory. SOCIAL HISTORY: Denies any alcohol, tobacco or recreational drug use. REVIEW OF SYSTEMS: As per HPI. All review of systems reviewed and negative at this time. ALLERGIES: 1. HYDROCHLOROTHIAZIDE. 2. KEFLEX. 3. LOTREL. 4. NSAIDs. 5. PENICILLIN. 6. SPIRONOLACTONE. 7. SULFA. 8. VICODIN. MEDICATIONS CURRENTLY: 1. Tamiflu daily. 2. Vancomycin daily. 3. Digoxin 0.125 mg every other day. 4. Metoprolol succinate 50 mg b.i.d. 5. Renagel with meals. 6. Zoloft daily. 7. Insulin as directed. PHYSICAL EXAMINATION: VITAL SIGNS: Temperature 36.5, pulse 67, respiratory rate 12, blood pressure 103/46. GENERAL: Awake, alert, oriented x3 in no acute distress. HEENT: Normocephalic, atraumatic. Pupils equal, round, reactive to light and accommodation. Extraocular muscles intact. Anicteric sclerae. Moist mucous membranes. NECK: No JVD, no bruit. CARDIOVASCULAR: Irregularly irregular and distant. Unable to appreciate murmurs, rubs or gallops. PULMONARY: Scattered rhonchi. No rales or wheezing. ABDOMEN: Bowel sounds x4, soft. No rebound, guarding, tenderness. No organomegaly. EXTREMITIES: No clubbing, cyanosis or edema. +2 pedal pulses bilaterally. SKIN: Warm and dry. TEST RESULTS OF SIGNIFICANCE: Review of telemetry monitoring shows a 7-beat run of wide complex tachycardia at approximately 0035, likely representing atrial fibrillation with aberrancy. LABORATORY STUDIES OF SIGNIFICANCE: Sodium 135, potassium 4, BUN 41, and creatinine 6.6. IMPRESSION: 1. Asymptomatic wide complex tachycardia, likely representing atrial fibrillation with aberrancy. 2. Persistent atrial fibrillation, deemed no longer a Coumadin candidate. 3. End-stage renal disease. 4. Acute influenza infection. RECOMMENDATIONS: Mrs. Ames was counseled that given the fact that this brief run of wide complex tachycardia occurred at sleep along with underlying rhythm of atrial fibrillation, I believe most likely represents aberrancy which is a benign finding. So no medication changes are necessary at this time, no further cardiac testing is necessary at this time. I would recommend continuing on her outpatient metoprolol dose.
[2017-09-29] MEDS: INSULIN GLARGINE SOLOSTAR 100 UNITS/ML 3 ML PEN SC SCH (21:24)
[2017-09-29] MEDS: LEVOFLOXACIN / D5W 500 MG in PREMIXED IN D5W 100 ML IV SCH (21:29)
[2017-09-30] VITALS (25 sets, daily range): BP systolic 93–163; BP diastolic 42–86; PULSE 70–90; TEMP 36.4–37.4; O2SAT 94–99
[2017-09-30 06:35] LABS: HEMATOCRIT 27.9 % (37-47); HEMOGLOBIN 8.7 g/dL (12.0-16.0); MEAN CELL VOLUME 113.4 fL (80-100); MEAN CORPUSCULAR HEMOGLOBIN 35.4 pg (25-34); MEAN CORPUSCULAR HGB CONC 31.2 g/dl (32-36); PLATELET COUNT 164 K/uL (130-400); RED CELL DISTRIBUTION WIDTH SD 69.8 fL (36.4-46.3); WHITE BLOOD COUNT 4.35 K/uL (4.8-10.8)
[2017-09-30 07:12] LABS: CALCIUM 8.3 mg/dl (8.5-10.1); CREATININE 4.82 mg/dl (0.60-1.20)
[2017-09-30] MEDS: IPRATROPIUM BROMIDE NEB SOLN 0.02% 2.5 ML VIAL INH SCH ×3 (07:13→19:03)
[2017-09-30] MEDS: LEVALBUTEROL 0.63MG/3 ML NEB INH SCH ×3 (07:13→19:03)
[2017-09-30] MEDS: SEVELAMER HYDROCH 800 MG TAB PO SCH ×3 (07:35→16:12)
[2017-09-30] MEDS: GABAPENTIN 100 MG CAP PO SCH ×2 (07:35→20:58)
[2017-09-30] MEDS: LACTOBACILLUS ACIDOPHILUS (FLORANEX) TAB PO SCH ×3 (07:35→16:45)
[2017-09-30] MEDS: METOPROLOL SUCC 50MG EXT REL TAB PO SCH ×2 (07:35→20:58)
[2017-09-30] MEDS: PANTOprazole SOD 40 MG TAB PO SCH (07:35)
[2017-09-30] MEDS: ALLOPURINOL 100 MG TAB PO SCH (07:36)
[2017-09-30] MEDS: INSULIN ASPART 100 UNITS/ML 3 ML PEN SC SCH ×5 (07:38→21:43)
[2017-09-30] MEDS: HEPARIN SOD 5000 UNIT/0.5 ML CARP SQ SCH ×2 (07:39→21:45)
[2017-09-30] MEDS: GUAIFENESIN SUGAR FREE 100 MG/5 ML UDC PO PRN (07:39)
[2017-09-30] MEDS ORDERED: EPOETIN ALFA 10,000 UNITS/ML VIAL IV. SCH (10:00)
[2017-09-30] MEDS: HEPARIN SOD (PORCINE) 1000 UNIT/ML 10 ML VIAL IV SCH ×3 (10:00→12:00)
[2017-09-30] MEDS ORDERED: NURSING VERBAL MED ORDER ONE ×3 (11:00→11:30)
[2017-09-30] MEDS ORDERED: IRON SUCROSE INJ 50 MG in SYRINGE 0 ML IV SCH (11:15)
[2017-09-30] MEDS ORDERED: CALCITRIOL 0.25 MCG CAP PO ONE (11:45)
--- NOTE | 2017-09-30 11:54 | Dialysis Progress Note ---
Nephrology Dialysis Note Date of Service: Sep 30, 2017. Subjective ongoing intermittent confusion; seen on hd at about 1115. no n/v; alert, interactive but minimally willing to participate in hx, thick heavy cough in exam Objective Date Time Temp Pulse Resp B/P (MAP) Pulse Ox O2 Delivery O2 Flow Rate FiO2 09/30/17 08:45 73 136/62 09/30/17 08:30 79 136/66 09/30/17 08:15 86 135/86 09/30/17 08:00 36.5 80 16 141/47 (78) 98 09/30/17 08:00 Nasal Cannula 2.0 09/30/17 08:00 36.4 73 142/56 (84) 09/30/17 07:14 77 16 95 Nasal Cannula 2.0 09/30/17 04:00 Nasal Cannula 2.0 09/30/17 03:30 37.4 80 20 131/64 (86) 99 Nasal Cannula 2.0 09/29/17 23:59 Nasal Cannula 2.0 09/29/17 23:30 37.7 86 24 114/64 (81) 92 09/29/17 20:00 Room Air 09/29/17 19:32 74 09/29/17 19:22 37.2 90 21 116/68 (84) 91 Room Air 09/29/17 19:05 70 21 90 Room Air 09/29/17 16:00 96 Nasal Cannula 09/29/17 15:23 36.5 67 20 103/46 (65) 98 Nasal Cannula 2.0 09/29/17 13:11 36.6 67 107/65 (79) 09/29/17 13:00 77 114/79 09/29/17 12:45 76 113/40 09/29/17 12:30 71 135/44 09/29/17 12:15 67 110/61 09/29/17 12:00 75 114/48 09/29/17 12:00 Nasal Cannula 2.0 09/29/17 11:45 71 133/97 09/29/17 11:30 73 121/101 09/29/17 11:27 36.4 74 20 111/56 (74) 92 Nasal Cannula 09/29/17 11:15 78 122/54 09/29/17 11:00 76 111/56 09/29/17 10:45 62 114/45 09/29/17 10:30 87 122/46 09/29/17 10:15 72 103/61 09/29/17 09:59 74 112/46 09/29/17 09:48 36.8 75 86/66 (73) Physical Exam: General-aaox1, more awake today, thick cough, on 02NC Eyes-no scleral icterus ENT-mmm Neck-supple Lungs-+wheeze, +rales Heart-regular with ectopy Abdomen-bs+ s/nt/nd Extremities- no edema, clotted AVF R prox Neuro-confused mostly but alert, ayala Current Inpatient Medications Medications (Trade) Dose Ordered Sig/Juanita Route Start Time Stop Time Status Last Admin Dose Admin Allopurinol (Zyloprim Tab) 100 mg DAILY PO 09/28/17 09:00 10/28/17 08:59 09/30/17 07:36 100 MG Digoxin (Lanoxin Tab) 0.125 mg Q2D@2100 PO 09/27/17 21:00 10/27/17 20:59 09/29/17 19:32 0.125 MG Docusate Sodium (coLACE CAP) 100 mg HS PO 09/27/17 21:00 10/27/17 20:59 09/29/17 19:31 100 MG Gabapentin (Neurontin Cap) 100 mg BID PO 09/27/17 21:00 10/27/17 20:59 09/30/17 07:35 100 MG Insulin Glargine (Lantus Solostar Pen) 30 units HS SC 09/27/17 21:00 10/27/17 20:59 09/29/17 21:24 30 UNITS Metoprolol Succinate (Toprol Xl Tab) 50 mg BID PO 09/27/17 21:00 10/27/17 20:59 09/30/17 07:35 50 MG Ranitidine HCl (zANTac TAB) 150 mg HS PO 09/27/17 21:00 10/27/17 20:59 09/29/17 19:33 150 MG Sertraline HCl (Zoloft Tab) 50 mg QPM PO 09/27/17 21:00 10/27/17 20:59 09/29/17 19:33 50 MG Tramadol HCl (Ultram Tab) 50 mg Q4H PRN PO 09/27/17 15:15 10/27/17 15:14 Pantoprazole Sodium (Protonix Tab) 40 mg QAM PO 09/28/17 09:00 10/28/17 08:59 09/30/17 07:35 40 MG Sevelamer HCl (Renagel Tab) 800 mg AC PO 09/27/17 16:00 10/27/17 15:59 09/30/17 07:35 800 MG Heparin Sodium (Porcine) (Heparin Sq 5000 Unit/0.5ml) 5,000 unit Q12 SQ 09/27/17 21:00 10/27/17 20:59 09/30/17 07:39 5,000 UNIT Acetaminophen (Tylenol Tab) 650 mg Q4H PRN PO 09/27/17 15:15 10/27/17 15:14 Al Hydrox/Mg Hydrox/Simethicone (Maalox Max Susp) 15 ml Q4H PRN PO 09/27/17 15:15 10/27/17 15:14 Magnesium Hydroxide (Milk Of Magnesia Susp) 30 ml Q12H PRN PO 09/27/17 15:15 10/27/17 15:14 Insulin Aspart (novoLOG ASPART) SLIDING SCALE If C... ACHS SC 09/27/17 16:00 10/27/17 15:59 09/30/17 07:38 1 UNITS Glucose (Glucose 40% Gel) 15-30 GRAMS 15 GRAMS... UD PRN PO 09/27/17 15:15 10/27/17 15:14 Glucose (Glucose Chew Tab) 4-8 Tablets 4 Tabl... UD PRN PO 09/27/17 15:15 10/27/17 15:14 Dextrose (Dextrose 50% 50ML Syringe) 25-50ML OF 50% DW IV FOR... UD PRN IV 09/27/17 15:15 10/27/17 15:14 Glucagon (Glucagon Inj) 1 mg UD PRN SQ 09/27/17 15:15 10/27/17 15:14 Guaifenesin (Robitussin Sugar Free Syrup) 100 mg Q6H PRN PO 09/27/17 15:15 10/27/17 15:14 09/30/17 07:39 100 MG Lactobacillus Acidophilus (Floranex Tab) 4 tab TIDM PO 09/27/17 18:00 10/27/17 17:59 09/30/17 07:35 4 TAB Levofloxacin 500 mg/Prmx 100 ml @ 100 mls/hr Q48H IV 09/27/17 22:00 10/04/17 21:59 09/29/17 21:29 100 MLS/HR Ipratropium [place] (Atrovent 0.02% 0.5MG/2.5ML Neb) 0.5 mg Q6R INH 09/27/17 21:00 10/27/17 20:59 09/30/17 07:13 0.5 MG Levalbuterol (Xopenex 0.63 Mg/ 3 Ml Neb) 0.63 mg Q6R INH 09/27/17 21:00 10/27/17 20:59 09/30/17 07:13 0.63 MG Oseltamivir Phosphate (Tamiflu Susp) 30 mg MoWeFr@1600 PO 09/28/17 16:00 10/03/17 15:59 09/28/17 16:15 30 MG Miscellaneous Information (Consult) 1 ea UD PRN N/A 09/28/17 19:30 10/28/17 19:29 Last 24 Hours Test 09/29/17 11:21 09/29/17 13:25 09/29/17 16:40 09/30/17 04:41 Bedside Glucose 115 mg/dl 100 mg/dl 138 mg/dl 131 mg/dl Test 09/30/17 06:19 09/30/17 06:29 White Blood Count 4.35 K/uL Red Blood Count 2.46 M/uL Hemoglobin 8.7 g/dL Hematocrit 27.9 % Mean Corpuscular Volume 113.4 fL Mean Corpuscular Hemoglobin 35.4 pg Mean Corpuscular Hemoglobin Concent 31.2 g/dl RDW Standard Deviation 69.8 fL RDW Coefficient of Variation 17.0 % Platelet Count 164 K/uL Mean Platelet Volume 10.0 fL Sodium Level 132 mmol/L Potassium Level 4.0 mmol/L Chloride Level 96 mmol/L Carbon Dioxide Level 28 mmol/L Anion Gap 8.0 mmol/L Blood Urea Nitrogen 26 mg/dl Creatinine 4.82 mg/dl Est Creatinine Clear Calc Drug Dose 8.7 ml/min Estimated GFR () 9.2 Estimated GFR (Non- 7.9 BUN/Creatinine Ratio 5.2 Random Glucose 114 mg/dl Calcium Level 8.3 mg/dl Random Vancomycin Level 22.9 mcg/ml Bedside Glucose 124 mg/dl Assessment & Plan 81 yo female w/ ESRD on mwf HD admitted w/ clotted AVF, now w/ TDC and found also to have the flu/PNA ESRD-had dialysis 09/27, 09/28 and would like to do dialysis again today. was able to remove one liter past 2 days, sounds coarse today and will try to remove another 1.5L as bp tolerates. will recheck cXR this PM as she may need more dialysis depending on volume status Anemia of renal failure-hg goal of 10 to 11 and will redose procrit today. Flu-on tamiflu and levaquin. trying to optimize volume status to help with breathing.
--- NOTE | 2017-09-30 14:05 | DIAGNOSTIC IMAGING REPORT ---
CHEST ONE VIEW PORTABLE CLINICAL HISTORY: 81 years-old Female presenting with dyspnea, altered mental status, f/u on PNA. TECHNIQUE: Portable upright AP view of the chest was obtained. COMPARISON: 09/28/2017. FINDINGS: Dual lumen tunneled left IJ central venous catheter terminates in the mid SVC. Tunneled single lumen right subclavian or right IJ large bore catheter terminates in the lower SVC. Left subclavian pacer with lead to the right ventricular apex unchanged. Atherosclerosis of aortic arch. Cardiac silhouette mildly enlarged. Mild pulmonary vascular prominence similar to prior. Stable to slight interval increase in left retrocardiac opacity. Trace left pleural effusion may be present. No pneumothorax. Bandlike hyperdensity projecting over the right apex along the course of the fifth rib may be artifactual. Degenerative changes of the thoracic spine. External leads overlie the abdomen degrading evaluation. IMPRESSION: 1. Stable to slight interval increase in left retrocardiac opacity, concerning for focal consolidation/pneumonia. Alternatively, this may represent aspiration. 2. Mild cardiomegaly with persistent volume overload. Electronically signed by: Maxime Lraa M.D. 09/30/2017 2:04 PM Dictated Date/Time: 09/30/2017 2:02 PM
--- NOTE | 2017-09-30 14:34 | Hospitalist Progress Note ---
Hospitalist Progress Note Date of Service Sep 30, 2017. (Elizabeth Kingsley ., WILLIAM-C) Subjective Pt evaluation today including: conversation w/ patient, physical exam, chart review, lab review, review of inpatient medication list Pain: None PO Intake: Poor appetite Patient examined this morning and had been fairly oriented and receiving dialysis. She denied any complaints at that time. Patient was then seen again later in the afternoon after nursing reported sudden confusion and diaphoresis. Upon second visit, the patient still denied any complaints. Nursing had reported agitated/combative behavior, but patient was cooperative with me and following commands. Per nursing, patient not eating much and refusing meds. The patient denies fevers, chills, sweats, chest pain, palpitations, claudication, cough, wheezing, shortness of breath, nausea, vomiting, abdominal pain, dysuria, hematuria, urinary retention, paralysis, weakness, numbness and tingling. Additional Comments: See HPI for pertinent positives and negatives. All other systems reviewed and negative. (Elizabeth Kingsley ., PA-C) Objective Vital Signs Date Time Temp Pulse Resp B/P (MAP) Pulse Ox O2 Delivery O2 Flow Rate FiO2 09/30/17 12:00 Room Air 09/30/17 11:52 36.9 80 134/58 (83) 09/30/17 11:51 37.3 75 18 134/60 (84) 94 09/30/17 11:45 76 129/57 09/30/17 11:30 72 133/64 09/30/17 11:15 75 125/56 09/30/17 11:00 75 134/60 09/30/17 10:45 73 142/60 09/30/17 10:30 73 128/63 09/30/17 10:15 71 131/44 09/30/17 10:00 70 131/49 09/30/17 09:45 76 140/51 09/30/17 09:30 77 145/42 09/30/17 09:15 82 150/66 09/30/17 09:00 82 107/72 09/30/17 08:45 73 136/62 09/30/17 08:30 79 136/66 09/30/17 08:15 86 135/86 09/30/17 08:00 36.5 80 16 141/47 (78) 98 09/30/17 08:00 Nasal Cannula 2.0 09/30/17 08:00 36.4 73 142/56 (84) 09/30/17 07:14 77 16 95 Nasal Cannula 2.0 09/30/17 04:00 Nasal Cannula 2.0 09/30/17 03:30 37.4 80 20 131/64 (86) 99 Nasal Cannula 2.0 09/29/17 23:59 Nasal Cannula 2.0 09/29/17 23:30 37.7 86 24 114/64 (81) 92 09/29/17 20:00 Room Air 09/29/17 19:32 74 09/29/17 19:22 37.2 90 21 116/68 (84) 91 Room Air 09/29/17 19:05 70 21 90 Room Air 09/29/17 16:00 96 Nasal Cannula 09/29/17 15:23 36.5 67 20 103/46 (65) 98 Nasal Cannula 2.0 (Elizabeth Kingsley ., PA-C) Physical Exam Notes: General appearance: Well-developed, well-nourished, no apparent distress Head: Normocephalic, atraumatic Eyes: Normal inspection, PERRL, EOMI ENT: Normal ENT inspection, hearing grossly normal, pharynx normal Neck: Supple, no JVD, trachea midline Respiratory/Chest: +Wheezing, decreased breath sounds. Pt w/cough during exam. Lungs clear to auscultation, normal breath sounds, no respiratory distress Cardiovascular: +Irregularly irregular, no gallop, no murmur Abdomen/GI: Normal bowel sounds, non-tender, soft Extremities/Musculoskeletal: Normal inspection, no calf tenderness, no pedal edema Neurological/Psych: +On first visit, pt oriented to person and place but not time. On second visit, pt can no longer tell me her own name or birthday but did state her daughter's names. Disoriented x3 on second visit. Cooperative and pleasant with me both visits. Alert, normal mood/affect Skin: Normal color, warm/dry, no rash (Elizabeth Kingsley ., PA-C) Laboratory Results Last 24 Hours Test 09/29/17 16:40 09/29/17 21:10 09/30/17 04:41 09/30/17 06:19 Bedside Glucose 138 mg/dl 176 mg/dl 131 mg/dl White Blood Count 4.35 K/uL Red Blood Count 2.46 M/uL Hemoglobin 8.7 g/dL Hematocrit 27.9 % Mean Corpuscular Volume 113.4 fL Mean Corpuscular Hemoglobin 35.4 pg Mean Corpuscular Hemoglobin Concent 31.2 g/dl RDW Standard Deviation 69.8 fL RDW Coefficient of Variation 17.0 % Platelet Count 164 K/uL Mean Platelet Volume 10.0 fL Sodium Level 132 mmol/L Potassium Level 4.0 mmol/L Chloride Level 96 mmol/L Carbon Dioxide Level 28 mmol/L Anion Gap 8.0 mmol/L Blood Urea Nitrogen 26 mg/dl Creatinine 4.82 mg/dl Est Creatinine Clear Calc Drug Dose 8.7 ml/min Estimated GFR () 9.2 Estimated GFR (Non- 7.9 BUN/Creatinine Ratio 5.2 Random Glucose 114 mg/dl Calcium Level 8.3 mg/dl Random Vancomycin Level 22.9 mcg/ml Test 09/30/17 06:29 Bedside Glucose 124 mg/dl (Elizabeth Kingsley, DICKC) Assessment and Plan 81 y/o female with a history of ESRD on HD, a-fib, HTN, CAD, chronic respiratory failure on nighttime O2, diastolic CHF, DM II, anxiety/depression, gout, and GERD who presents with fever and hypoxia following perm cath placement for dialysis. Influenza B, secondary bacterial PNA--ongoing -Admit to telemetry. Pt in a-fib overnight with HR 70s-80s. No reoccurrence of WCT -Continue Tamiflu 30 mg PO after dialysis -CXR 09/28 shows increasing left retrocardiac opacity concerning for developing LLL PNA. Suggested volume overload but no [place] edema. -Continue Levaquin 500 mg IV q48h and vancomycin -Blood cultures NGTD, MRSA nares negative -Xopenex/Atrovent nebs QIDR Acute on chronic respiratory failure w/hypoxia secondary to flu/PNA--improving -Only wears nighttime O2 at baseline. Currently on room air during daytime -O2 by protocol Run of wide complex tachycardia, hypotension, s/p pacemaker--resolved. No evidence of wide complex tachycardia on tele last night -Consult cardiology, appreciate recs: Likely a-fib with aberrancy which is benign. No intervention at this time. ESRD on HD -Had thrombosed graft, s/p left IJ perm cath w/Dr. Guillory 09/27 -Nephrology following: dialysis per schedule -On MWF schedule -Continue Renvela, Nephrocaps Metabolic encephalopathy--worsening in afternoon -Encephalopathy waxing and waning. More acutely confused this afternoon, will repeat CXR. VSS, BSG stable, no complaints or physical exam changes at that time -Repeat EKG no changes A-fib--stable, rate controlled -No longer on AC due to multiple falls -Continue digoxin 125 mcg PO q2d, Toprol 50 mg PO BID (hold if SBP less than 100 or HR less than 60) HTN--stable -Hold parameters for metoprolol as above Diastolic CHF--no acute exac -Beta brent as above DM II w/neuropathy--HgbA1c 8.5 on 09/28 -Lantus 30 units SC hs -Insulin sliding scale -Check BSGs q ac and qhs -Continue gabapentin 100 mg PO BID Anxiety/depression -Continue Zoloft 50 mg PO qd Gout -Continue allopurinol 100 mg PO qd Dispo -From rehab, wants placed back -PT/OT pending, case management consulted Total time spent on direct care with patient combined both visits 50 minutes (Elizabeth Kingsley, SANDOVAL) Reviewed: Pt Seen/Exam by Me (Na Blood MD) History Physician Rn Resource Nurse supervision Note: I interviewed and examined the patient. Discussed with WILLIAM Kingsley and agree with findings and plan as documented in the note. Any exceptions or clarifications are listed here: Had some acute agitation and worsened confusion as per RN after HD today. RN reported diaphoresis, vitals were all stable, ECG was normal. When I saw pt, she was not agitated, had no complaints, and was oriented to person, year, but thought she was in [place]. She asked me to contact her daughters. Denied pain, no CP, no SOB. Vitals reviewed Gen: Alert and awake, NAD HEENT: anicteric sclerae, EOMI, dressing over left IJ permacath is clean dry and intact CV: Irregularly irregular no mgr nl S1S2 Pulm: Diffuse expiratory wheezes and rhonchi, decreased breath sounds throughout , breathing is unlabored Abd: +BS soft NT ND no masses or hernias Ext: Trace edema in bilateral legs Skin: Chronic venous stasis changes in the legs bilaterally,, warm/dry This patient is an 81-year-old female with ESRD on HD, anemia of chronic renal disease, chronic atrial fibrillation not on AC due to history of frequent falls , now status post pacemaker placement, severe pulmonary hypertension, right- sided heart failure, chronic diastolic CHF, HTN, chronic hypoxic respiratory failure on nocturnal O2, gout, anxiety/depression, GERD, and DM 2, who presents with fever, lower respiratory tract infection, and influenza B illness. Also with acute metabolic encephalopathy and acute on chronic hypoxic respiratory failure with POx 81% on room air and significant wheezing and rhonchi on exam, and secondary bacterial pneumonia seen on chest x-ray. She had a recent recurrent thrombosis of her Hero graft and had placement of a left IJ PermCath. Acute metabolic encephalopathy secondary to ESRD and Influenza B and PNA. Remains on O2 continuously. -Continue Levaquin and vancomycin to cover for secondary bacterial pneumonia post influenza to include MRSA coverage, MRSA nasal swab negative but will continue Vanco for at least 1 more day -Appreciate nephrology management of inpatient dialysis -Continue renally dosed Tamiflu for influenza illness -Continue supplemental oxygen and wean down during the day as able to -received Procrit for anemia -Volume status for her CHF to be managed with hemodialysis -Continue nebulizer treatments -Insulin management for diabetes -Hypotension-resolved -For her chronic atrial fibrillation, she is no longer on AC due to history of recurrent falls WCT on tele is likely Afib with aberrancy as per Cardiology, benign condition -Need to find out what true home dose of [place] is (is it indeed 300mg total daily?) She will need SNF placement after medically stable Documented By: Na Blood (Na Blood MD)
--- NOTE | 2017-09-30 15:06 | Pharmacy Progress Note ---
Pharmacy Abx Dose Short Note Date of Service Sep 30, 2017. Assessment & Plan Assessment 81 year old female receiving Vancomycin for treatment of pneumonia Day # 3 of antimicrobial therapy. * Provider aware of negative MRSA nasal; wants to continue with Vancomycin at this time * Patient gets dialysis MWF; she actually has received dialysis past 3 days. * Last Vancomycin dose of 1000mg IV was given on 09/29 Plan Vancomycin * Random pre-dialysis level of 22.9 mcg/mL is slightly supratherapeutic * Give Vancomycin 500mg IV x 1 tonight. No levels needed over weekend as she is not going to receive dialysis * Goal "trough" level for pneumonia : 15 to 20 mcg/mL * Random level ordered for: 10/03/17 with AM labs to determine next Vancomycin dose, if she is still admitted and requires Vancomycin Pharmacy will continue to follow and will adjust dose/frequency as necessary. Thank you.
[2017-09-30] MEDS: OSELTAMIVIR PHOSPHATE SUSP 30 MG/5 ML UDP PO SCH (16:11)
[2017-09-30] MEDS ORDERED: VANCOMYCIN INJ 500 MG in SODIUM CHLORIDE 0.9% 250ML 250 ML IV ONE (18:00)
[2017-09-30] MEDS: DOCUSATE SODIUM 100 MG CAP PO SCH (20:58)
[2017-09-30] MEDS: SERTRALINE HCL 50 MG TAB PO SCH (20:59)
[2017-09-30] MEDS: RANITIDINE HCL 150 MG TAB PO SCH (20:59)
[2017-09-30] MEDS: INSULIN GLARGINE SOLOSTAR 100 UNITS/ML 3 ML PEN SC SCH (21:46)
[2017-10-01] VITALS (11 sets, daily range): BP systolic 79–134; BP diastolic 58–65; PULSE 61–83; TEMP 36.3–37.3; O2SAT 94–100
[2017-10-01] MEDS: IPRATROPIUM BROMIDE NEB SOLN 0.02% 2.5 ML VIAL INH SCH ×4 (01:47→19:15)
[2017-10-01] MEDS: LEVALBUTEROL 0.63MG/3 ML NEB INH SCH ×4 (01:48→19:15)
[2017-10-01 07:53] LABS: CALCIUM 8.3 mg/dl (8.5-10.1); CREATININE 3.56 mg/dl (0.60-1.20); POTASSIUM 3.8 mmol/L (3.5-5.1)
[2017-10-01 08:00] LABS: HEMATOCRIT 28.2 % (37-47); HEMOGLOBIN 8.8 g/dL (12.0-16.0); MEAN CELL VOLUME 110.6 fL (80-100); MEAN CORPUSCULAR HEMOGLOBIN 34.5 pg (25-34); MEAN CORPUSCULAR HGB CONC 31.2 g/dl (32-36); MEAN PLATELET VOLUME 10.3 fL (7.4-10.4); PLATELET COUNT 189 K/uL (130-400); RED CELL DISTRIBUTION WIDTH SD 68.3 fL (36.4-46.3)
[2017-10-01] MEDS: INSULIN ASPART 100 UNITS/ML 3 ML PEN SC SCH ×4 (08:53→21:00)
[2017-10-01] MEDS: PANTOprazole SOD 40 MG TAB PO SCH (08:55)
[2017-10-01] MEDS: METOPROLOL SUCC 50MG EXT REL TAB PO SCH ×2 (08:55→21:25)
[2017-10-01] MEDS: ALLOPURINOL 100 MG TAB PO SCH (08:55)
[2017-10-01] MEDS: GABAPENTIN 100 MG CAP PO SCH ×2 (08:55→21:25)
[2017-10-01] MEDS: SEVELAMER HYDROCH 800 MG TAB PO SCH ×3 (08:55→17:32)
[2017-10-01] MEDS: LACTOBACILLUS ACIDOPHILUS (FLORANEX) TAB PO SCH ×3 (08:56→17:31)
[2017-10-01] MEDS: HEPARIN SOD 5000 UNIT/0.5 ML CARP SQ SCH ×2 (09:00→21:12)
[2017-10-01] MEDS: INSULIN GLARGINE SOLOSTAR 100 UNITS/ML 3 ML PEN SC SCH (21:13)
[2017-10-01] MEDS: RANITIDINE HCL 150 MG TAB PO SCH (21:24)
[2017-10-01] MEDS: DOCUSATE SODIUM 100 MG CAP PO SCH (21:24)
[2017-10-01] MEDS: SERTRALINE HCL 50 MG TAB PO SCH (21:24)
[2017-10-01] MEDS: DIGOXIN 0.125 MG TAB PO SCH (21:28)
[2017-10-01] MEDS: LEVOFLOXACIN / D5W 500 MG in PREMIXED IN D5W 100 ML IV SCH (22:13)
[2017-10-02] VITALS (7 sets, daily range): BP systolic 118–138; BP diastolic 54–77; PULSE 63–101; TEMP 36.4–37; O2SAT 96–100
[2017-10-02] MEDS: LEVALBUTEROL 0.63MG/3 ML NEB INH SCH ×4 (01:35→19:00)
[2017-10-02] MEDS: IPRATROPIUM BROMIDE NEB SOLN 0.02% 2.5 ML VIAL INH SCH ×4 (01:35→18:59)
[2017-10-02 06:21] LABS: HEMATOCRIT 26.7 % (37-47); HEMOGLOBIN 8.1 g/dL (12.0-16.0); MEAN CELL VOLUME 112.7 fL (80-100); MEAN CORPUSCULAR HEMOGLOBIN 34.2 pg (25-34); MEAN CORPUSCULAR HGB CONC 30.3 g/dl (32-36); MEAN PLATELET VOLUME 9.8 fL (7.4-10.4); NUCLEATED RED BLOOD CELL ABS 0.02 K/uL (0-0); PLATELET COUNT 181 K/uL (130-400); RED CELL DISTRIBUTION WIDTH CV 17.6 % (11.5-14.5); RED CELL DISTRIBUTION WIDTH SD 72.5 fL (36.4-46.3); WHITE BLOOD COUNT 4.33 K/uL (4.8-10.8)
[2017-10-02] MEDS: SEVELAMER HYDROCH 800 MG TAB PO SCH ×3 (06:34→17:19)
[2017-10-02 06:58] LABS: CALCIUM 8.1 mg/dl (8.5-10.1); CREATININE 5.51 mg/dl (0.60-1.20); POTASSIUM 4.1 mmol/L (3.5-5.1)
--- NOTE | 2017-10-02 08:31 | Progress Note ---
Subjective Date of Service: late entry for visit Oct 01, 2017. Subjective Pt evaluation today including: conversation w/ patient, conversation w/ family (daughter by phone), physical exam, chart review, lab review, review of inpatient medication list Pain: none voiced PO Intake: fair per staff Voiding: incontinence tele - stable a. fib overnight during the visit she was quite confused; when I asked her her name she couldn't tell me she did not know she was in the hospital could not obtain any meaningful ROS or history from her Problem List Medical Problems: (1) Atrial fibrillation with RVR Status: Acute (2) Change in mental status Status: Acute (3) Dialysis AV fistula malfunction Status: Acute (4) Fever Status: Acute (5) Hypotension Status: Acute (6) Influenza B Status: Acute (7) Leukocytosis Status: Acute (8) Renal failure Status: Acute (9) Respiratory failure Status: Acute (10) Syncope Status: Acute Objective Vital Signs Date Time Temp Pulse Resp B/P (MAP) Pulse Ox O2 Delivery O2 Flow Rate FiO2 10/02/17 01:35 68 16 96 Nasal Cannula 2.0 10/02/17 00:11 36.7 74 18 138/54 (82) 99 2.0 10/02/17 00:00 96 Nasal Cannula 2.0 10/01/17 21:28 75 10/01/17 20:20 96 Nasal Cannula 2.0 10/01/17 19:15 68 16 96 Nasal Cannula 2.0 10/01/17 15:15 36.3 61 18 117/65 (82) 100 Nasal Cannula 3.0 10/01/17 14:30 65 16 96 Nasal Cannula 2.0 10/01/17 14:00 Nasal Cannula 2.0 10/01/17 12:58 36.9 68 16 98 2.0 10/01/17 12:04 36.9 68 16 134/62 (86) 98 Nasal Cannula 10/01/17 12:00 Nasal Cannula 2.0 10/01/17 08:52 127/59 (81) 10/01/17 08:30 Nasal Cannula 2.0 10/01/17 08:25 36.5 83 16 79/64 (69) 98 Nasal Cannula 3.0 10/01/17 06:51 65 16 99 Nasal Cannula 2.0 Physical Exam General Appearance: no apparent distress, + pertinent finding (confused ) ENT: pharynx normal Neck: no JVD Respiratory/Chest: no respiratory distress, no accessory muscle use, + wheezing (b/l ) Cardiovascular: no gallop, + irregularly irregular Abdomen: normal bowel sounds, non tender, soft, no organomegaly Extremities: no pedal edema Neurologic/Psychiatric: alert, + disoriented Skin: no rash, + pertinent finding (permcath, chest, clean ) Laboratory Results Last 24 Hours Test 10/01/17 06:51 10/01/17 06:56 10/01/17 07:13 10/01/17 07:29 Bedside Glucose 58 mg/dl 61 mg/dl 109 mg/dl White Blood Count 4.40 K/uL Red Blood Count 2.55 M/uL Hemoglobin 8.8 g/dL Hematocrit 28.2 % Mean Corpuscular Volume 110.6 fL Mean Corpuscular Hemoglobin 34.5 pg Mean Corpuscular Hemoglobin Concent 31.2 g/dl RDW Standard Deviation 68.3 fL RDW Coefficient of Variation 17.0 % Platelet Count 189 K/uL Mean Platelet Volume 10.3 fL Sodium Level 135 mmol/L Potassium Level 3.8 mmol/L Chloride Level 96 mmol/L Carbon Dioxide Level 33 mmol/L Anion Gap 6.0 mmol/L Blood Urea Nitrogen 15 mg/dl Creatinine 3.56 mg/dl Est Creatinine Clear Calc Drug Dose 11.7 ml/min Estimated GFR () 13.3 Estimated GFR (Non- 11.5 BUN/Creatinine Ratio 4.3 Random Glucose 142 mg/dl Calcium Level 8.3 mg/dl Test 10/01/17 08:05 10/01/17 10:01 10/01/17 11:31 10/01/17 17:08 Thyroid Stimulating Hormone (TSH) 1.860 uIu/ml Vitamin B12 Level 797 pg/mL Folate > 24.00 ng/mL Bedside Glucose 111 mg/dl 116 mg/dl Test 10/01/17 20:57 10/02/17 06:05 Bedside Glucose 155 mg/dl White Blood Count 4.33 K/uL Red Blood Count 2.37 M/uL Hemoglobin 8.1 g/dL Hematocrit 26.7 % Mean Corpuscular Volume 112.7 fL Mean Corpuscular Hemoglobin 34.2 pg Mean Corpuscular Hemoglobin Concent 30.3 g/dl RDW Standard Deviation 72.5 fL RDW Coefficient of Variation 17.6 % Platelet Count 181 K/uL Mean Platelet Volume 9.8 fL Nucleated RBC Absolute Count (auto) 0.02 K/uL Nucleated Red Blood Cells % 0.5 % Assessment and Plan 81yo female - 1. Influenza B - day #5 of tamiflu today; slowly improving. 2. LLL pneumonia, likely superimposed community-acquired pneumonia - day #5 of antibiotics; continue levaquin. Stable. 3. acute hypoxic resp failure - improving/resolved. 2nd to #1, #2. 4. a. fib - rates controlled overnight. Had wide complex tachycardia - this was likely a. fib with aberrancy. Cont dig and BB. No anticoagulation due to h/o recurrent falls (by history). 5. ESRD on HD - appreciate nephrology assistance with HD. HD M/W/. 6. ongoing metabolic encephalopathy - ongoing. Spoke with daughter - she has a small amount of memory loss at baseline. Will transfer her to room with more sunlight and windows; this may help with mentation. Suspect this issue is 2nd to flu and pneumonia. Avoid benzos. Use antipsychotics as last resort. 7. HTN - stable/controlled. 8. chronic diastolic CHF - compensated. 9. T2DM - controlled with lantus/novolog. 10. anxiety - SSRI 11. gout - allopurinol for prophylaxis; controlled 12. macrocytic anemia - check b12, folate, and TSH ok to transfer to med/surg daughter updated by phone Continued [facility] stay due to: ambulation difficulties, other (ongoing delirium ) Discharge planning: shelter facility
[2017-10-02] MEDS: LACTOBACILLUS ACIDOPHILUS (FLORANEX) TAB PO SCH ×3 (09:23→17:19)
[2017-10-02] MEDS: PANTOprazole SOD 40 MG TAB PO SCH (09:24)
[2017-10-02] MEDS: GABAPENTIN 100 MG CAP PO SCH ×2 (09:24→20:04)
[2017-10-02] MEDS: METOPROLOL SUCC 50MG EXT REL TAB PO SCH ×2 (09:25→20:05)
[2017-10-02] MEDS: ALLOPURINOL 100 MG TAB PO SCH (09:25)
[2017-10-02] MEDS: INSULIN ASPART 100 UNITS/ML 3 ML PEN SC SCH ×4 (09:31→21:00)
[2017-10-02] MEDS: HEPARIN SOD 5000 UNIT/0.5 ML CARP SQ SCH ×2 (09:32→21:48)
[2017-10-02] MEDS ORDERED: BISACODYL 10 MG SUPP PR STA (15:39)
[2017-10-02] MEDS: DOCUSATE SODIUM 100 MG CAP PO SCH (20:04)
[2017-10-02] MEDS: SERTRALINE HCL 50 MG TAB PO SCH (20:05)
[2017-10-02] MEDS: RANITIDINE HCL 150 MG TAB PO SCH (20:05)
[2017-10-02] MEDS: INSULIN GLARGINE SOLOSTAR 100 UNITS/ML 3 ML PEN SC SCH (21:48)
--- NOTE | 2017-10-02 22:55 | Progress Note ---
Subjective Date of Service: Oct 02, 2017. Subjective Pt evaluation today including: conversation w/ patient, physical exam, chart review, lab review Pain: denies PO Intake: improved today patient much more awake, alert, oriented today knew she was at [facility] and knew she was in the hospital "for the flu" knew it was 2018 marked improvement from yesterday states "I feel better" less cough no dyspnea at rest Problem List Medical Problems: (1) Atrial fibrillation with RVR Status: Acute (2) Change in mental status Status: Acute (3) Dialysis AV fistula malfunction Status: Acute (4) Fever Status: Acute (5) Hypotension Status: Acute (6) Influenza B Status: Acute (7) Leukocytosis Status: Acute (8) Renal failure Status: Acute (9) Respiratory failure Status: Acute (10) Syncope Status: Acute Review of Systems Constitutional: No fever Respiratory: + cough, No sputum, No dyspnea at rest Cardiac: No chest pain, No orthopnea Abdomen: + constipation, No pain Objective Vital Signs Date Time Temp Pulse Resp B/P (MAP) Pulse Ox O2 Delivery O2 Flow Rate FiO2 10/02/17 19:02 63 16 98 Nasal Cannula 2.0 10/02/17 16:21 Nasal Cannula 2.0 10/02/17 15:22 37.0 101 20 120/77 (91) 99 10/02/17 14:56 71 16 97 Nasal Cannula 2.0 10/02/17 09:20 Nasal Cannula 2.0 10/02/17 07:54 36.4 77 20 118/65 (82) 100 Nasal Cannula 2.0 10/02/17 01:35 68 16 96 Nasal Cannula 2.0 10/02/17 00:11 36.7 74 18 138/54 (82) 99 2.0 10/02/17 00:00 96 Nasal Cannula 2.0 Physical Exam General Appearance: no apparent distress, + pertinent finding (looks better today) ENT: pharynx normal Neck: no JVD Respiratory/Chest: no respiratory distress, no accessory muscle use, + wheezing (b/l; minimal basilar rales) Cardiovascular: no gallop, + irregularly irregular Abdomen: normal bowel sounds, non tender, no organomegaly, + distended (mild) Extremities: no pedal edema Neurologic/Psychiatric: alert, oriented x 3 Skin: no rash, + pallor Laboratory Results Last 24 Hours Test 10/02/17 06:05 10/02/17 07:59 10/02/17 12:01 10/02/17 16:29 White Blood Count 4.33 K/uL Red Blood Count 2.37 M/uL Hemoglobin 8.1 g/dL Hematocrit 26.7 % Mean Corpuscular Volume 112.7 fL Mean Corpuscular Hemoglobin 34.2 pg Mean Corpuscular Hemoglobin Concent 30.3 g/dl RDW Standard Deviation 72.5 fL RDW Coefficient of Variation 17.6 % Platelet Count 181 K/uL Mean Platelet Volume 9.8 fL Nucleated RBC Absolute Count (auto) 0.02 K/uL Nucleated Red Blood Cells % 0.5 % Sodium Level 132 mmol/L Potassium Level 4.1 mmol/L Chloride Level 94 mmol/L Carbon Dioxide Level 29 mmol/L Anion Gap 9.0 mmol/L Blood Urea Nitrogen 25 mg/dl Creatinine 5.51 mg/dl Est Creatinine Clear Calc Drug Dose 7.5 ml/min Estimated GFR () 7.8 Estimated GFR (Non- 6.8 BUN/Creatinine Ratio 4.6 Random Glucose 146 mg/dl Calcium Level 8.1 mg/dl Bedside Glucose 149 mg/dl 127 mg/dl 112 mg/dl Test 10/02/17 21:13 Bedside Glucose 266 mg/dl Assessment and Plan 81yo female - 1. Influenza B - day #5 of tamiflu today, but it is only given after HD; will give 1 more dose after HD tomorrow then d/c. Overall status is improving. Has component of bronchitis from this - add prednisone daily. 2. LLL pneumonia, likely superimposed community-acquired pneumonia - day #6 of antibiotics; continue levaquin. Stable. 3. acute hypoxic resp failure - improving/resolved. 2nd to #1, #2. 4. a. fib - rates controlled. Had wide complex tachycardia earlier this admission - likely a. fib with aberrancy. Cont dig and BB. No anticoagulation due to h/o recurrent falls (by history). 5. ESRD on HD - appreciate nephrology assistance with HD. HD M/W/F. 6. ongoing metabolic encephalopathy - marked improvement overnight. Cont supportive care. 7. HTN - stable/controlled. 8. chronic diastolic CHF - compensated. 9. T2DM - controlled with lantus/novolog but may become uncontrolled with steroids - follow carefully. 10. anxiety - SSRI 11. gout - allopurinol for prophylaxis; controlled 12. macrocytic anemia - checked b12, folate, and TSH - all normal. uncertain etiology. cbc in am daughter updated by phone 10/01/17 dispo - SNF Continued [facility] stay due to: ambulation difficulties, other (ongoing delirium ) Discharge planning: correction facility
[2017-10-03] VITALS (26 sets, daily range): BP systolic 90–174; BP diastolic 33–70; PULSE 67–110; TEMP 36.4–36.8; O2SAT 90–99
[2017-10-03] MEDS: IPRATROPIUM BROMIDE NEB SOLN 0.02% 2.5 ML VIAL INH SCH ×4 (01:58→19:19)
[2017-10-03] MEDS: LEVALBUTEROL 0.63MG/3 ML NEB INH SCH ×4 (01:58→19:19)
[2017-10-03] MEDS: SEVELAMER HYDROCH 800 MG TAB PO SCH ×3 (06:14→17:51)
[2017-10-03] MEDS ORDERED: EPOETIN ALFA 10,000 UNITS/ML VIAL IV. ONE (06:45)
[2017-10-03] MEDS ORDERED: EPOETIN ALFA INJ 12,000 UNITS in SYRINGE 0 ML IV. SCH (07:00)
[2017-10-03] MEDS ORDERED: HEPARIN SOD (PORCINE) 1000 UNIT/ML 10 ML VIAL IV SCH (07:00)
[2017-10-03 07:05] LABS: HEMATOCRIT 27.6 % (37-47); HEMOGLOBIN 8.7 g/dL (12.0-16.0); MEAN CELL VOLUME 110.4 fL (80-100); MEAN CORPUSCULAR HEMOGLOBIN 34.8 pg (25-34); MEAN CORPUSCULAR HGB CONC 31.5 g/dl (32-36); MEAN PLATELET VOLUME 10.3 fL (7.4-10.4); PLATELET COUNT 213 K/uL (130-400); RED CELL DISTRIBUTION WIDTH SD 68.2 fL (36.4-46.3); WHITE BLOOD COUNT 4.19 K/uL (4.8-10.8)
[2017-10-03 07:32] LABS: CALCIUM 8.1 mg/dl (8.5-10.1); CREATININE 7.45 mg/dl (0.60-1.20)
[2017-10-03] MEDS: LACTOBACILLUS ACIDOPHILUS (FLORANEX) TAB PO SCH ×3 (08:00→17:50)
[2017-10-03] MEDS: METOPROLOL SUCC 50MG EXT REL TAB PO SCH ×2 (08:00→20:59)
[2017-10-03] MEDS: INSULIN ASPART 100 UNITS/ML 3 ML PEN SC SCH ×4 (08:49→21:21)
[2017-10-03] MEDS: INSULIN GLARGINE SOLOSTAR 100 UNITS/ML 3 ML PEN SC SCH ×2 (08:51→21:22)
[2017-10-03] MEDS: HEPARIN SOD 5000 UNIT/0.5 ML CARP SQ SCH ×2 (08:52→21:22)
[2017-10-03] MEDS: HEPARIN SOD (PORCINE) 1000 UNIT/ML 10 ML VIAL IV SCH (09:14)
[2017-10-03] MEDS ORDERED: LEVOFLOXACIN 500 MG TAB PO SCH (11:00)
[2017-10-03] MEDS: ALLOPURINOL 100 MG TAB PO SCH (13:11)
[2017-10-03] MEDS: PANTOprazole SOD 40 MG TAB PO SCH (13:12)
[2017-10-03] MEDS: GABAPENTIN 100 MG CAP PO SCH ×2 (13:12→20:50)
--- NOTE | 2017-10-03 17:05 | Hospitalist Progress Note ---
Hospitalist Progress Note Date of Service Oct 03, 2017. (Elizabeth Kingsley ., SANDOVAL) Subjective Pt evaluation today including: conversation w/ patient, conversation w/ family (updated daughter on phone), physical exam, chart review, lab review, review of inpatient medication list Pain: None PO Intake: Tolerating PO diet Voiding: voiding difficulty (makes no urine, ESRD) The patient reports feeling well. She denies any complaints. She is alert, pleasant and cooperative. The patient denies fevers, chills, sweats, chest pain , palpitations, claudication, cough, wheezing, shortness of breath, nausea, vomiting, abdominal pain, dysuria, hematuria, urinary retention, paralysis, weakness, numbness and tingling. Additional Comments: See HPI for pertinent positives and negatives. All other systems reviewed and negative. (Elizabeth Kingsley ., DICKC) Objective Vital Signs Date Time Temp Pulse Resp B/P (MAP) Pulse Ox O2 Delivery O2 Flow Rate FiO2 10/03/17 16:21 36.7 87 18 133/66 (88) 90 Room Air 10/03/17 14:07 70 18 90 Room Air 10/03/17 13:00 36.6 76 105/54 (71) 10/03/17 12:30 72 98/38 10/03/17 12:15 72 108/42 10/03/17 12:00 67 93/45 10/03/17 11:45 78 107/46 10/03/17 11:30 73 96/43 10/03/17 11:15 82 93/42 10/03/17 11:00 96 90/44 10/03/17 10:45 81 105/53 10/03/17 10:30 69 119/41 10/03/17 10:15 80 100/45 10/03/17 10:00 84 96/33 10/03/17 09:45 67 108/49 10/03/17 09:30 89 174/63 10/03/17 09:14 68 121/48 10/03/17 09:05 36.4 85 112/59 (76) 10/03/17 08:02 36.4 74 17 121/65 (83) 90 Room Air 10/03/17 07:14 75 16 93 Room Air 10/03/17 02:01 74 16 99 Nasal Cannula 2.0 10/03/17 01:19 36.8 75 20 138/59 (85) 96 2.0 10/03/17 00:00 Nasal Cannula 2.0 10/02/17 20:30 Nasal Cannula 2.0 10/02/17 19:02 63 16 98 Nasal Cannula 2.0 (Elizabeth Kingsley, WILLIAM-C) Physical Exam Notes: General appearance: Well-developed, well-nourished, no apparent distress Head: Normocephalic, atraumatic Eyes: Normal inspection, PERRL, EOMI ENT: Normal ENT inspection, hearing grossly normal, pharynx normal Neck: Supple, no JVD, trachea midline Respiratory/Chest: +Decreased breath sounds. Lungs clear to auscultation, normal breath sounds, no respiratory distress Cardiovascular: +Irregularly irregular, no gallop, no murmur Abdomen/GI: Normal bowel sounds, non-tender, soft Extremities/Musculoskeletal: Normal inspection, no calf tenderness, no pedal edema Neurological/Psych: +Oriented x 2, disoriented to time. Alert, normal mood/ affect, oriented x2 Skin: Normal color, warm/dry, no rash (Elizabeth Kingsley ., PA-C) Laboratory Results Last 24 Hours Test 10/02/17 21:13 10/03/17 06:29 10/03/17 07:46 10/03/17 11:24 Bedside Glucose 266 mg/dl 236 mg/dl 162 mg/dl White Blood Count 4.19 K/uL Red Blood Count 2.50 M/uL Hemoglobin 8.7 g/dL Hematocrit 27.6 % Mean Corpuscular Volume 110.4 fL Mean Corpuscular Hemoglobin 34.8 pg Mean Corpuscular Hemoglobin Concent 31.5 g/dl RDW Standard Deviation 68.2 fL RDW Coefficient of Variation 17.0 % Platelet Count 213 K/uL Mean Platelet Volume 10.3 fL Sodium Level 130 mmol/L Potassium Level 5.0 mmol/L Chloride Level 92 mmol/L Carbon Dioxide Level 29 mmol/L Anion Gap 9.0 mmol/L Blood Urea Nitrogen 48 mg/dl Creatinine 7.45 mg/dl Est Creatinine Clear Calc Drug Dose 5.6 ml/min Estimated GFR () 5.4 Estimated GFR (Non- 4.7 BUN/Creatinine Ratio 6.5 Random Glucose 247 mg/dl Calcium Level 8.1 mg/dl (Elizabeth Kingsley ., SANDOVAL) Assessment and Plan 81 y/o female with a history of ESRD on HD, a-fib, HTN, CAD, chronic respiratory failure on nighttime O2, diastolic CHF, DM II, anxiety/depression, gout, and GERD who presents with fever and hypoxia following perm cath placement for dialysis. Influenza B, secondary bacterial PNA--improving -Admit to telemetry. Pt in a-fib overnight with HR 70s-80s. No reoccurrence of WCT. Moved to med/surg -Continue Tamiflu 30 mg PO after dialysis, last dose today. -CXR 09/28 shows increasing left retrocardiac opacity concerning for developing LLL PNA. Suggested volume overload but no catalina edema. -Continue Levaquin 500 mg PO q48h, day #7 of abx -Vanc d/c'd -Blood cultures negative, MRSA nares negative -Xopenex/Atrovent nebs QIDR Acute on chronic respiratory failure w/hypoxia secondary to flu/PNA--improving -Only wears nighttime O2 at baseline. Currently on room air -O2 by protocol Run of wide complex tachycardia, hypotension, s/p pacemaker--resolved. No further evidence of wide complex tachycardia -Consult cardiology, appreciate recs: Likely a-fib with aberrancy which is benign. No intervention at this time. ESRD on HD -Had thrombosed graft, s/p left IJ perm cath w/Dr. Guillory 09/27 -Nephrology following: dialysis per schedule -On MWF schedule -Continue Renvela, Nephrocaps Metabolic encephalopathy--stable -Encephalopathy waxes and wanes, alert and fairly well oriented today -Repeat CXR 09/30 shows stable to slight interval increase in left retrocardiac opacity, concerning for focal consolidation/pneumonia. Alternatively, this may represent aspiration. -Repeat EKG no changes A-fib--stable, rate controlled -No longer on AC due to multiple falls -Continue digoxin 125 mcg PO q2d, Toprol 50 mg PO BID (hold if SBP less than 100 or HR less than 60) HTN--stable -Hold parameters for metoprolol as above Diastolic CHF--no acute exac -Beta brent as above DM II w/neuropathy--HgbA1c 8.5 on 09/28 -Lantus 20 units SC hs, 10 units SC qam -Insulin sliding scale -Check BSGs q ac and qhs -Continue gabapentin 100 mg PO BID Anxiety/depression -Continue Zoloft 50 mg PO qd Gout -Continue allopurinol 100 mg PO qd Dispo -From rehab, wants placed back -Accepted to [facility], bed available tomorrow (Elizabeth Kingsley ., PAZuly) Attending Attestation - Pt seen/examined, chart reviewed, care plan d/w WILLIAM Kingsley. I agree w/ the reed components of her documentation. Pt eating dinner during the visit and ate very well. Knows she is at [facility], that it is September, and 2017. I spoke with daughter by phone - she agrees her mother is back to baseline. No issues per staff. VSS afebrile o2 sats acceptable in RA gen - sitting in chair eating, NAD, looks good; some coughing neck - no JVD heart - irregular, HR<100 lungs - b/l wheeze w/ course BS abd - soft ext - no edema A/P: 1. flu B - today is last day of tamiflu - clinically improved. 2. acute bronchitis 2nd to #1 - slow improvement; cont nebs, steroids, supportive care. 3. severe metabolic encephalopathy 2nd to 1, 2 above - improved. 4. superimposed community-acquired pneumonia - improved, finish levaquin. 5. ESRD on HD - s/p HD today; appreciate nephrology assistance. dispo - [facility], maybe tomorrow daughter updated Patrick Dietrich MD (Patrick Dietrich MD)
--- NOTE | 2017-10-03 20:31 | Nephrology Progress Note ---
Nephrology Progress Note Date of Service: Oct 03, 2017. Subjective ongoing intermittent confusion. no n/v; alert, interactive, on Ra, still thick heavy cough in exam Objective Date Time Temp Pulse Resp B/P (MAP) Pulse Ox O2 Delivery O2 Flow Rate FiO2 10/03/17 16:21 36.7 87 18 133/66 (88) 90 Room Air 10/03/17 14:07 70 18 90 Room Air 10/03/17 13:00 36.6 76 105/54 (71) 10/03/17 12:30 72 98/38 10/03/17 12:15 72 108/42 10/03/17 12:00 67 93/45 10/03/17 11:45 78 107/46 10/03/17 11:30 73 96/43 10/03/17 11:15 82 93/42 10/03/17 11:00 96 90/44 10/03/17 10:45 81 105/53 10/03/17 10:30 69 119/41 10/03/17 10:15 80 100/45 10/03/17 10:00 84 96/33 10/03/17 09:45 67 108/49 10/03/17 09:30 89 174/63 10/03/17 09:14 68 121/48 10/03/17 09:05 36.4 85 112/59 (76) 10/03/17 08:02 36.4 74 17 121/65 (83) 90 Room Air 10/03/17 08:00 90 Room Air 10/03/17 07:14 75 16 93 Room Air 10/03/17 02:01 74 16 99 Nasal Cannula 2.0 10/03/17 01:19 36.8 75 20 138/59 (85) 96 2.0 10/03/17 00:00 Nasal Cannula 2.0 10/02/17 20:30 Nasal Cannula 2.0 10/02/17 19:02 63 16 98 Nasal Cannula 2.0 Physical Exam: [id number], more awake today, thick cough, on ra Eyes-no scleral icterus ENT-mmm Neck-supple Lungs-no wheezes/crx but minimal air mvt Heart-irregularly irregular Abdomen-bs+ s/nt/nd Extremities- no edema, clotted AVF R prox Neuro-fluent speech now alert, ayala Current Inpatient Medications Medications (Trade) Dose Ordered Sig/Juanita Route Start Time Stop Time Status Last Admin Dose Admin Allopurinol (Zyloprim Tab) 100 mg DAILY PO 09/28/17 09:00 10/28/17 08:59 10/03/17 13:11 100 MG Digoxin (Lanoxin Tab) 0.125 mg Q2D@2100 PO 09/27/17 21:00 10/27/17 20:59 10/01/17 21:28 0.125 MG Docusate Sodium (coLACE CAP) 100 mg HS PO 09/27/17 21:00 10/27/17 20:59 10/02/17 20:04 100 MG Gabapentin (Neurontin Cap) 100 mg BID PO 09/27/17 21:00 10/27/17 20:59 10/03/17 13:12 100 MG Metoprolol Succinate (Toprol Xl Tab) 50 mg BID PO 09/27/17 21:00 10/27/17 20:59 10/02/17 20:05 50 MG Ranitidine HCl (zANTac TAB) 150 mg HS PO 09/27/17 21:00 10/27/17 20:59 10/02/17 20:05 150 MG Sertraline HCl (Zoloft Tab) 50 mg QPM PO 09/27/17 21:00 10/27/17 20:59 10/02/17 20:05 50 MG Tramadol HCl (Ultram Tab) 50 mg Q4H PRN PO 09/27/17 15:15 10/27/17 15:14 Pantoprazole Sodium (Protonix Tab) 40 mg QAM PO 09/28/17 09:00 10/28/17 08:59 10/03/17 13:12 40 MG Sevelamer HCl (Renagel Tab) 800 mg AC PO 09/27/17 16:00 10/27/17 15:59 10/03/17 17:51 800 MG Heparin Sodium (Porcine) (Heparin Sq 5000 Unit/0.5ml) 5,000 unit Q12 SQ 09/27/17 21:00 10/27/17 20:59 10/03/17 08:52 5,000 UNIT Acetaminophen (Tylenol Tab) 650 mg Q4H PRN PO 09/27/17 15:15 10/27/17 15:14 Al Hydrox/Mg Hydrox/Simethicone (Maalox Max Susp) 15 ml Q4H PRN PO 09/27/17 15:15 10/27/17 15:14 Magnesium Hydroxide (Milk Of Magnesia Susp) 30 ml Q12H PRN PO 09/27/17 15:15 10/27/17 15:14 10/02/17 18:46 30 ML Insulin Aspart (novoLOG ASPART) SLIDING SCALE If C... ACHS SC 09/27/17 16:00 10/27/17 15:59 10/03/17 17:58 6 UNITS Glucose (Glucose 40% Gel) 15-30 GRAMS 15 GRAMS... UD PRN PO 09/27/17 15:15 10/27/17 15:14 Glucose (Glucose Chew Tab) 4-8 Tablets 4 Tabl... UD PRN PO 09/27/17 15:15 10/27/17 15:14 Dextrose (Dextrose 50% 50ML Syringe) 25-50ML OF 50% DW IV FOR... UD PRN IV 09/27/17 15:15 10/27/17 15:14 10/01/17 07:08 25 ML Glucagon (Glucagon Inj) 1 mg UD PRN SQ 09/27/17 15:15 10/27/17 15:14 Guaifenesin (Robitussin Sugar Free Syrup) 100 mg Q6H PRN PO 09/27/17 15:15 10/27/17 15:14 09/30/17 07:39 100 MG Lactobacillus Acidophilus (Floranex Tab) 4 tab TIDM PO 09/27/17 18:00 10/27/17 17:59 10/03/17 17:50 4 TAB Ipratropium [place] (Atrovent 0.02% 0.5MG/2.5ML Neb) 0.5 mg Q6R INH 09/27/17 21:00 10/27/17 20:59 10/03/17 14:06 0.5 MG Levalbuterol (Xopenex 0.63 Mg/ 3 Ml Neb) 0.63 mg Q6R INH 09/27/17 21:00 10/27/17 20:59 10/03/17 14:06 0.63 MG Insulin Glargine (Lantus Solostar Pen) 20 units HS SC 10/01/17 21:00 10/27/17 20:59 10/02/17 21:48 20 UNITS Prednisone (PredniSONE TAB) 60 mg DAILY PO 10/03/17 08:00 11/02/17 07:59 10/03/17 13:11 60 MG Insulin Glargine (Lantus Solostar Pen) 10 units QAM SC 10/03/17 08:45 11/02/17 08:44 10/03/17 08:51 10 UNITS Levofloxacin (Levaquin Tab) 500 mg Q2D@1100 PO 10/03/17 11:00 10/04/17 10:59 10/03/17 13:10 500 MG Last 24 Hours Test 10/02/17 21:13 10/03/17 06:29 10/03/17 07:46 10/03/17 11:24 Bedside Glucose 266 mg/dl 236 mg/dl 162 mg/dl White Blood Count 4.19 K/uL Red Blood Count 2.50 M/uL Hemoglobin 8.7 g/dL Hematocrit 27.6 % Mean Corpuscular Volume 110.4 fL Mean Corpuscular Hemoglobin 34.8 pg Mean Corpuscular Hemoglobin Concent 31.5 g/dl RDW Standard Deviation 68.2 fL RDW Coefficient of Variation 17.0 % Platelet Count 213 K/uL Mean Platelet Volume 10.3 fL Sodium Level 130 mmol/L Potassium Level 5.0 mmol/L Chloride Level 92 mmol/L Carbon Dioxide Level 29 mmol/L Anion Gap 9.0 mmol/L Blood Urea Nitrogen 48 mg/dl Creatinine 7.45 mg/dl Est Creatinine Clear Calc Drug Dose 5.6 ml/min Estimated GFR () 5.4 Estimated GFR (Non- 4.7 BUN/Creatinine Ratio 6.5 Random Glucose 247 mg/dl Calcium Level 8.1 mg/dl Test 10/03/17 16:57 Bedside Glucose 227 mg/dl Assessment & Plan 81 yo female w/ ESRD on mwf HD admitted w/ clotted AVF, now w/ TDC and found also to have the flu/PNA ESRD-had dialysis 09/27, 09/28, 09/29, 09/30. today had 2.5L fluid removed at HD; next hd on 10/05 as outpt or as clinical status dictates Anemia of renal failure-hg goal of 10 to 11 and redosed procrit today. Flu-on tamiflu (last dose today) and levaquin (7 days abtx to date). trying to optimize volume status to help with breathing.
[2017-10-03] MEDS: DOCUSATE SODIUM 100 MG CAP PO SCH (20:50)
[2017-10-03] MEDS: RANITIDINE HCL 150 MG TAB PO SCH (20:51)
[2017-10-03] MEDS: SERTRALINE HCL 50 MG TAB PO SCH (20:52)
[2017-10-03] MEDS: DIGOXIN 0.125 MG TAB PO SCH (20:59)
[2017-10-04] VITALS (7 sets, daily range): BP systolic 140–153; BP diastolic 66–72; PULSE 81–96; TEMP 36.6–37; O2SAT 90–99
[2017-10-04] MEDS: IPRATROPIUM BROMIDE NEB SOLN 0.02% 2.5 ML VIAL INH SCH ×5 (01:49→19:27)
[2017-10-04] MEDS: LEVALBUTEROL 0.63MG/3 ML NEB INH SCH ×5 (01:49→19:27)
[2017-10-04] MEDS: SEVELAMER HYDROCH 800 MG TAB PO SCH ×3 (06:45→16:09)
[2017-10-04 07:19] LABS: HEMATOCRIT 28.2 % (37-47); HEMOGLOBIN 8.9 g/dL (12.0-16.0); MEAN CELL VOLUME 110.6 fL (80-100); MEAN CORPUSCULAR HEMOGLOBIN 34.9 pg (25-34); MEAN CORPUSCULAR HGB CONC 31.6 g/dl (32-36); MEAN PLATELET VOLUME 10.3 fL (7.4-10.4); PLATELET COUNT 266 K/uL (130-400); RED CELL DISTRIBUTION WIDTH CV 17.2 % (11.5-14.5); RED CELL DISTRIBUTION WIDTH SD 69.4 fL (36.4-46.3); WHITE BLOOD COUNT 6.14 K/uL (4.8-10.8)
[2017-10-04 08:11] LABS: CALCIUM 7.9 mg/dl (8.5-10.1); CREATININE 5.43 mg/dl (0.60-1.20); POTASSIUM 4.8 mmol/L (3.5-5.1)
[2017-10-04] MEDS: GABAPENTIN 100 MG CAP PO SCH ×2 (08:34→20:47)
[2017-10-04] MEDS: PANTOprazole SOD 40 MG TAB PO SCH (08:35)
[2017-10-04] MEDS: LACTOBACILLUS ACIDOPHILUS (FLORANEX) TAB PO SCH ×3 (08:35→16:10)
[2017-10-04] MEDS: METOPROLOL SUCC 50MG EXT REL TAB PO SCH ×2 (08:35→20:48)
[2017-10-04] MEDS: ALLOPURINOL 100 MG TAB PO SCH (08:36)
[2017-10-04] MEDS: INSULIN ASPART 100 UNITS/ML 3 ML PEN SC SCH ×4 (08:41→20:51)
[2017-10-04] MEDS: INSULIN GLARGINE SOLOSTAR 100 UNITS/ML 3 ML PEN SC SCH ×2 (08:42→20:52)
[2017-10-04] MEDS: HEPARIN SOD 5000 UNIT/0.5 ML CARP SQ SCH ×2 (08:42→20:52)
[2017-10-04] MEDS: HEPARIN SOD (PORCINE) 1000 UNIT/ML 10 ML VIAL IV SCH (08:43)
[2017-10-04] MEDS ORDERED: PRD20 PO (11:08)
[2017-10-04] MEDS ORDERED: IPRA1AER2 INH (11:08)
[2017-10-04] MEDS ORDERED: INSDGIPEN SC ×2 (11:08)
[2017-10-04] MEDS ORDERED: TPRSR50 PO (11:08)
--- NOTE | 2017-10-04 11:24 | Discharge Instructions ---
Discharge Instructions Date of Service Oct 06, 2017. Admission Reason for Admission: Influenza Type B Discharge Discharge Diagnosis / Problem: Influenza B, pneumonia Discharge Goals Goal(s): Decrease discomfort, Improve function, Diagnostic testing, Therapeutic intervention Activity Recommendations Activity Level: Assistance Required Therapies: Physical Therapy, Occupational Therapy . Additional Information Patient informed of condition: Yes Advance Directives: No DNR: No Level of Care: Skilled Communicable Disease: Yes (Recovering from influenza, completed course of Tamiflu) Prognosis: Stable Oxygen at (LPM): O2 NC by protocol Henriquez Catheter: No Instructions / Follow-Up Instructions / Follow-Up The patient had originally presented to the hospital for an outpatient procedure for a perm catheter as her previous graft for hemodialysis had thrombosed. The patient then developed fever and hypoxia. She was found to be influenza B positive and admitted to the hospital. The patient also developed a secondary bacterial pneumonia. She has now completed a course of Tamiflu and antibiotics. The patient did have off/on metabolic encephalopathy, but this is now resolved and she is back to her baseline mentation. She is medically stable for discharge to SNF. Medications: *Please complete the following prednisone taper: -Take 40 mg (2 tablets) by mouth daily for 3 days, then -Take 20 mg (1 tablet) by mouth daily for 3 days, then stop. *Patient's Lantus changed to 20 units SC at bedtime and 10 units SC in the morning. She had previously been on 30 units at bedtime but developed hypoglycemia in the morning. She has since been stable on the split dosing. *Metoprolol succinate decreased to 50 mg twice a day. The patient had hypotension and dizziness, now stable on lower dose. She had reportedly been on a total of 300 a day prior to arrival. *Combivent QIDR. *Can stop tramadol, patient denies any pain and has not needed during entire stay. *Continue other home medications as prescribed. Follow up: *Follow up with primary care provider within 1 week of discharge. *Please have patient follow up with [facility] pulmonology. She was seen by this group as an inpatient for bilateral pleural effusions. They did not recommend any thoracentesis or change in management at this time as she is asymptomatic. If she becomes short of breath or hypoxic, please repeat chest x-ray and/or chest CT. Please seek medical attention if patient experiences fevers, chills, sweats, dizziness/lightheadedness, loss of consciousness, chest pain, shortness of breath, nausea, vomiting, numbness or tingling. Current Hospital Diet Patient's current hospital diet: Diabetes Type 2 Diet, Renal Diet Discharge Diet Recommended Diet: Diabetes Type 2 Diet, Renal Diet Pending Studies Studies pending at discharge: no Physician Orders On Transfer Special Precautions: Fall precautions, aspiration precautions Dressing Changes: Perm cath left IJ, change dressing routine Vital Signs: Routine Additional Orders: Hemodialysis Tuesday, Tuesday, Tuesday Laboratory Results Hemoglobin A1c Test 09/28/17 05:20 Range/Units Estimated Average Glucose 197 mg/dl Hemoglobin A1c 8.5 H 4.5-5.6 % Medical Emergencies . Who to Call and When: Medical Emergencies: If at any time you feel your situation is an emergency, please call 911 immediately. . Non-Emergent Contact Non-Emergency issues call your: Primary Care Provider, Food Safety Scientist Call Non-Emergent contact if: you have a fever, wound has increased drainage, wound has increased redness, wound has increased pain, you have any medication questions . Past History Medical & Surgical History: (1) Pneumonia (2) Influenza B . "Provider Documentation" section prepared by Elizabeth Kingsley. . Core Measure Problem Core Measures: None
[2017-10-04] MEDS ORDERED: RANI150T85 PO (12:35)
--- NOTE | 2017-10-04 13:35 | DIAGNOSTIC IMAGING REPORT ---
CHEST 2 VIEWS ROUTINE HISTORY: 81 years-old Female influenza, pneumonia, persistent wheezing acute pneumonia with wheezing COMPARISON: Chest radiograph 09/30/2017 TECHNIQUE: AP and lateral views of the chest FINDINGS: Dual lumen left internal jugular hemodialysis catheter and a single lumen right internal jugular central venous catheter appears to be in stable positioning. Single lead left subclavian pacer is unchanged. Cardiac silhouette is again enlarged, unchanged. Atherosclerosis of the aorta. There is mild pulmonary vascular congestion with associated mild interstitial coarsening. No pneumothorax. Trace right and small left pleural effusions with possible loculation on the left. Similar patchy opacities of the left lung base. Bones appear grossly intact. Vascular calcifications of the upper abdomen are noted in addition to cholecystectomy clips. Stent graft about the right upper arm. IMPRESSION: 1. Cardiomegaly with mild pulmonary vascular congestion. 2. Trace right and small left pleural effusions with mildly loculated pleural fluid on the left. 2. Persistent left basilar consolidative opacities suspicious for pneumonia. The above report was generated using voice recognition software. It may contain grammatical, syntax or spelling errors. Electronically signed by: Bruno Healy M.D. 10/04/2017 1:33 PM Dictated Date/Time: 10/04/2017 1:29 PM
--- NOTE | 2017-10-04 16:51 | Hospitalist Progress Note ---
Hospitalist Progress Note Date of Service Oct 04, 2017. (Elizabeth Kingsley ., WILLIAM-C) Subjective Pt evaluation today including: conversation w/ patient, conversation w/ family (spoke with daughter Suzi on phone), physical exam, chart review, lab review, review of studies, review of inpatient medication list Pain: None PO Intake: Tolerating PO diet Voiding: voiding difficulty (ESRD) Patient reports feeling well, denies any complaints. Patient alert, oriented and calm. The patient denies fevers, chills, sweats, chest pain, palpitations, claudication, cough, wheezing, shortness of breath, nausea, vomiting, abdominal pain, dysuria, hematuria, urinary retention, paralysis, weakness, numbness and tingling. Additional Comments: See HPI for pertinent positives and negatives. All other systems reviewed and negative. (Elizabeth Kingsley ., WILLIAM-C) Objective Vital Signs Date Time Temp Pulse Resp B/P (MAP) Pulse Ox O2 Delivery O2 Flow Rate FiO2 10/04/17 15:09 36.6 81 19 150/69 (96) 90 10/04/17 14:07 92 18 96 Room Air 10/04/17 08:30 Nasal Cannula 2.0 10/04/17 07:16 36.7 88 18 140/66 (90) 95 Nasal Cannula 2.0 10/04/17 01:49 92 16 98 Nasal Cannula 2.0 10/04/17 00:00 Nasal Cannula 2.0 10/03/17 20:59 95 10/03/17 20:57 95 20 148/70 (96) 92 Nasal Cannula 2.0 10/03/17 20:00 Room Air 10/03/17 19:19 110 18 92 Room Air (Elizabeth Kingsley ., WILLIAM-C) Physical Exam Notes: General appearance: Well-developed, well-nourished, no apparent distress Head: Normocephalic, atraumatic Eyes: Normal inspection, PERRL, EOMI ENT: Normal ENT inspection, hearing grossly normal, pharynx normal Neck: Supple, no JVD, trachea midline Respiratory/Chest: +Decreased breath sounds, worse today. Lungs clear to auscultation, normal breath sounds, no respiratory distress Cardiovascular: +Irregularly irregular, no gallop, no murmur Abdomen/GI: Normal bowel sounds, non-tender, soft Extremities/Musculoskeletal: Normal inspection, no calf tenderness, no pedal edema Neurological/Psych: Alert, normal mood/affect, oriented x3 Skin: Normal color, warm/dry, no rash (Elizabeth Kingsley ., WILLIAM-C) Laboratory Results Last 24 Hours Test 10/03/17 16:57 10/03/17 20:01 10/04/17 06:22 10/04/17 07:45 Bedside Glucose 227 mg/dl 282 mg/dl 215 mg/dl White Blood Count 6.14 K/uL Red Blood Count 2.55 M/uL Hemoglobin 8.9 g/dL Hematocrit 28.2 % Mean Corpuscular Volume 110.6 fL Mean Corpuscular Hemoglobin 34.9 pg Mean Corpuscular Hemoglobin Concent 31.6 g/dl RDW Standard Deviation 69.4 fL RDW Coefficient of Variation 17.2 % Platelet Count 266 K/uL Mean Platelet Volume 10.3 fL Sodium Level 129 mmol/L Potassium Level 4.8 mmol/L Chloride Level 94 mmol/L Carbon Dioxide Level 27 mmol/L Anion Gap 8.0 mmol/L Blood Urea Nitrogen 42 mg/dl Creatinine 5.43 mg/dl Est Creatinine Clear Calc Drug Dose 7.5 ml/min Estimated GFR () 8.0 Estimated GFR (Non- 6.9 BUN/Creatinine Ratio 7.6 Random Glucose 242 mg/dl Calcium Level 7.9 mg/dl Chemistry Specimen Hemolysis Test 10/04/17 11:42 Bedside Glucose 88 mg/dl (Elizabeth Kingsley ., PA-C) Diagnostic Results Reviewed the following studies and agree with interpretation as follows: CHEST 2 VIEWS ROUTINE HISTORY: 81 years-old Female influenza, pneumonia, persistent wheezing acute pneumonia with wheezing COMPARISON: Chest radiograph 09/30/2017 TECHNIQUE: AP and lateral views of the chest FINDINGS: Dual lumen left internal jugular hemodialysis catheter and a single lumen right internal jugular central venous catheter appears to be in stable positioning. Single lead left subclavian pacer is unchanged. Cardiac silhouette is again enlarged, unchanged. Atherosclerosis of the aorta. There is mild pulmonary vascular congestion with associated mild interstitial coarsening. No pneumothorax. Trace right and small left pleural effusions with possible loculation on the left. Similar patchy opacities of the left lung base. Bones appear grossly intact. Vascular calcifications of the upper abdomen are noted in addition to cholecystectomy clips. Stent graft about the right upper arm. IMPRESSION: 1. Cardiomegaly with mild pulmonary vascular congestion. 2. Trace right and small left pleural effusions with mildly loculated pleural fluid on the left. 2. Persistent left basilar consolidative opacities suspicious for pneumonia. (Elizabeth Kingsley ., DICKC) Assessment and Plan 81 y/o female with a history of ESRD on HD, a-fib, HTN, CAD, chronic respiratory failure on nighttime O2, diastolic CHF, DM II, anxiety/depression, gout, and GERD who presents with fever and hypoxia following perm cath placement for dialysis. Influenza B, secondary bacterial PNA--improving -Admit to telemetry. Pt in a-fib overnight with HR 70s-80s. No reoccurrence of WCT. Moved to med/surg -Completed course of Tamilfu and 7 days Levaquin -CXR 09/28 shows increasing left retrocardiac opacity concerning for developing LLL PNA. Suggested volume overload but no catalina edema. -Repeat CXR 10/04 with persistent left basilar consolidative opacities -Blood cultures negative, MRSA nares negative -Xopenex/Atrovent nebs QIDR Acute on chronic respiratory failure w/hypoxia secondary to flu/PNA--stable -Only wears nighttime O2 at baseline. Currently on 2L -Increased oxygen requirement today, lungs more diminished. D/C prednisone, start Solu-Medrol 30 mg IV q12h -O2 by protocol Run of wide complex tachycardia, hypotension, s/p pacemaker--resolved. No further evidence of wide complex tachycardia -Consult cardiology, appreciate recs: Likely a-fib with aberrancy which is benign. No intervention at this time. ESRD on HD -Had thrombosed graft, s/p left IJ perm cath w/Dr. Guillory 09/27 -Nephrology following: dialysis per schedule -On MWF schedule -Continue Renvela, Nephrocaps Metabolic encephalopathy--resolved -Pt alert and oriented x 3 today -Repeat CXR 09/30 shows stable to slight interval increase in left retrocardiac opacity, concerning for focal consolidation/pneumonia. Alternatively, this may represent aspiration. -Repeat EKG no changes A-fib--stable, rate controlled -No longer on AC due to multiple falls -Continue digoxin 125 mcg PO q2d, Toprol 50 mg PO BID (hold if SBP less than 100 or HR less than 60) HTN--stable -Hold parameters for metoprolol as above Diastolic CHF--no acute exac -Beta brent as above DM II w/neuropathy--HgbA1c 8.5 on 09/28 -Lantus 20 units SC hs, 10 units SC qam -Insulin sliding scale -Check BSGs q ac and qhs -Continue gabapentin 100 mg PO BID Anxiety/depression -Continue Zoloft 50 mg PO qd Gout -Continue allopurinol 100 mg PO qd Dispo -From rehab, wants placed back -[facility]ed to [facility] -Monitor today on increased steroids, possibly d/c tomorrow (Elizabeth Kingsley ., PADonalC) Attending Attestation - Pt seen/examined, chart reviewed, care plan d/w WILLIAM Kingsley. I agree w/ the reed components of her documentation. Pt eating lunch and watching TV during the visit. She is back on [place] O2. I turned the O2 off and 10 min later her O2 sats were 89-90% in RA. She coughed throughout the entire visit. A/o x 3 for me today. VSS afebrile gen - NAD, coughing neck - no JVD heart - irregular, HR<100 lungs - b/l wheeze w/ course BS anteriorly (worse than yesterday - did not clear with coughing); posteriorly - wheezes b/l, course BS, decreased BS b/l abd - soft ext - no edema A/P: 1. flu B - finished tamiflu course; afebrile, eating well. 2. acute bronchitis 2nd to #1 - slow improvement despite prednisone 60mg daily ; agree with stopping prednisone, changing to solumedrol BID; cont nebs, supportive care. Needs better pulmonary toilet. 3. severe metabolic encephalopathy 2nd to 1, 2 above - resolved. 4. superimposed community-acquired pneumonia - afebrile, but ongoing cough/o2 requirement. cxr obtained today --- ?left sided loculated pleural effusion? Consider CT chest in AM. 5. ESRD on HD - appreciate nephrology assistance. dispo - [facility] - no discharge today Patrick Dietrich MD (Patrick Dietrich MD)
[2017-10-04] MEDS: METHYLPREDNISOLONE IV 30 MG in SYRINGE 0 ML IV SCH (17:51)
[2017-10-04] MEDS: DOCUSATE SODIUM 100 MG CAP PO SCH (20:45)
[2017-10-04] MEDS: RANITIDINE HCL 150 MG TAB PO SCH (20:46)
[2017-10-04] MEDS: SERTRALINE HCL 50 MG TAB PO SCH (20:46)
[2017-10-05] VITALS (21 sets, daily range): BP systolic 114–164; BP diastolic 54–72; PULSE 65–87; TEMP 36.4–37.2; O2SAT 92–98
[2017-10-05] MEDS: LEVALBUTEROL 0.63MG/3 ML NEB INH SCH ×4 (01:55→19:21)
[2017-10-05] MEDS: IPRATROPIUM BROMIDE NEB SOLN 0.02% 2.5 ML VIAL INH SCH ×4 (01:55→19:21)
[2017-10-05] MEDS: SEVELAMER HYDROCH 800 MG TAB PO SCH ×3 (06:04→17:54)
[2017-10-05] MEDS: METHYLPREDNISOLONE IV 30 MG in SYRINGE 0 ML IV SCH ×2 (06:05→17:53)
[2017-10-05] MEDS ORDERED: EPOETIN ALFA 10,000 UNITS/ML VIAL IV. ONE (07:45)
[2017-10-05] MEDS ORDERED: EPOETIN ALFA INJ 12,000 UNITS in SYRINGE 0 ML IV. SCH (08:00)
[2017-10-05] MEDS: LACTOBACILLUS ACIDOPHILUS (FLORANEX) TAB PO SCH ×3 (08:20→17:53)
[2017-10-05] MEDS: PANTOprazole SOD 40 MG TAB PO SCH (08:20)
[2017-10-05] MEDS: GABAPENTIN 100 MG CAP PO SCH ×2 (08:21→19:43)
[2017-10-05] MEDS: ALLOPURINOL 100 MG TAB PO SCH (08:21)
[2017-10-05] MEDS: INSULIN ASPART 100 UNITS/ML 3 ML PEN SC SCH ×4 (08:38→22:13)
[2017-10-05] MEDS: INSULIN GLARGINE SOLOSTAR 100 UNITS/ML 3 ML PEN SC SCH ×2 (08:39→22:13)
[2017-10-05] MEDS: HEPARIN SOD (PORCINE) 1000 UNIT/ML 10 ML VIAL IV SCH ×5 (08:53→16:35)
[2017-10-05 09:10] LABS: CALCIUM 7.8 mg/dl (8.5-10.1); CREATININE 7.2 mg/dl (0.60-1.20); POTASSIUM 4.9 mmol/L (3.5-5.1)
[2017-10-05] MEDS: HEPARIN SOD 5000 UNIT/0.5 ML CARP SQ SCH ×2 (11:00→22:14)
[2017-10-05] MEDS: METOPROLOL SUCC 50MG EXT REL TAB PO SCH ×2 (12:55→19:45)
--- NOTE | 2017-10-05 15:41 | Hospitalist Progress Note ---
Hospitalist Progress Note Date of Service Oct 05, 2017. (Elizabeth Kingsley ., PA-C) Subjective Pt evaluation today including: conversation w/ patient, physical exam, chart review, lab review, review of inpatient medication list Pain: None PO Intake: Tolerating PO diet Voiding: voiding difficulty (ESRD, little urine) Patient examined during dialysis. Patient reports "feeling terrible" but cannot voice why. Denied all ROS except for productive cough and feeling fatigued. When questioned further, she states she usually feels fatigued during dialysis, so unclear if this is just how she always feels during sessions or worse than normal today. The patient denies fevers, chills, sweats , chest pain, palpitations, claudication, wheezing, shortness of breath, nausea , vomiting, abdominal pain, dysuria, hematuria, urinary retention, paralysis, weakness, numbness and tingling. Additional Comments: See HPI for pertinent positives and negatives. All other systems reviewed and negative. (Elizabeth Kingsley ., PA-C) Objective Vital Signs Date Time Temp Pulse Resp B/P (MAP) Pulse Ox O2 Delivery O2 Flow Rate FiO2 10/05/17 14:18 36.4 69 18 114/54 (74) 93 10/05/17 14:17 87 18 92 Room Air 10/05/17 13:00 37.2 78 124/59 (80) 10/05/17 12:15 75 124/54 10/05/17 12:00 69 118/54 10/05/17 11:45 67 128/55 10/05/17 11:15 81 118/56 10/05/17 11:00 71 121/58 10/05/17 10:45 67 125/54 10/05/17 10:30 66 124/65 10/05/17 10:15 68 132/63 10/05/17 10:00 75 136/68 10/05/17 09:45 69 133/62 10/05/17 09:30 65 142/64 10/05/17 09:15 74 132/72 10/05/17 08:53 68 127/63 10/05/17 08:45 37.1 76 164/63 (96) 10/05/17 08:40 Room Air 2.0 10/05/17 07:49 36.5 85 20 163/69 (100) 92 10/05/17 07:49 Room Air 3/7/18 07:35 75 16 98 Nasal Cannula 2.0 10/05/17 01:55 70 16 98 Nasal Cannula 2.0 10/05/17 00:26 Nasal Cannula 2.0 10/04/17 23:54 37.0 85 19 153/72 (99) 99 Nasal Cannula 2.0 10/04/17 19:36 93 Room Air 10/04/17 19:27 96 16 94 Room Air 10/04/17 16:00 Room Air (Elizabeth Kingsley ., WILLIAM-C) Physical Exam Notes: General appearance: Well-developed, well-nourished, no apparent distress Head: Normocephalic, atraumatic Eyes: Normal inspection, PERRL, EOMI ENT: Normal ENT inspection, hearing grossly normal, pharynx normal Neck: Supple, no JVD, trachea midline Respiratory/Chest: +Decreased breath sounds. Lungs clear to auscultation, normal breath sounds, no respiratory distress Cardiovascular: +Irregularly irregular, no gallop, no murmur Abdomen/GI: Normal bowel sounds, non-tender, soft Extremities/Musculoskeletal: Normal inspection, no calf tenderness, no pedal edema Neurological/Psych: +Disoriented to time. Alert, normal mood/affect, oriented x2 Skin: Normal color, warm/dry, no rash (Elizabeth Kingsley PA-C) Laboratory Results Last 24 Hours Test 10/04/17 16:47 10/04/17 20:38 10/05/17 07:46 10/05/17 08:11 Bedside Glucose 238 mg/dl 285 mg/dl 218 mg/dl Sodium Level 127 mmol/L Potassium Level 4.9 mmol/L Chloride Level 93 mmol/L Carbon Dioxide Level 22 mmol/L Anion Gap 12.0 mmol/L Blood Urea Nitrogen 86 mg/dl Creatinine 7.20 mg/dl Est Creatinine Clear Calc Drug Dose 5.8 ml/min Estimated GFR () 5.7 Estimated GFR (Non- 4.9 BUN/Creatinine Ratio 11.9 Random Glucose 193 mg/dl Calcium Level 7.8 mg/dl Test 10/05/17 12:53 Bedside Glucose 173 mg/dl (Elizabeth Kingsley PA-C) Assessment and Plan 81 y/o female with a history of ESRD on HD, a-fib, HTN, CAD, chronic respiratory failure on nighttime O2, diastolic CHF, DM II, anxiety/depression, gout, and GERD who presents with fever and hypoxia following perm cath placement for dialysis. Influenza B, secondary bacterial PNA--improving -Admit to telemetry. Pt in a-fib overnight with HR 70s-80s. No reoccurrence of WCT. Moved to med/surg -Completed course of Tamilfu and 7 days Levaquin -CXR 09/28 shows increasing left retrocardiac opacity concerning for developing LLL PNA. Suggested volume overload but no catalina edema. -Repeat CXR 10/04 with persistent left basilar consolidative opacities, possible loculated pleural effusion. -Blood cultures negative, MRSA nares negative -Xopenex/Atrovent nebs QIDR Acute on chronic respiratory failure w/hypoxia secondary to flu/PNA--stable -Only wears nighttime O2 at baseline. Currently on room air -Continue Solu-Medrol 30 mg IV q12h -O2 by protocol -CT chest w/o contrast ordered to evaluate possible loculated effusion Run of wide complex tachycardia, hypotension, s/p pacemaker--resolved. No further evidence of wide complex tachycardia -Consult cardiology, appreciate recs: Likely a-fib with aberrancy which is benign. No intervention at this time. ESRD on HD -Had thrombosed graft, s/p left IJ perm cath w/Dr. Guillory 09/27 -Nephrology following: dialysis per schedule -On MWF schedule -Continue Renvela, Nephrocaps Metabolic encephalopathy--resolved -Pt alert and oriented x 3 today -Repeat CXR 09/30 shows stable to slight interval increase in left retrocardiac opacity, concerning for focal consolidation/pneumonia. Alternatively, this may represent aspiration. -Repeat EKG no changes A-fib--stable, rate controlled -No longer on AC due to multiple falls -Continue digoxin 125 mcg PO q2d, Toprol 50 mg PO BID (hold if SBP less than 100 or HR less than 60) HTN--stable -Hold parameters for metoprolol as above Diastolic CHF--no acute exac -Beta brent as above DM II w/neuropathy--HgbA1c 8.5 on 09/28 -Lantus 20 units SC hs, 10 units SC qam -Insulin sliding scale -Check BSGs q ac and qhs -Continue gabapentin 100 mg PO BID Anxiety/depression -Continue Zoloft 50 mg PO qd Gout -Continue allopurinol 100 mg PO qd Dispo -From rehab, wants placed back -Accepted to [facility] -CT chest pending, possible d/c tomorrow (Elizabeth Kingsley ., SANDOVAL) Reviewed: Pt Seen/Exam by Me (Na Blood MD) History Physician Oil Processing Technician supervision Note: I interviewed and examined the patient. Discussed with WILLIAM Kingsley and agree with findings and plan as documented in the note. Any exceptions or clarifications are listed here: I saw pt later in the day today and she was feleing well, had no complaints. Denied SOB or CP. Was oriented x 3. Vitals reviewed Gen: Alert and awake, NAD HEENT: anicteric sclerae, EOMI, dressing over left IJ permacath is clean dry and intact CV: Irregularly irregular no mgr nl S1S2 Pulm: decreased BS at abses, otherwise clear Abd: +BS soft NT ND no masses or hernias Ext: Trace edema in bilateral legs Skin: Chronic venous stasis changes in the legs bilaterally,, warm/dry, left perm cath site c/d/i This patient is an 81-year-old female with ESRD on HD, anemia of chronic renal disease, chronic atrial fibrillation not on AC due to history of frequent falls , now status post pacemaker placement, severe pulmonary hypertension, right- sided heart failure, chronic diastolic CHF, HTN, chronic hypoxic respiratory failure on nocturnal O2, gout, anxiety/depression, GERD, and DM 2, who presents with fever, lower respiratory tract infection, and influenza B illness. Also with acute metabolic encephalopathy and acute on chronic hypoxic respiratory failure with POx 81% on room air and significant wheezing and rhonchi on exam, and secondary bacterial pneumonia seen on chest x-ray. She had a recent recurrent thrombosis of her Hero graft and had placement of a left IJ PermCath. Acute metabolic encephalopathy secondary to ESRD and Influenza B and PNA. Intermittently on and off O2. FLu symptoms have resolved. Remains with wheezing which is now improved with addition of IV steroids With moderate pleural effusions with significant atelectasis on CT Chest today-- > consult Pulm to see about possible thoracentesis -Nephrology plans to dialyze again tomorrow to try to get even more volume off. -has completed antibiotics cover for secondary bacterial pneumonia post influenza -Appreciate nephrology management of inpatient dialysis -has finidished Tamiflu for influenza illness -received Procrit for anemia -Continue nebulizer treatments -Insulin management for diabetes-with hyperglycemia secondary to steroids--> tighten carb coverage but should improve with tapering steroids down perhaps tomorrow -Hypotension-resolved -For her chronic atrial fibrillation, she is no longer on AC due to history of recurrent falls WCT on tele is likely Afib with aberrancy as per Cardiology, benign condition She will need SNF placement after medically stable Documented By: Na Blood (Na Blood MD)
--- NOTE | 2017-10-05 15:50 | DIAGNOSTIC IMAGING REPORT ---
(CHEST) THORAX WITHOUT CLINICAL HISTORY: 81 years-old Female presenting with suspected loculated effusion left base on CXR. TECHNIQUE: Multidetector CT imaging of the chest was performed without the use of intravenous contrast. IV contrast: None. A dose lowering technique was used consistent with the principles of ALARA (as low as reasonably achievable). COMPARISON: Chest x-ray performed the previous day and chest CT from 12/06/2014. CT DOSE (mGy.cm): The estimated cumulative dose is 286.00 mGy.cm. FINDINGS: Senior Research Manager topogram: Dual lumen tunneled left internal jugular central venous catheter terminates in the upper SVC. Large bore right internal jugular central venous catheter terminates at the superior cavoatrial junction. Left subclavian pacer with single lead to the right ventricular apex. Cholecystectomy clips noted. On soft tissue windows, mild body wall edema. Thoracic inlet grossly normal. Numerous subcentimeter mediastinal lymph nodes similar to prior exam. Atherosclerosis of the aorta. Multichamber enlargement of the heart. Coronary artery calcification. Moderate bilateral pleural effusions. No pericardial effusion. Prominent splenic arterial calcifications. Cholecystectomy clips. On lung windows, extensive dependent consolidation and volume loss in the bilateral lower lobes. Few scattered calcified granulomata. No additional infiltrate or nodule. No evidence of interlobular septal thickening. Central airways patent. On bone windows, degenerative changes of the spine. Old bilateral rib fractures evident. Osteopenia. IMPRESSION: 1. Moderate bilateral pleural effusions with extensive bibasilar atelectasis. No convincing evidence of a superimposed pneumonia. Electronically signed by: Maxime Lara M.D. 10/05/2017 3:49 PM Dictated Date/Time: 10/05/2017 3:44 PM
--- NOTE | 2017-10-05 18:20 | Nephrology Progress Note ---
Nephrology Progress Note Date of Service: Oct 05, 2017. Subjective ongoing intermittent confusion. no n/v; alert, interactive, on RA at my eval and no cough; denies dyspnea; ate full supper Objective Date Time Temp Pulse Resp B/P (MAP) Pulse Ox O2 Delivery O2 Flow Rate FiO2 10/05/17 15:40 Room Air 10/05/17 14:18 36.4 69 18 114/54 (74) 93 10/05/17 14:17 87 18 92 Room Air 10/05/17 13:00 37.2 78 124/59 (80) 10/05/17 12:15 75 124/54 10/05/17 12:00 69 118/54 10/05/17 11:45 67 128/55 10/05/17 11:15 81 118/56 10/05/17 11:00 71 121/58 10/05/17 10:45 67 125/54 10/05/17 10:30 66 124/65 10/05/17 10:15 68 132/63 10/05/17 10:00 75 136/68 10/05/17 09:45 69 133/62 10/05/17 09:30 65 142/64 10/05/17 09:15 74 132/72 10/05/17 08:53 68 127/63 10/05/17 08:45 37.1 76 164/63 (96) 10/05/17 08:40 Room Air 2.0 10/05/17 07:49 36.5 85 20 163/69 (100) 92 10/05/17 07:49 Room Air 10/05/17 07:35 75 16 98 Nasal Cannula 2.0 10/05/17 01:55 70 16 98 Nasal Cannula 2.0 10/05/17 00:26 Nasal Cannula 2.0 10/04/17 23:54 37.0 85 19 153/72 (99) 99 Nasal Cannula 2.0 10/04/17 19:36 93 Room Air 10/04/17 19:27 96 16 94 Room Air Physical Exam: [id number], on ra Eyes-no scleral icterus ENT-mmm Neck-supple Lungs-no wheezes/crx but minimal air mvt Heart-irregularly irregular Abdomen-bs+ s/nt/nd Extremities- no edema, clotted AVF R prox Neuro-fluent speech now alert, ayala Current Inpatient Medications Medications (Trade) Dose Ordered Sig/Juanita Route Start Time Stop Time Status Last Admin Dose Admin Allopurinol (Zyloprim Tab) 100 mg DAILY PO 09/28/17 09:00 10/28/17 08:59 10/05/17 08:21 100 MG Digoxin (Lanoxin Tab) 0.125 mg Q2D@2100 PO 09/27/17 21:00 10/27/17 20:59 10/03/17 20:59 0.125 MG Docusate Sodium (coLACE CAP) 100 mg HS PO 09/27/17 21:00 10/27/17 20:59 10/04/17 20:45 100 MG Gabapentin (Neurontin Cap) 100 mg BID PO 09/27/17 21:00 10/27/17 20:59 10/05/17 08:21 100 MG Metoprolol Succinate (Toprol Xl Tab) 50 mg BID PO 09/27/17 21:00 10/27/17 20:59 10/05/17 12:55 50 MG Ranitidine HCl (zANTac TAB) 150 mg HS PO 09/27/17 21:00 10/27/17 20:59 10/04/17 20:46 150 MG Sertraline HCl (Zoloft Tab) 50 mg QPM PO 09/27/17 21:00 10/27/17 20:59 10/04/17 20:46 50 MG Tramadol HCl (Ultram Tab) 50 mg Q4H PRN PO 09/27/17 15:15 10/27/17 15:14 Pantoprazole Sodium (Protonix Tab) 40 mg QAM PO 09/28/17 09:00 10/28/17 08:59 10/05/17 08:20 40 MG Sevelamer HCl (Renagel Tab) 800 mg AC PO 09/27/17 16:00 10/27/17 15:59 10/05/17 12:54 800 MG Heparin Sodium (Porcine) (Heparin Sq 5000 Unit/0.5ml) 5,000 unit Q12 SQ 09/27/17 21:00 10/27/17 20:59 10/04/17 20:52 5,000 UNIT Acetaminophen (Tylenol Tab) 650 mg Q4H PRN PO 09/27/17 15:15 10/27/17 15:14 Al Hydrox/Mg Hydrox/Simethicone (Maalox Max Susp) 15 ml Q4H PRN PO 09/27/17 15:15 10/27/17 15:14 Magnesium Hydroxide (Milk Of Magnesia Susp) 30 ml Q12H PRN PO 09/27/17 15:15 10/27/17 15:14 10/02/17 18:46 30 ML Insulin Aspart (novoLOG ASPART) SLIDING SCALE If C... ACHS SC 09/27/17 16:00 10/27/17 15:59 10/05/17 13:35 3 UNITS Glucose (Glucose 40% Gel) 15-30 GRAMS 15 GRAMS... UD PRN PO 09/27/17 15:15 10/27/17 15:14 Glucose (Glucose Chew Tab) 4-8 Tablets 4 Tabl... UD PRN PO 09/27/17 15:15 10/27/17 15:14 Dextrose (Dextrose 50% 50ML Syringe) 25-50ML OF 50% DW IV FOR... UD PRN IV 09/27/17 15:15 10/27/17 15:14 10/01/17 07:08 25 ML Glucagon (Glucagon Inj) 1 mg UD PRN SQ 09/27/17 15:15 10/27/17 15:14 Guaifenesin (Robitussin Sugar Free Syrup) 100 mg Q6H PRN PO 09/27/17 15:15 10/27/17 15:14 09/30/17 07:39 100 MG Lactobacillus Acidophilus (Floranex Tab) 4 tab TIDM PO 09/27/17 18:00 10/27/17 17:59 10/05/17 12:54 4 TAB Ipratropium [place] (Atrovent 0.02% 0.5MG/2.5ML Neb) 0.5 mg Q6R INH 09/27/17 21:00 10/27/17 20:59 10/05/17 14:17 0.5 MG Levalbuterol (Xopenex 0.63 Mg/ 3 Ml Neb) 0.63 mg Q6R INH 09/27/17 21:00 10/27/17 20:59 10/05/17 14:17 0.63 MG Insulin Glargine (Lantus Solostar Pen) 20 units HS SC 10/01/17 21:00 10/27/17 20:59 10/04/17 20:52 20 UNITS Insulin Glargine (Lantus Solostar Pen) 10 units QAM SC 10/03/17 08:45 11/02/17 08:44 10/05/17 08:39 10 UNITS Methylprednisolone Sodium Succinate 30 mg/Syringe 0.48 ml @ 1.5 mls/min Q12H IV 10/04/17 17:00 11/03/17 16:59 10/05/17 06:05 1.5 MLS/MIN Heparin Sodium (Porcine) (Heparin Iv Bolus) 1,000 unit TODAY@0800 IV 10/05/17 08:00 10/05/17 23:59 Heparin Sodium (Porcine) (Heparin Iv Bolus) 400 unit TODAY@0800,0900,1000 IV 10/05/17 08:00 10/05/17 23:59 Epoetin Sean 51324 units/ Syringe 0.6 ml @ 1 mls/min TODAY@0800 IV. 10/05/17 08:00 10/05/17 23:59 10/05/17 11:49 1 MLS/MIN Last 24 Hours Test 10/04/17 16:47 10/04/17 20:38 10/05/17 07:46 10/05/17 08:11 Bedside Glucose 238 mg/dl 285 mg/dl 218 mg/dl Sodium Level 127 mmol/L Potassium Level 4.9 mmol/L Chloride Level 93 mmol/L Carbon Dioxide Level 22 mmol/L Anion Gap 12.0 mmol/L Blood Urea Nitrogen 86 mg/dl Creatinine 7.20 mg/dl Est Creatinine Clear Calc Drug Dose 5.8 ml/min Estimated GFR () 5.7 Estimated GFR (Non- 4.9 BUN/Creatinine Ratio 11.9 Random Glucose 193 mg/dl Calcium Level 7.8 mg/dl Test 10/05/17 12:53 Bedside Glucose 173 mg/dl Assessment & Plan 81 yo female w/ ESRD on mwf HD admitted w/ clotted AVF, now w/ TDC and found also to have the flu/PNA, ongoing respiratory failure even after a week of therapy w/ BL pleural effusions on CT ESRD-had dialysis 09/27, 09/28, 09/29, 09/30. then back to something like 3 days weekly ever since. on 10/03 we removed 2.5L fluid, and today did 3 L off; given her effusions, will plan further dialysis tomorrow Anemia of renal failure-hg goal of 10 to 11 and redosed procrit today. Flu + PNA >>completed 7 days on tamiflu and levaquin. trying to optimize volume status to help with breathing which has worsened past 48 hrs >> on solumedrol now, for CT chest to eval loculated effusion >> chest CT w/ BL pleural effusions
[2017-10-05] MEDS: RANITIDINE HCL 150 MG TAB PO SCH (19:42)
[2017-10-05] MEDS: DOCUSATE SODIUM 100 MG CAP PO SCH (19:43)
[2017-10-05] MEDS: SERTRALINE HCL 50 MG TAB PO SCH (19:43)
[2017-10-05] MEDS: DIGOXIN 0.125 MG TAB PO SCH (19:45)
[2017-10-06] VITALS (21 sets, daily range): BP systolic 128–147; BP diastolic 54–70; PULSE 63–78; TEMP 36.6–37.4; O2SAT 91–98
[2017-10-06] MEDS: LEVALBUTEROL 0.63MG/3 ML NEB INH SCH ×3 (02:00→14:36)
[2017-10-06] MEDS: IPRATROPIUM BROMIDE NEB SOLN 0.02% 2.5 ML VIAL INH SCH ×3 (02:00→14:36)
[2017-10-06] MEDS: METHYLPREDNISOLONE IV 30 MG in SYRINGE 0 ML IV SCH ×2 (05:21→16:04)
[2017-10-06] MEDS: SEVELAMER HYDROCH 800 MG TAB PO SCH ×3 (06:14→16:05)
[2017-10-06 06:16] LABS: HEMATOCRIT 28.3 % (37-47); MEAN CELL VOLUME 109.7 fL (80-100); MEAN CORPUSCULAR HEMOGLOBIN 34.9 pg (25-34); MEAN CORPUSCULAR HGB CONC 31.8 g/dl (32-36); PLATELET COUNT 279 K/uL (130-400); RED CELL DISTRIBUTION WIDTH CV 17.9 % (11.5-14.5); RED CELL DISTRIBUTION WIDTH SD 70.6 fL (36.4-46.3); WHITE BLOOD COUNT 7.58 K/uL (4.8-10.8)
[2017-10-06 07:08] LABS: CALCIUM 7.4 mg/dl (8.5-10.1); POTASSIUM 3.8 mmol/L (3.5-5.1)
[2017-10-06 07:20] LABS: CREATININE 5.26 mg/dl (0.60-1.20)
[2017-10-06] MEDS ORDERED: EPOETIN ALFA INJ 12,000 UNITS in SYRINGE 0 ML IV. SCH (08:00)
[2017-10-06] MEDS ORDERED: HEPARIN SOD (PORCINE) 1000 UNIT/ML 10 ML VIAL IV SCH (08:00)
[2017-10-06] MEDS ORDERED: EPOETIN ALFA 10,000 UNITS/ML VIAL IV. ONE (08:00)
[2017-10-06] MEDS: LACTOBACILLUS ACIDOPHILUS (FLORANEX) TAB PO SCH ×3 (08:17→16:04)
[2017-10-06] MEDS: GABAPENTIN 100 MG CAP PO SCH (08:18)
[2017-10-06] MEDS: PANTOprazole SOD 40 MG TAB PO SCH (08:18)
[2017-10-06] MEDS: METOPROLOL SUCC 50MG EXT REL TAB PO SCH (08:18)
[2017-10-06] MEDS: ALLOPURINOL 100 MG TAB PO SCH (08:18)
[2017-10-06] MEDS: INSULIN ASPART 100 UNITS/ML 3 ML PEN SC SCH ×2 (08:25→14:02)
[2017-10-06] MEDS: HEPARIN SOD 5000 UNIT/0.5 ML CARP SQ SCH (08:25)
[2017-10-06] MEDS: INSULIN GLARGINE SOLOSTAR 100 UNITS/ML 3 ML PEN SC SCH (08:26)
[2017-10-06] MEDS: HEPARIN SOD (PORCINE) 1000 UNIT/ML 10 ML VIAL IV SCH ×2 (11:00→12:00)
--- NOTE | 2017-10-06 15:23 | Discharge Summary ---
Discharge Summary Date of Service Oct 06, 2017. Discharge Summary Admission Date: Sep 27, 2017 at 15:09 Discharge Date: Oct 06, 2017 Discharge Disposition: [facility] facility Principal Diagnosis: Influenza B, pneumonia Problems/Secondary Diagnoses: Acute on chronic hypoxic respiratory failure Acute metabolic encephalopathy a-fib with aberrancy Permanent atrial fibrillation acute on chronic respiratory failure w/hypoxia ESRD on HD HTN CAD chronic respiratory failure on nighttime O2 Chronic diastolic CHF DM II anxiety/depression gout GERD Bilateral pleural effusions status post pacemaker placement severe pulmonary hypertension right-sided heart failure 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 TECHNIQUE: Multidetector CT imaging of the chest was performed without the use of intravenous contrast. IV contrast: None. A dose lowering technique was used consistent with the principles of ALARA (as low as reasonably achievable). COMPARISON: Chest x-ray performed the previous day and chest CT from 12/06/2014. CT DOSE (mGy.cm): The estimated cumulative dose is 286.00 mGy.cm. FINDINGS: Planning Manager topogram: Dual lumen tunneled left internal jugular central venous catheter terminates in the upper SVC. Large bore right internal jugular central venous catheter terminates at the superior cavoatrial junction. Left subclavian pacer with single lead to the right ventricular apex. Cholecystectomy clips noted. On soft tissue windows, mild body wall edema. Thoracic inlet grossly normal. Numerous subcentimeter mediastinal lymph nodes similar to prior exam. Atherosclerosis of the aorta. Multichamber enlargement of the heart. Coronary artery calcification. Moderate bilateral pleural effusions. No pericardial effusion. Prominent splenic arterial calcifications. Cholecystectomy clips. On lung windows, extensive dependent consolidation and volume loss in the bilateral lower lobes. Few scattered calcified granulomata. No additional infiltrate or nodule. No evidence of interlobular septal thickening. Central airways patent. On bone windows, degenerative changes of the spine. Old bilateral rib fractures evident. Osteopenia. IMPRESSION: 1. Moderate bilateral pleural effusions with extensive bibasilar atelectasis. No convincing evidence of a superimposed pneumonia. Consultations: Nephrology Cardiology Pulmonology Medication Reconciliation New Medications: Ipratropium-Albuterol (Combivent Respimat) 1 Aer Aer 1 PUFFS INH QID for 30 Days, #120 PUFFS Insulin Glargine (Lantus Solostar) 100 Unit/Ml Inj 20 UNITS SC HS for 30 Days, #30 DOSE Insulin Glargine (Lantus Solostar) 100 Unit/Ml Inj 10 UNITS SC QAM for 30 Days, #30 DOSE Metoprolol Succinate (Metoprolol Succinate ER) 50 Mg Tabcr 50 MG PO BID for 30 Days, #60 TABS Prednisone (Prednisone) 20 Mg Tab 20 MG PO UD for 6 Days, #9 TABS 40 mg (2 tablets) x 3 days, then 20 mg (1 tablet) x 3 days, then stop Changed Medications: Ranitidine (Zantac) 150 Mg Tab 1 TAB PO HS for 30 Days, #30 TAB 3 Refills (Changed from: BID; 60) Continued Medications: Acetaminophen (Tylenol) 325 Mg Tab 650 MG PO UD Allopurinol (Allopurinol) 100 Mg Tab 100 MG PO NOON Amino Acids (Liquacel) 1 Liq Liq 30 PO BID Calcium Carbonate (Tums) 500 Mg Chew 1 BIDM one after breakfast and with supper Digoxin (Digoxin) 0.125 Mg Tab 0.125 MG PO Q2D PM Docusate Sodium (Colace) 100 Mg Cap 100 MG PO HS Ergocalciferol (Vitamin D 14356 Unit) 50,000 Unit Cap 95057 UNIT PO H1EDCKL EVERY OTHER TUESDAY Gabapentin (Gabapentin) 100 Mg Cap 100 MG PO BID Home O2 Therapy (Oxygen) Gas 2 LITERS NA HS Omeprazole (Prilosec) 20 Mg Capcr 20 MG PO QAM Sertraline (Zoloft) 50 Mg Tab 50 MG PO QPM Sevelamer Carbonate (Renvela) 800 Mg Tab 800 MG PO AC Sodium Polystyrene Sulfonate (Sps) 15 Gm/60 Ml Susp Vitamin B Cmplx/Vitc/Folic Ac (Nephrocaps) Cap 1 CAP PO QPM Discontinued Medications: Insulin Glargine (Lantus) 100 Unit/Ml Inj 30 UNITS SC HS Metoprolol Succinate (Toprol Xl) 50 Mg Tabcr 100 MG PO HS Metoprolol Succinate (Toprolxl (Toprol-Xl) 200 Mg Tabcr 200 MG PO QAM Tramadol (Ultram) 50 Mg Tab 50 MG PO Q4H PRN for Pain, #30 TAB Discharge Exam The patient reports feeling well. She does report a productive cough but denies any SOB or wheezing. She denies any other complaints. Constitutional: No fever, No chills, No sweats Eyes: No worsening of vision, No eye pain, No diplopia ENT: No hearing loss, No nasal symptoms, No trouble swallowing Respiratory: +Productive cough. No wheezing, No shortness of breath Cardiovascular: No chest pain, No claudication, No palpitations Abdomen: No pain, No nausea, No vomiting Musculoskeletal: No joint pain, No muscle pain, No swelling Genitourinary - Female: +Makes little/no urine, ESRD. No dysuria, No urinary retention, No hematuria Neurologic: No paralysis, No weakness, No numbness/tingling Integumentary: No rash, No itch, No color change General appearance: Well-developed, well-nourished, no apparent distress Head: Normocephalic, atraumatic Eyes: Normal inspection, PERRL, EOMI ENT: Normal ENT inspection, hearing grossly normal, pharynx normal Neck: Supple, no JVD, trachea midline Respiratory/Chest: +Decreased breath sounds in bases. Lungs clear to auscultation, normal breath sounds, no respiratory distress Cardiovascular: +Irregularly irregular, no gallop, no murmur Abdomen/GI: Normal bowel sounds, non-tender, soft Extremities/Musculoskeletal: Normal inspection, no calf tenderness, no pedal edema Neurological/Psych: Alert, normal mood/affect, oriented x3 Skin: Normal color, warm/dry, no rash Hospital Course 81 y/o female with a history of ESRD on HD, a-fib, HTN, CAD, chronic respiratory failure on nighttime O2, diastolic CHF, DM II, anxiety/depression, gout, and GERD who presents with fever and hypoxia following perm cath placement for dialysis. Influenza B, secondary bacterial PNA--improving -Admit to telemetry. Pt in a-fib overnight with HR 70s-80s. No reoccurrence of WCT. Moved to med/surg -Completed course of [place] and 7 days Levaquin -CXR 09/28 shows increasing left retrocardiac opacity concerning for developing LLL PNA. Suggested volume overload but no catalina edema. -Repeat CXR 10/04 with persistent left basilar consolidative opacities, possible loculated pleural effusion. -Blood cultures negative, MRSA nares negative -Xopenex/Atrovent nebs QIDR Acute on chronic respiratory failure w/hypoxia secondary to flu/PNA--stable -Only wears nighttime O2 at baseline. Currently on room air -Continue Solu-Medrol 30 mg IV q12h -O2 by protocol -CT chest w/o contrast shows moderate bilateral effusions with extensive atelectasis Bilateral pleural effusions -Pulmonology consulted, appreciate recs: No intervention at this time as pt now non-hypoxic and asymptomatic. If pt becomes SOB, would recommend repeat imaging. Also recommend PCP follow up w/imaging periodically -Pt should f/u with pulmonology as outpatient Run of wide complex tachycardia, hypotension, s/p pacemaker--resolved. No further evidence of wide complex tachycardia -Consult cardiology, appreciate recs: Likely a-fib with aberrancy which is benign. No intervention at this time. ESRD on HD -Had thrombosed graft, s/p left IJ perm cath w/Dr. Guillory 09/27 -Nephrology following: Extra dialysis on 10/06 to pull off more fluid -On MWF schedule -Continue Renvela, Nephrocaps Metabolic encephalopathy--resolved -Pt alert and oriented x 3 today -Repeat CXR 09/30 shows stable to slight interval increase in left retrocardiac opacity, concerning for focal consolidation/pneumonia. Alternatively, this may represent aspiration. -Repeat EKG no changes A-fib--stable, rate controlled -No longer on AC due to multiple falls -Continue digoxin 125 mcg PO q2d, Toprol 50 mg PO BID (hold if SBP less than 100 or HR less than 60) HTN--stable -Hold parameters for metoprolol as above Diastolic CHF--b/l effusions on chest CT but asymptomatic -Beta brent as above DM II w/neuropathy--HgbA1c 8.5 on 09/28 -Lantus 20 units SC hs, 10 units SC qam -Insulin sliding scale -Check BSGs q ac and qhs -Continue gabapentin 100 mg PO BID Anxiety/depression -Continue Zoloft 50 mg PO qd Gout -Continue allopurinol 100 mg PO qd Dispo -From rehab, wants placed back -Accepted to [facility], medically stable for discharge Total Time Spent: Greater than 30 minutes This includes examination of the patient, discharge planning, medication reconciliation, and communication with other providers. Discharge Instructions Please refer to the electronic Patient Visit Report (Discharge Instructions) for additional information. Additional Copies To Luisito Connell M.D.; [facility] Reviewed: Pt Seen/Exam by Me History Physician Driver Wheelchair supervision Note: I interviewed and examined the patient. Discussed with WILLIAM Kingsley and agree with findings and plan as documented in the note. Any exceptions or clarifications are listed here: Patient doing well, denies shortness of breath or cough. She remains off of oxygen. Seen by pulmonology and thoracentesis deferred at this time. Vitals reviewed Gen: Alert and awake, NAD HEENT: anicteric sclerae, EOMI, dressing over left IJ permacath is clean dry and intact CV: Irregularly irregular no mgr nl S1S2 Pulm: decreased BS at abses, otherwise clear Abd: +BS soft NT ND no masses or hernias Ext: Trace edema in bilateral legs Skin: Chronic venous stasis changes in the legs bilaterally,, warm/dry, left perm cath site c/d/i This patient is an 81-year-old female with ESRD on HD, anemia of chronic renal disease, chronic atrial fibrillation not on AC due to history of frequent falls , now status post pacemaker placement, severe pulmonary hypertension, right- sided heart failure, chronic diastolic CHF, HTN, chronic hypoxic respiratory failure on nocturnal O2, gout, anxiety/depression, GERD, and DM 2, who presents with fever, lower respiratory tract infection, and influenza B illness. Also with acute metabolic encephalopathy and acute on chronic hypoxic respiratory failure with POx 81% on room air and significant wheezing and rhonchi on exam, and secondary bacterial pneumonia seen on chest x-ray. She had a recent recurrent thrombosis of her Hero graft and had placement of a left IJ PermCath. Acute metabolic encephalopathy secondary to ESRD and Influenza B and PNA. Now off O2. FLu symptoms have resolved. Lung sounds are improved after receiving IV steroids. With moderate pleural effusions with significant atelectasis on CT Chest,--> consult Pulm to see about possible thoracentesis-deferred at this time -Received multiple dialysis treatments with large volumes removed -has completed antibiotics cover for secondary bacterial pneumonia post influenza -Appreciate nephrology management of inpatient dialysis -has finiished Tamiflu for influenza -received Procrit for anemia -Continue nebulizer treatments -Insulin management for diabetes-with hyperglycemia secondary to steroids--> tighten carb coverage but should improve with tapering steroids -Hypotension-resolved -For her chronic atrial fibrillation, she is no longer on AC due to history of recurrent falls WCT on tele is likely Afib with aberrancy as per Cardiology, benign condition Stable for SNF placement today Documented By: Na Blood
--- NOTE | 2017-10-06 19:14 | Pulmonary Consultation ---
History General Date of Service: Oct 06, 2017. Chief Complaint: Bilateral pleural effusions Stated Complaint: Influenza Type B HPI The patient is a 81 year old female who presents to [facility] with complaints of Influenza Type B. The patient's primary care provider is Luisito Connell M.D.. The patient was admitted on 09/27/2017 for flulike symptoms and found to have influenza type B. She also has end-stage renal disease and requires hemodialysis. She had a failed AV fistula in the right upper extremity. A temporary dialysis catheter was placed and patient has been undergoing dialysis for end-stage renal disease, elevated creatinine, fluid management. Routine chest x-ray showed question of loculated pleural effusion on 10/04/2017. A CT scan of the chest was completed on 10/05/2017 which revealed small to moderate bilateral pleural effusions with no evidence of loculation. We were asked to evaluate the patient for appropriateness of thoracentesis and follow-up care. The patient was seen today at 1400 at bedside immediately following her dialysis treatment in the dialysis lab. A bedside ultrasound was performed by this provider and patient was found to have small to moderate pleural effusions with some evidence of atelectasis bilaterally. The possibility of thoracentesis was entertained with the patient and risk versus benefit was discussed. Patient indicated that she was not sure that she really wanted to have anything done inasmuch as she had no shortness of breath and this was an incidental finding. She did state that she would prefer that if we are going to do procedures we discussed with her daughter. Patient did seem to have some disorientation and confusion and needed to be reoriented throughout the interview. Instructions were left with the attending RN to call when the daughter arrived for further discussion of the management of the pleural effusions. Review of Systems A total of 12 systems was reviewed and is negative other than as listed above in the HPI All Other Symptoms All Other Systems: Reviewed and Negative Past Medical History Past Medical History: Medical Problems: (1) Anemia in ESRD (end-stage renal disease) (2) CHF (congestive heart failure) (3) Chronic bronchitis (4) Coronary artery disease (5) Diabetes mellitus, type II (6) ESRD (end stage renal disease) on dialysis (7) GERD (gastroesophageal reflux disease) (8) Gout (9) History of cardiac arrest (10) Hyperkalemia (11) Hyperkalemia, diminished renal excretion (12) Hypertension (13) Paroxysmal atrial fibrillation (14) Pneumonia (15) Pulmonary hypertension (16) Sleep apnea Past Surgical History: Surgical Problems: (1) Status post cardiac catheterization (2) Status post cataract extraction (3) Status post cholecystectomy (4) Status post hernia repair (5) Status post hip replacement (6) Status post lumbar surgery Family History Alzheimer's disease SISTER Cancer BROTHER Diabetes mellitus FATHER BROTHER SISTER SISTER SISTER Heart disease MOTHER Hypertension FATHER MOTHER Social History Hx Tobacco Use In Past Year?: No Smoking Status: Unknown if Ever Smoked Alcohol: never Drug Use: none Housing status: lives with family Occupational Status: retired Immunizations History of Influenza Vaccine: Yes History of Pneumococcal: Yes Allergies Coded Allergies: Hydrochlorothiazide (Verified Allergy, Intermediate, RASH, 09/27/17) Hydrocodone (Verified Allergy, Mild, RASH, 09/27/17) ERICK Inhibitors (Verified Allergy, Unknown, UNKNOWN, 09/27/17) Amlodipine (Verified Allergy, Unknown, ELEVATED POTASSIUM, 09/27/17) Benazepril (Verified Allergy, Unknown, UNKNOWN, 09/27/17) Cephalexin (Verified Allergy, Unknown, ITCHING AND HIVES, 09/27/17) Penicillins (Verified Allergy, Unknown, RASH, 09/27/17) Spironolactone (Verified Allergy, Unknown, UNKNOWN, 09/27/17) Sulfa Antibiotics (Verified Allergy, Unknown, RASH, 09/27/17) NSAIDs (Verified Adverse Reaction, Intermediate, ELEVATED POTASSIUM, ) Current Medications Reported Home Medications Medications Dose Route/Sig Max Daily Dose Days Date Category Dose Instructions Zantac (Ranitidine HCl) 150 Mg Tab 1 Tab PO HS 30 10/04/17 Rx Combivent Respimat (Ipratropium-Albuterol) 1 Aer Aer 1 Puffs INH QID 30 10/04/17 Rx Prednisone 20 Mg Tab 20 Mg PO UD 6 10/04/17 Rx 40 mg (2 tablets) x 3 days, then 20 mg (1 tablet) x 3 days, then stop Lantus Solostar (Insulin Glargine) 100 Unit/Ml Inj 10 Units SC QAM 30 10/04/17 Rx Lantus Solostar (Insulin Glargine) 100 Unit/Ml Inj 20 Units SC HS 30 10/04/17 Rx Metoprolol Succinate ER (Metoprolol Succinate) 50 Mg Tabcr 50 Mg PO BID 30 10/04/17 Rx Sps (Sodium Polystyrene Sulfonate) 15 Gm/60 Ml Susp 09/27/17 Reported Tums (Calcium Carbonate) 500 Mg Chew 1 BIDM 09/27/17 Reported one after breakfast and with supper Liquacel (Amino Acids) 1 Liq Liq 30 PO BID 09/27/17 Reported Tylenol (Acetaminophen) 325 Mg Tab 650 Mg PO UD 09/16/17 Reported Vitamin D 96175 Unit (Ergocalciferol) 50,000 Unit Cap 50,000 Unit PO [id number] 06/20/17 Reported EVERY OTHER TUESDAY Renvela (Sevelamer Carbonate) 800 Mg Tab 800 Mg PO AC 03/28/17 Reported Zoloft (Sertraline HCl) 50 Mg Tab 50 Mg PO QPM 03/28/17 Reported Prilosec (Omeprazole) 20 Mg Capcr 20 Mg PO QAM 03/28/17 Reported Oxygen Gas 2 Liters NA HS 03/28/17 Reported Gabapentin 100 Mg Cap 100 Mg PO BID 03/28/17 Reported Colace (Docusate Sodium) 100 Mg Cap 100 Mg PO HS 03/28/17 Reported Digoxin 0.125 Mg Tab 0.125 Mg PO Q2D 03/28/17 Reported PM Nephrocaps (Vitamin B Complex/Vit C/Folic Acid) Cap 1 Cap PO QPM 03/28/17 Reported Allopurinol 100 Mg Tab 100 Mg PO NOON 03/28/17 Reported Physical Physical Exam Vital Signs: Date Time Temp Pulse Resp B/P (MAP) Pulse Ox O2 Delivery O2 Flow Rate FiO2 10/06/17 16:09 36.9 78 18 138/56 (83) 92 Room Air 10/06/17 15:25 36.6 76 16 91 Room Air 10/06/17 14:38 76 16 91 Room Air 10/06/17 13:05 36.6 78 142/62 (88) 10/06/17 12:45 74 133/64 10/06/17 12:30 71 133/58 10/06/17 12:15 68 141/54 10/06/17 12:00 76 142/58 10/06/17 11:45 77 142/60 10/06/17 11:30 75 142/66 10/06/17 11:15 77 128/61 10/06/17 11:00 69 137/60 10/06/17 10:45 63 131/62 10/06/17 10:30 75 135/62 10/06/17 10:15 76 135/60 10/06/17 10:00 78 136/60 10/06/17 09:50 37.4 70 142/58 (86) 10/06/17 08:30 Room Air 10/06/17 08:17 36.7 73 18 131/70 (90) 91 Room Air 10/06/17 07:15 69 16 92 Room Air 10/06/17 02:00 71 16 92 Room Air 10/06/17 00:07 Room Air 10/06/17 00:00 37.0 71 20 147/62 (90) 98 2.0 10/05/17 20:05 Room Air 10/05/17 19:45 90 10/05/17 19:22 85 16 93 Room Air Weight in Kilograms: 67.3 GENERAL : No acute distress. Pleasant. Breathing with mouth closed. No use of accessory muscles. EYES: No icterus, gaze conjugate NOSE: No evidence of epistaxis MOUTH: No lesions or candidiasis NECK: Supple LUNGS: CTA B/L, no wheezes, rales or rhonchi. Acceptable diaphragmatic excursion HEART: Regular, rate controlled ABDOMEN: Soft, NT, ND, BS Present EXTREMITIES: No LE edema, pedal pulses intact NEURO: [facility] Labs Results Past 24 Hours Test 10/05/17 20:12 10/06/17 05:48 10/06/17 08:09 10/06/17 13:58 Range/Units Bedside Glucose 207 172 148 70-90 mg/dl White Blood Count 7.58 4.8-10.8 K/uL Red Blood Count 2.58 4.2-5.4 M/uL Hemoglobin 9.0 12.0-16.0 g/dL Hematocrit 28.3 37-47 % Mean Corpuscular Volume 109.7 80-100 fL Mean Corpuscular Hemoglobin 34.9 25-34 pg Mean Corpuscular Hemoglobin Concent 31.8 32-36 g/dl RDW Standard Deviation 70.6 36.4-46.3 fL RDW Coefficient of Variation 17.9 11.5-14.5 % Platelet Count 279 130-400 K/uL Mean Platelet Volume 10.0 7.4-10.4 fL Sodium Level 130 136-145 mmol/L Potassium Level 3.8 3.5-5.1 mmol/L Chloride Level 94 98-107 mmol/L Carbon Dioxide Level 27 21-32 mmol/L Anion Gap 10.0 3-11 mmol/L Blood Urea Nitrogen 55 7-18 mg/dl Creatinine 5.26 0.60-1.20 mg/dl Est Creatinine Clear Calc Drug Dose 7.9 ml/min Estimated GFR () 8.3 Estimated GFR (Non- 7.1 BUN/Creatinine Ratio 10.5 10-20 Random Glucose 174 70-99 mg/dl Calcium Level 7.4 8.5-10.1 mg/dl Diagnostic Radiology (CHEST) THORAX WITHOUT CLINICAL HISTORY: 81 years-old Female presenting with suspected loculated effusion left base on CXR. TECHNIQUE: Multidetector CT imaging of the chest was performed without the use of intravenous contrast. IV contrast: None. A dose lowering technique was used consistent with the principles of ALARA (as low as reasonably achievable). COMPARISON: Chest x-ray performed the previous day and chest CT from 12/06/2014. CT DOSE (mGy.cm): The estimated cumulative dose is 286.00 mGy.cm. FINDINGS: Senior Applications Analyst topogram: Dual lumen tunneled left internal jugular central venous catheter terminates in the upper SVC. Large bore right internal jugular central venous catheter terminates at the superior cavoatrial junction. Left subclavian pacer with single lead to the right ventricular apex. Cholecystectomy clips noted. On soft tissue windows, mild body wall edema. Thoracic inlet grossly normal. Numerous subcentimeter mediastinal lymph nodes similar to prior exam. Atherosclerosis of the aorta. Multichamber enlargement of the heart. Coronary artery calcification. Moderate bilateral pleural effusions. No pericardial effusion. Prominent splenic arterial calcifications. Cholecystectomy clips. On lung windows, extensive dependent consolidation and volume loss in the bilateral lower lobes. Few scattered calcified granulomata. No additional infiltrate or nodule. No evidence of interlobular septal thickening. Central airways patent. On bone windows, degenerative changes of the spine. Old bilateral rib fractures evident. Osteopenia. IMPRESSION: 1. Moderate bilateral pleural effusions with extensive bibasilar atelectasis. No convincing evidence of a superimposed pneumonia. Electronically signed by: Maxime Lara M.D. 10/05/2017 3:49 PM CHEST 2 VIEWS ROUTINE HISTORY: 81 years-old Female influenza, pneumonia, persistent wheezing acute pneumonia with wheezing COMPARISON: Chest radiograph 09/30/2017 TECHNIQUE: AP and lateral views of the chest FINDINGS: Dual lumen left internal jugular hemodialysis catheter and a single lumen right internal jugular central venous catheter appears to be in stable positioning. Single lead left subclavian pacer is unchanged. Cardiac silhouette is again enlarged, unchanged. Atherosclerosis of the aorta. There is mild pulmonary vascular congestion with associated mild interstitial coarsening. No pneumothorax. Trace right and small left pleural effusions with possible loculation on the left. Similar patchy opacities of the left lung base. Bones appear grossly intact. Vascular calcifications of the upper abdomen are noted in addition to cholecystectomy clips. Stent graft about the right upper arm. IMPRESSION: 1. Cardiomegaly with mild pulmonary vascular congestion. 2. Trace right and small left pleural effusions with mildly loculated pleural fluid on the left. 2. Persistent left basilar consolidative opacities suspicious for pneumonia. The above report was generated using voice recognition software. It may contain grammatical, syntax or spelling errors. Electronically signed by: Bruno Healy M.D. 10/04/2017 1:33 PM Impression Assessment and Plan Bilateral pleural effusions * Bedside ultrasound revealed small to moderate bilateral pleural effusions with atelectasis bibasilar * Discussion with patient indicated that she did not think that she wanted to have any procedures performed since she was asymptomatic but asked us to discuss this with her daughter * Reviewed case with Dr. Aldana and discussed options * Inasmuch as the patient is receiving dialysis for fluid management and is asymptomatic, it is felt that the risk is greater than the benefit and during the procedure for this patient * Discussed with the hospitalist team (Elizabeth Kingsley PA-C) with the following recommendations: * Would discharge with incentive spirometry * In discharge summary suggest continued fluid management with dialysis * Follow-up evaluation of pleural effusions if patient becomes dyspneic or if after discussion with daughter thoracentesis may be entertained * Would be glad to follow the patient as an outpatient and perform thoracentesis if and when appropriate Thank you for including us in the care of this patient.
== END 2017-10-06 17:50 | DRG 193 ==
LOC: EDBD 11:12 → C.EDC 11:13 → C.2E 15:09 → ENRESERV 15:25 → C.4E 10-01 13:51
PROVIDERS: ADMIT Internal Medicine; ATTEND Family Medicine
PROC: 5A1D70Z Performance of Urinary Filtration, Intermittent, Less than 6 Hours Per Day (ICD-10-PCS; principal; 2017-09-30)
DX: J10.08 Influenza due to other identified influenza virus with other specified pneumonia (principal); N18.6 End stage renal disease; I12.0 Hypertensive chronic kidney disease with stage 5 chronic kidney disease or end stage renal disease; J96.21 Acute and chronic respiratory failure with hypoxia; E66.2 Morbid (severe) obesity with alveolar hypoventilation; G93.41 Metabolic encephalopathy; I50.32 Chronic diastolic (congestive) heart failure; J90 Pleural effusion, not elsewhere classified; I48.1 Persistent atrial fibrillation; J15.9 Unspecified bacterial pneumonia; D63.1 Anemia in chronic kidney disease; I25.10 Atherosclerotic heart disease of native coronary artery without angina pectoris; K21.9 Gastro-esophageal reflux disease without esophagitis; M1A.9XX0 Chronic gout, unspecified, without tophus (tophi); I48.0 Paroxysmal atrial fibrillation; I27.20 Pulmonary hypertension, unspecified; Z96.649 Presence of unspecified artificial hip joint; Z79.4 Long term (current) use of insulin; Z88.5 Allergy status to narcotic agent; Z88.8 Allergy status to other drugs, medicaments and biological substances; Z88.0 Allergy status to penicillin; Z98.890 Other specified postprocedural states; Z99.2 Dependence on renal dialysis; Z99.81 Dependence on supplemental oxygen; Z68.27 Body mass index [BMI] 27.0-27.9, adult; I48.2 Chronic atrial fibrillation; E11.40 Type 2 diabetes mellitus with diabetic neuropathy, unspecified; Z95.0 Presence of cardiac pacemaker; N25.0 Renal osteodystrophy

== ENCOUNTER → 2017-10-14 | Day surgery (SDC) | payer OTHER ==
[~2017-10-14] VITALS: Ht 157.5 cm; Wt 76.3 kg
[~2017-10-14] MED LIST changes: +ATROPINE SULFATE 0.1 MG/ML 10 ML SYR ONE; -B CO; -B CO PO; +CLINDAMYCIN 600 MG/54 ML D5W 50 ML IV SCH; +D5W AND 1/4NSS 1000 ML IV SCH; +FENTANYL CITRATE INJ 50 MCG/1 ML 2 ML VIAL ONE; +HEPARIN 25000 UNIT/500 ML D5W ONE; +HEPARIN SOD (PORCINE) 1000 UNIT/ML 10 ML VIAL ONE; +HEPARIN SOD (PORCINE) 5000 UNIT/ML 1 ML VIAL ONE; -INSDGI SC; +INSDGIPEN SC; +INSU1INJ2 SC; +IPRA1AER2 INH; -METO-217 PO; -METO200T32 PO; +MIDAZOLAM HCL 1 MG/ML 2ML VIAL ONE; +PRD20 PO; +TPRSR50 PO; -TRAM-10 PO; +liquid protein PO
[2017-10-14 06:30] VITALS: BP 147/58; PULSE 82; TEMP 37.1; O2SAT 96; Ht 157.5 cm; Wt 76.3 kg
--- NOTE | 2017-10-14 07:13 | History and Physical ---
History & Physical Date of Service Oct 14, 2017. History & Physical History & Physical Chief Complaint: ESRD fwith throbosed herograft History of Present Illness The patient is a 80 year old female with multiple medical problems, including ESRD on HD and a fib who has been undergoing HD thru a herograft. It was found to be thrombosed and declotted recently. It now has rethrombosed. She had a permcath placed and the admitted for influenza. She is now admitted to try to declot the fistula. Pt denies NIELSEN, fever, chills, chest pain, N/V, abd pain, rest pain, claudication, other complaints. Allergies Hydrochlorothiazide (Verified Allergy, Intermediate, RASH, 01/17/15) NSAIDs (Verified Allergy, Intermediate, UNK, 01/17/15) Hydrocodone (Verified Allergy, Mild, RASH, 01/17/15) ERICK Inhibitors (Verified Allergy, Unknown, UNK, 01/17/15) Amlodipine (Verified Allergy, Unknown, UNK, 01/17/15) Benazepril (Verified Allergy, Unknown, UNK, 01/17/15) Cephalexin (Verified Allergy, Unknown, UNK, 01/17/15) Spironolactone (Verified Allergy, Unknown, UNK, 01/17/15) Surgical / Medical History Hx Cardiac Surgery: No Hx Abdominal Surgery: Yes (cholicystectomy ) Hx Cancer Surgery: Yes Hx Thoracic Surgery: No Hx Orthopedic: Yes (hip replacement and lumbar surgery ) Hx Urinary Tract Surgery: No HX Other Surgery:LUE AVF creation Family History Alzheimer's disease SISTER Cancer BROTHER Diabetes mellitus FATHER BROTHER SISTER SISTER SISTER Heart disease MOTHER Hypertension FATHER MOTHER Social History Smoking Status: Never Smoker Hx Tobacco Use In Past Year?: No Hx Alcohol Use - Type & Amnt: No Hx Substance Use -Type & Amnt: No Review of Systems No pertinent positives. 11 systems reviewed and negative Physical Exam: Constitutional: General Apperance: well-nourished, well-developed, obese Level of Distress: NAD, chronically ill Psychiatric: Mental Status: normal affect, Orientation: to person, time, place Head: normocephalic, atraumatic Eyes: EOM: EOMI ENMT: normal ENT inspection, hearing grossly normal Neck: supple, trachea midline Lungs: Respiratory effort: no dyspnea Auscultation: clear Cardiovascular: Apical Impulse: not displaced Heart Auscultation: no rubs, no gallops, pertinent finding (irregular, pacer ) Peripheral Pulses: Pulses: full and equal, in all extremities except if noted Bruits: none appreciated Carotid Pulse: normal on the left, normal on the right Brachial Pulses: normal on the left, normal on the right Radial Pulse: normal on the left, normal on the right Femoral Pulse: normal on the left, normal on the right Abdomen: Bowel Sounds: normal Inspection & Palpation: soft, non-distended Musculoskeletal: abnormal strength Extremities: Upper Right: no cyanosis, no varicosities, no palpable cord, no thrill in herograft Upper Left: no cyanosis, no varicosities, no palpable cord, Lower Right: no cyanosis, no varicosities, no palpable cord, Lower Left: no cyanosis, no varicosities, no palpable cord, Neurologic: Cranial Nerves: grossly intact Sensation: grossly intact ASSESSMENT and PLAN: ESRD Thrombosed herograft Plan: Patient admitted for fistulogram, possible TPA, intervention, and mechanical thrombectomy. I have discussed the risks options and benefits of the procedure with the patient. The patient understands the risks options and benefits and agrees to the procedure.
--- NOTE | 2017-10-14 07:38 | Pre Sedation Assessment ---
Pre Sedation Assessment General Date of Sedation: Oct 14, 2017. Vital Signs Past 12 Hours Date Time Temp Pulse Resp B/P (MAP) Pulse Ox O2 Delivery O2 Flow Rate FiO2 10/14/17 06:30 37.1 82 18 147/58 (87) 96 Room Air Review Cardiovascular: regular rate, rhythm Lungs: lungs clear Pre-Sedation Airway Assessment Smoking Status: Never Smoker Hx of Sleep Apnea: No Short Thick Neck: Yes Thyro-mental Distance: > 3 Finger Breadths Oral Cavity: Dentures Mallampati Classification: Class III ASA Classification: Class III NPO Status Date of Last Intake of Fluids: Oct 13, 2017 Time of Last Intake of Fluids: 2300 Date of Last Intake of Solids: Oct 13, 2017 Time of Last Intake of Solids: 2300 Procedure Planning Contraindications for Sedation: None Current Medications Reviewed: Yes Notes The planned sedation has been discussed with the patient. Informed Consent was obtained. I have identified the patient, determined the appropriateness of sedation and have assessed the patient immediately prior to the procedure. All medicine(s) and interventions are by my order.
[2017-10-14 08:30] VITALS: BP 154/70
[2017-10-14 08:35] VITALS: PULSE 69; O2SAT 100
--- NOTE | 2017-10-14 09:19 | Progress Note ---
Progress Note Date of Service Oct 14, 2017. Progress Note No ICU bed available Will have to reschedule
== END | disposition home or self-care (01) ==
LOC: C.ACU 05:59
PROVIDERS: ATTEND Surgery Vascular Surgery
DX: T82.868A Thrombosis due to vascular prosthetic devices, implants and grafts, initial encounter (principal); Z53.9 Procedure and treatment not carried out, unspecified reason; N18.6 End stage renal disease; Y82.8 Other medical devices associated with adverse incidents

== ENCOUNTER 2017-10-18 06:43 | Inpatient (IN) | payer OTHER ==
--- NOTE | 2017-10-17 13:16 | History and Physical ---
History & Physical Date of Service Oct 17, 2017. History & Physical Chief Complaint: ESRD fwith throbosed herograft History of Present Illness The patient is a 80 year old female with multiple medical problems, including ESRD on HD and a fib who has been undergoing HD thru a herograft. It was found to be thrombosed and declotted recently. It now has rethrombosed. She had a permcath placed and the admitted for influenza. She is now admitted to try to declot the fistula. Pt denies NIELSEN, fever, chills, chest pain, N/V, abd pain, rest pain, claudication, other complaints. Allergies Hydrochlorothiazide (Verified Allergy, Intermediate, RASH, 01/17/15) NSAIDs (Verified Allergy, Intermediate, UNK, 01/17/15) Hydrocodone (Verified Allergy, Mild, RASH, 01/17/15) ERICK Inhibitors (Verified Allergy, Unknown, UNK, 01/17/15) Amlodipine (Verified Allergy, Unknown, UNK, 01/17/15) Benazepril (Verified Allergy, Unknown, UNK, 01/17/15) Cephalexin (Verified Allergy, Unknown, UNK, 01/17/15) Spironolactone (Verified Allergy, Unknown, UNK, 01/17/15) Surgical / Medical History Hx Cardiac Surgery: No Hx Abdominal Surgery: Yes (cholicystectomy ) Hx Cancer Surgery: Yes Hx Thoracic Surgery: No Hx Orthopedic: Yes (hip replacement and lumbar surgery ) Hx Urinary Tract Surgery: No HX Other Surgery:LUE AVF creation Family History Alzheimer's disease SISTER Cancer BROTHER Diabetes mellitus FATHER BROTHER SISTER SISTER SISTER Heart disease MOTHER Hypertension FATHER MOTHER Social History Smoking Status: Never Smoker Hx Tobacco Use In Past Year?: No Hx Alcohol Use - Type & Amnt: No Hx Substance Use -Type & Amnt: No Review of Systems No pertinent positives. 11 systems reviewed and negative Physical Exam: Constitutional: General Apperance: well-nourished, well-developed, obese Level of Distress: NAD, chronically ill Psychiatric: Mental Status: normal affect, Orientation: to person, time, place Head: normocephalic, atraumatic Eyes: EOM: EOMI ENMT: normal ENT inspection, hearing grossly normal Neck: supple, trachea midline Lungs: Respiratory effort: no dyspnea Auscultation: clear Cardiovascular: Apical Impulse: not displaced Heart Auscultation: no rubs, no gallops, pertinent finding (irregular, pacer ) Peripheral Pulses: Pulses: full and equal, in all extremities except if noted Bruits: none appreciated Carotid Pulse: normal on the left, normal on the right Brachial Pulses: normal on the left, normal on the right Radial Pulse: normal on the left, normal on the right Femoral Pulse: normal on the left, normal on the right Abdomen: Bowel Sounds: normal Inspection & Palpation: soft, non-distended Musculoskeletal: abnormal strength Extremities: Upper Right: no cyanosis, no varicosities, no palpable cord, no thrill in herograft Upper Left: no cyanosis, no varicosities, no palpable cord, Lower Right: no cyanosis, no varicosities, no palpable cord, Lower Left: no cyanosis, no varicosities, no palpable cord, Neurologic: Cranial Nerves: grossly intact Sensation: grossly intact ASSESSMENT and PLAN: ESRD Thrombosed herograft Plan: Patient admitted for fistulogram, possible TPA, intervention, and mechanical thrombectomy. I have discussed the risks options and benefits of the procedure with the patient. The patient understands the risks options and benefits and agrees to the procedure.
[2017-10-18] VITALS (17 sets, daily range): BP systolic 103–138; BP diastolic 41–59; PULSE 73–100; TEMP 36.8–37.3; O2SAT 92–100
[~2017-10-18] VITALS: Ht 157.5 cm; Wt 69.7 kg
[~2017-10-18 06:43] MED LIST changes: -ATROPINE SULFATE 0.1 MG/ML 10 ML SYR ONE; -CALC500C3; +CALC500C3 PO; -CLINDAMYCIN 600 MG/54 ML D5W 50 ML IV SCH; +CLINDAMYCIN 600 MG/54 ML D5W 54 ML IV SCH; +D5W AND 1/4NSS 1,000 ML IV SCH; -D5W AND 1/4NSS 1000 ML IV SCH; -ERGO500037 PO; -FENTANYL CITRATE INJ 50 MCG/1 ML 2 ML VIAL ONE; -HEPARIN 25000 UNIT/500 ML D5W ONE; -HEPARIN SOD (PORCINE) 1000 UNIT/ML 10 ML VIAL ONE; -HEPARIN SOD (PORCINE) 5000 UNIT/ML 1 ML VIAL ONE; -INSU1INJ2 SC; -MIDAZOLAM HCL 1 MG/ML 2ML VIAL ONE; -PRD20 PO; -PRLSR20 PO; -[UNRECOGNIZED DRUG - OTHER]
[2017-10-18] MEDS ORDERED: MIDAZOLAM HCL 1 MG/ML 2ML VIAL ONE ×2 (07:29→14:09)
[2017-10-18] MEDS ORDERED: FENTANYL CITRATE INJ 50 MCG/1 ML 2 ML VIAL ONE ×2 (07:29→14:09)
[2017-10-18] MEDS ORDERED: HEPARIN SOD (PORCINE) 1000 UNIT/ML 10 ML VIAL ONE ×3 (07:31→15:41)
[2017-10-18] MEDS ORDERED: HEPARIN 25000 UNIT/500 ML D5W ONE ×2 (07:31→08:47)
[2017-10-18] MEDS ORDERED: HEPARIN SOD (PORCINE) 5000 UNIT/ML 1 ML VIAL ONE ×2 (07:31→14:10)
[2017-10-18] MEDS ORDERED: ATROPINE SULFATE 0.1 MG/ML 10 ML SYR ONE ×2 (07:32→14:53)
[2017-10-18] MEDS ORDERED: INSDGIPEN SC (07:44)
--- NOTE | 2017-10-18 07:48 | Pre Sedation Assessment ---
Pre Sedation Assessment General Date of Sedation: Oct 18, 2017. Vital Signs Past 12 Hours Date Time Temp Pulse Resp B/P (MAP) Pulse Ox O2 Delivery O2 Flow Rate FiO2 10/18/17 07:24 36.8 80 18 138/59 (85) 95 Room Air Pre-Sedation Airway Assessment Smoking Status: Never Smoker Hx of Sleep Apnea: Yes Short Thick Neck: Yes Thyro-mental Distance: > 3 Finger Breadths Oral Cavity: Dentures Mallampati Classification: Class II ASA Classification: Class III NPO Status Date of Last Intake of Fluids: Oct 18, 2017 Time of Last Intake of Fluids: 0400 Date of Last Intake of Solids: Oct 17, 2017 Time of Last Intake of Solids: 1800 Procedure Planning Contraindications for Sedation: None Current Medications Reviewed: Yes Notes The planned sedation has been discussed with the patient. Informed Consent was obtained. I have identified the patient, determined the appropriateness of sedation and have assessed the patient immediately prior to the procedure. All medicine(s) and interventions are by my order.
[2017-10-18] MEDS ORDERED: INSU1INJ2 SC (07:49)
[2017-10-18] MEDS ORDERED: MIDAZOLAM HCL 1 MG/ML 2ML VIAL IV ONE (08:29)
[2017-10-18] MEDS ORDERED: LIDOCAINE HCL 1% 20 ML VIAL INJ ONE ×3 (08:30→08:37)
[2017-10-18] MEDS ORDERED: FENTANYL CITRATE INJ 50 MCG/1 ML 2 ML VIAL IV ONE ×2 (08:30→15:13)
[2017-10-18] MEDS ORDERED: HEPARIN 25,000 UNIT/500ML D5W 500 ML IV ONE ×2 (08:56)
--- NOTE | 2017-10-18 09:26 | Post Sedation Assessment ---
Post Sedation Assessment General Date of Sedation Oct 18, 2017. Vital Signs: Vital Signs Past 12 Hours Date Time Temp Pulse Resp B/P (MAP) Pulse Ox O2 Delivery O2 Flow Rate FiO2 10/18/17 07:24 36.8 80 18 138/59 (85) 95 Room Air Post Procedure Recovery Score Activity: (2) Moves 4 extremities * Respiration: (2) Deep breath/cough Circulation: (2) +/-20% PreAnes Value Consciousness: (2) Fully Awake Oxygen Saturation: (2) > 92% On Room Air Post Anesthesia Score: 10 Discharge Sedation Level of Care: Higher Level of Care Post Sedation Plan On clinical assessment, the patient appears to have tolerated the sedation without complications. Patient is recovering as anticipated. Patient will continue to be monitored by nursing and may be discharged when sedation discharge criteria are met per below protocol. Upon Completions of procedure and additional 15 minutes continue every 5 minute vital signs and the P.A.R. score; then discharge to a Phase I or Fast Track to Phase II per the following guidelines: * Discharge Patient to appropriate Phase II area if PAR is 8 or greater or return to pre- procedure baseline. The post - procedure orders will be as directed. * If PAR score is less than 8 or not return to pre-procedure baseline then patient will follow Phase I monitoring till PAR is reached for Phase II. The Phase I may be done in procedure room or may call to secure a Phase I area. * If naloxone or flumazenil are used for reversal, hold in Phase I for an additional 60 -120 minutes before discharge to Phase II. Please call the Sedation Physician to re-evaluate and complete post-note for discharge to Phase II area. Do NOT discharge from procedure sedation or Phase 1 until post- sedation evaluation note is complete by procedure /sedation MD Sedation Discharge Instructions to be given to the patient at discharge to home.
--- NOTE | 2017-10-18 09:26 | [facility] Post Operative Brief Note ---
Immediate Operative Summary Operative Date Oct 18, 2017. Pre-Operative Diagnosis thrombosed arteriovenous fistula Post-Operative Diagnosis thrombosed arteriovenous fistula Procedure(s) Performed Insertion Of Infusion Catheters, Administration Of Thrombolitic Therapy, Moderate Concious Sedation [id number] Guillory Boat Canvas Maker Installer Surgeon(s) Clementina Mahan MD Estimated Blood Loss 2 ml Findings Consistent with Post-Op Diagnosis Specimens none Anesthesia Type IV Sedat Cons RN Only Complication(s) none Disposition Accompanied Pt To Recover: no Disposition:
[2017-10-18] MEDS ORDERED: OPTIRAY 300 IV ONE ×2 (09:29→15:36)
[2017-10-18] MEDS ORDERED: MoRPHine SULFATE 2 MG/ML CARP IV PRN (09:30)
[2017-10-18] MEDS ORDERED: HEPARIN 25,000 UNIT/500ML D5W 500 ML IV SCH ×2 (09:30→16:00)
[2017-10-18] MEDS ORDERED: ALTEPLASE IV SCH ×4 (10:00)
[2017-10-18] MEDS ORDERED: RECOMBINANT IV SCH ×4 (10:00)
[2017-10-18] MEDS ORDERED: SODIUM CHLORIDE 0.9% IV SCH ×4 (10:00)
[2017-10-18] MEDS ORDERED: MoRPHine SULFATE 4 MG/ML 1 ML CARP\\VIAL IV PRN (10:15)
[2017-10-18 10:32] LABS: BASO % 0.2 %; BASO ABS # 0.02 K/uL (0-0.2); EOS ABS # 0.36 K/uL (0-0.5); HEMATOCRIT 35.7 % (37-47); HEMOGLOBIN 11.2 g/dL (12.0-16.0); LYMPH % 9.2 %; LYMPH ABS # 1.12 K/uL (1.2-3.4); MEAN CELL VOLUME 112.3 fL (80-100); MEAN CORPUSCULAR HEMOGLOBIN 35.2 pg (25-34); MEAN PLATELET VOLUME 10.6 fL (7.4-10.4); MONO ABS # 0.61 K/uL (0.11-0.59); NEUT % 81.8 %; NEUT ABS # 9.98 K/uL (1.4-6.5); PLATELET COUNT 207 K/uL (130-400); RED CELL DISTRIBUTION WIDTH CV 17.5 % (11.5-14.5); RED CELL DISTRIBUTION WIDTH SD 71.3 fL (36.4-46.3); WHITE BLOOD COUNT 12.19 K/uL (4.8-10.8)
[2017-10-18 10:39] LABS: MEAN CORPUSCULAR HGB CONC 31.4 g/dl (32-36)
[2017-10-18 10:48] LABS: PTT PATIENT 28.1 SECONDS (21.0-31.0)
--- NOTE | 2017-10-18 11:06 | DIAGNOSTIC IMAGING REPORT ---
DATE OF PROCEDURE: 10/18/2017 PREOPERATIVE DIAGNOSIS: Thrombosed HeRO graft. POSTOPERATIVE DIAGNOSIS: Same. PROCEDURE: Percutaneous placement of thrombolytic catheters, 20 cm [place] catheter distally and 30 cm [place] catheter proximally and limited fistulogram, infusion of thrombolytics. Conscious sedation. SURGEON: Dr. Jossue Guillory. SLIDE FASTENER REPAIRER: Lashae Mahan MD. ANESTHESIA: Local plus conscious sedation. ESTIMATED BLOOD LOSS: 2. COMPLICATIONS: None apparent. CONDITION: Stable to ICU. INDICATIONS: Ms. Nimo Ames is an 81-year-old female with end-stage renal disease, on hemodialysis, who has a right upper extremity HeRO graft that has clotted off. She now has a right IJ PermCath for access. She was advised of the risks and benefits of undergoing thrombolytics and agreed to undergo this procedure and subsequent thrombectomy. DESCRIPTION OF PROCEDURE: The patient was brought into the operative suite. She was prepped and draped in usual fashion. Timeout occurred. Her distal AV graft was accessed percutaneously. A micro puncture wire was passed into the fistula. This was exchanged for a small 6-[place] sheath. A Glidewire was then passed. Next, the HeRO graft was accessed just above her antecubital fossa. A micro puncture needle was used. This was exchanged for a regular 6-[place] sheath. An angled Glidecatheter was passed through the end of the HeRO graft catheter in the SVC and a 20 cm [place] catheter was passed to the end of the catheter. The infusion wire was placed and the sheath was connected to heparin drip at a rate of 400 units an hour. Next, the proximal access point just distal to the shoulder was accessed. A Glidewire was passed through this and a 30 cm [place] infusion catheter was placed. Fistulogram was obtained showing proper position. The infusion wire was placed. This sheath was also connected to heparin at a rate of 400 units an hour. All the catheters were then contained with a sterile towel and attached to the patient. There were extension tubings placed at the end of the catheters for TPA infusion. The patient was then transported to the ICU for TPA infusion with plans to bring her back this afternoon for pharmacomechanical thrombectomy. The patient tolerated the procedure well. Dr. Jossue Guillory was scrubbed for the entirety of this case.
[2017-10-18] MEDS: IPRATROPIUM BROMIDE/ALBUTEROL respimat INH INH SCH ×3 (13:10→22:20)
[2017-10-18] MEDS ORDERED: CLINDAMYCIN IV 600 MG in DEXTROSE 5% 50ML 50 ML IV ONE (14:00)
--- NOTE | 2017-10-18 14:21 | Pre Sedation Assessment ---
Pre Sedation Assessment General Date of Sedation: Oct 18, 2017. Vital Signs Past 12 Hours Date Time Temp Pulse Resp B/P (MAP) Pulse Ox O2 Delivery O2 Flow Rate FiO2 10/18/17 11:00 95 18 122/50 (74) 99 Nasal Cannula 2.0 10/18/17 10:00 37.0 85 18 113/43 (66) 92 Room Air 10/18/17 09:28 82 16 102/47 91 Room Air 10/18/17 09:23 79 16 93 Room Air 10/18/17 09:18 94 16 90/55 95 Room Air 10/18/17 09:15 100 Oxymask 2 10/18/17 09:10 100 Oxymask 2 10/18/17 09:05 100 Oxymask 2 10/18/17 09:00 100 Oxymask 2 10/18/17 08:55 70 16 102/55 100 Oxymask 2 10/18/17 08:50 89 14 103/51 100 Oxymask 2 10/18/17 08:45 78 8 91/51 100 Oxymask 2 10/18/17 08:40 81 16 108/45 100 Oxymask 2 10/18/17 08:35 78 15 114/49 100 Oxymask 2 10/18/17 08:30 60 10 132/76 100 Oxymask 2 10/18/17 08:25 58 12 134/74 100 Oxymask 2 10/18/17 07:24 36.8 80 18 138/59 (85) 95 Room Air Review Cardiovascular: regular rate, rhythm Lungs: lungs clear Pre-Sedation Airway Assessment Smoking Status: Never Smoker Hx of Sleep Apnea: Yes Short Thick Neck: Yes Thyro-mental Distance: > 3 Finger Breadths Oral Cavity: Dentures Mallampati Classification: Class II ASA Classification: Class III NPO Status Date of Last Intake of Fluids: Oct 18, 2017 Time of Last Intake of Fluids: 0400 Date of Last Intake of Solids: Oct 17, 2017 Time of Last Intake of Solids: 1800 Procedure Planning Contraindications for Sedation: None Current Medications Reviewed: Yes Notes The planned sedation has been discussed with the patient. Informed Consent was obtained. I have identified the patient, determined the appropriateness of sedation and have assessed the patient immediately prior to the procedure. All medicine(s) and interventions are by my order.
[2017-10-18] MEDS ORDERED: NURSING VERBAL MED ORDER ONE ×2 (15:15→15:45)
[2017-10-18] MEDS ORDERED: THROMBIN FOR SOLN 20000 UNIT KIT ONE (15:40)
[2017-10-18] MEDS ORDERED: GELATIN SPONGE 12-7MM ONE (15:40)
[2017-10-18] MEDS ORDERED: HEPARIN SOD (PORCINE) 1000 UNIT/ML 10 ML VIAL IV ONE (15:40)
[2017-10-18] MEDS ORDERED: BUPIVACAINE/EPINEPHRINE 0.5% MPF 1:200,000 30 ML VIAL ONE (15:41)
[2017-10-18] MEDS ORDERED: LIDOCAINE HCL 1% 20 ML VIAL ONE (15:41)
[2017-10-18] MEDS ORDERED: PROPOFOL IV EMULSION 10 MG/ML 20 ML VIAL IV ONE ×2 (16:15→16:48)
[2017-10-18] MEDS ORDERED: LIDOCAINE HCL 2% 2 ML VIAL (20MG/ML) ONE (16:48)
[2017-10-18] MEDS ORDERED: NovoLIN-R INSULIN PER UNIT CHARGE ONE (17:09)
[2017-10-18] MEDS ORDERED: ACETAMINOPHEN 325 MG TAB PO SCH (17:30)
[2017-10-18] MEDS ORDERED: TRAMADOL HCL 50 MG TAB PO PRN (17:30)
--- NOTE | 2017-10-18 17:30 | [facility] Post Operative Brief Note ---
Immediate Operative Summary Operative Date Oct 18, 2017. Pre-Operative Diagnosis Right brachial embolism, thrombosed herograft right arm Post-Operative Diagnosis Right brachial embolism, thrombosed herograft right arm Procedure(s) Performed Right brachial artery embolectomy, thrombectomy of right arm fistula Surgeon Dr. Guillory Mechanical Systems Engineer Surgeon(s) Dr. Mahan Estimated Blood Loss 150ml Findings Consistent with Post-Op Diagnosis Specimens none Drains None Anesthesia Type MAC Complication(s) none Disposition Accompanied Pt To Recover: no Disposition: Surgical ICU
[2017-10-18] MEDS ORDERED: SURGICEL ABSORB HEMOSTAT 2IN X 14IN TOP ONE (17:34)
--- NOTE | 2017-10-18 18:41 | DIAGNOSTIC IMAGING REPORT ---
DATE OF PROCEDURE: 10/18/2017 PREOPERATIVE DIAGNOSIS: Thrombosed HeRO graft. POSTOPERATIVE DIAGNOSIS: Same. PROCEDURE: 1. Fistulogram mechanical thrombectomy of HeRO graft with a 6 x 90 AngioJet catheter. 2. Stenting of proximal HeRO graft with 8 x 40 mm bare metal stent. 3. Balloon angioplasty of brachial artery and stent with 8 x 40 mm [place] balloon. ANESTHESIA: Local plus pain control. ESTIMATED BLOOD LOSS: 20. FLUIDS: 200. COMPLICATIONS: Embolus to brachial artery. CONDITION: Procedure was terminated and converted to open. INDICATIONS: Nimo Ames is an 81-year-old female with a clotted HeRO graft to earlier this morning, underwent placement of thrombolytic catheters. It has been approximately 4 hours when we can back to reevaluate for possible mechanical thrombectomy. A fistulogram prior to scrubbing showed a patent outflow and the residual thrombus throughout the proximal HeRO graft. It was advised that she continue with mechanical thrombectomy and the patient and consents to the procedure. DESCRIPTION OF PROCEDURE: The patient was brought into the operative suite. The patient was prepped and draped in the usual fashion. A timeout occurred. The proximal 6-Palest[place] sheath was exchanged for a short 6-[place]est[place] sheath and then the angled Glidewire was passed through the distal sheath just below the elbow it was passed retrograde into the brachial artery. Over this, a 6-Palest[place] x 90 AngioJet catheter was placed and a mechanical thrombectomy occurred throughout the proximal graft. There was a previously placed Viabahn stent in the proximal graft just distal to the arterial anastomosis. There was severe stenosis in this. At this time, it was decided to intervene upon this. The catheter was removed and an 8 x 40 mm bare metal stent was advanced just proximally to the Viabahn. This was deployed. An 8 x 40 mm balloon was then passed through the stent into the arterial anastomosis and inflated due to residual stenosis there. This was then backed into the stent and used to fully inflate the stent. This was withdrawn and a fistulogram was obtained, which showed acute cutoff flow in the brachial artery just distal to the proximal anastomosis of the HeRO graft with reconstitution at approximately 2 cm distally via collaterals. At this time, the procedure was aborted for an open procedure. Dr. Jossue Guillory was present for the entirety this case. [facility] CENTERThuy
--- NOTE | 2017-10-18 18:50 | OPERATIVE REPORT ---
DATE OF OPERATION: 10/18/2017 PREOPERATIVE DIAGNOSES: Embolus to right upper extremity brachial artery and thrombosed HeRo graft. POSTOPERATIVE DIAGNOSES: Same. PROCEDURE: Open thrombectomy of the brachial artery and open thrombectomy of HeRO graft. SURGEON: Dr. Jossue Guillory. WINDING OPERATOR: Dr. Lashae Valdivia. ANESTHESIA: Local plus conscious sedation. URINE OUTPUT: 150. FLUIDS: 100. COMPLICATIONS: None apparent. CONDITION: Stable to the PACU. INDICATIONS: Ms. Ames had just previously undergone a mechanical thrombectomy of her HeRo graft which resulted in brachial embolus to her right brachial artery. It was therefore decided to emergently convert to open thrombectomy to restore flow to her right brachial artery and then a complete thrombectomizing the HeRO graft via open thrombectomy. DESCRIPTION OF PROCEDURE: The patient was prepped and draped in the usual fashion. A timeout occurred. Incision was made in her upper arm in her medial upper arm over the old incision site. From this point, the graft was identified and freed up. The brachial artery was then dissected out and freed up. A vessel loop was placed around the brachial artery and an angled DeBakey clamp was placed distally. An 11 blade was used to make a transverse arteriotomy. A 3 short Citlali balloon was then attempted to be passed proximally; however, it kept getting caught at a previous graft anastomotic site, so therefore this was exchanged for a 4 Citlali balloon. This passed distally into the brachial artery without issue and was inflated and large amount of clot was drawn. This was passed several times until no clot was seen and the proximal artery was clamped with angled DeBakey. Attention was turned distally and a 3-0 Citlali was then passed distally. A large amount of clot was removed. This was continued until it was clear and then this was clamped with an angled DeBakey both proximally and distally was flushed with heparin saline. Interrupted 6-0 Prolene was used to close the arteriotomy. Once hemostasis was obtained, attention was then turned to the graft. A transverse graftotomy was made with an 11 blade. A 3 Citlali balloon was passed distally into the venous system through the graft. This was inflated and withdrew a large amount of clot. This was passed and held, there is no more clot and good backflow. An angled DeBakey clamp was placed there and attention was turned to the proximal graft and the inflow. A 3 Citlali balloon was passed proximally and inflated with a large amount of clot and pulsatile bleeding to follow. Both of these were flushed with heparin saline and the graftotomy was closed with CV5 suture, interrupted. Hemostasis was obtained of the wound and the wound was closed with a 3-0 Vicryl and annie. Once the flow had been reestablished to the fistula, there was bleeding from her previous 2 cites. Pressure was held and hemostasis was obtained. The patient was then transferred to the PACU in stable condition. Dr. Jossue Guillory was present for the entirety this case. I attest to the content of the Intraoperative Record and any orders documented therein. Any exception s are noted below.
[2017-10-18] MEDS ORDERED: GLUCOSE 40% GEL 15 GM TUBE PO PRN (19:00)
[2017-10-18] MEDS ORDERED: GLUCOSE 10 TABS/TUBE PO PRN (19:00)
[2017-10-18] MEDS ORDERED: GLUCAGON FOR INJ 1 MG VIAL SQ PRN (19:00)
[2017-10-18] MEDS ORDERED: INSULIN ASPART 100 UNITS/ML 3 ML PEN SC SCH (19:15)
--- NOTE | 2017-10-18 19:43 | Anesthesiology Progress Note ---
Anesthesia Post Op Note Date & Time Oct 18, 2017 at 19:04 Vital Signs Pain Intensity: 0 Vital Signs Past 12 Hours Date Time Temp Pulse Resp B/P (MAP) Pulse Ox O2 Delivery O2 Flow Rate FiO2 10/18/17 18:45 82 21 126/55 100 Oxymask 5 10/18/17 18:35 38.3 87 22 112/53 100 Oxymask 10 10/18/17 18:25 38.3 66 21 108/47 100 Oxymask 10 10/18/17 18:19 38.3 76 22 112/55 100 Oxymask 10 10/18/17 15:34 Oxymask 2 10/18/17 15:29 Oxymask 2 10/18/17 15:24 Oxymask 2 10/18/17 15:19 Oxymask 2 10/18/17 15:14 Oxymask 2 10/18/17 15:09 Oxymask 2 10/18/17 15:04 Oxymask 2 10/18/17 14:59 Oxymask 2 10/18/17 14:54 Oxymask 2 10/18/17 14:49 Oxymask 2 10/18/17 14:44 68 19 105/72 96 Oxymask 2 10/18/17 14:00 81 18 105/41 (62) 100 Nasal Cannula 2.0 10/18/17 13:00 73 18 130/53 (78) 100 Nasal Cannula 2.0 10/18/17 12:00 Nasal Cannula 2.0 10/18/17 12:00 37.0 78 18 131/45 (73) 100 Nasal Cannula 2.0 10/18/17 11:00 95 18 122/50 (74) 99 Nasal Cannula 2.0 10/18/17 10:00 37.0 85 18 113/43 (66) 92 Room Air 10/18/17 09:28 82 16 102/47 91 Room Air 10/18/17 09:23 79 16 93 Room Air 10/18/17 09:18 94 16 90/55 95 Room Air 10/18/17 09:15 100 Oxymask 2 10/18/17 09:10 100 Oxymask 2 10/18/17 09:05 100 Oxymask 2 10/18/17 09:00 100 Oxymask 2 10/18/17 08:55 70 16 102/55 100 Oxymask 2 10/18/17 08:50 89 14 103/51 100 Oxymask 2 10/18/17 08:45 78 8 91/51 100 Oxymask 2 10/18/17 08:40 81 16 108/45 100 Oxymask 2 10/18/17 08:35 78 15 114/49 100 Oxymask 2 10/18/17 08:30 60 10 132/76 100 Oxymask 2 10/18/17 08:25 58 12 134/74 100 Oxymask 2 10/18/17 07:24 36.8 80 18 138/59 (85) 95 Room Air Notes Mental Status: alert / awake / arousable, participated in evaluation Pt Amnestic to Procedure: Yes Nausea / Vomiting: adequately controlled Pain: adequately controlled Airway Patency, RR, SpO2: stable & adequate BP & HR: stable & adequate Hydration State: stable & adequate Anesthetic Complications: no major complications apparent The patient is an 81 y/o female with a h/o COPD, HARRIS, Afib with aberrant conduction, HTN, CHF, pacemaker, GERD, ESRD on HD and DM who was scheduled for a mechanical thrombectomy of her herograft with Dr. Guillory. Dr. Guillory had started the case under sedation, however during the procedure the patient's was found to have an acute new clot in her R arm moved and Dr. Guillory asked for anesthesia to help deliver more sedation emergently to perform a right brachial artery embolectomy. Anesthesia consent was obtained from the patient's daughter who is POA. The patient underwent the procedure under MAC sedation which she tolerated. well. The patient continued to do well in PACU. She will be transferred to ICU for further management.
[2017-10-18 19:53] LABS: CALCIUM 8.2 mg/dl (8.5-10.1); CREATININE 5.88 mg/dl (0.60-1.20)
[2017-10-18] MEDS: METOPROLOL SUCC 50MG EXT REL TAB PO SCH (20:02)
[2017-10-18] MEDS: NEPHROCAPS PO SCH (20:03)
[2017-10-18] MEDS: RANITIDINE HCL 150 MG TAB PO SCH (20:03)
[2017-10-18] MEDS: DOCUSATE SODIUM 100 MG CAP PO SCH (20:04)
[2017-10-18] MEDS: DIGOXIN 0.125 MG TAB PO SCH (20:04)
[2017-10-18] MEDS: GABAPENTIN 100 MG CAP PO SCH (20:05)
[2017-10-18] MEDS: PROSOURCE NOCARB 30ML/PKT PO SCH (20:05)
[2017-10-18] MEDS: INSULIN GLARGINE SOLOSTAR 100 UNITS/ML 3 ML PEN SC SCH (20:15)
[2017-10-18 20:30] LABS: BASO % 0.1 %; BASO ABS # 0.02 K/uL (0-0.2); EOS % 2.1 %; EOS ABS # 0.28 K/uL (0-0.5); HEMATOCRIT 29.9 % (37-47); HEMOGLOBIN 9.3 g/dL (12.0-16.0); IG# 0.14 K/uL (0.00-0.02); LYMPH % 9.1 %; LYMPH ABS # 1.23 K/uL (1.2-3.4); MEAN CELL VOLUME 111.2 fL (80-100); MEAN CORPUSCULAR HEMOGLOBIN 34.6 pg (25-34); MEAN CORPUSCULAR HGB CONC 31.1 g/dl (32-36); MEAN PLATELET VOLUME 11.6 fL (7.4-10.4); MONO % 5.5 %; MONO ABS # 0.75 K/uL (0.11-0.59); NEUT % 82.2 %; NEUT ABS # 11.13 K/uL (1.4-6.5); PLATELET COUNT 175 K/uL (130-400); RED CELL DISTRIBUTION WIDTH CV 17.4 % (11.5-14.5); RED CELL DISTRIBUTION WIDTH SD 70.5 fL (36.4-46.3); WHITE BLOOD COUNT 13.55 K/uL (4.8-10.8)
[2017-10-18] MEDS ORDERED: ICU PROTOCOL FOR HYPERGLYCEMIA PRN (21:45)
[2017-10-18] MEDS ORDERED: INSULIN IV INFUSION PROTOCOL SCH (22:00)
[2017-10-18] MEDS ORDERED: INSULIN PROTOCOL GOAL RANGE ONE (22:00)
[2017-10-18] MEDS ORDERED: SEVERE STRESS LEVEL ONE (22:00)
[2017-10-18] MEDS ORDERED: NovoLIN R BOLUS FROM BAG IV ONE (22:15)
[2017-10-18] MEDS: INSULIN REGULAR 250 UNITS in SODIUM CHLORIDE 0.9% 250ML 250 ML IV SCH (22:23)
[2017-10-19] VITALS (18 sets, daily range): BP systolic 81–145; BP diastolic 36–69; PULSE 59–83; TEMP 36.9–37.4; O2SAT 91–99
--- NOTE | 2017-10-19 05:11 | Critical Care Consultation ---
Critical Care Consultation Date of Consultation: Oct 19, 2017. Attending Physician: Jossue Guillory M.D. Reason for Consultation: 81-year-old female with hemodialysis dependent end-stage renal disease status post thrombectomy of RIGHT sided fistula with RIGHT brachial embolectomy. Requiring ICU admission for close hemodynamic monitoring status post invasive vascular procedure. History of Present Illness This note represents patient interaction that occurred on 10/18/2017 prior to midnight. Patient is an 81-year-old female with significant past medical history of end- stage renal disease resulting in the need for dialysis, CHF, history of cardiac arrest, hypertension, atrial fibrillation, coronary artery disease, COPD, obstructive sleep apnea, and anemia of chronic disease. She had a clot to her fistula and underwent PermCath placement. She developed reocclusion of her graft which prompted need for declotting of her fistula. Her procedure was complicated by an RIGHT-sided brachial embolism. Surgery was successful with EBL of 150 ML's per documentation. Upon evaluation in the ICU, the patient is resting comfortably. She complains of some slight pain to the RIGHT upper arm. She denies any headaches, dizziness , lightheadedness, blurry vision, slurred speech, facial droop, unilateral weakness numbness, chest pain, nausea, vomiting. Past Medical/Surgical History Medical Problems: (1) Anemia in ESRD (end-stage renal disease) (2) Arteriovenous fistula thrombosis (3) CHF (congestive heart failure) (4) Chronic bronchitis (5) Coronary artery disease (6) Diabetes mellitus, type II (7) ESRD (end stage renal disease) on dialysis (8) GERD (gastroesophageal reflux disease) (9) Gout (10) History of cardiac arrest (11) Hyperkalemia (12) Hyperkalemia, diminished renal excretion (13) Hypertension (14) Paroxysmal atrial fibrillation (15) Pneumonia (16) Pulmonary hypertension (17) Sleep apnea Surgical Problems: (1) Status post cardiac catheterization (2) Status post cataract extraction (3) Status post cholecystectomy (4) Status post hernia repair (5) Status post hip replacement (6) Status post lumbar surgery Family History Alzheimer's disease SISTER Cancer BROTHER Diabetes mellitus FATHER BROTHER SISTER SISTER SISTER Heart disease MOTHER Hypertension FATHER MOTHER reviewed as above Social History Smoking Status: Never Smoker Smokeless Tobacco Use: No Alcohol Use: none Drug Use: none Marital Status: single Housing Status: lives with family Occupation Status: retired Allergies Coded Allergies: Hydrochlorothiazide (Verified Allergy, Intermediate, RASH, 10/18/17) Hydrocodone (Verified Allergy, Mild, RASH, 10/18/17) ERICK Inhibitors (Verified Allergy, Unknown, UNKNOWN, 10/18/17) Amlodipine (Verified Allergy, Unknown, ELEVATED POTASSIUM, 10/18/17) Benazepril (Verified Allergy, Unknown, UNKNOWN, 10/18/17) Cephalexin (Verified Allergy, Unknown, ITCHING AND HIVES, 10/18/17) Penicillins (Verified Allergy, Unknown, RASH, 10/18/17) Spironolactone (Verified Allergy, Unknown, UNKNOWN, 10/18/17) Sulfa Antibiotics (Verified Allergy, Unknown, RASH, 10/18/17) NSAIDs (Verified Adverse Reaction, Intermediate, ELEVATED POTASSIUM, ) Home Medications Scheduled Acetaminophen (Tylenol), 650 MG PO UD Allopurinol (Allopurinol), 100 MG PO NOON Calcium Carbonate (Tums), 500 MG PO BIDM Digoxin (Digoxin), 0.125 MG PO Q2D Docusate Sodium (Colace), 100 MG PO HS Gabapentin (Gabapentin), 100 MG PO BID Home O2 Therapy (Oxygen), 2 LITERS NA HS Insulin Aspart (Novolog Penfill), 8 UNITS SC TIDM Insulin Glargine (Lantus Solostar), 18 UNITS SC BID Ipratropium-Albuterol (Combivent Respimat), 1 PUFFS INH QID Metoprolol Succinate (Metoprolol Succinate ER), 50 MG PO BID Ranitidine (Zantac), 1 TAB PO HS Sertraline (Zoloft), 1 TAB PO DAILY Sevelamer Carbonate (Renvela), 800 MG PO AC Vitamin B Cmplx/Vitc/Folic Ac (Nephrocaps), 1 CAP PO QPM [liquid protein], 30 ML PO BID Current Inpatient Medications Current Inpatient Medications Medications (Trade) Dose Ordered Sig/Juanita Route Start Time Stop Time Status Last Admin Dose Admin Morphine Sulfate (MoRPHine SULFATE INJ) 2 mg Q2H PRN IV 10/18/17 09:30 11/01/17 09:29 Albuterol/ Ipratropium (Combivent Respimat Inh) 1 puffs QID INH 10/18/17 13:00 11/17/17 12:59 10/18/17 22:20 1 PUFFS Morphine Sulfate (MoRPHine SULFATE INJ) . Q2H PRN IV 10/18/17 10:15 11/01/17 10:14 Tramadol HCl (Ultram Tab) `50-100MG (1-2 TABS) ... Q6H PRN PO 10/18/17 17:30 11/17/17 17:29 Heparin Sodium (Porcine) (Heparin Sq 5000 Unit/0.5ml) 5,000 unit Q8H SQ 10/19/17 08:00 11/18/17 07:59 UNV Acetaminophen (Tylenol Tab) 650 mg UD PO 10/18/17 17:30 11/17/17 17:29 Allopurinol (Zyloprim Tab) 100 mg DAILY PO 10/19/17 09:00 11/18/17 08:59 Calcium Carbonate (Tums Chew Tab) 1 mg BIDM PO 10/19/17 07:15 11/18/17 07:14 Digoxin (Lanoxin Tab) 0.125 mg Q2D@1600 PO 10/18/17 19:15 11/17/17 19:14 10/18/17 20:04 0.125 MG Docusate Sodium (coLACE CAP) 100 mg HS PO 10/18/17 21:00 11/17/17 20:59 10/18/17 20:04 100 MG Gabapentin (Neurontin Cap) 100 mg BID PO 10/18/17 21:00 11/17/17 20:59 10/18/17 20:05 100 MG Insulin Aspart (novoLOG ASPART) 8 units TIDM SC 10/18/17 19:15 11/17/17 19:14 Future Hold 10/18/17 20:16 8 UNITS Insulin Glargine (Lantus Solostar Pen) 18 units BID SC 10/18/17 21:00 11/17/17 20:59 Future Hold 10/18/17 20:15 18 UNITS Metoprolol Succinate (Toprol Xl Tab) 50 mg BID PO 10/18/17 21:00 11/17/17 20:59 10/18/17 20:02 50 MG Ranitidine HCl (zANTac TAB) 150 mg HS PO 10/18/17 21:00 11/17/17 20:59 10/18/17 20:03 150 MG Sertraline HCl (Zoloft Tab) 50 mg DAILY PO 10/19/17 09:00 11/18/17 08:59 Vitamin B Complex/ Vit C/Folic Acid (Nephrocaps) 1 cap QPM PO 10/18/17 21:00 11/17/17 20:59 10/18/17 20:03 1 CAP Sevelamer HCl (Renagel Tab) 800 mg AC PO 10/19/17 06:45 11/18/17 06:44 Enteral Nutritional Formula (Prosource No Carb) 30 ml BID PO 10/18/17 21:00 11/17/17 20:59 10/18/17 20:05 30 ML Glucose (Glucose 40% Gel) 15-30 GRAMS 15 GRAMS... UD PRN PO 10/18/17 19:00 11/17/17 18:59 Glucose (Glucose Chew Tab) 4-8 Tablets 4 Tabl... UD PRN PO 10/18/17 19:00 11/17/17 18:59 Dextrose (Dextrose 50% 50ML Syringe) 25-50ML OF 50% DW IV FOR... UD PRN IV 10/18/17 19:00 11/17/17 18:59 Glucagon (Glucagon Inj) 1 mg UD PRN SQ 10/18/17 19:00 11/17/17 18:59 Miscellaneous Information (Icu Protocol For Hyperglycemia) 1 ea PRN PRN N/A 10/18/17 21:45 10/20/17 21:44 Insulin Aspart (novoLOG ASPART) SLIDING SCALE PCHS SC 10/19/17 08:00 11/18/17 07:59 Insulin Human Regular 250 units/ Sodium Chloride 252.5 ml @ 0 mls/hr Q24H IV 10/18/17 22:15 11/17/17 22:14 10/18/17 22:23 2.8 MLS/HR Review of Systems A complete 10-point Review of Systems was discussed with the patient, with pertinent positives and negatives listed in the History of Present Illness. All remaining Review of Systems questions can be considered negative unless otherwise specified. Physical Exam Date Time Temp Pulse Resp B/P (MAP) Pulse Ox O2 Delivery O2 Flow Rate FiO2 10/19/17 04:01 37.4 78 127/39 (68) 94 Room Air 10/19/17 04:00 91 Room Air 10/19/17 03:01 78 116/64 (81) 99 10/19/17 02:01 71 125/52 (76) 95 10/19/17 01:01 72 126/46 (72) 97 10/19/17 00:01 37.1 66 118/47 (70) 95 Oxymask 2.0 10/18/17 23:59 95 Oxymask 2.0 10/18/17 23:01 79 103/58 (73) 97 10/18/17 22:01 85 119/47 (71) 97 10/18/17 20:46 90 120/52 (74) 97 10/18/17 20:31 78 104/55 (71) 96 10/18/17 20:16 100 127/46 (73) 99 10/18/17 20:04 83 10/18/17 20:01 37.3 96 120/51 (74) 99 Oxymask 2.0 10/18/17 20:00 96 Oxymask 2.0 10/18/17 19:47 87 109/53 (71) 98 10/18/17 19:31 80 117/50 (72) 95 10/18/17 19:30 81 110/48 (68) 99 10/18/17 19:15 38.3 91 25 106/65 98 Oxymask 4 10/18/17 19:05 72 22 105/62 98 Oxymask 5 10/18/17 18:55 72 22 112/47 98 Oxymask 5 10/18/17 18:45 82 21 126/55 100 Oxymask 5 10/18/17 18:35 38.3 87 22 112/53 100 Oxymask 10 10/18/17 18:25 38.3 66 21 108/47 100 Oxymask 10 10/18/17 18:19 38.3 76 22 112/55 100 Oxymask 10 10/18/17 15:34 Oxymask 2 10/18/17 15:29 Oxymask 2 10/18/17 15:24 Oxymask 2 10/18/17 15:19 Oxymask 2 10/18/17 15:14 Oxymask 2 10/18/17 15:09 Oxymask 2 10/18/17 15:04 Oxymask 2 10/18/17 14:59 Oxymask 2 10/18/17 14:54 Oxymask 2 10/18/17 14:49 Oxymask 2 10/18/17 14:44 68 19 105/72 96 Oxymask 2 10/18/17 14:00 81 18 105/41 (62) 100 Nasal Cannula 2.0 10/18/17 13:00 73 18 130/53 (78) 100 Nasal Cannula 2.0 10/18/17 12:00 Nasal Cannula 2.0 10/18/17 12:00 37.0 78 18 131/45 (73) 100 Nasal Cannula 2.0 10/18/17 11:00 95 18 122/50 (74) 99 Nasal Cannula 2.0 10/18/17 10:00 37.0 85 18 113/43 (66) 92 Room Air 10/18/17 09:28 82 16 102/47 91 Room Air 10/18/17 09:23 79 16 93 Room Air 10/18/17 09:18 94 16 90/55 95 Room Air 10/18/17 09:15 100 Oxymask 2 10/18/17 09:10 100 Oxymask 2 10/18/17 09:05 100 Oxymask 2 10/18/17 09:00 100 Oxymask 2 10/18/17 08:55 70 16 102/55 100 Oxymask 2 10/18/17 08:50 89 14 103/51 100 Oxymask 2 10/18/17 08:45 78 8 91/51 100 Oxymask 2 10/18/17 08:40 81 16 108/45 100 Oxymask 2 10/18/17 08:35 78 15 114/49 100 Oxymask 2 10/18/17 08:30 60 10 132/76 100 Oxymask 2 10/18/17 08:25 58 12 134/74 100 Oxymask 2 10/18/17 07:24 36.8 80 18 138/59 (85) 95 Room Air VITAL SIGNS - Vital signs and nursing notes were reviewed. GENERAL - 81-year-old female appearing her stated age who is in no acute distress. Communicates well with provider and answers questions appropriately. HEAD - NC/AT. EYES - PERRL with EOMI bilaterally. Sclera anicteric. EARS - No deformities of external structures noted on gross examination bilaterally. NOSE - Midline and without cyanosis. MOUTH/OROPHARYNX - Without perioral cyanosis. Buccal mucosa pink and moist and without leukoplakia. NECK - Neck with FROM. Supple to palpation. LUNGS - Chest wall symmetric without accessory muscle use, intercostals retractions, or central cyanosis. Normal vesicular breath sounds CTA B/L. No wheezes, rales, or rhonchi appreciated. CARDIAC - RRR with S1/S2. No murmur, rubs, or gallops appreciated. No reproducible tenderness to palpation appreciated over the anterior chest wall. ABDOMEN - Abdominal contour obese and without pulsations or visible masses. BS normoactive all four quadrants. No tenderness, palpable masses, hepatosplenomegaly, or ascites noted. EXTREMITIES - Dressings in place to the RIGHT upper extremity without drainage/ blood noted. NEUROLOGIC - Cranial nerves II through XII grossly intact. PSYCH - A&Ox3 and cooperates fully with examiner. Pt is very pleasant and interacts well with examiner. Laboratory Results Last 24 Hours Test 10/18/17 07:07 10/18/17 07:43 10/18/17 07:50 10/18/17 10:24 Bedside Glucose 269 mg/dl 255 mg/dl Potassium Level 4.3 mmol/L 4.2 mmol/L White Blood Count 12.19 K/uL Red Blood Count 3.18 M/uL Hemoglobin 11.2 g/dL Hematocrit 35.7 % Mean Corpuscular Volume 112.3 fL Mean Corpuscular Hemoglobin 35.2 pg Mean Corpuscular Hemoglobin Concent 31.4 g/dl Platelet Count 207 K/uL Mean Platelet Volume 10.6 fL Neutrophils (%) (Auto) 81.8 % Lymphocytes (%) (Auto) 9.2 % Monocytes (%) (Auto) 5.0 % Eosinophils (%) (Auto) 3.0 % Basophils (%) (Auto) 0.2 % Neutrophils # (Auto) 9.98 K/uL Lymphocytes # (Auto) 1.12 K/uL Monocytes # (Auto) 0.61 K/uL Eosinophils # (Auto) 0.36 K/uL Basophils # (Auto) 0.02 K/uL RDW Standard Deviation 71.3 fL RDW Coefficient of Variation 17.5 % Immature Granulocyte % (Auto) 0.8 % Immature Granulocyte # (Auto) 0.10 K/uL Activated Partial Thromboplast Time 28.1 SECONDS Partial Thromboplastin Ratio 1.1 Fibrinogen 598 mg/dl Test 10/18/17 13:08 10/18/17 15:57 10/18/17 16:58 10/18/17 17:31 Bedside Glucose 244 mg/dl 271 mg/dl 282 mg/dl 280 mg/dl Test 10/18/17 18:40 10/18/17 19:20 10/18/17 19:58 10/18/17 20:15 Bedside Glucose 244 mg/dl 292 mg/dl Sodium Level 132 mmol/L Potassium Level mmol/L mmol/L Chloride Level 99 mmol/L Carbon Dioxide Level 21 mmol/L Anion Gap 12.0 mmol/L Blood Urea Nitrogen 61 mg/dl Creatinine 5.88 mg/dl Est Creatinine Clear Calc Drug Dose 7.3 ml/min Estimated GFR () 7.2 Estimated GFR (Non- 6.2 BUN/Creatinine Ratio 10.3 Random Glucose 241 mg/dl Calcium Level 8.2 mg/dl White Blood Count 13.55 K/uL Red Blood Count 2.69 M/uL Hemoglobin 9.3 g/dL Hematocrit 29.9 % Mean Corpuscular Volume 111.2 fL Mean Corpuscular Hemoglobin 34.6 pg Mean Corpuscular Hemoglobin Concent 31.1 g/dl Platelet Count 175 K/uL Mean Platelet Volume 11.6 fL Neutrophils (%) (Auto) 82.2 % Lymphocytes (%) (Auto) 9.1 % Monocytes (%) (Auto) 5.5 % Eosinophils (%) (Auto) 2.1 % Basophils (%) (Auto) 0.1 % Neutrophils # (Auto) 11.13 K/uL Lymphocytes # (Auto) 1.23 K/uL Monocytes # (Auto) 0.75 K/uL Eosinophils # (Auto) 0.28 K/uL Basophils # (Auto) 0.02 K/uL RDW Standard Deviation 70.5 fL RDW Coefficient of Variation 17.4 % Immature Granulocyte % (Auto) 1.0 % Immature Granulocyte # (Auto) 0.14 K/uL Macrocytosis PRESENT Spherocytes 1+ Tear Drop Cells 1+ Ovalocytes 1+ Test 10/18/17 21:32 10/18/17 21:58 10/18/17 23:54 10/19/17 00:43 Potassium Level mmol/L mmol/L mmol/L Bedside Glucose 322 mg/dl 304 mg/dl Test 10/19/17 01:02 10/19/17 01:55 10/19/17 03:00 10/19/17 04:01 Bedside Glucose 305 mg/dl 250 mg/dl 194 mg/dl 218 mg/dl Test 10/19/17 04:44 Diagnostic Results Radiological imaging and reports were reviewed by myself. Assessment & Plan (1) Arteriovenous fistula thrombosis (2) Hypertension (3) Diabetes mellitus, type II (4) Paroxysmal atrial fibrillation (5) Sleep apnea (6) Anemia in ESRD (end-stage renal disease) (7) Coronary artery disease (8) GERD (gastroesophageal reflux disease) (9) Gout (10) Pulmonary hypertension (11) CHF (congestive heart failure) (12) History of cardiac arrest (13) ESRD (end stage renal disease) on dialysis Reason Critically Ill: 81-year-old female with hemodialysis dependent end-stage renal disease status post thrombectomy of RIGHT sided fistula with RIGHT brachial embolectomy. Requiring ICU admission for close hemodynamic monitoring status post invasive vascular procedure. Neuro - * CAM ICU: NEGATIVE * Neuro checks per nursing protocol. * Pain Rx PRN Cardiac - * h/o CHF, Cardiac Arrest, HTN, A Fib, CAD: * Continue home Rx as BP/HR tolerates. * Monitor closely on telemetry. * EKGs for any CP. Respiratory - * h/o COPD, Pulm HTN, HARRIS: * Continue w/ supplemental O2 as needed (2L at home). * Home Nebs as scheduled. * Monitor pulse oximetry. * Consider imaging modalities for any changes in O2 requirement. GI - * GERD - continue Zantac. * Progress diet as tolerated. RENAL/LYTES - * ESRD w/ HD, h/y Hyperkalemia: * HD per Pts outpt schedule. * Initial K+ 4.3 - recheck. * Treat HyperK+ as needed. - * No concerns at this point. ENDO - * h/o DMII: * Multiple BSGs >250 despite aggressive ISS coverage. * Add insulin gtt for better coverage in the acute postoperative phase. * No h/o Thyroid Dz. * Gout - continue allopurinol. HEME - * Anemia of chronic disease: * Trend in the setting of recent surgery. * Stable to this point. ID - * No c/o infection at this point. * Trend fever curve. LINES/IV ACCESS - * PIVs x2 intact DVT PROPHYLAXIS - * Heparin SQ I have personally spent 35 minutes of critical care time in the direct management of this patient. This is a life/limb threatening event. This includes time spent evaluating patient, direct bedside care, chart review, placing orders, interpretation of diagnostic studies, discussion with consultants, patient, and family members, as well as other required patient management activities. This time is exclusive of all separately billable procedures, and teaching time and separate from and in addition to any other critical care service time. Thank you for this consultation allow us to be part of this patient's care. Please refer to my attending physician's documentation for any further recommendations. Attending addendum, The patient was seen, examined independently, agree with assessment and plan of my colleagues at [facility]. The patient is status post declotting of her AV fistula and placement of left subclavian tunneled dialysis catheter. Postop the patient has been monitored in the ICU. The patient is doing very well. Pressure is difficult to measure accurately due to her vasculopathic state. However her blood pressure has been maintained and she has excellent mentation. She denies any pain no shortness of breath. She does not have any symptoms. Her labs also reviewed. The site of the subclavian tunneled catheter and the right AV fistula appears clean and well maintained. Her lungs were clear abdomen is benign. Edema in the periphery was noted which is chronic. The patient can be dispositioned to regular floor and continue with her current medications. No other recommendations from pulmonary standpoint and critical care standpoint. Case discussed with the staff on rounds and details. Glucose control was provided per protocol. No need for insulin drip. Critical care time spent with the patient was 35 minutes.
[2017-10-19 05:51] LABS: BASO % 0.1 %; BASO ABS # 0.01 K/uL (0-0.2); EOS % 2.8 %; EOS ABS # 0.32 K/uL (0-0.5); HEMATOCRIT 27.7 % (37-47); HEMOGLOBIN 8.5 g/dL (12.0-16.0); IG# 0.09 K/uL (0.00-0.02); LYMPH % 14.6 %; LYMPH ABS # 1.64 K/uL (1.2-3.4); MEAN CELL VOLUME 111.7 fL (80-100); MEAN CORPUSCULAR HEMOGLOBIN 34.3 pg (25-34); MEAN CORPUSCULAR HGB CONC 30.7 g/dl (32-36); MEAN PLATELET VOLUME 10.9 fL (7.4-10.4); MONO % 7.5 %; MONO ABS # 0.85 K/uL (0.11-0.59); NEUT % 74.2 %; NEUT ABS # 8.36 K/uL (1.4-6.5); PLATELET COUNT 173 K/uL (130-400); RED CELL DISTRIBUTION WIDTH CV 17.8 % (11.5-14.5); RED CELL DISTRIBUTION WIDTH SD 73.1 fL (36.4-46.3); WHITE BLOOD COUNT 11.27 K/uL (4.8-10.8)
[2017-10-19] MEDS: SEVELAMER HYDROCH 800 MG TAB PO SCH ×4 (06:02→16:30)
[2017-10-19] MEDS: CALCIUM CARBONATE 500 MG CHEWABLE PO SCH ×2 (06:07→06:42)
[2017-10-19 06:43] LABS: CALCIUM 8.2 mg/dl (8.5-10.1); CREATININE 6.46 mg/dl (0.60-1.20); POTASSIUM 4.6 mmol/L (3.5-5.1)
[2017-10-19 06:50] LABS: HEMOGLOBIN A1C 7.9 % (4.5-5.6)
[2017-10-19] MEDS ORDERED: ACETAMINOPHEN 325 MG TAB PO PRN ×2 (07:00)
[2017-10-19] MEDS ORDERED: EPOETIN ALFA 10,000 UNITS/ML VIAL IV. ONE (08:00)
--- NOTE | 2017-10-19 08:08 | NEPHROLOGY CONSULTATION ---
DATE OF CONSULTATION: 10/19/2017 ATTENDING OF RECORD: Jossue Guillory MD. REASON FOR CONSULTATION: End-stage renal disease. HISTORY OF PRESENT ILLNESS: This is an 81-year-old female who dialyzes Mondays, Wednesdays, Fridays at the [facility] through a HeRO graft. The patient does have a tunneled line placed as back up and was recently admitted for the flu, now is readmitted with a clotted HeRo graft. Dr. Guillory took the patient to surgery and underwent an open thrombectomy of the brachial artery as well as open thrombectomy of the HeRo graft. The patient resting comfortably this morning, eating breakfast, knows her name, knows Sis is the president; however, does not know the location or the year or the days that she normally dialyzes. PAST MEDICAL HISTORY: CHF, heart disease, type 2 diabetes, end-stage renal disease, gout, hypertension, paroxysmal AFib, pulmonary hypertension, sleep apnea. PAST SURGICAL HISTORY: Multiple dialysis access attempts, cataract surgery, cholecystectomy, hernia repair, hip replacement, back surgery. FAMILY HISTORY: Significant for diabetes and hypertension. SOCIAL HISTORY: No smoking, no alcohol, no drugs. CURRENT MEDICATIONS: Allopurinol 100 mg a day, Zoloft 50 mg a day, heparin 5000 units subQ q. 8, sliding scale insulin, calcium 1 mg p.o. b.i.d., Renagel 800 mg with meals, insulin drip, Colace 100 mg at night, Neurontin 100 mg p.o. b.i.d., Toprol-XL 50 mg p.o. b.i.d., Zantac 150 mg at night, Nephrocaps at night, digoxin 0.125 mg q. 48 hours, Combivent inhaler 4 times a day. REVIEW OF SYSTEMS: The patient mildly confused but with no specific complaints. Denies shortness of breath, chest pain, nausea, vomiting, headaches, difficulty swallowing, rash, although unclear if the review of systems is reliable secondary to her mild confusion this morning. All other review of systems otherwise negative. PHYSICAL EXAMINATION: VITAL SIGNS: Temperature 37.4, pulse 78, respiratory rate 25, blood pressure 127/39, satting 94% on room air. GENERAL: Awake, alert, oriented x1 with some mild confusion. EYES: No scleral icterus. HEENT: Moist mucous membranes. NECK: Supple. LUNGS: Decreased breath sounds at the bases with poor inspiratory effort. CARDIAC: Regular rate and rhythm. ABDOMEN: Bowel sounds positive, soft, nontender. EXTREMITIES: No significant clubbing, cyanosis or edema. Right upper arm with dressings in place. Right hand warm to palpation. NEUROLOGICALLY: Nonfocal. DERMATOLOGIC: No rash or ulcers noted. ACCESS: +bruit from access LABORATORIES: White count is 11, H&H 8.5 and 27.7, platelet count is 173. Hemoglobin levels dropped from 11.2 down to 8.5. Sodium was 134, potassium 4.6, chloride is 101, bicarbonate is 23, BUN 73, creatinine 6.46, glucose is 209, hemoglobin A1c 7.9, calcium is 8.2. INR is 1. ASSESSMENT AND PLAN: 1. End-stage renal disease. Today is patient's regular dialysis day. Will plan a dialysis treatment today with 1 liter fluid removal as blood pressure tolerates on a 2k bath. 2. Anemia of renal failure. We will redose Procrit with hemoglobin levels trending down, may be dilutional in nature. We will follow hemoglobin levels. Perhaps if hemoglobin levels drop below 7, could consider blood transfusion. Appreciate consultation. Addendum: seen on dialysis, when pt placed on machine, systolics went into the 80s. not tolerating any fluid removal. will stop the dialysis and re-evaluate tomorrow. updated Dr. Guillory. [facility] CENTERThuy
[2017-10-19] MEDS: INSULIN ASPART 100 UNITS/ML 3 ML PEN SC SCH ×4 (08:56→21:00)
[2017-10-19] MEDS: HEPARIN SOD 5000 UNIT/0.5 ML CARP SQ SCH ×2 (08:57→16:34)
[2017-10-19] MEDS: METOPROLOL SUCC 50MG EXT REL TAB PO SCH ×2 (09:00→21:45)
[2017-10-19] MEDS: INSULIN GLARGINE SOLOSTAR 100 UNITS/ML 3 ML PEN SC SCH (09:04)
--- NOTE | 2017-10-19 09:16 | Clinical Documentation Query ---
CLINICAL DOCUMENTATION QUERY Dr. MICHEL, In your clinical opinion is this patient being managed for: (x ) Chronic diastolic CHF ( ) Not Agree ( ) Other explanation of clinical findings (Please Explain) ( ) Unable to determine (Please Define) ( ) Need to Discuss The medical record reflects the following clinical findings, treatment, and risk factors. Clinical Indicators: 81 yo female presenting with a thrombosed HeRO graft and RUE brachial artery embolism. Critical care consult indicates pt has a history of CHF. Review of December 2014 ECHO revealed 65-70%. Treatment: chronic treatment includes metoprolol, dialysis treatments, home O2 therapy Risk Factors: age, ESRD, a fib, HTN, CAD, COPD, HARRIS, DM Please clarify and document your clinical opinion in the progress notes and discharge summary. Terms such as "probable", "suspected", "likely", "questionable", "possible", or "still to be ruled out" are acceptable. IF IN AGREEMENT, YOU MUST DOCUMENT ABOVE DIAGNOSTIC STATEMENT IN DAILY PROGRESS NOTES AND DISCHARGE SUMMARY. This document is not part of the patient's record. Thank You, Malathi Diaz, ANILA [phone]
--- NOTE | 2017-10-19 10:41 | Anesthesiology Progress Note ---
Anesthesia Post Op Note Date & Time Oct 19, 2017 at 10:40 Vital Signs Pain Intensity: 0.0 Vital Signs Past 12 Hours Date Time Temp Pulse Resp B/P (MAP) Pulse Ox O2 Delivery O2 Flow Rate FiO2 10/19/17 10:03 37.0 81 103/37 (59) 10/19/17 09:15 81 103/37 10/19/17 09:00 62 81/37 10/19/17 08:50 62 88/44 10/19/17 08:00 37.0 73 92/36 (54) 10/19/17 04:01 37.4 78 127/39 (68) 94 Room Air 10/19/17 04:00 91 Room Air 10/19/17 03:01 78 116/64 (81) 99 10/19/17 02:01 71 125/52 (76) 95 10/19/17 01:01 72 126/46 (72) 97 10/19/17 00:01 37.1 66 118/47 (70) 95 Oxymask 2.0 10/18/17 23:59 95 Oxymask 2.0 10/18/17 23:01 79 103/58 (73) 97 Notes Mental Status: alert / awake / arousable, participated in evaluation Pt Amnestic to Procedure: Yes Nausea / Vomiting: adequately controlled Pain: adequately controlled Airway Patency, RR, SpO2: stable & adequate BP & HR: stable & adequate Hydration State: stable & adequate Anesthetic Complications: no major complications apparent pt drowsy, hypotension this am per RN (HD aborted)
[2017-10-19] MEDS: PROSOURCE NOCARB 30ML/PKT PO SCH ×2 (12:07→21:46)
[2017-10-19] MEDS: GABAPENTIN 100 MG CAP PO SCH ×2 (12:07→21:46)
[2017-10-19] MEDS: SERTRALINE HCL 50 MG TAB PO SCH (12:08)
[2017-10-19] MEDS: ALLOPURINOL 100 MG TAB PO SCH (12:08)
[2017-10-19] MEDS: IPRATROPIUM BROMIDE/ALBUTEROL respimat INH INH SCH ×4 (12:08→21:43)
[2017-10-19 12:11] LABS: HEMATOCRIT 28.6 % (37-47)
--- NOTE | 2017-10-19 12:14 | Progress Note ---
Progress Note Date of Service: Oct 19, 2017. Subjective No complaints today Problem List Medical Problems: (1) Atrial fibrillation with RVR Status: Acute (2) Change in mental status Status: Acute (3) Dialysis AV fistula malfunction Status: Acute (4) Fever Status: Acute (5) Hypotension Status: Acute (6) Influenza B Status: Acute (7) Leukocytosis Status: Acute (8) Renal failure Status: Acute (9) Respiratory failure Status: Acute (10) Syncope Status: Acute Objective Vital Signs Vital Signs Past 12 Hours Date Time Temp Pulse Resp B/P (MAP) Pulse Ox O2 Delivery O2 Flow Rate FiO2 10/19/17 10:03 37.0 81 103/37 (59) 10/19/17 09:15 81 103/37 10/19/17 09:00 62 81/37 10/19/17 08:50 62 88/44 10/19/17 08:00 37.0 73 92/36 (54) 10/19/17 04:01 37.4 78 127/39 (68) 94 Room Air 10/19/17 04:00 91 Room Air 10/19/17 03:01 78 116/64 (81) 99 10/19/17 02:01 71 125/52 (76) 95 10/19/17 01:01 72 126/46 (72) 97 Exam VSS stable at this time. Awake and alert Incisions dry and clean. Good thrill in fistula Intake & Output 8-Hour Column 10/19/17 10/19/17 10/20/17 15:59 23:59 07:59 Output Total 0 ml Balance 0 ml 24-Hour Column 10/20/17 07:59 Output Total 0 ml Balance 0 ml Laboratory and Microbiology Results Past 24 Hours Test 10/18/17 13:08 10/18/17 15:57 10/18/17 16:58 10/18/17 17:31 Range/Units Bedside Glucose 244 271 282 280 70-90 mg/dl Test 10/18/17 18:40 10/18/17 19:20 10/18/17 19:58 10/18/17 20:15 Range/Units Bedside Glucose 244 292 70-90 mg/dl Sodium Level 132 136-145 mmol/L Potassium Level 3.5-5.1 mmol/L Chloride Level 99 98-107 mmol/L Carbon Dioxide Level 21 21-32 mmol/L Anion Gap 12.0 3-11 mmol/L Blood Urea Nitrogen 61 7-18 mg/dl Creatinine 5.88 0.60-1.20 mg/dl Est Creatinine Clear Calc Drug Dose 7.3 ml/min Estimated GFR () 7.2 Estimated GFR (Non- 6.2 BUN/Creatinine Ratio 10.3 10-20 Random Glucose 241 70-99 mg/dl Calcium Level 8.2 8.5-10.1 mg/dl White Blood Count 13.55 4.8-10.8 K/uL Red Blood Count 2.69 4.2-5.4 M/uL Hemoglobin 9.3 12.0-16.0 g/dL Hematocrit 29.9 37-47 % Mean Corpuscular Volume 111.2 80-100 fL Mean Corpuscular Hemoglobin 34.6 25-34 pg Mean Corpuscular Hemoglobin Concent 31.1 32-36 g/dl Platelet Count 175 130-400 K/uL Mean Platelet Volume 11.6 7.4-10.4 fL Neutrophils (%) (Auto) 82.2 % Lymphocytes (%) (Auto) 9.1 % Monocytes (%) (Auto) 5.5 % Eosinophils (%) (Auto) 2.1 % Basophils (%) (Auto) 0.1 % Neutrophils # (Auto) 11.13 1.4-6.5 K/uL Lymphocytes # (Auto) 1.23 1.2-3.4 K/uL Monocytes # (Auto) 0.75 0.11-0.59 K/uL Eosinophils # (Auto) 0.28 0-0.5 K/uL Basophils # (Auto) 0.02 0-0.2 K/uL RDW Standard Deviation 70.5 36.4-46.3 fL RDW Coefficient of Variation 17.4 11.5-14.5 % Immature Granulocyte % (Auto) 1.0 % Immature Granulocyte # (Auto) 0.14 0.00-0.02 K/uL Macrocytosis PRESENT Spherocytes 1+ Tear Drop Cells 1+ Ovalocytes 1+ Test 10/18/17 21:32 10/18/17 21:58 10/18/17 23:54 10/19/17 00:43 Range/Units Potassium Level 3.5-5.1 mmol/L Bedside Glucose 322 304 70-90 mg/dl Test 10/19/17 01:02 10/19/17 01:55 10/19/17 03:00 10/19/17 04:01 Range/Units Bedside Glucose 305 250 194 218 70-90 mg/dl Test 10/19/17 05:17 10/19/17 11:57 Range/Units White Blood Count 11.27 4.8-10.8 K/uL Red Blood Count 2.48 4.2-5.4 M/uL Hemoglobin 8.5 9.0 12.0-16.0 g/dL Hematocrit 27.7 28.6 37-47 % Mean Corpuscular Volume 111.7 80-100 fL Mean Corpuscular Hemoglobin 34.3 25-34 pg Mean Corpuscular Hemoglobin Concent 30.7 32-36 g/dl Platelet Count 173 130-400 K/uL Mean Platelet Volume 10.9 7.4-10.4 fL Neutrophils (%) (Auto) 74.2 % Lymphocytes (%) (Auto) 14.6 % Monocytes (%) (Auto) 7.5 % Eosinophils (%) (Auto) 2.8 % Basophils (%) (Auto) 0.1 % Neutrophils # (Auto) 8.36 1.4-6.5 K/uL Lymphocytes # (Auto) 1.64 1.2-3.4 K/uL Monocytes # (Auto) 0.85 0.11-0.59 K/uL Eosinophils # (Auto) 0.32 0-0.5 K/uL Basophils # (Auto) 0.01 0-0.2 K/uL RDW Standard Deviation 73.1 36.4-46.3 fL RDW Coefficient of Variation 17.8 11.5-14.5 % Immature Granulocyte % (Auto) 0.8 % Immature Granulocyte # (Auto) 0.09 0.00-0.02 K/uL Anisocytosis PRESENT Tear Drop Cells 1+ Ovalocytes 1+ Prothrombin Time 10.9 9.0-12.0 SECONDS Prothromb Time International Ratio 1.0 0.9-1.1 Sodium Level 134 136-145 mmol/L Potassium Level 4.6 3.5-5.1 mmol/L Chloride Level 101 98-107 mmol/L Carbon Dioxide Level 23 21-32 mmol/L Anion Gap 9.0 3-11 mmol/L Blood Urea Nitrogen 73 7-18 mg/dl Creatinine 6.46 0.60-1.20 mg/dl Est Creatinine Clear Calc Drug Dose 6.3 ml/min Estimated GFR () 6.5 Estimated GFR (Non- 5.6 BUN/Creatinine Ratio 11.3 10-20 Random Glucose 209 70-99 mg/dl Estimated Average Glucose 180 mg/dl Hemoglobin A1c 7.9 4.5-5.6 % Calcium Level 8.2 8.5-10.1 mg/dl Microbiology Results 10/18/17 MRSA DNA Surveillance Screen - Final, Complete Specimen Negative for MRSA by DNA Probe Imp: Post declot of fistula yesterday Plan: Will send to tele today. Will have dialysis tomorrow. If she handles it well, will d/c tomorrow.
[2017-10-19] MEDS ORDERED: PHARMACY GLYCEMIC MGMT CONSULT PRN (12:30)
--- NOTE | 2017-10-19 12:59 | Medical Consult ---
History General Date of Service: Oct 19, 2017. Stated Complaint: Arteriovenous Fistula Thrombosis HPI The patient is a 81 year old female who presents to [facility] with complaints of Arteriovenous Fistula Thrombosis. The patient's primary care provider is Luisito Roberson M.D.. This is an 81-year-old female with end-stage renal disease on dialysis, type 2 diabetes, chronic CHF, hypertension, paroxysmal A. fib, pulmonary hypertension, obstructive sleep apnea Follows with [facility] physician group family practice Dr. Luisito Roberson her employment legal assistant is Dr. Maurer at [facility] Patient gets dialysis on Tuesday, Tuesday and Tuesday at the [place] dialysis unit through a HeRO graft on rt upper ext Was admitted under vascular service Dr. Guillory for clotted graft Underwent surgery yesterday with open thrombectomy of the HeRo Graft and also thrombectomy of brachial artery. Patient's blood sugar remained elevated. Started on IV insulin drip per ICU protocol Medicine service consulted for diabetes management This morning patient was found to be hypotensive With attempts to dialysis systolic blood pressure dropped to 80s-HD was stopped , no fluid removal was done patient seen at ICU Bed 5 Episode of confusion noted, patient is oriented to person only, does not recall having surgery yesterday, being in hospital or having dialysis this morning no fever or chills. Denies of any shortness of breath has dry nonproductive cough Review of Systems Constitutional: reports: weakness Cardiovascular: reports: no symptoms Respiratory: reports: cough (Dry nonproductive) Gastrointestinal: reports: no symptoms Musculoskeletal: reports: no symptoms Neurologic: reports: other (Confusion) Family History Alzheimer's disease SISTER Cancer BROTHER Diabetes mellitus FATHER BROTHER SISTER SISTER SISTER Heart disease MOTHER Hypertension FATHER MOTHER Social History Hx Tobacco Use In Past Year?: No Smoking Status: Never Smoker Marital status: single Housing status: lives with family Occupational Status: retired Immunizations History of Influenza Vaccine: Yes History of Pneumococcal: Yes Allergies Coded Allergies: Hydrochlorothiazide (Verified Allergy, Intermediate, RASH, 10/18/17) Hydrocodone (Verified Allergy, Mild, RASH, 10/18/17) ERICK Inhibitors (Verified Allergy, Unknown, UNKNOWN, 10/18/17) Amlodipine (Verified Allergy, Unknown, ELEVATED POTASSIUM, 10/18/17) Benazepril (Verified Allergy, Unknown, UNKNOWN, 10/18/17) Cephalexin (Verified Allergy, Unknown, ITCHING AND HIVES, 10/18/17) Penicillins (Verified Allergy, Unknown, RASH, 10/18/17) Spironolactone (Verified Allergy, Unknown, UNKNOWN, 10/18/17) Sulfa Antibiotics (Verified Allergy, Unknown, RASH, 10/18/17) NSAIDs (Verified Adverse Reaction, Intermediate, ELEVATED POTASSIUM, ) Current Medications Reported Home Medications Medications Dose Route/Sig Max Daily Dose Days Date Category Dose Instructions Novolog Penfill (Insulin Aspart) 100 Unit/Ml Inj 8 Units SC TIDM 10/18/17 Reported Lantus Solostar (Insulin Glargine) 100 Unit/Ml Inj 18 Units SC BID 10/18/17 Reported [liquid protein] 30 Ml PO BID 10/14/17 Reported Zoloft (Sertraline HCl) 50 Mg Tab 1 Tab PO DAILY 30 10/14/17 Reported Zantac (Ranitidine HCl) 150 Mg Tab 1 Tab PO HS 30 10/04/17 Rx Combivent Respimat (Ipratropium-Albuterol) 1 Aer Aer 1 Puffs INH QID 30 10/04/17 Rx Metoprolol Succinate ER (Metoprolol Succinate) 50 Mg Tabcr 50 Mg PO BID 30 10/04/17 Rx Tums (Calcium Carbonate) 500 Mg Chew 1 BIDM 09/27/17 Reported one after breakfast and with supper Tylenol (Acetaminophen) 325 Mg Tab 650 Mg PO UD 09/16/17 Reported Renvela (Sevelamer Carbonate) 800 Mg Tab 800 Mg PO AC 03/28/17 Reported Oxygen Gas 2 Liters NA HS 03/28/17 Reported Gabapentin 100 Mg Cap 100 Mg PO BID 03/28/17 Reported Colace (Docusate Sodium) 100 Mg Cap 100 Mg PO HS 03/28/17 Reported Digoxin 0.125 Mg Tab 0.125 Mg PO Q2D 03/28/17 Reported PM Nephrocaps (Vitamin B Complex/Vit C/Folic Acid) Cap 1 Cap PO QPM 03/28/17 Reported Allopurinol 100 Mg Tab 100 Mg PO NOON 03/28/17 Reported Physical Physical Exam Vital Signs: Date Time Temp Pulse Resp B/P (MAP) Pulse Ox O2 Delivery O2 Flow Rate FiO2 10/19/17 10:03 37.0 81 103/37 (59) 10/19/17 09:15 81 103/37 10/19/17 09:00 62 81/37 10/19/17 08:50 62 88/44 10/19/17 08:00 37.0 73 92/36 (54) 10/19/17 04:01 37.4 78 127/39 (68) 94 Room Air 10/19/17 04:00 91 Room Air 10/19/17 03:01 78 116/64 (81) 99 10/19/17 02:01 71 125/52 (76) 95 10/19/17 01:01 72 126/46 (72) 97 10/19/17 00:01 37.1 66 118/47 (70) 95 Oxymask 2.0 10/18/17 23:59 95 Oxymask 2.0 10/18/17 23:01 79 103/58 (73) 97 10/18/17 22:01 85 119/47 (71) 97 10/18/17 20:46 90 120/52 (74) 97 10/18/17 20:31 78 104/55 (71) 96 18 20:16 100 127/46 (73) 99 10/18/17 20:04 83 10/18/17 20:01 37.3 96 120/51 (74) 99 Oxymask 2.0 10/18/17 20:00 96 Oxymask 2.0 10/18/17 19:47 87 109/53 (71) 98 18 19:31 80 117/50 (72) 95 10/18/17 19:30 81 110/48 (68) 99 10/18/17 19:15 38.3 91 25 106/65 98 Oxymask 4 10/18/17 19:05 72 22 105/62 98 Oxymask 5 10/18/17 18:55 72 22 112/47 98 Oxymask 5 10/18/17 18:45 82 21 126/55 100 Oxymask 5 10/18/17 18:35 38.3 87 22 112/53 100 Oxymask 10 10/18/17 18:25 38.3 66 21 108/47 100 Oxymask 10 10/18/17 18:19 38.3 76 22 112/55 100 Oxymask 10 3/20/18 15:34 Oxymask 2 10/18/17 15:29 Oxymask 2 10/18/17 15:24 Oxymask 2 10/18/17 15:19 Oxymask 2 10/18/17 15:14 Oxymask 2 10/18/17 15:09 Oxymask 2 10/18/17 15:04 Oxymask 2 10/18/17 14:59 Oxymask 2 10/18/17 14:54 Oxymask 2 10/18/17 14:49 Oxymask 2 10/18/17 14:44 68 19 105/72 96 Oxymask 2 10/18/17 14:00 81 18 105/41 (62) 100 Nasal Cannula 2.0 10/18/17 13:00 73 18 130/53 (78) 100 Nasal Cannula 2.0 General Appearance: other (Chronically ill-appearing) Head: NORMOCEPHALIC, ATRAUMATIC Eyes: SCLERAE NORMAL ENT: other (Moist oral mucosa) Neck: NORMAL RANGE OF MOTION Respiratory: other (Breath sounds diminished) Cardiovasular: REGULAR RATE/RHYTHM Abdomen: NON TENDER Upper Extremities: other (Right upper shoulder: Surgical scar for thrombectomy , healing well ) Neuro: confused (Oriented to person only), other (Confusion) Diagnostics Labs Results Past 24 Hours Test 10/18/17 13:08 10/18/17 15:57 10/18/17 16:58 10/18/17 17:31 Range/Units Bedside Glucose 244 271 282 280 70-90 mg/dl Test 10/18/17 18:40 10/18/17 19:20 10/18/17 19:58 10/18/17 20:15 Range/Units Bedside Glucose 244 292 70-90 mg/dl Sodium Level 132 136-145 mmol/L Potassium Level 3.5-5.1 mmol/L Chloride Level 99 98-107 mmol/L Carbon Dioxide Level 21 21-32 mmol/L Anion Gap 12.0 3-11 mmol/L Blood Urea Nitrogen 61 7-18 mg/dl Creatinine 5.88 0.60-1.20 mg/dl Est Creatinine Clear Calc Drug Dose 7.3 ml/min Estimated GFR () 7.2 Estimated GFR (Non- 6.2 BUN/Creatinine Ratio 10.3 10-20 Random Glucose 241 70-99 mg/dl Calcium Level 8.2 8.5-10.1 mg/dl White Blood Count 13.55 4.8-10.8 K/uL Red Blood Count 2.69 4.2-5.4 M/uL Hemoglobin 9.3 12.0-16.0 g/dL Hematocrit 29.9 37-47 % Mean Corpuscular Volume 111.2 80-100 fL Mean Corpuscular Hemoglobin 34.6 25-34 pg Mean Corpuscular Hemoglobin Concent 31.1 32-36 g/dl Platelet Count 175 130-400 K/uL Mean Platelet Volume 11.6 7.4-10.4 fL Neutrophils (%) (Auto) 82.2 % Lymphocytes (%) (Auto) 9.1 % Monocytes (%) (Auto) 5.5 % Eosinophils (%) (Auto) 2.1 % Basophils (%) (Auto) 0.1 % Neutrophils # (Auto) 11.13 1.4-6.5 K/uL Lymphocytes # (Auto) 1.23 1.2-3.4 K/uL Monocytes # (Auto) 0.75 0.11-0.59 K/uL Eosinophils # (Auto) 0.28 0-0.5 K/uL Basophils # (Auto) 0.02 0-0.2 K/uL RDW Standard Deviation 70.5 36.4-46.3 fL RDW Coefficient of Variation 17.4 11.5-14.5 % Immature Granulocyte % (Auto) 1.0 % Immature Granulocyte # (Auto) 0.14 0.00-0.02 K/uL Macrocytosis PRESENT Spherocytes 1+ Tear Drop Cells 1+ Ovalocytes 1+ Test 10/18/17 21:32 10/18/17 21:58 10/18/17 23:54 10/19/17 00:43 Range/Units Potassium Level 3.5-5.1 mmol/L Bedside Glucose 322 304 70-90 mg/dl Test 10/19/17 01:02 10/19/17 01:55 10/19/17 03:00 10/19/17 04:01 Range/Units Bedside Glucose 305 250 194 218 70-90 mg/dl Test 10/19/17 05:17 10/19/17 11:57 Range/Units White Blood Count 11.27 4.8-10.8 K/uL Red Blood Count 2.48 4.2-5.4 M/uL Hemoglobin 8.5 9.0 12.0-16.0 g/dL Hematocrit 27.7 28.6 37-47 % Mean Corpuscular Volume 111.7 80-100 fL Mean Corpuscular Hemoglobin 34.3 25-34 pg Mean Corpuscular Hemoglobin Concent 30.7 32-36 g/dl Platelet Count 173 130-400 K/uL Mean Platelet Volume 10.9 7.4-10.4 fL Neutrophils (%) (Auto) 74.2 % Lymphocytes (%) (Auto) 14.6 % Monocytes (%) (Auto) 7.5 % Eosinophils (%) (Auto) 2.8 % Basophils (%) (Auto) 0.1 % Neutrophils # (Auto) 8.36 1.4-6.5 K/uL Lymphocytes # (Auto) 1.64 1.2-3.4 K/uL Monocytes # (Auto) 0.85 0.11-0.59 K/uL Eosinophils # (Auto) 0.32 0-0.5 K/uL Basophils # (Auto) 0.01 0-0.2 K/uL RDW Standard Deviation 73.1 36.4-46.3 fL RDW Coefficient of Variation 17.8 11.5-14.5 % Immature Granulocyte % (Auto) 0.8 % Immature Granulocyte # (Auto) 0.09 0.00-0.02 K/uL Anisocytosis PRESENT Tear Drop Cells 1+ Ovalocytes 1+ Prothrombin Time 10.9 9.0-12.0 SECONDS Prothromb Time International Ratio 1.0 0.9-1.1 Sodium Level 134 136-145 mmol/L Potassium Level 4.6 3.5-5.1 mmol/L Chloride Level 101 98-107 mmol/L Carbon Dioxide Level 23 21-32 mmol/L Anion Gap 9.0 3-11 mmol/L Blood Urea Nitrogen 73 7-18 mg/dl Creatinine 6.46 0.60-1.20 mg/dl Est Creatinine Clear Calc Drug Dose 6.3 ml/min Estimated GFR () 6.5 Estimated GFR (Non- 5.6 BUN/Creatinine Ratio 11.3 10-20 Random Glucose 209 70-99 mg/dl Estimated Average Glucose 180 mg/dl Hemoglobin A1c 7.9 4.5-5.6 % Calcium Level 8.2 8.5-10.1 mg/dl Impression Assessment and Plan MEDICINE ATTENDING CONSULT NOTE: 1. THROMBOSED RIGHT UPPER EXTREMITY HEMODIALYSIS GRAFT: -Status post thrombectomy by Dr. David - continue management as per vascular team 2. HYPERGLYCEMIA/TYPE 2 DIABETES -Postoperative patient developed hyperglycemic state with BSG elevated to 300 possible secondary to stress -hemoglobin A1c 7.9; reasonable glycemic control given age and comorbidities- -No evidence of infection noted -Patient's started with IV insulin per ICU protocol -BSG improved to 99 IV insulin has been on hold for the past 2 hours- Ordered for-basal Lantus Pharmacy consulted for glycemic management/transition to subcu insulin 3. HYPOTENSION -Not sure of the etiology no evidence of infection -No report of nausea vomiting or diarrhea dialysis was not done -Earlier today due to low blood pressure Continue to monitor patient remains symptomatic -Hold antihypertensive for SBP less than 100 4. END-STAGE RENAL DISEASE ON DIALYSIS -On dialysis Tuesday Did not had dialysis today secondary to hypotension- nephrology following -Patient does not appear to be volume overloaded Patient will be evaluated by nephrology team for possible dialysis tomorrow if blood pressure remains stable 5.CONFUSION /METABOLIC ENCEPHALOPATHY : -possible due to recent post op status hospitalization no focal neurological deficit no evidence of infection d/W Daughter -pt sometimes gets confused after dialysis at baseline she is oriented times 3 , able to have conversation cont to monitor neuro status - CODE STATUS: Full code Patient recent admission earlier this month she was followed by [facility] [place] physician group hospitalist team. Her primary care physician is [facility] [place] patient signed out to [facility] Hospitalist team for continuation of care Admit To Critical Care Code Status Level 1 - Full Code DVT Prophylaxis unfractionated heparin SQ
--- NOTE | 2017-10-19 13:44 | DIAGNOSTIC IMAGING REPORT ---
CHEST ONE VIEW PORTABLE CLINICAL HISTORY: 81 years-old Female presenting with Cough . TECHNIQUE: AP view of the chest was obtained. COMPARISON: 10/04/[address] from 10/05/2017. FINDINGS: Double lumen tunneled left internal jugular dialysis catheter terminates at the mid SVC. Right subclavian endovascular graft terminates at the superior cavoatrial junction. Left subclavian pacer with single lead to the right ventricular apex. Atherosclerosis of aortic arch. Cardiac silhouette, normal in size. Pulmonary vascular prominence. Slight improved aeration of the left lung base. Prominent lung markings most pronounced at the lung bases are no large pleural effusion or pneumothorax. Degenerative changes of the thoracic spine. Splenic arterial calcification noted. IMPRESSION: 1. Findings suggest volume overload. No catalina pulmonary edema. 2. Improved aeration of the left lung base. Electronically signed by: Maxime Lara M.D. 10/19/2017 1:42 PM Dictated Date/Time: 10/19/2017 1:39 PM
[2017-10-19] MEDS ORDERED: INSULIN GLARGINE SOLOSTAR 100 UNITS/ML 3 ML PEN SC ONE (14:45)
--- NOTE | 2017-10-19 14:53 | Pharmacy Progress Note ---
Glycemic Control Intl Consult Date of Service Oct 19, 2017. Scope Glycemic Pharmacist consulted by Dr Akers on 10/19/17 for glycemic control and to write orders per [facility] inpatient glycemic control protocol Objective Weight (Kilograms): 68.500 Accuchecks BSG (last 24hrs): Test 10/18/17 15:57 10/18/17 16:58 10/18/17 17:31 10/18/17 18:40 Bedside Glucose 271 mg/dl (70-90) 282 mg/dl (70-90) 280 mg/dl (70-90) 244 mg/dl (70-90) Test 10/18/17 19:20 10/18/17 19:58 10/18/17 21:58 10/18/17 23:54 Random Glucose 241 mg/dl (70-99) Bedside Glucose 292 mg/dl (70-90) 322 mg/dl (70-90) 304 mg/dl (70-90) Test 10/19/17 01:02 10/19/17 01:55 10/19/17 03:00 10/19/17 04:01 Bedside Glucose 305 mg/dl (70-90) 250 mg/dl (70-90) 194 mg/dl (70-90) 218 mg/dl (70-90) Test 10/19/17 05:17 Random Glucose 209 mg/dl (70-99) Laboratory Data (last 24hrs) Test 10/18/17 19:20 10/18/17 20:15 10/18/17 21:32 10/18/17 23:54 Anion Gap 12.0 mmol/L BUN/Creatinine Ratio 10.3 Blood Urea Nitrogen 61 mg/dl Creatinine 5.88 mg/dl Potassium Level mmol/L mmol/L mmol/L mmol/L Sodium Level 132 mmol/L White Blood Count 13.55 K/uL Red Blood Count 2.69 M/uL Hemoglobin 9.3 g/dL Hematocrit 29.9 % Mean Corpuscular Volume 111.2 fL Mean Corpuscular Hemoglobin 34.6 pg Mean Corpuscular Hemoglobin Concent 31.1 g/dl Platelet Count 175 K/uL Mean Platelet Volume 11.6 fL Neutrophils (%) (Auto) 82.2 % Lymphocytes (%) (Auto) 9.1 % Monocytes (%) (Auto) 5.5 % Eosinophils (%) (Auto) 2.1 % Basophils (%) (Auto) 0.1 % Neutrophils # (Auto) 11.13 K/uL Lymphocytes # (Auto) 1.23 K/uL Monocytes # (Auto) 0.75 K/uL Eosinophils # (Auto) 0.28 K/uL Basophils # (Auto) 0.02 K/uL Test 10/19/17 00:43 10/19/17 05:17 Potassium Level mmol/L 4.6 mmol/L Anion Gap 9.0 mmol/L BUN/Creatinine Ratio 11.3 Blood Urea Nitrogen 73 mg/dl Creatinine 6.46 mg/dl Hemoglobin A1c 7.9 % Sodium Level 134 mmol/L White Blood Count 11.27 K/uL Red Blood Count 2.48 M/uL Hemoglobin 8.5 g/dL Hematocrit 27.7 % Mean Corpuscular Volume 111.7 fL Mean Corpuscular Hemoglobin 34.3 pg Mean Corpuscular Hemoglobin Concent 30.7 g/dl Platelet Count 173 K/uL Mean Platelet Volume 10.9 fL Neutrophils (%) (Auto) 74.2 % Lymphocytes (%) (Auto) 14.6 % Monocytes (%) (Auto) 7.5 % Eosinophils (%) (Auto) 2.8 % Basophils (%) (Auto) 0.1 % Neutrophils # (Auto) 8.36 K/uL Lymphocytes # (Auto) 1.64 K/uL Monocytes # (Auto) 0.85 K/uL Eosinophils # (Auto) 0.32 K/uL Basophils # (Auto) 0.01 K/uL HbA1c Test 10/19/17 05:17 Hemoglobin A1c 7.9 % (4.5-5.6) H Recent Pertinent Medications Outpatient Anti-diabetic Regimen: * Lantus 18 units BID * Novolog 8 units TID w/ meals * A1c = 7.9 % 10/19/17 (pt has ESRD, therefore interpret w/ caution) The patient is currently receiving: * Basal/Correctional Insulin: IV insulin infusion per severe stress protocol * Prandial insulin: Per carb ratio calculated by insulin infusion rate change calculator Risk Factors for Insulin Resistance: * Diet: ordered T2DM/AHA/renal diet Assessment & Plan ASSESSMENT: 10/19/17 * Patient admitted for thrombosed AV fistula, now s/p insertion of infusion cath and tPA administration yesterday to declot catheter * Hemodialysis planned tomorrow * BSGs elevated throughout the day yesterday and climbed to greater than 300 last evening * IV insulin infusion initiated per severe stress protocol, goal range 120 - 180mg/dL * Patient had received her evening dose of Lantus 18 units x 1 last night but was then placed on hold. Will resume home dose this AM to enable quicker transition off insulin drip * Pt recently admitted 09/27/17. Insulin doses during that admission reviewed. It appears that a basal insulin dose of ~30 units daily produced good results. Will continue the patient's Lantus dose used prior to admission - give the evening dose now to allow for transition off insulin drip before bedtime. On this prior admission a CF of 20 and CR of 15 seemed to perform well. The prandial dose seems a bit low considering outpt requirement. PLAN FOR INPATIENT GLYCEMIC CONTROL: * Lantus 18 units SQ BID - give dose now (2nd 18 unit dose today) * D/C insulin drip ~ 6 hrs after Lantus given * Novolog ACHS and at 0200 tonight * Correction factor 25 mg/dl/unit * Carb ratio 1 unit per 10 grams CHO consumed * Goal range Low 120 mg/dL - High 150 mg/dL * Please note that the plan above was derived based on current level of insulin resistance and hospital stress. These recommendations are appropriate for inpatient admission only. Plan of care upon discharge will need to be reassessed to avoid potential outpatient hypo/hyperglycemia. Thank you.
[2017-10-19] MEDS: DEXTROSE 50% 50 ML SYR IV PRN ×2 (17:47→19:30)
[2017-10-19] MEDS: INSULIN REGULAR 250 UNITS in SODIUM CHLORIDE 0.9% 250ML 250 ML IV SCH ×2 (18:07→18:24)
--- NOTE | 2017-10-19 20:08 | Progress Note ---
Progress Note Date of Service Oct 19, 2017. Progress Note 81 years old female with end-stage renal disease on hemodialysis, hypertension, morbid obesity, chronic combined diastolic/systolic heart failure, chronic hypoxic respiratory failure on nocturnal O2, chronic atrial fibrillation not a candidate for anticoagulation due to frequent falls. Recently patient had her AV fistula clotted. Had dialysis catheter placed. Patient came today for declotting AV fistula. Procedure went uneventful. After the procedure note patient was hypotensive. Patient went to ICU for monitoring. [facility] hospitalist was called and did initial consultation as her test lab technician is Dr. Wilson. Later on it was found that the patient supposed to be roxanne Sinclair. Will transfer patient medical care to mostly for the hospitalist group.
[2017-10-19] MEDS: NEPHROCAPS PO SCH (21:44)
[2017-10-19] MEDS: DOCUSATE SODIUM 100 MG CAP PO SCH (21:44)
[2017-10-19] MEDS: RANITIDINE HCL 150 MG TAB PO SCH (21:45)
[2017-10-19] MEDS ORDERED: [UNRECOGNIZED DRUG - REMARK] ONE (22:45)
[2017-10-20] VITALS (22 sets, daily range): BP systolic 70–140; BP diastolic 33–76; PULSE 59–125; TEMP 36.4–37.3; O2SAT 92–95; Ht 157.5 cm; Wt 69.7 kg
[2017-10-20] MEDS: HEPARIN SOD 5000 UNIT/0.5 ML CARP SQ SCH ×3 (00:01→17:17)
[2017-10-20] MEDS ORDERED: INSULIN ASPART 100 UNITS/ML 3 ML PEN SC SCH (02:00)
[2017-10-20] MEDS: SEVELAMER HYDROCH 800 MG TAB PO SCH ×3 (06:13→17:11)
[2017-10-20] MEDS: ALLOPURINOL 100 MG TAB PO SCH (07:42)
[2017-10-20] MEDS: SERTRALINE HCL 50 MG TAB PO SCH (07:42)
[2017-10-20] MEDS: GABAPENTIN 100 MG CAP PO SCH ×2 (07:42→21:19)
[2017-10-20] MEDS: METOPROLOL SUCC 50MG EXT REL TAB PO SCH ×2 (07:42→21:00)
[2017-10-20] MEDS: PROSOURCE NOCARB 30ML/PKT PO SCH ×2 (07:43→21:20)
[2017-10-20] MEDS: IPRATROPIUM BROMIDE/ALBUTEROL respimat INH INH SCH ×4 (07:43→21:19)
[2017-10-20] MEDS: INSULIN GLARGINE SOLOSTAR 100 UNITS/ML 3 ML PEN SC SCH ×2 (07:44→21:23)
[2017-10-20 07:48] LABS: BASO % 0.2 %; BASO ABS # 0.02 K/uL (0-0.2); EOS ABS # 0.44 K/uL (0-0.5); HEMATOCRIT 27.5 % (37-47); HEMOGLOBIN 8.5 g/dL (12.0-16.0); IG# 0.08 K/uL (0.00-0.02); LYMPH ABS # 1.31 K/uL (1.2-3.4); MEAN CELL VOLUME 110.9 fL (80-100); MEAN CORPUSCULAR HEMOGLOBIN 34.3 pg (25-34); MEAN CORPUSCULAR HGB CONC 30.9 g/dl (32-36); MEAN PLATELET VOLUME 11.2 fL (7.4-10.4); MONO % 4.4 %; MONO ABS # 0.48 K/uL (0.11-0.59); NEUT % 78.7 %; NEUT ABS # 8.59 K/uL (1.4-6.5); PLATELET COUNT 162 K/uL (130-400); RED CELL DISTRIBUTION WIDTH CV 17.5 % (11.5-14.5); RED CELL DISTRIBUTION WIDTH SD 70.7 fL (36.4-46.3); WHITE BLOOD COUNT 10.92 K/uL (4.8-10.8)
[2017-10-20] MEDS ORDERED: EPOETIN ALFA 10,000 UNITS/ML VIAL IV. SCH (08:00)
[2017-10-20 08:02] LABS: ALBUMIN 2.5 gm/dl (3.4-5.0); CALCIUM 8.5 mg/dl (8.5-10.1); CREATININE 8.31 mg/dl (0.60-1.20); POTASSIUM 4.6 mmol/L (3.5-5.1); TOTAL PROTEIN 6.4 gm/dl (6.4-8.2)
[2017-10-20] MEDS: INSULIN ASPART 100 UNITS/ML 3 ML PEN SC SCH ×4 (08:05→21:22)
--- NOTE | 2017-10-20 09:08 | Pharmacy Progress Note ---
Pharmacy Glycemic Short Note 2 Date of Service Oct 20, 2017. OUTPATIENT ANTIDIABETIC REGIMEN: * Lantus 18 units BID * Novolog 8 units TID w/ meals * Patient's A1c = 7.9% 10/19/17 * However, this result is likely somewhat unreliable in ESRD patients d/t interactions between the A1c analyzing technique and high levels of urea in ESRD , reduced RBC life span, iron deficiency anemia, and EPO administration. HbA1c > 7.5% in ESRD patient may overestimate the extent of hyperglycemia in ESRD patients. ASSESSMENT: 10/20/17 * Patient successfully transitioned off insulin drip last evening * Fasting BSG today = 143 mg/dL * No significant changes to causes of insulin resistance today * Will be dialyzed today 10/19/17 * Patient admitted for thrombosed AV fistula, now s/p insertion of infusion cath and tPA administration yesterday to declot catheter * Hemodialysis planned tomorrow * BSGs elevated throughout the day yesterday and climbed to greater than 300 last evening * IV insulin infusion initiated per severe stress protocol, goal range 120 - 180mg/dL * Patient had received her evening dose of Lantus 18 units x 1 last night but was then placed on hold. Will resume home dose this AM to enable quicker transition off insulin drip * Pt recently admitted 09/27/17. Insulin doses during that admission reviewed. It appears that a basal insulin dose of ~30 units daily produced good results. Will continue the patient's Lantus dose used prior to admission - give the evening dose now to allow for transition off insulin drip before bedtime. On this prior admission a CF of 20 and CR of 15 seemed to perform well. The prandial dose seems a bit low considering outpt requirement. PLAN FOR INPATIENT GLYCEMIC CONTROL: * Basal insulin - no change * Lantus 18 units SQ BID * Bolus insulin - no change * NovoLog per scale ACHS or Q6hrs while NPO * Goal Range: Low 120 mg/dL - High 150 mg/dL * Correction Factor: 25 mg/dL/unit * Nutritional / Prandial insulin per carb ratio of 1 unit per 10 grams CHO consumed PLAN FOR DISCHARGE: * As long as patient does not report hypoglycemia or severe hyperglycemia, okay to resume outpatient regimen on discharge
--- NOTE | 2017-10-20 14:49 | Progress Note ---
Progress Note Date of Service: Oct 20, 2017. Subjective No complaints Problem List Medical Problems: (1) Atrial fibrillation with RVR Status: Acute (2) Change in mental status Status: Acute (3) Dialysis AV fistula malfunction Status: Acute (4) Fever Status: Acute (5) Hypotension Status: Acute (6) Influenza B Status: Acute (7) Leukocytosis Status: Acute (8) Renal failure Status: Acute (9) Respiratory failure Status: Acute (10) Syncope Status: Acute Objective Vital Signs Vital Signs Past 12 Hours Date Time Temp Pulse Resp B/P (MAP) Pulse Ox O2 Delivery O2 Flow Rate FiO2 10/20/17 13:56 37.0 81 93/41 (58) 10/20/17 13:08 36.4 76 20 106/51 (69) 92 10/20/17 13:05 Room Air 10/20/17 12:30 81 93/41 10/20/17 12:15 59 140/65 10/20/17 12:00 89 107/76 10/20/17 11:45 88 79/34 10/20/17 11:32 65 89/38 10/20/17 11:15 125 70/56 10/20/17 11:03 65 89/33 10/20/17 10:45 64 82/35 10/20/17 10:37 60 92/39 10/20/17 10:30 75 74/38 10/20/17 10:15 68 80/38 10/20/17 10:00 68 119/41 10/20/17 09:45 60 78/33 10/20/17 09:30 37.3 72 98/42 (60) 10/20/17 09:28 95 93/40 10/20/17 08:00 Room Air 10/20/17 07:21 36.8 82 18 133/52 (79) 94 Room Air 10/20/17 04:40 36.8 86 22 94/54 (67) 95 Room Air 10/20/17 04:00 Room Air Exam VSS Afebrile Herograft with thrill present. Intake & Output 8-Hour Column 10/20/17 10/21/17 10/21/17 16:00 00:00 08:00 Output Total 0 ml Balance 0 ml 24-Hour Column 10/21/17 08:00 Output Total 0 ml Balance 0 ml Laboratory and Microbiology Results Past 24 Hours Test 10/19/17 15:46 10/19/17 17:44 10/19/17 18:04 10/19/17 19:06 Range/Units Bedside Glucose 97 81 157 110 70-90 mg/dl Test 10/19/17 19:25 10/19/17 19:49 10/19/17 20:57 10/20/17 01:49 Range/Units Bedside Glucose 100 159 156 124 70-90 mg/dl Test 10/20/17 06:46 10/20/17 07:00 10/20/17 13:09 Range/Units Bedside Glucose 143 157 70-90 mg/dl White Blood Count 10.92 4.8-10.8 K/uL Red Blood Count 2.48 4.2-5.4 M/uL Hemoglobin 8.5 12.0-16.0 g/dL Hematocrit 27.5 37-47 % Mean Corpuscular Volume 110.9 80-100 fL Mean Corpuscular Hemoglobin 34.3 25-34 pg Mean Corpuscular Hemoglobin Concent 30.9 32-36 g/dl Platelet Count 162 130-400 K/uL Mean Platelet Volume 11.2 7.4-10.4 fL Neutrophils (%) (Auto) 78.7 % Lymphocytes (%) (Auto) 12.0 % Monocytes (%) (Auto) 4.4 % Eosinophils (%) (Auto) 4.0 % Basophils (%) (Auto) 0.2 % Neutrophils # (Auto) 8.59 1.4-6.5 K/uL Lymphocytes # (Auto) 1.31 1.2-3.4 K/uL Monocytes # (Auto) 0.48 0.11-0.59 K/uL Eosinophils # (Auto) 0.44 0-0.5 K/uL Basophils # (Auto) 0.02 0-0.2 K/uL RDW Standard Deviation 70.7 36.4-46.3 fL RDW Coefficient of Variation 17.5 11.5-14.5 % Immature Granulocyte % (Auto) 0.7 % Immature Granulocyte # (Auto) 0.08 0.00-0.02 K/uL Platelet Estimate NORMAL Large Platelets 2+ Giant Platelets 1+ Anisocytosis PRESENT Macrocytosis PRESENT Tear Drop Cells 1+ Sodium Level 133 136-145 mmol/L Potassium Level 4.6 3.5-5.1 mmol/L Chloride Level 99 98-107 mmol/L Carbon Dioxide Level 21 21-32 mmol/L Anion Gap 13.0 3-11 mmol/L Blood Urea Nitrogen 85 7-18 mg/dl Creatinine 8.31 0.60-1.20 mg/dl Est Creatinine Clear Calc Drug Dose 4.9 ml/min Estimated GFR () 4.8 Estimated GFR (Non- 4.1 BUN/Creatinine Ratio 10.3 10-20 Random Glucose 140 70-99 mg/dl Calcium Level 8.5 8.5-10.1 mg/dl Total Bilirubin 0.6 0.2-1 mg/dl Aspartate Amino Transf (AST/SGOT) 17 15-37 U/L Alanine Aminotransferase (ALT/SGPT) 13 12-78 U/L Alkaline Phosphatase 179 45-117 U/L Total Protein 6.4 6.4-8.2 gm/dl Albumin 2.5 3.4-5.0 gm/dl Globulin 3.9 2.5-4.0 gm/dl Albumin/Globulin Ratio 0.6 0.9-2 Cortisol AM Sample 25.06 4.30-22.40 mcg/dl Imp: Post thrombectomy of right brachial artery and herograft Plan: Fistula doing well Can d/c from surgical standpoint but still has to have dialysis
--- NOTE | 2017-10-20 15:15 | Nephrology Progress Note ---
Nephrology Progress Note Date of Service: Oct 20, 2017. Subjective Patient is an 81 year old female with ESRD with a clotted HeRo graft and underwent thrombectomy Dena and the . Patient states that she is doing well. she is able to recognize me but doesn't know where she is or what day it is. She is oriented to year and president. She had dialysis today but CVC was used instead of HeRo graft. she normally dialyzed on MWF schedule. she states that she is feeling better. breathing better. appetite improved per patient. no SOB, edema, nausea or chest pain. Objective Date Time Temp Pulse Resp B/P (MAP) Pulse Ox O2 Delivery O2 Flow Rate FiO2 10/20/17 13:56 37.0 81 93/41 (58) 10/20/17 13:08 36.4 76 20 106/51 (69) 92 10/20/17 13:05 Room Air 10/20/17 12:30 81 93/41 10/20/17 12:15 59 140/65 10/20/17 12:00 89 107/76 10/20/17 11:45 88 79/34 10/20/17 11:32 65 89/38 10/20/17 11:15 125 70/56 10/20/17 11:03 65 89/33 10/20/17 10:45 64 82/35 10/20/17 10:37 60 92/39 10/20/17 10:30 75 74/38 10/20/17 10:15 68 80/38 10/20/17 10:00 68 119/41 10/20/17 09:45 60 78/33 10/20/17 09:30 37.3 72 98/42 (60) 10/20/17 09:28 95 93/40 10/20/17 08:00 Room Air 10/20/17 07:21 36.8 82 18 133/52 (79) 94 Room Air 10/20/17 04:40 36.8 86 22 94/54 (67) 95 Room Air 10/20/17 04:00 Room Air 10/20/17 00:00 Room Air 10/19/17 23:38 37.1 69 20 121/69 (86) 96 Room Air 10/19/17 21:50 77 102/58 (73) 10/19/17 20:36 37.0 68 20 145/52 (83) 94 Room Air 10/19/17 20:00 93 Room Air 10/19/17 18:09 37.0 76 20 94/52 (66) 92 Room Air 10/19/17 16:00 93 Room Air 10/19/17 16:00 36.9 83 100/59 (73) 94 Room Air Physical Exam: GENERAL: Awake, alert, oriented x1 with some mild confusion. EYES: No scleral icterus. HEENT: Moist mucous membranes. NECK: Supple. LUNGS: Decreased breath sounds at the bases with poor inspiratory effort. CARDIAC: Regular rate and rhythm. +cvc Left ABDOMEN: Bowel sounds positive, soft, nontender. EXTREMITIES: No significant clubbing, cyanosis or edema. Right upper arm with dressings in place. access +B/T. Right hand warm to palpation. NEUROLOGICALLY: Nonfocal. DERMATOLOGIC: No rash or ulcers noted. Current Inpatient Medications Medications (Trade) Dose Ordered Sig/Juanita Route Start Time Stop Time Status Last Admin Dose Admin Morphine Sulfate (MoRPHine SULFATE INJ) 2 mg Q2H PRN IV 10/18/17 09:30 11/01/17 09:29 Albuterol/ Ipratropium (Combivent Respimat Inh) 1 puffs QID INH 10/18/17 13:00 11/17/17 12:59 10/20/17 07:43 1 PUFFS Morphine Sulfate (MoRPHine SULFATE INJ) . Q2H PRN IV 10/18/17 10:15 11/01/17 10:14 Tramadol HCl (Ultram Tab) `50-100MG (1-2 TABS) ... Q6H PRN PO 10/18/17 17:30 11/17/17 17:29 Heparin Sodium (Porcine) (Heparin Sq 5000 Unit/0.5ml) 5,000 unit Q8H SQ 10/19/17 08:00 11/18/17 07:59 10/20/17 07:42 5,000 UNIT Allopurinol (Zyloprim Tab) 100 mg DAILY PO 10/19/17 09:00 11/18/17 08:59 10/20/17 07:42 100 MG Digoxin (Lanoxin Tab) 0.125 mg Q2D@1600 PO 10/18/17 19:15 11/17/17 19:14 10/18/17 20:04 0.125 MG Docusate Sodium (coLACE CAP) 100 mg HS PO 10/18/17 21:00 11/17/17 20:59 10/19/17 21:44 100 MG Gabapentin (Neurontin Cap) 100 mg BID PO 10/18/17 21:00 11/17/17 20:59 10/20/17 07:42 100 MG Metoprolol Succinate (Toprol Xl Tab) 50 mg BID PO 10/18/17 21:00 11/17/17 20:59 10/20/17 07:42 50 MG Ranitidine HCl (zANTac TAB) 150 mg HS PO 10/18/17 21:00 11/17/17 20:59 10/19/17 21:45 150 MG Sertraline HCl (Zoloft Tab) 50 mg DAILY PO 10/19/17 09:00 11/18/17 08:59 10/20/17 07:42 50 MG Vitamin B Complex/ Vit C/Folic Acid (Nephrocaps) 1 cap QPM PO 10/18/17 21:00 11/17/17 20:59 10/19/17 21:44 1 CAP Sevelamer HCl (Renagel Tab) 800 mg AC PO 10/19/17 06:45 11/18/17 06:44 10/20/17 06:13 800 MG Enteral Nutritional Formula (Prosource No Carb) 30 ml BID PO 10/18/17 21:00 11/17/17 20:59 10/20/17 07:43 30 ML Glucose (Glucose 40% Gel) 15-30 GRAMS 15 GRAMS... UD PRN PO 10/18/17 19:00 11/17/17 18:59 Glucose (Glucose Chew Tab) 4-8 Tablets 4 Tabl... UD PRN PO 10/18/17 19:00 11/17/17 18:59 Dextrose (Dextrose 50% 50ML Syringe) 25-50ML OF 50% DW IV FOR... UD PRN IV 10/18/17 19:00 11/17/17 18:59 10/19/17 19:30 25 ML Glucagon (Glucagon Inj) 1 mg UD PRN SQ 10/18/17 19:00 11/17/17 18:59 Acetaminophen (Tylenol Tab) 650 mg DAILY PRN PO 10/19/17 07:00 11/18/17 06:59 Miscellaneous Information (Consult Glycemic Management Pharmacy) 1 ea UD PRN N/A 10/19/17 12:30 11/18/17 12:29 Insulin Glargine (Lantus Solostar Pen) 18 units Q12 SC 10/20/17 09:00 11/19/17 08:59 10/20/17 07:44 18 UNITS Insulin Aspart (novoLOG ASPART) SLIDING SCALE ACHS SC 10/19/17 16:00 11/18/17 15:59 Future hold 10/20/17 08:05 5 UNITS Calcium Carbonate (Tums Chew Tab) 500 mg BIDM PO 10/20/17 16:45 11/19/17 16:44 Epoetin Sean (Procrit Inj) 10,000 units 0800 IV. 10/20/17 08:00 10/20/17 18:00 10/20/17 10:13 10,000 UNITS Last 24 Hours Test 10/19/17 15:46 10/19/17 17:44 10/19/17 18:04 10/19/17 19:06 Bedside Glucose 97 mg/dl 81 mg/dl 157 mg/dl 110 mg/dl Test 10/19/17 19:25 10/19/17 19:49 10/19/17 20:57 10/20/17 01:49 Bedside Glucose 100 mg/dl 159 mg/dl 156 mg/dl 124 mg/dl Test 10/20/17 06:46 10/20/17 07:00 10/20/17 13:09 Bedside Glucose 143 mg/dl 157 mg/dl White Blood Count 10.92 K/uL Red Blood Count 2.48 M/uL Hemoglobin 8.5 g/dL Hematocrit 27.5 % Mean Corpuscular Volume 110.9 fL Mean Corpuscular Hemoglobin 34.3 pg Mean Corpuscular Hemoglobin Concent 30.9 g/dl Platelet Count 162 K/uL Mean Platelet Volume 11.2 fL Neutrophils (%) (Auto) 78.7 % Lymphocytes (%) (Auto) 12.0 % Monocytes (%) (Auto) 4.4 % Eosinophils (%) (Auto) 4.0 % Basophils (%) (Auto) 0.2 % Neutrophils # (Auto) 8.59 K/uL Lymphocytes # (Auto) 1.31 K/uL Monocytes # (Auto) 0.48 K/uL Eosinophils # (Auto) 0.44 K/uL Basophils # (Auto) 0.02 K/uL RDW Standard Deviation 70.7 fL RDW Coefficient of Variation 17.5 % Immature Granulocyte % (Auto) 0.7 % Immature Granulocyte # (Auto) 0.08 K/uL Platelet Estimate NORMAL Large Platelets 2+ Giant Platelets 1+ Anisocytosis PRESENT Macrocytosis PRESENT Tear Drop Cells 1+ Sodium Level 133 mmol/L Potassium Level 4.6 mmol/L Chloride Level 99 mmol/L Carbon Dioxide Level 21 mmol/L Anion Gap 13.0 mmol/L Blood Urea Nitrogen 85 mg/dl Creatinine 8.31 mg/dl Est Creatinine Clear Calc Drug Dose 4.9 ml/min Estimated GFR () 4.8 Estimated GFR (Non- 4.1 BUN/Creatinine Ratio 10.3 Random Glucose 140 mg/dl Calcium Level 8.5 mg/dl Total Bilirubin 0.6 mg/dl Aspartate Amino Transf (AST/SGOT) 17 U/L Alanine Aminotransferase (ALT/SGPT) 13 U/L Alkaline Phosphatase 179 U/L Total Protein 6.4 gm/dl Albumin 2.5 gm/dl Globulin 3.9 gm/dl Albumin/Globulin Ratio 0.6 Cortisol AM Sample 25.06 mcg/dl Assessment & Plan ESRD. patient had dialysis today but d/t hypotension no UF was attempted. patient normally has BP's in the 80's at her outpatient clinic. as long as patient is asymptomatic, will plan to dialyze with one liter UF removal tomorrow using the HeRo graft. volume status good. potassium 4.6. anemia of ESRD: hgb 8.5. goal hgb between 10-12. will give procrit with dialysis as needed. transfusion to be considered if hgb drops below 7. This patient was seen and treated with direct collaboration with Dr. Wilson. Thank you for the opportunity to participate in this patient's care. Appreciate the Consult. ATTENDING NOTE: I performed a history and physical examination of the patient, including specifically on history- pt continues to be mildly confused but more alert compared to yesterday, on physical exam-good bruit in hero graft, and my impression and plan are ESRD-for dialysis tomorrow using hero graft and bp normally in the 80s at dialysis so will be more aggressive with fluid removal. I have discussed the patient's management with Jennifer Mcclellan PA-C, Please refer to above note for the documented findings and plan of care. Andreia Wilson DO
--- NOTE | 2017-10-20 15:44 | Hospitalist Progress Note ---
Hospitalist Progress Note Date of Service Oct 20, 2017. (Elizabeth Kingsley ., DICKC) Subjective Pt evaluation today including: conversation w/ patient, physical exam, chart review, lab review, review of inpatient medication list Pain: None PO Intake: Tolerating PO diet Voiding: voiding difficulty (ESRD, makes little urine) Patient reports feeling well, denies any complaints currently. Patient examined in dialysis unit as she was unable to complete her normal scheduled dialysis yesterday due to hypotension. Pt disoriented to time, but this is not far from baseline as she will wax and wane. The patient denies fevers, chills, sweats, chest pain, palpitations, claudication, cough, wheezing, shortness of breath, nausea, vomiting, abdominal pain, dysuria, hematuria, paralysis, weakness, numbness and tingling. Additional Comments: See HPI for pertinent positives and negatives. All other systems reviewed and negative. (Elizabeth Kingsley ., WILLIAM-C) Objective Vital Signs Date Time Temp Pulse Resp B/P (MAP) Pulse Ox O2 Delivery O2 Flow Rate FiO2 10/20/17 15:28 37.1 82 18 90/46 (61) 95 Room Air 10/20/17 13:56 37.0 81 93/41 (58) 10/20/17 13:08 36.4 76 20 106/51 (69) 92 10/20/17 13:05 Room Air 10/20/17 12:30 81 93/41 10/20/17 12:15 59 140/65 10/20/17 12:00 89 107/76 10/20/17 11:45 88 79/34 10/20/17 11:32 65 89/38 10/20/17 11:15 125 70/56 10/20/17 11:03 65 89/33 10/20/17 10:45 64 82/35 10/20/17 10:37 60 92/39 10/20/17 10:30 75 74/38 10/20/17 10:15 68 80/38 10/20/17 10:00 68 119/41 10/20/17 09:45 60 78/33 10/20/17 09:30 37.3 72 98/42 (60) 10/20/17 09:28 95 93/40 10/20/17 08:00 Room Air 10/20/17 07:21 36.8 82 18 133/52 (79) 94 Room Air 10/20/17 04:40 36.8 86 22 94/54 (67) 95 Room Air 10/20/17 04:00 Room Air 10/20/17 00:00 Room Air 10/19/17 23:38 37.1 69 20 121/69 (86) 96 Room Air 10/19/17 21:50 77 102/58 (73) 10/19/17 20:36 37.0 68 20 145/52 (83) 94 Room Air 10/19/17 20:00 93 Room Air 10/19/17 18:09 37.0 76 20 94/52 (66) 92 Room Air 10/19/17 16:00 93 Room Air 10/19/17 16:00 36.9 83 100/59 (73) 94 Room Air (Elizabeth Kingsley ., PA-C) Physical Exam Notes: General appearance: Well-developed, well-nourished, no apparent distress Head: Normocephalic, atraumatic Eyes: Normal inspection, PERRL, EOMI ENT: Normal ENT inspection, hearing grossly normal, pharynx normal Neck: Supple, no JVD, trachea midline Respiratory/Chest: +Cath left chest. Lungs clear to auscultation, normal breath sounds, no respiratory distress Cardiovascular: +Irregularly irregular, rate controlled. No gallop, no murmur Abdomen/GI: Normal bowel sounds, non-tender, soft Extremities/Musculoskeletal: Normal inspection, no calf tenderness, no pedal edema Neurological/Psych: +Disoriented to time, pleasantly confused. Alert, normal mood/affect, oriented x 2 Skin: Normal color, warm/dry, no rash (Elizabeth Kingsley ., PA-C) Laboratory Results Last 24 Hours Test 10/19/17 15:46 10/19/17 17:44 10/19/17 18:04 10/19/17 19:06 Bedside Glucose 97 mg/dl 81 mg/dl 157 mg/dl 110 mg/dl Test 10/19/17 19:25 10/19/17 19:49 10/19/17 20:57 10/20/17 01:49 Bedside Glucose 100 mg/dl 159 mg/dl 156 mg/dl 124 mg/dl Test 10/20/17 06:46 10/20/17 07:00 10/20/17 13:09 Bedside Glucose 143 mg/dl 157 mg/dl White Blood Count 10.92 K/uL Red Blood Count 2.48 M/uL Hemoglobin 8.5 g/dL Hematocrit 27.5 % Mean Corpuscular Volume 110.9 fL Mean Corpuscular Hemoglobin 34.3 pg Mean Corpuscular Hemoglobin Concent 30.9 g/dl Platelet Count 162 K/uL Mean Platelet Volume 11.2 fL Neutrophils (%) (Auto) 78.7 % Lymphocytes (%) (Auto) 12.0 % Monocytes (%) (Auto) 4.4 % Eosinophils (%) (Auto) 4.0 % Basophils (%) (Auto) 0.2 % Neutrophils # (Auto) 8.59 K/uL Lymphocytes # (Auto) 1.31 K/uL Monocytes # (Auto) 0.48 K/uL Eosinophils # (Auto) 0.44 K/uL Basophils # (Auto) 0.02 K/uL RDW Standard Deviation 70.7 fL RDW Coefficient of Variation 17.5 % Immature Granulocyte % (Auto) 0.7 % Immature Granulocyte # (Auto) 0.08 K/uL Platelet Estimate NORMAL Large Platelets 2+ Giant Platelets 1+ Anisocytosis PRESENT Macrocytosis PRESENT Tear Drop Cells 1+ Sodium Level 133 mmol/L Potassium Level 4.6 mmol/L Chloride Level 99 mmol/L Carbon Dioxide Level 21 mmol/L Anion Gap 13.0 mmol/L Blood Urea Nitrogen 85 mg/dl Creatinine 8.31 mg/dl Est Creatinine Clear Calc Drug Dose 4.9 ml/min Estimated GFR () 4.8 Estimated GFR (Non- 4.1 BUN/Creatinine Ratio 10.3 Random Glucose 140 mg/dl Calcium Level 8.5 mg/dl Total Bilirubin 0.6 mg/dl Aspartate Amino Transf (AST/SGOT) 17 U/L Alanine Aminotransferase (ALT/SGPT) 13 U/L Alkaline Phosphatase 179 U/L Total Protein 6.4 gm/dl Albumin 2.5 gm/dl Globulin 3.9 gm/dl Albumin/Globulin Ratio 0.6 Cortisol AM Sample 25.06 mcg/dl (Elizabeth Kingsley, DICKC) Assessment and Plan 81 y/o female with a history of ESRD on HD, a-fib, HTN, CAD, chronic respiratory failure on nighttime O2, diastolic CHF, DM II, anxiety/depression, gout, and GERD who presents s/p thrombectomy of right arm fistula and right brachial artery embolectomy with Dr. Guillory for medical management. S/p thrombectomy, embolectomy--POD #2, stable -Surgical management per primary team -Pt denies any pain in right arm Hypotension, h/o HTN--improving -BP still low but improved and stable. Able to complete dialysis today -Continue Toprol XL 50 mg PO BID (hold if SBP less than 100 or HR less than 60) DM II w/neuropathy--HgbA1c 8.5 on 09/28 -Pt had hyperglycemia postop with BSGs in 200s-300s -Initially started on insulin drip, this has since been d/c'd -Pharmacy consulted for glycemic control -Lantus 18 units SC BID per protocol. BSGs now better controlled in 150s -Insulin sliding scale -Check BSGs q ac and qhs -Continue gabapentin 100 mg PO BID ESRD on HD -Nephrology following -Had attempted dialysis Tuesday but could not complete session due to hypotension, was able to complete session today. Will dialyze again tomorrow, back on schedule -On MWF schedule -Continue Renvela, Nephrocaps A-fib--stable, rate controlled -No longer on AC due to multiple falls -Continue digoxin 125 mcg PO q2d, Toprol XL as above Diastolic CHF--stable -Beta brent as above, dialysis to draw off fluid Anxiety/depression -Continue Zoloft 50 mg PO qd Gout -Continue allopurinol 100 mg PO qd Code Status -Level I, FULL RESUSCITATION STATUS (Elizabeth Kingsley ., PA-C) PA Physician Supervision Note: I interviewed and examined the patient. Discussed with Elizabeth Kingsley PAC and agree with findings and plan as documented in the note. Any exceptions or clarifications are listed here: None Patient is doing fair. She has had a thrombectomy and embolectomy from her hero dialysis catheter. The patient did receive dialysis today although her blood pressure was low during the procedure her glucose has been better controlled her atrial fibrillation remains stable she is on full anticoagulation because of morbidity issues in the past associated with it Vital signs are to be afebrile to pulse is 82 respirations 18 BP is 90/46 Heart exam is distant sounds to be regular lungs have decreased breath sounds at the bases abdomen is normoactive bowel sounds Patient is here with malfunctioning dialysis catheter and recent placement of fistula persistent hypotension associated dialysis I personally spoke with and Dr. Guillory the plan will be that the patient has dialysis on 21 October and if tolerates this well, has good control of her blood glucose remains any rate controlled atrial fibrillation she may be discharged. Dr. Ansari's attending physician and make the final decision at that time the plan will be that she uses her AV fistula tomorrow in hopes that this will continue to mature and eventually will have the ability to remove her bilateral dialysis catheters that are implanted in her chest Documented By: Marco Martin (Marco Martin M.D.)
[2017-10-20] MEDS: CALCIUM CARBONATE 500 MG CHEWABLE PO SCH (17:11)
[2017-10-20] MEDS: DIGOXIN 0.125 MG TAB PO SCH (17:13)
[2017-10-20] MEDS: NEPHROCAPS PO SCH (21:19)
[2017-10-20] MEDS: DOCUSATE SODIUM 100 MG CAP PO SCH (21:19)
[2017-10-20] MEDS: RANITIDINE HCL 150 MG TAB PO SCH (21:20)
[2017-10-21] VITALS (18 sets, daily range): BP systolic 99–128; BP diastolic 40–62; PULSE 66–82; TEMP 36.4–37.2; O2SAT 94–99
[2017-10-21] MEDS: HEPARIN SOD 5000 UNIT/0.5 ML CARP SQ SCH ×2 (01:13→07:58)
[2017-10-21] MEDS ORDERED: EPOETIN ALFA 10,000 UNITS/ML VIAL IV. SCH (07:00)
[2017-10-21] MEDS: SEVELAMER HYDROCH 800 MG TAB PO SCH ×2 (07:45→14:07)
[2017-10-21] MEDS: PROSOURCE NOCARB 30ML/PKT PO SCH (07:45)
[2017-10-21] MEDS: IPRATROPIUM BROMIDE/ALBUTEROL respimat INH INH SCH ×2 (07:45→14:07)
[2017-10-21] MEDS: ALLOPURINOL 100 MG TAB PO SCH (07:46)
[2017-10-21] MEDS: SERTRALINE HCL 50 MG TAB PO SCH (07:46)
[2017-10-21] MEDS: METOPROLOL SUCC 50MG EXT REL TAB PO SCH (07:46)
[2017-10-21] MEDS: GABAPENTIN 100 MG CAP PO SCH (07:46)
[2017-10-21] MEDS: CALCIUM CARBONATE 500 MG CHEWABLE PO SCH (07:46)
[2017-10-21] MEDS: INSULIN GLARGINE SOLOSTAR 100 UNITS/ML 3 ML PEN SC SCH (07:57)
[2017-10-21] MEDS: INSULIN ASPART 100 UNITS/ML 3 ML PEN SC SCH ×2 (07:57→14:11)
[2017-10-21 08:24] LABS: HEMATOCRIT 25.7 % (37-47); MEAN CELL VOLUME 109.8 fL (80-100); MEAN CORPUSCULAR HEMOGLOBIN 34.2 pg (25-34); MEAN CORPUSCULAR HGB CONC 31.1 g/dl (32-36); MEAN PLATELET VOLUME 10.2 fL (7.4-10.4); PLATELET COUNT 176 K/uL (130-400); RED CELL DISTRIBUTION WIDTH CV 17.9 % (11.5-14.5); RED CELL DISTRIBUTION WIDTH SD 71.4 fL (36.4-46.3); WHITE BLOOD COUNT 8.02 K/uL (4.8-10.8)
[2017-10-21 09:09] LABS: CALCIUM 7.9 mg/dl (8.5-10.1); CREATININE 5.89 mg/dl (0.60-1.20); POTASSIUM 3.8 mmol/L (3.5-5.1)
--- NOTE | 2017-10-21 09:54 | Progress Note ---
Progress Note Date of Service Oct 21, 2017. Progress Note Reviewed patient's chart and tele monitor this morning, spoke with nursing. Patient's blood pressure has remained stable and blood sugar is adequately controlled. Patient currently at dialysis. Per nursing, patient is at baseline orientation. Patient remains in rate controlled a-fib on tele monitor. Patient is hemodynamically stable, anticipated to be discharged after dialysis today. Pt. is stable from a medical standpoint, we will sign off. Clear for discharge as per primary team.
[2017-10-21] MEDS ORDERED: ULT50X PO (10:31)
--- NOTE | 2017-10-21 10:34 | Discharge Instructions ---
Discharge Instructions Date of Service Oct 21, 2017. Admission Reason for Admission: Arteriovenous Fistula Thrombosis Discharge Discharge Diagnosis / Problem: post thrombectomy Right arm AV Herograft, ESRD Discharge Goals Goal(s): Improve function Activity Recommendations Activity Limitations: as noted below . Instructions / Follow-Up Instructions / Follow-Up DO NOT get permcath wet. May cleanse Right arm wounds, then dry gently. Follow up with Dr Guillory or Saranya Goldman PA-C in 2 weeks for wound check. Current Hospital Diet Patient's current hospital diet: AHA Diet (Heart Healthy), Renal Diet, Diabetes Type 2 Diet Discharge Diet Recommended Diet: AHA Diet (Heart Healthy), Diabetes Type 2 Diet, Renal Diet Procedures Procedures Performed: Right brachial artery embolectomy, thrombectomy of right arm fistula Pending Studies Studies pending at discharge: no Laboratory Results Hemoglobin A1c Test 10/19/17 05:17 Range/Units Estimated Average Glucose 180 mg/dl Hemoglobin A1c 7.9 H 4.5-5.6 % Medical Emergencies . Who to Call and When: Medical Emergencies: If at any time you feel your situation is an emergency, please call 911 immediately. . Non-Emergent Contact Non-Emergency issues call your: Surgeon . "Provider Documentation" section prepared by Saranya Goldman. . [place] Drug Monitoring Program Search Results: no issues identified
--- NOTE | 2017-10-21 10:50 | Progress Note ---
Progress Note Date of Service: Oct 21, 2017. Subjective 81 yo f with multiple medical problems, s/p RUE Herograft thrombectomy and R brachial art embolectomy, seen in f/u today. Pt admits fatigue. Denies other complaints. Problem List Medical Problems: (1) Atrial fibrillation with RVR Status: Acute (2) Change in mental status Status: Acute (3) Dialysis AV fistula malfunction Status: Acute (4) Fever Status: Acute (5) Hypotension Status: Acute (6) Influenza B Status: Acute (7) Leukocytosis Status: Acute (8) Renal failure Status: Acute (9) Respiratory failure Status: Acute (10) Syncope Status: Acute Objective Vital Signs Vital Signs Past 12 Hours Date Time Temp Pulse Resp B/P (MAP) Pulse Ox O2 Delivery O2 Flow Rate FiO2 10/21/17 10:30 78 110/50 10/21/17 10:15 79 99/49 10/21/17 10:00 75 99/50 10/21/17 09:45 75 109/47 10/21/17 09:30 78 103/40 10/21/17 09:16 71 107/47 10/21/17 09:00 37.2 82 106/54 (71) 10/21/17 08:00 Room Air 10/21/17 07:56 36.4 76 20 123/62 (82) 94 Room Air 10/21/17 04:04 Room Air 10/21/17 03:13 37.0 73 17 102/49 (66) 95 Room Air 49.0 10/21/17 00:04 Room Air 10/20/17 23:10 37.1 71 17 101/49 (66) 94 Room Air Exam CONST: A&O x2, NAD, chronicaly ill appearing female CHEST: RRR, lungs decreasedd, but ctab ABD: soft, nontedner, + bs x 4 quad EXT: RUE AVF with + thrill/bruit. Incisions C/D/I. + distal pulse. Laboratory and Microbiology Results Past 24 Hours Test 10/20/17 13:09 10/20/17 16:39 10/20/17 20:46 10/21/17 07:14 Range/Units Bedside Glucose 157 138 162 168 70-90 mg/dl Test 10/21/17 08:11 Range/Units White Blood Count 8.02 4.8-10.8 K/uL Red Blood Count 2.34 4.2-5.4 M/uL Hemoglobin 8.0 12.0-16.0 g/dL Hematocrit 25.7 37-47 % Mean Corpuscular Volume 109.8 80-100 fL Mean Corpuscular Hemoglobin 34.2 25-34 pg Mean Corpuscular Hemoglobin Concent 31.1 32-36 g/dl RDW Standard Deviation 71.4 36.4-46.3 fL RDW Coefficient of Variation 17.9 11.5-14.5 % Platelet Count 176 130-400 K/uL Mean Platelet Volume 10.2 7.4-10.4 fL Sodium Level 134 136-145 mmol/L Potassium Level 3.8 3.5-5.1 mmol/L Chloride Level 99 98-107 mmol/L Carbon Dioxide Level 22 21-32 mmol/L Anion Gap 13.0 3-11 mmol/L Blood Urea Nitrogen 53 7-18 mg/dl Creatinine 5.89 0.60-1.20 mg/dl Est Creatinine Clear Calc Drug Dose 7.0 ml/min Estimated GFR () 7.2 Estimated GFR (Non- 6.2 BUN/Creatinine Ratio 9.0 10-20 Random Glucose 158 70-99 mg/dl Calcium Level 7.9 8.5-10.1 mg/dl ASSESSMENT adn PLAN: s/p RUE Herograft thrombectomy and R brachial art embolectomy ESRD, thrombosed Herograft Pt ok for d/c today after HD. Per HD staff, her Herograft is running well.
--- NOTE | 2017-10-21 10:58 | Dialysis Progress Note ---
Nephrology Dialysis Note Date of Service: Oct 21, 2017. Subjective Patient is an 81 year old female with ESRD with a clotted HeRo graft and underwent thrombectomy Dena. Patient states that she is doing well. Patient was seen and examined while on dialysis. tolerating 1L uf well. BP holding up. access working ok. arterial and venous pressures adequate. she is more alert and oriented today. no SOB, cramping, edema, nausea or chest pain. Objective Date Time Temp Pulse Resp B/P (MAP) Pulse Ox O2 Delivery O2 Flow Rate FiO2 10/21/17 10:30 78 110/50 10/21/17 10:15 79 99/49 10/21/17 10:00 75 99/50 10/21/17 09:45 75 109/47 10/21/17 09:30 78 103/40 10/21/17 09:16 71 107/47 10/21/17 09:00 37.2 82 106/54 (71) 10/21/17 08:00 Room Air 10/21/17 07:56 36.4 76 20 123/62 (82) 94 Room Air 10/21/17 04:04 Room Air 10/21/17 03:13 37.0 73 17 102/49 (66) 95 Room Air 49.0 10/21/17 00:04 Room Air 10/20/17 23:10 37.1 71 17 101/49 (66) 94 Room Air 10/20/17 20:50 Room Air 10/20/17 19:34 36.6 87 18 89/46 (60) 95 Room Air 87/43 (58) 10/20/17 17:13 82 10/20/17 16:00 Room Air 10/20/17 15:28 37.1 82 18 90/46 (61) 95 Room Air 10/20/17 13:56 37.0 81 93/41 (58) 10/20/17 13:08 36.4 76 20 106/51 (69) 92 10/20/17 13:05 Room Air 10/20/17 12:30 81 93/41 10/20/17 12:15 59 140/65 10/20/17 12:00 89 107/76 10/20/17 11:45 88 79/34 10/20/17 11:32 65 89/38 10/20/17 11:15 125 70/56 10/20/17 11:03 65 89/33 Physical Exam: GENERAL: Awake, alert, oriented x2 with some mild confusion. EYES: No scleral icterus. HEENT: Moist mucous membranes. NECK: Supple. LUNGS: Decreased breath sounds at the bases with poor inspiratory effort. CARDIAC: Regular rate and rhythm. +cvc Left ABDOMEN: Bowel sounds positive, soft, nontender. EXTREMITIES: No significant clubbing, cyanosis or edema. Right upper arm with dressings in place. access +B/T. Right hand warm to palpation. NEUROLOGICALLY: Nonfocal. DERMATOLOGIC: No rash or ulcers noted. Current Inpatient Medications Medications (Trade) Dose Ordered Sig/Juanita Route Start Time Stop Time Status Last Admin Dose Admin Morphine Sulfate (MoRPHine SULFATE INJ) 2 mg Q2H PRN IV 10/18/17 09:30 11/01/17 09:29 Albuterol/ Ipratropium (Combivent Respimat Inh) 1 puffs QID INH 10/18/17 13:00 11/17/17 12:59 10/21/17 07:45 1 PUFFS Morphine Sulfate (MoRPHine SULFATE INJ) . Q2H PRN IV 10/18/17 10:15 11/01/17 10:14 Tramadol HCl (Ultram Tab) `50-100MG (1-2 TABS) ... Q6H PRN PO 10/18/17 17:30 11/17/17 17:29 Heparin Sodium (Porcine) (Heparin Sq 5000 Unit/0.5ml) 5,000 unit Q8H SQ 10/19/17 08:00 11/18/17 07:59 10/21/17 07:58 5,000 UNIT Allopurinol (Zyloprim Tab) 100 mg DAILY PO 10/19/17 09:00 11/18/17 08:59 10/21/17 07:46 100 MG Digoxin (Lanoxin Tab) 0.125 mg Q2D@1600 PO 10/18/17 19:15 11/17/17 19:14 10/20/17 17:13 0.125 MG Docusate Sodium (coLACE CAP) 100 mg HS PO 10/18/17 21:00 11/17/17 20:59 10/20/17 21:19 100 MG Gabapentin (Neurontin Cap) 100 mg BID PO 10/18/17 21:00 11/17/17 20:59 10/21/17 07:46 100 MG Metoprolol Succinate (Toprol Xl Tab) 50 mg BID PO 10/18/17 21:00 11/17/17 20:59 10/21/17 07:46 50 MG Ranitidine HCl (zANTac TAB) 150 mg HS PO 10/18/17 21:00 11/17/17 20:59 10/20/17 21:20 150 MG Sertraline HCl (Zoloft Tab) 50 mg DAILY PO 10/19/17 09:00 11/18/17 08:59 10/21/17 07:46 50 MG Vitamin B Complex/ Vit C/Folic Acid (Nephrocaps) 1 cap QPM PO 10/18/17 21:00 11/17/17 20:59 10/20/17 21:19 1 CAP Sevelamer HCl (Renagel Tab) 800 mg AC PO 10/19/17 06:45 11/18/17 06:44 10/21/17 07:45 800 MG Enteral Nutritional Formula (Prosource No Carb) 30 ml BID PO 10/18/17 21:00 11/17/17 20:59 10/21/17 07:45 30 ML Glucose (Glucose 40% Gel) 15-30 GRAMS 15 GRAMS... UD PRN PO 10/18/17 19:00 11/17/17 18:59 Glucose (Glucose Chew Tab) 4-8 Tablets 4 Tabl... UD PRN PO 10/18/17 19:00 11/17/17 18:59 Dextrose (Dextrose 50% 50ML Syringe) 25-50ML OF 50% DW IV FOR... UD PRN IV 10/18/17 19:00 11/17/17 18:59 10/19/17 19:30 25 ML Glucagon (Glucagon Inj) 1 mg UD PRN SQ 10/18/17 19:00 11/17/17 18:59 Acetaminophen (Tylenol Tab) 650 mg DAILY PRN PO 10/19/17 07:00 11/18/17 06:59 Miscellaneous Information (Consult Glycemic Management Pharmacy) 1 ea UD PRN N/A 10/19/17 12:30 11/18/17 12:29 Insulin Glargine (Lantus Solostar Pen) 18 units Q12 SC 10/20/17 09:00 11/19/17 08:59 10/21/17 07:57 18 UNITS Insulin Aspart (novoLOG ASPART) SLIDING SCALE ACHS SC 10/19/17 16:00 11/18/17 15:59 Future hold 10/21/17 07:57 8 UNITS Calcium Carbonate (Tums Chew Tab) 500 mg BIDM PO 10/20/17 16:45 11/19/17 16:44 10/21/17 07:46 500 MG Epoetin Sean (Procrit Inj) 10,000 units TODAY@0700 IV. 10/21/17 07:00 10/21/17 18:00 10/21/17 10:45 10,000 UNITS Last 24 Hours Test 10/20/17 13:09 10/20/17 16:39 10/20/17 20:46 10/21/17 07:14 Bedside Glucose 157 mg/dl 138 mg/dl 162 mg/dl 168 mg/dl Test 10/21/17 08:11 White Blood Count 8.02 K/uL Red Blood Count 2.34 M/uL Hemoglobin 8.0 g/dL Hematocrit 25.7 % Mean Corpuscular Volume 109.8 fL Mean Corpuscular Hemoglobin 34.2 pg Mean Corpuscular Hemoglobin Concent 31.1 g/dl RDW Standard Deviation 71.4 fL RDW Coefficient of Variation 17.9 % Platelet Count 176 K/uL Mean Platelet Volume 10.2 fL Sodium Level 134 mmol/L Potassium Level 3.8 mmol/L Chloride Level 99 mmol/L Carbon Dioxide Level 22 mmol/L Anion Gap 13.0 mmol/L Blood Urea Nitrogen 53 mg/dl Creatinine 5.89 mg/dl Est Creatinine Clear Calc Drug Dose 7.0 ml/min Estimated GFR () 7.2 Estimated GFR (Non- 6.2 BUN/Creatinine Ratio 9.0 Random Glucose 158 mg/dl Calcium Level 7.9 mg/dl Assessment & Plan ESRD: patient was seen and examined while on dialysis. using HeRo graft and doing well. BP's appropriate. not yet hypotensive when seen on dialysis. patient 's BP does drop to 80's SBP as an outpatient but patient is usually asymptomatic. volume status ok. potassium 3.8. anemia of ESRD: hgb 8.0. goal hgb between 10-12. Giving procrit with dialysis as needed. transfusion to be considered if hgb drops below 7. As access is working, patient ok from a renal perspective to continue dialysis as an outpatient. This patient was seen and treated with direct collaboration with Dr. Wilson. Thank you for the opportunity to participate in this patient's care. Appreciate the Consult. ATTENDING NOTE: I performed a history and physical examination of the patient, including specifically on history- pt more alert today, on physical exam-decreased breath sounds at bases and my impression and plan are ESRD-had dialysis today. access working well. I have discussed the patient's management with Jennifer Mcclellan PA-C, Please refer to above note for the documented findings and plan of care. Andreia Wilson DO
--- NOTE | 2017-10-24 09:22 | DISCHARGE SUMMARY ---
ADMISSION DIAGNOSIS: Thrombosed right upper arm hemodialysis HeRO graft. DISCHARGE DIAGNOSES: 1. Status post thrombectomy of right upper arm HeRO graft and right brachial artery embolectomy. 2. Thrombosed HeRO graft right arm. 3. End-stage renal disease, on hemodialysis. DISCHARGE CONDITION: Stable. CONSULTATIONS IN THE HOSPITAL: Included medicine and nephrology. PROCEDURES IN THE HOSPITAL: Included: 1. Insertion of infusion catheter and administration of TPA in her right arm, performed on 10/18/2017. 2. A thrombectomy of the right arm fistula and a right brachial artery embolectomy, also performed on 10/18/2017. HISTORY OF PRESENT ILLNESS: Ms. Ames is a chronically ill elderly female with multiple medical problems, who is followed by Dr. Guillory for hemodialysis access. She had previously undergone a HeRO graft placed in her right upper arm last year some time. Unfortunately, this has undergone multiple thrombectomies since that time as well. She went to dialysis 2 weeks prior, was found to have a thrombosed fistula. She had a PermCath inserted originally at that time for access. She has been continuing to dialyze through her PermCath until thrombectomy could be scheduled. She understood the risks, options and benefits, and agreed to proceed. HOSPITAL COURSE: The patient was admitted 10/18/2017 after undergoing her right arm infusion catheter insertion in the morning, TPA was infused for a period of time. She returned to the operating room to do the final pictures and wash out of the fistula. At that time, she was noted to have had an embolism of her right brachial artery, this also required embolectomy in addition to the complete thrombectomy of her right upper arm. The procedures were successful and patency of her fistula was returned. She was kept in the hospital for hemodialysis as well as due to low blood pressures. She was unable to tolerate hemodialysis for 1-2 days due to her hypertension; however, she then underwent hemodialysis through her right upper HeRO graft which was successful and did not have any complications. She was felt to be stable enough for discharge on postop day #3. PHYSICAL EXAMINATION: VITAL SIGNS: On day of discharge, her vital signs were as follows: Temperature 36.9, pulse of 76, respiratory rate of 18, pulse oximetry of 99% on room air and blood pressure of 127/53. CONSTITUTIONAL: The patient is a chronically ill-appearing elderly female in no acute distress. She is nonambulatory and in a wheelchair. She is frail. HEAD: Normocephalic and atraumatic. EYES: EOMI. ENMT: Demonstrates no hearing loss, rhinorrhea or pharyngeal erythema. NECK: Supple, nontender, with a midline trachea without masses or crepitus. LUNGS: Demonstrate no dyspnea. They are decreased throughout but clear bilaterally. CARDIOVASCULAR: Demonstrates a nondisplaced apical impulse with an irregular rhythm. She has no significant murmurs. She does have a pacemaker. Her peripheral pulses are full and equal in all extremities unless otherwise noted. Specifically, they are normal in her carotid, brachial and radial pulses. Her femoral pulses are +3. Her lower extremity distal pulses are +1. She has brisk capillary refill. No signs of distal ischemia. ABDOMEN: Soft, nontender, with normoactive bowel sounds in all 4 quadrants without guarding or rebound. There is no flank or CVA tenderness. EXTREMITIES: Her right upper extremity surgical incisions are well approximated and healing appropriately. The areas are mildly tender. There is some mild ecchymosis but no significant edema or hematoma noted. She does have a good thrill and bruit throughout her HeRO graft. DIET UPON DISCHARGE: Low-cholesterol AHA and diabetic and renal diet. MEDICATIONS: Reconciled on the chart and as per her discharge instructions. FOLLOWUP: Should be with Dr. Guillory or Saranya Goldman, his PA, within 2 weeks for reevaluation of her surgical sites and she is to continue dialysis per her vascular radiologist.
== END 2017-10-21 17:21 | DRG 252 ==
LOC: C.ACU 06:43 → C.MSICU 09:25 → CANRESERV 10-19 13:25 → ENRESERV 10-19 13:25 → C.2T 10-19 18:50
PROVIDERS: ADMIT Surgery Vascular Surgery; ATTEND Surgery Vascular Surgery
PROC: 3E03317 Introduction of Other Thrombolytic into Peripheral Vein, Percutaneous Approach (ICD-10-PCS; 2017-10-18)
PROC: 03W Upper Arteries, Revision (ICD-10-PCS; principal; 2017-10-18 08:00)
PROC: 03C70ZZ Extirpation of Matter from Right Brachial Artery, Open Approach (ICD-10-PCS; principal; 2017-10-18 08:00)
DX: T82.868A Thrombosis due to vascular prosthetic devices, implants and grafts, initial encounter (principal); N18.6 End stage renal disease; G93.41 Metabolic encephalopathy; I74.2 Embolism and thrombosis of arteries of the upper extremities; Z88.5 Allergy status to narcotic agent; Z88.1 Allergy status to other antibiotic agents; Z83.3 Family history of diabetes mellitus; Z82.49 Family history of ischemic heart disease and other diseases of the circulatory system; Y83.2 Surgical operation with anastomosis, bypass or graft as the cause of abnormal reaction of the patient, or of later complication, without mention of misadventure at the time of the procedure